=== PATIENT | female | born 1960 | race Caucasian/White ===

== ENCOUNTER → 2017-09-13 15:44 | Outpatient (CLI) | payer OTHER, SELFPAY ==
[2017-09-13 17:32] LABS: Absolute Lymphocyte Count 2.55 X10^3/ul (0.83-4.51); Absolute Neutrophil Count 5.1 X10^3/uL (2.0-7.7); Basophil# 0.02 X10^3/uL; Basophil% 0.2 % (0-1); Eosinophil# 0.13 X10^3/uL; Eosinophils% 1.5 % (0-5); Hematocrit 40.6 % (37-47); Lymphocyte # 2.55 X10^3/ul (4.0); Lymphocyte % 29.8 % (19-41); Mean Corpuscular Hgb 30.9 pg (27.0-32.0); Mean Corpuscular Volume 96.4 fL (81-99); Mean Platelet Vol. 9.9 fl (6.2-12.0); Monocyte# 0.76 X10^3/uL; Monocyte% 8.9 % (0-10); Neutrophil # 5.08 X10^3/uL (2.7-7.7); Neutrophil % 59.4 % (47-70); Platelet Count 314 K/mm3 (150-450); RBC Distribution Width CV 13.8 % (11.6-14.6); RBC Distribution Width SD 48.3 fl (35.1-43.9); Red Blood Count 4.21 M/mm3 (4.2-5.4); White Blood Count 8.6 K/mm3 (4.4-11.0)
[2017-09-13 17:41] LABS: POSITIVE COUNT NO; POSITIVE DIFFERENTIAL NO; POSITIVE MORPHOLOGY NO
[2017-09-13 17:59] LABS: Erythrocyte Sedimentation Rate 16 mm/hr (0-30); T3 Total - Triiodothyronine 0.76 ng/mL (0.6-1.81)
[2017-09-13 18:18] LABS: ALB/GLOB Ratio 1.1 RATIO (0.9-2.4); AST(SGOT) 19 U/L (15-37); Alanine Aminotransfer ALT/SGPT 38 U/L (13-56); Albumin, Serum 3.7 g/dL (3.2-5.0); Alkaline Phosphatase 85 U/L (45-117); Anion Gap 8 (5-15); BUN 12 mg/dL (7-18); BUN/Creat Ratio 12.4 RATIO (10-20); Calcium,Total 8.7 mg/dL (8.5-10.1); Chloride 101 mmol/L (98-107); Creatinine, Serum 0.97 mg/dL (0.55-1.02); EST Glomerular Filtration Rate 63 mL/min (>60); Est Glom Filt Rate - Afr Amer 76 mL/min (>60); Globulin 3.4 g/dL (2.2-4.2); Glucose 101 mg/dL (74-106); Potassium 3.9 mmol/L (3.5-5.1); Protein, Total 7.1 g/dL (6.4-8.2); Rheumatoid Factor < 10.0 IU/mL (<15); Sodium Level 139 mmol/L (136-145); T4 Free Direct 0.85 ng/dL (0.76-1.46); Thyroid Stim Hormone (TSH) 1.01 uIU/mL (0.358-3.74)
[2017-09-16 14:07] LABS: Anti-Centromere B Ab <0.2 AI (0.0-0.9); Anti-Chromatin <0.2 AI (0.0-0.9); Anti-Jo <0.2 AI (0.0-0.9); Anti-Scleroderma-70 AB <0.2 AI (0.0-0.9); Anti-ribosomal P Antibodies <0.2 AI (0.0-0.9); RNP Ab <0.2 AI (0.0-0.9); SJOGREN'S Anti-SS-A test < 0.2 AI (0.0-0.9); SJOGREN'S Anti-SS-B test < 0.2 AI (0.0-0.9); Smith Ab <0.2 AI (0.0-0.9); Smith/RNP Ab <0.2 AI (0.0-0.9)
[2017-09-18 11:09] LABS: CCP IgG Antibodies 3 units (0-19)
[2017-09-18 11:45] LABS: Anti-dsDNA Ab <1 IU/mL (0-9)
== END ==
PROVIDERS: Family Provider Family Medicine; PCP Family Medicine; Visit Provider Family Medicine
DX: E03.9 Hypothyroidism, unspecified (principal); M25.50 Pain in unspecified joint; M79.1 Myalgia; R53.1 Weakness
CPT/HCPCS: 36415; 80053; 84439; 84443; 84480; 85025; 85652; 86038; 86140; 86200; 86225; 86235; 86431

== ENCOUNTER → 2017-10-02 13:35 | Outpatient (CLI) | payer OTHER, SELFPAY | PROVIDERS: Family Provider Family Medicine; PCP Family Medicine; Visit Provider Psychiatry & Neurology Neurology | DX: G47.33 Obstructive sleep apnea (adult) (pediatric) (principal) | CPT/HCPCS: 98960; G0463 ==

== ENCOUNTER 2017-10-12 11:48 | Emergency (ER) | payer OTHER, SELFPAY ==
[2017-10-12 11:49] VITALS: BP 156/106; PULSE 97; RESP 17; TEMP 36.7; O2SAT 97; BMI 36.5
--- NOTE | 2017-10-12 11:59 | CT_ITS ---
STUDY: CT SOFT TISSUE NECK WITH CONTRAST REASON FOR EXAM: Female, 57 years old. Difficulty swallowing for a few months. Patient has developed lump and her swelling since . RADIATION DOSAGE (If Supplied By Facility): CTDIvol = ( 22.02 ) mGy, DLP = ( 626.89 ) mGycm TECHNIQUE: The patient was scanned in a multi-detector CT scanner. High resolution transaxial imaging was performed following intravenous administration of 100 ml of Isovue 300 contrast material. Sagittal and coronal images were reconstructed. Individualized dose optimization techniques were used for this CT. COMPARISON: None. FINDINGS: Normal bilateral parotid glands. Normal bilateral edger hand spaces. Normal bilateral parapharyngeal spaces. Normal bilateral carotid spaces. Normal bilateral sublingual and submandibular glands and spaces. Normal visualized nasopharynx. Normal retropharyngeal space. Normal perivertebral space. Normal visualized bilateral faucial tonsils. The visualized tongue, tongue base and oropharynx are normal. The visualized cervical lymph nodes (levels I-) are within normal size limits, and maintain normal morphology. There is a partially cystic lesion located in the level of the thyroid cartilage. There is predominantly in the midline. This has relatively thick cruz. This mass measures approximately 2.4 x 1.8 x 2.1 cm in size. This is probably clinically palpable. There is no additional abnormal contrast enhancement. Normal epiglottis, bilateral vallecula and hypopharynx. The pre-epiglottic and paraglottic adipose spaces are normal. Normal visualized bilateral piriform sinuses, aryepiglottic folds, vocal cords, and arytenoid-cricoid articulations. Normal subglottic trachea. Normal bilateral lobes of the thyroid gland. Normal visualized pulmonary apices. Normal visualized paranasal sinuses. 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 Normal visualized cervical spine. CT/Soft Tissue Neck WITH Contrast IMPRESSION: Mildly complex cystic lesion located just superior to the thyroid possibly representing a complex thyroglossal cyst. Associated infection is possible. Electronically Signed: Karen Drummond MD at 13:26 EDT , Service support ,
--- NOTE | 2017-10-12 12:03 | ED.DCSUM_ITS ---
- ER Visit Summary Date of Service: 10/12/17 Chief Complaint: Sore throat History of Present Illness: The patient is a 57 F resents to the emergency department with sore throat and trouble swallowing. The patient states she has been having intermittent trouble swallowing for the past few months. She does smoke but denies any history of prior malignancy. She states over the past 3 days, she has had some increasing fullness to the anterior aspect of her neck under her tongue. She states it was tender to touch yesterday. Today, she states the fullness is just been there. She describes some soreness in the throat especially with swallowing. She denies any change in voice. She denies any trouble speaking. The patient does have history of prior thyroglossal duct cyst, but states this feels different. Physical Examination: Vital signs reviewed General: Well-nourished, well-developed Head: Normocephalic, atraumatic Eyes: Pupils equal and reactive, extraocular muscles intact Neck, supple, fullness in the submandibular region, no Ty angina, no trismus or stridor, posterior oropharynx is widely patent Heart: Regular rate and rhythm Respiratory: No distress, clear bilaterally Abdomen: Soft, nontender, nondistended, no peritoneal signs Back: Nontender Extremities: Nontender, no edema, no cords Skin: Normal color no rash Neuro: Alert and oriented, no focal or lateralizing deficits Test Results: [] Emergency Department Course and Treatment: The patient does have some tenderness and fullness in the submandibular region. There is no trismus or stridor. I did review a prior workup. 4 years ago, the patient did have a small cystic mass that was consistent with a thyroglossal duct cyst. I did reimage the patient. It does appear as if the cyst has grown in size. It is still less than doubled. There is no evidence of airway impingement. However, as it is symptomatic I do feel that she is going to require outpatient ENT follow-up. With the tenderness at the area, I will cover the patient with Augmentin. She has no cellulitis. There is no tracking abscess. She has seen Dr. Craig in the past. I am going to have her call on Saturday for reevaluation. She is given a dose of IV Decadron here and will be discharged with Augmentin. Treatment Plan: [] Disposition: Discharge Impression: 1. Complex thyroglossal duct cyst This note was generated with [employer] dictation software. It may contain incorrect words, spelling, and punctuation that were not noted in review of the chart prior to signing ED Disposition - Plan for ED Patient: Chief Complaint: Sore Throat Instructions: ED Pharyngitis Viral Prescriptions: Amox/Clavulanate Tablet [Augmentin Tablet] 875 mg PO Q12H #20 tab Referrals: All Guy MD [STAFF PHYSICIAN] -
[2017-10-12 12:18] LABS: Absolute Lymphocyte Count 2.17 X10^3/ul (0.83-4.51); Absolute Neutrophil Count 5.9 X10^3/uL (2.0-7.7); Basophil# 0.03 X10^3/uL; Basophil% 0.3 % (0-1); Eosinophil# 0.19 X10^3/uL; Eosinophils% 2.1 % (0-5); Hematocrit 43.2 % (37-47); Hemoglobin 14.3 g/dl (12.0-15.0); Lymphocyte # 2.17 X10^3/ul (4.0); Lymphocyte % 23.8 % (19-41); Mean Corp Hgb Conc 33.1 g/gl (32-36); Mean Corpuscular Hgb 31.6 pg (27.0-32.0); Mean Corpuscular Volume 95.4 fL (81-99); Mean Platelet Vol. 9.2 fl (6.2-12.0); Monocyte# 0.81 X10^3/uL; Monocyte% 8.9 % (0-10); Neutrophil # 5.87 X10^3/uL (2.7-7.7); Neutrophil % 64.6 % (47-70); Platelet Count 339 K/mm3 (150-450); Red Blood Count 4.53 M/mm3 (4.2-5.4); White Blood Count 9.1 K/mm3 (4.4-11.0)
[2017-10-12 12:20] LABS: POSITIVE COUNT NO; POSITIVE DIFFERENTIAL NO; POSITIVE MORPHOLOGY NO
[2017-10-12 12:31] LABS: Anion Gap 5 (5-15); BUN 15 mg/dL (7-18); BUN/Creat Ratio 15.4 RATIO (10-20); Calcium,Total 9.4 mg/dL (8.5-10.1); Chloride 106 mmol/L (98-107); Creatinine, Serum 0.98 mg/dL (0.55-1.02); EST Glomerular Filtration Rate 62 mL/min (>60); Est Glom Filt Rate - Afr Amer 75 mL/min (>60); Estimated Creatinine Clearance 47.22 ml/min; Glucose 99 mg/dL (74-106); Sodium Level 141 mmol/L (136-145)
[2017-10-12 13:57] VITALS: PULSE 103; RESP 16; O2SAT 98
== END 2017-10-12 13:58 | disposition home or self-care (01) ==
LOC: ED 13:01
PROVIDERS: Emergency Provider Emergency Medicine; Family Provider Family Medicine; PCP Family Medicine
DX: Q89.2 Congenital malformations of other endocrine glands (principal); F17.200 Nicotine dependence, unspecified, uncomplicated; Z79.82 Long term (current) use of aspirin; Z79.899 Other long term (current) drug therapy
CPT/HCPCS: 70491; 80048; 85025; 96361; 96374; 99285; J7030; J7040; Q9967; A4216

== ENCOUNTER → 2017-10-16 16:05 | Outpatient (CLI) | payer OTHER, SELFPAY ==
--- NOTE | 2017-10-16 16:18 | BI_ITS ---
MAMMOGRAPHY - BILATERAL SCREENING 3-D MOHAN SYNTHESIS REASON FOR EXAM: Female, 57 years old. Bilateral Screening 3-D tomosynthesis PERTINENT HISTORY: No significant family history. TECHNIQUE: 2-D mammograms and 3-D Mohan synthesis of the breast (s) were performed. CAD was performed. COMPARISON: April 16, 2016. FINDINGS: The breast composition is composed of scattered fibroglandular density. No dense spiculated masses or suspicious clustered microcalcifications are identified. No architectural distortion is identified. There is no skin thickening or retraction. There has been no significant change since the prior study. BI/SCREENING MAMM (CAD), BILAT IMPRESSION: No mammographic signs of malignancy. Routine yearly mammograms recommended. ASSESSMENT CATEGORY: BIRADS Category 1: Negative. A letter regarding these results will be sent to the patient by the facility within 30 days. FOLLOW UP RECOMMENDATION: Yearly follow up mammogram recommended. (A) Approximately 10% of breast cancers are not detected by mammography. A normal mammogram should not delay biopsy of a clinically suspicious abnormality. Electronically Signed: Luisito Rajput MD at 7:59 EDT , Service support ,
== END ==
PROVIDERS: Family Provider Family Medicine; PCP Family Medicine; Visit Provider Family Medicine
DX: Z12.31 Encounter for screening mammogram for malignant neoplasm of breast (principal)
CPT/HCPCS: 77063; 77067

== ENCOUNTER → 2017-11-06 16:17 | Outpatient (CLI) | payer OTHER, SELFPAY ==
[2017-11-06 17:49] LABS: Absolute Lymphocyte Count 2.49 X10^3/ul (0.83-4.51); Absolute Neutrophil Count 4.2 X10^3/uL (2.0-7.7); Basophil# 0.03 X10^3/uL; Basophil% 0.4 % (0-1); Eosinophil# 0.18 X10^3/uL; Eosinophils% 2.3 % (0-5); Hematocrit 39.6 % (37-47); Hemoglobin 13.2 g/dl (12.0-15.0); Lymphocyte # 2.49 X10^3/ul (4.0); Lymphocyte % 32.4 % (19-41); Mean Corp Hgb Conc 33.3 g/gl (32-36); Mean Corpuscular Hgb 31.9 pg (27.0-32.0); Mean Corpuscular Volume 95.7 fL (81-99); Mean Platelet Vol. 9.8 fl (6.2-12.0); Monocyte# 0.82 X10^3/uL; Monocyte% 10.7 % (0-10); Neutrophil # 4.15 X10^3/uL (2.7-7.7); Neutrophil % 53.9 % (47-70); Platelet Count 331 K/mm3 (150-450); RBC Distribution Width CV 13.9 % (11.6-14.6); RBC Distribution Width SD 47.1 fl (35.1-43.9); Red Blood Count 4.14 M/mm3 (4.2-5.4); White Blood Count 7.7 K/mm3 (4.4-11.0)
[2017-11-06 17:52] LABS: POSITIVE COUNT NO; POSITIVE DIFFERENTIAL NO; POSITIVE MORPHOLOGY NO
[2017-11-06 18:44] LABS: AST(SGOT) 29 U/L (15-37); Alanine Aminotransfer ALT/SGPT 33 U/L (13-56); Albumin, Serum 3.8 g/dL (3.2-5.0); Alkaline Phosphatase 98 U/L (45-117); Bilirubin, Direct 0.11 mg/dL (0.00-0.30); Globulin 3.5 g/dL (2.2-4.2); Protein, Total 7.3 g/dL (6.4-8.2)
== END ==
PROVIDERS: Family Provider Family Medicine; PCP Family Medicine; Visit Provider Dermatology
DX: Z79.899 Other long term (current) drug therapy (principal)
CPT/HCPCS: 36415; 80076; 85025

== ENCOUNTER → 2017-11-20 16:31 | Outpatient (CLI) | payer OTHER, SELFPAY ==
--- NOTE | 2017-11-20 16:55 | EKG12_ITS ---
Test Reason : PREOP Blood Pressure : / mmHG Vent. Rate : 081 BPM Atrial Rate : 081 BPM P-R Int : 128 ms QRS Dur : 082 ms QT Int : 360 ms P-R-T Axes : 030 -41 061 degrees QTc Int : 418 ms Normal sinus rhythm Possible Left atrial enlargement Left axis deviation , LAHB Left ventricular hypertrophy Abnormal ECG Confirmed by TING BREWER ([id number]), digital editor ADRIANNA DUMONT ([id number]) on 12/02/2017 5:47:59 PM Referred By: Dean Muñoz Confirmed By:TING BREWER
[2017-11-20 17:38] LABS: Anion Gap 9 (5-15); BUN 8 mg/dL (7-18); Calcium,Total 8.8 mg/dL (8.5-10.1); Chloride 104 mmol/L (98-107); EST Glomerular Filtration Rate 61 mL/min (>60); Est Glom Filt Rate - Afr Amer 74 mL/min (>60); Glucose 115 mg/dL (74-106); Potassium 3.6 mmol/L (3.5-5.1); Sodium Level 142 mmol/L (136-145)
== END ==
PROVIDERS: Family Provider Family Medicine; PCP Family Medicine; Visit Provider Otolaryngology
DX: Z01.818 Encounter for other preprocedural examination (principal)
CPT/HCPCS: 36415; 80048; 93005

== ENCOUNTER → 2017-11-26 13:00 | Outpatient (CLI) | payer OTHER, SELFPAY ==
--- NOTE | 2017-11-26 | IMM_PTH ---
PATIENT: KRANTHI PARKER LOC: [facility] U#:[id number] AGE/SX: 64/F ROOM: RE11/26/[address]: Dr. Arie Muñoz MD : 1960 BED: DIS: SPEC #: [id number] RECD: 12/02/17 11:25 STATUS: DINA REIraida #: [id number] YOBANY: 11/26/17 00:[address]: Arie Muñoz DEPT: IMMUNOHISTOCHEMISTRY RECD BY: Ely Eugene ENTERED: 12/02/17 11:26 SP TYPE: IMMUNO OTHR DR: Dr. Juany Jacob DO Tissues: Neck, NOS Procedures: CD20 (add) CD45 (add) CD5 (add) CD79A (add) CD3 (initial) PHYSICIAN & INSTITUTION [place] [id number] SPECIMEN INFORMATION: Tissue Source: Neck cyst Clinical Info: Congenital malformation endocrine glands, thyroglossal duct cyst Specimen Number: [id number] #3 CPT code: 82295, 95395 x4 METHODOLOGY: Deparaffinized sections of prefer/formalin-fixed tissue or PAP/DQ stained slides are incubated with monoclonal/polyclonal antibodies/oligonucleotide probes. Localization is made via biotin free immunoperoxidase method. Appropriate controls are performed and reacted as expected. Results on target cell population are indicated in the following table: RESULTS: ANTIBODY / CLONE RESULT Block 3 CD3 (PS1) positive CD5 (SP10) positive CD20 (L26) positive CD79a (11E3) positive CD45 (RP2/18) positive These tests were developed and their performance characteristics determined by [facility]. They may not have been cleared or approved by the U.S. Food and Drug Administration. The FDA has determined that such clearance or approval is not necessary. INTERPRETATION: Neck cyst: Bone with hematopoietic marrow and lymphoid aggregates polytypic in nature, favor benign. SJ:malini 12/03/17 Case has been reviewed in consultation with Dr. Vargas who concurs with the above diagnosis. IDC:AM
--- NOTE | 2017-11-26 13:00 | CYST_PTH ---
PATIENT: KRANTHI PARKER LOC: [facility] U#:[id number] AGE/SX: 64/F ROOM: RE11/26/[address]: Dr. Arie Muñoz MD : 1960 BED: DIS: SPEC #: [id number] RECD: 11/26/17 15:24 STATUS: DINA JANESSA #: [id number] YOBANY: 11/26/17 13:[address]: Arie Muñoz DEPT: SURGICAL PATHOLOGY RECD BY: Jonah Garnett ENTERED: 12/02/17 04:32 SP TYPE: Cyst OTHR DR: Dr. Juany Jacob, [facility] Tissues: CYST Procedures: Decalcification bone/plaque Surgery Specimen Level III HEADER OPERATION: Roya PRE-OP DIAGNOSIS: Congenital malformation of other endocrine glands, thyroglossal duct cyst TISSUE SUBMITTED: Neck cyst MICROSCOPIC DIAGNOSIS Neck cyst: Thyroglossal duct cyst. Adjacent bone and additional pieces of bone with hematopoietic marrow and lymphoid aggregates, favor benign. KE:malini 12/02/17 COMMENT Immunohistochemistry ([id number]) supports the above diagnosis. This case has been reviewed in consultation with Dr. Vargas who concurs with the above diagnosis. MICROSCOPIC DESCRIPTION Slides are reviewed. GROSS DESCRIPTION Received in fixative is one container labeled with the patient's name and designated neck cyst. The specimen consists of a cyst with adjacent bone measuring 2.5 x 2.5 x 2 cm. It is inked and serially sectioned. The cyst contains turbid mucoid material. Also present are two fragments of bone measuring 0.5 x 0.5 x 0.2 cm. The entire specimen is submitted in three cassettes as follows: 1 & 2 ? cyst, 3 ? bone after decalcification. / KE:malini 11/26/17 TC: CPT: 58644, 07161
--- NOTE | 2017-11-26 13:00 | DT_ITS ---
This patient was seen during an EMR downtime November 25, 2017 - December 02, 2017. This patient may have a combination of paper and electronic documentation or all paper documentation. All documentation is viewable within the e-chart portion of [employer] for each patient visit.
== END ==
PROVIDERS: Family Provider Family Medicine; PCP Family Medicine; Visit Provider Otolaryngology
DX: Q89.2 Congenital malformations of other endocrine glands (principal)
CPT/HCPCS: 88304; 88311; 88341; 88342

== ENCOUNTER 2017-12-11 07:29 | Emergency (ER) | payer OTHER, SELFPAY ==
[2017-12-11 07:30] VITALS: BP 179/97; PULSE 87; RESP 16; TEMP 36.5; O2SAT 94; BMI 38.2
--- NOTE | 2017-12-11 09:10 | ED.DCSUM_ITS ---
- ER Visit Summary Date of Service: 12/11/17 Chief Complaint: Abdominal pain History of Present Illness: The patient is a [address] Jacob. She reports at 130 this morning she was awakened by of abdominal pain that was diffuse. It is now localized to her upper abdomen. Is a continuous waxing and waning pain that she describes as cramping. It is 10 out of 10 at worst and 7 out of 10 currently. Is worsened by nothing and relieved by nothing. She reports that she has been nauseated and vomited approximately 12 times. No blood or emesis. No diarrhea. She has had a loose bowel movement this morning. No blood in her stools or black tarry stools. No dysuria or frequency. Patient reports she had similar pain when she had an appendectomy in 2013. She does complain of both a history of this fatty and spicy food intolerance. States that she last ate approximately 4-1/2 hours prior to this and had a glass of milk and Oreos. Patient was on an unknown antibiotic approximately November 26 after having a partial thyroidectomy by Dr. Muñoz. Patient denies sick contacts. Has not been camping out of the country. No possible bad food exposure. Does not drink well water. Physical Examination: Vitals: Stable. Afebrile. General: Well-nourished and well-developed. Head: Normocephalic atraumatic. Neck: Supple, no lymphadenopathy. No JVD. Nontender. Cardiovascular: Regular rate and rhythm. No murmurs. Respiratory: No respiratory distress. Clear to auscultation bilaterally. Abdominal: Soft, mild diffuse tenderness palpation that is worse over her upper abdomen and moderate in the epigastric region, nondistended, normal bowel sounds. No guarding, rebound, or peritoneal signs. Back: Nontender. Extremities: Nontender, no edema. Skin: Normal color, no rash. Neurologic: Alert and oriented ?3. Cranial nerves II through XII are intact. Normal strength and sensation. Psych: Normal affect. Test Results: CBC is remarkable for a white count of 19.4 with 89 segmented neutrophils and 5 lymphocytes. Hemoglobin is 15.1. Chem-7 is more for glucose of 141. LFTs are normal. Lipase is normal. UA is normal. Ultrasound of the right upper quadrant shows a normal distended gallbladder with a 3 mm wall. Common bile duct is 4 mm. There is a 4 mm polyp and sludge. No Burt sign. No pericholecystic fluid. Emergency Department Course and Treatment: Patient received Zofran by squad reports that her nausea has improved. She was given a dose of morphine IV and is resting comfortably. Treatment Plan: Discussed the patient the finding of her gallbladder ultrasound and she is asking to follow-up with Dr. Moreno who is not on-call at this time. She will be discharged with [place] and Zofran. I suspect her leukocytosis is demargination from vomiting. She has no other signs of cholecystitis. Feel that she is a suitable candidate for out patient follow- up. Return to the emergency department for any worsening symptoms. Disposition: To home in improved and stable condition. Impression: 1. Abdominal pain, uncertain cause. 2. Vomiting. 3. Biliary sludge. 4. Gallbladder polyp. This note was generated with [employer] dictation software. It may contain incorrect words, spelling, and punctuation that were not noted in review of the chart prior to signing ED Disposition - Plan for ED Patient: Chief Complaint: Nausea/Vomiting/Diarrhea Instructions: ED Nausea Vomiting Prescriptions: Oxycodone HCl/Acetaminophen [Percocet 5/325] 1 tablet PO Q6H PRN PRN 3 Days #12 tablet PRN Reason: Pain Ondansetron [Zofran Odt] 4 mg PO Q8H PRN PRN #10 tablet PRN Reason: Nausea Referrals: Juany Jacob DO [Primary Care Provider] - 1-2 Days if not improving Pablo Moreno MD [STAFF PHYSICIAN] -
[2017-12-11 09:11] LABS: Absolute Lymphocyte Count 0.96 X10^3/ul (0.83-4.51); Absolute Neutrophil Count 17.2 X10^3/uL (2.0-7.7); Basophil# 0.04 X10^3/uL; Basophil% 0.2 % (0-1); Eosinophil# 0.09 X10^3/uL; Eosinophils% 0.5 % (0-5); Hematocrit 45.4 % (37-47); Hemoglobin 15.1 g/dl (12.0-15.0); Lymphocyte # 0.96 X10^3/ul (4.0); Lymphocyte % 4.9 % (19-41); Mean Corp Hgb Conc 33.3 g/gl (32-36); Mean Corpuscular Hgb 31.9 pg (27.0-32.0); Mean Platelet Vol. 9.1 fl (6.2-12.0); Monocyte# 1.06 X10^3/uL; Monocyte% 5.5 % (0-10); Neutrophil # 17.22 X10^3/uL (2.7-7.7); Neutrophil % 88.6 % (47-70); Platelet Count 344 K/mm3 (150-450); RBC Distribution Width CV 13.4 % (11.6-14.6); RBC Distribution Width SD 46.1 fl (35.1-43.9); Red Blood Count 4.73 M/mm3 (4.2-5.4); White Blood Count 19.4 K/mm3 (4.4-11.0)
[2017-12-11 09:12] LABS: POSITIVE COUNT NO; POSITIVE DIFFERENTIAL NO; POSITIVE MORPHOLOGY NO
[2017-12-11] MEDS: Morphine 4 MG/ML Syringe IV ×2 (09:12→12:23)
[2017-12-11] MEDS: 0.9% Normal Saline 1,000 ML 1000 ML IV (09:12)
--- NOTE | 2017-12-11 09:12 | US_ITS ---
STUDY: ABDOMINAL ULTRASOUND - RIGHT UPPER QUADRANT REASON FOR VISIT: Female, 57 years old. Abnormal labs TECHNIQUE: Ultrasound evaluation of the right upper quadrant was performed with real-time and static pereira-scale imaging. TECHNICAL QUALITY: Limited. Examination limited due to obesity. COMPARISON: None. FINDINGS: Liver: The liver measures 13.5 cm. There is increased echogenicity consistent with fatty infiltration. The bile ducts are within normal limits. There is hepatic color flow. The direction of portal flow is hepatopetal. There is no demonstrated mass lesion. Gallbladder: Normal distended gallbladder. The gallbladder wall measures 3 mm. There is a negative sonographic Burt's sign. There is no pericholecystic fluid. There is biliary sludge dependent within the gallbladder. Small gallbladder polyp measuring 4 mm. Common Bile Duct (C.B.D.): The common bile duct measures 4 mm. Pancreas: Normal size of the head, body and tail of the pancreas. There is normal echogenicity of the pancreas. There is no demonstrated pancreatic mass or cyst. Right Kidney: Normal size of the right kidney. The right kidney measures 9.1 cm. Normal renal cortex. The right cortex measures 1.2 cm. There is no demonstrated renal mass or cyst. There is no right hydronephrosis. US/Gallbladder IMPRESSION: Gallbladder sludge with small gallbladder polyp. Mildly fatty liver. Electronically Signed: Adolfo Ledezma DO at 11:28 EDT Tel , Service support ,
[2017-12-11 09:32] LABS: AST(SGOT) 31 U/L (15-37); Alanine Aminotransfer ALT/SGPT 56 U/L (13-56); Albumin, Serum 3.8 g/dL (3.2-5.0); Alkaline Phosphatase 107 U/L (45-117); Anion Gap 5 (5-15); BUN 12 mg/dL (7-18); BUN/Creat Ratio 12.3 RATIO (10-20); Bilirubin, Direct 0.08 mg/dL (0.00-0.30); Calcium,Total 9.3 mg/dL (8.5-10.1); Chloride 103 mmol/L (98-107); Creatinine, Serum 0.97 mg/dL (0.55-1.02); EST Glomerular Filtration Rate 63 mL/min (>60); Est Glom Filt Rate - Afr Amer 76 mL/min (>60); Glucose 141 mg/dL (74-106); Lipase 134 U/L (73-393); Potassium 4.4 mmol/L (3.5-5.1); Protein, Total 7.8 g/dL (6.4-8.2); Sodium Level 139 mmol/L (136-145)
[2017-12-11 10:18] VITALS: BP 198/102; PULSE 89; RESP 16; TEMP 36.7; O2SAT 97
[2017-12-11 10:20] LABS: Bacteria 0 SEEN /hpf (None Seen); Mucous, Urine 0 SEEN /hpf (<or=2+); Red Blood Cells-Urine 0 SEEN /hpf (0-5); White Blood Cells 0 SEEN /hpf (0-5)
[2017-12-11 10:30] LABS: Color, Urine Yellow (Yellow); Glucose, Dipstick Normal (Normal); Ketone-Dipstick Negative (Negative); Leukocyte Esterase-Dipstick Negative /ul (Negative); Nitrite-Dipstick Negative (Negative); Occult Blood-Urine Negative /ul (Negative); Protein-Dipstick Negative (Negative); Urine Bilirubin Dipstick Negative (Negative); Urine Clarity Clear (Clear); Urine Urobilinogen Normal (Normal)
[2017-12-11 10:37] LABS: Squamous Epithelial Cells - UA 0-5 SEEN /hpf (5-10)
[2017-12-11] MEDS: Ondansetron 4 MG/2 ML Vial IV (12:22)
[2017-12-11 12:28] VITALS: BP 145/92; PULSE 103; RESP 16; RESP 18; O2SAT 92
== END 2017-12-11 12:29 | disposition home or self-care (01) ==
PROVIDERS: Emergency Provider Emergency Medicine; Family Provider Family Medicine; PCP Family Medicine
DX: R10.10 Upper abdominal pain, unspecified (principal); R11.2 Nausea with vomiting, unspecified; K82.4 Cholesterolosis of gallbladder; E03.9 Hypothyroidism, unspecified; R51 Headache; M79.7 Fibromyalgia; G47.33 Obstructive sleep apnea (adult) (pediatric); Z72.0 Tobacco use; Z79.82 Long term (current) use of aspirin; Z79.899 Other long term (current) drug therapy
CPT/HCPCS: 76705; 80048; 80076; 81001; 83690; 85025; 96361; 96374; 96375; 96376; 99285; A4216; J2405

== ENCOUNTER → 2017-12-12 14:19 | Outpatient (CLI) | payer OTHER, SELFPAY ==
[2017-12-12 15:58] LABS: Absolute Lymphocyte Count 2.64 X10^3/ul (0.83-4.51); Absolute Neutrophil Count 3.8 X10^3/uL (2.0-7.7); Basophil# 0.02 X10^3/uL; Basophil% 0.3 % (0-1); Eosinophil# 0.25 X10^3/uL; Eosinophils% 3.3 % (0-5); Hematocrit 40.2 % (37-47); Hemoglobin 13.1 g/dl (12.0-15.0); Lymphocyte # 2.64 X10^3/ul (4.0); Lymphocyte % 35.2 % (19-41); Mean Corp Hgb Conc 32.6 g/gl (32-36); Mean Corpuscular Hgb 31.9 pg (27.0-32.0); Mean Corpuscular Volume 97.8 fL (81-99); Mean Platelet Vol. 9.8 fl (6.2-12.0); Monocyte# 0.77 X10^3/uL; Monocyte% 10.3 % (0-10); Neutrophil # 3.81 X10^3/uL (2.7-7.7); Neutrophil % 50.6 % (47-70); Platelet Count 305 K/mm3 (150-450); RBC Distribution Width CV 13.2 % (11.6-14.6); RBC Distribution Width SD 46.3 fl (35.1-43.9); Red Blood Count 4.11 M/mm3 (4.2-5.4); White Blood Count 7.5 K/mm3 (4.4-11.0)
[2017-12-12 16:13] LABS: POSITIVE COUNT NO; POSITIVE DIFFERENTIAL NO; POSITIVE MORPHOLOGY NO
== END ==
PROVIDERS: Family Provider Family Medicine; PCP Family Medicine; Visit Provider Surgery
DX: D72.829 Elevated white blood cell count, unspecified (principal)
CPT/HCPCS: 36415; 85025

== ENCOUNTER → 2017-12-17 10:09 | Outpatient (CLI) | payer OTHER, SELFPAY ==
--- NOTE | 2017-12-17 10:11 | NM_ITS ---
CLINICAL: 57-year-old female with reported history of right upper quadrant abdominal pain and nausea. RADIONUCLIDE HEPATOBILIARY SCINTIGRAPHY COMPARISON: Abdominal ultrasound report 12/19/2017 FINDINGS: Following the intravenous administration of 5.8 mCi of 99m Tc Mebrofenin, hepatobiliary images reveal: 1. Relatively prompt and homogeneous radiopharmaceutical concentration is noted by a normal sized liver. No parenchymal defects are identified. 2. Gallbladder activity is identified at 30 minutes post radiopharmaceutical administration. 3. Small intestinal tract is observed at 15 minutes following tracer injection. 4. Washout of the radiopharmaceutical by the hepatic parenchyma appears qualitatively normal. Cholecystokinin (0.02 ug/kg) was administered intravenously over a 30-minute period. The post CCK gallbladder ejection fraction calculated at 30 minutes following Cholecystokinin administration was noted to be 48.0 % (normal greater than 35%). During 30 minutes of post CCK imaging, there is no scintigraphic evidence of reflux of the radiotracer into the common hepatic duct or refilling of the gallbladder. MN/Hepatobilliary Img w/Pharm Int IMPRESSION: 1. NORMAL 99m Tc Mebrofenin hepatobiliary imaging examination with Cholecystokinin. A. A gallbladder ejection fraction calculated to be greater than 35% following the administration of Cholecystokinin makes the probability of functional hepatobiliary disease (gallbladder and/or sphincter of Oddi dyskinesia) and/or organic hepatobiliary disease (chronic acalculous cholecystitis and/or cystic duct syndrome) to be low. (Char Meier et al, Journal of Nuclear Medicine 32:1695, 1990). Electronically Signed: Jonah Clark DO at 10:32 EDT Tel , Service support ,
== END ==
PROVIDERS: Family Provider Family Medicine; PCP Family Medicine; Visit Provider Surgery
DX: R10.13 Epigastric pain (principal); R10.11 Right upper quadrant pain
CPT/HCPCS: 78227; A9537; J2805

== ENCOUNTER 2018-01-02 08:12 | Day surgery (SDC) | payer OTHER, SELFPAY ==
--- NOTE | 2018-01-02 | GASB_PTH ---
PATIENT: KRANTHI PARKER LOC: EN U#:[id number] AGE/SX: 57/F ROOM: RE01/02/[address]: Dr. Yarelis Cali MD : 1960 BED: DIS: 01/02/2018 SPEC #: [id number] RECD: 01/02/18 14:17 STATUS: DINA JANESSA #: [id number] YOBANY: 01/02/18 00:[address]: Yarelis Cali DEPT: SURGICAL PATHOLOGY RECD BY: Alli Peterson ENTERED: 01/02/18 14:18 SP TYPE: Gastric Bx OTHR DR: Dr. Juany Jacob DO Tissues: A - Gastric mucous membrane B - Gastric mucous membrane C - Gastric mucous membrane Procedures: Special Stain Group II Surgery Specimen Level IV Alcian Blue/PAS (control) HEADER OPERATION: EGD PRE-OP DIAGNOSIS: Reflux, epigastric pain TISSUE SUBMITTED: A ? Antral biopsy, B ? Gastric polyp biopsy, C ? GE junction biopsy MICROSCOPIC DIAGNOSIS A. Antral biopsy: Mild gastritis. See microscopic description and comment. B. Gastric polyp, biopsy: Fundic gland polyp. C. GE junction, biopsy: Fragments of gastroesophageal mucosa with chronic inflammation. Intestinal metaplasia (goblet cell metaplasia) is not identified. See comment. SJ:rg 01/03/18 COMMENT A. The results of immunohistochemistry for Helicobacter pylori will be reported separately ([id number]). B. Alcian blue/PAS stain with matched control is used in the evaluation of the specimen. MICROSCOPIC DESCRIPTION Slides are reviewed. A. The specimen shows fragments of gastric mucosa with chronic inflammatory cell infiltrates in the lamina propria consisting of lymphocytes and plasma cells, consistent with mild chronic gastritis. GROSS DESCRIPTION A - Received in fixative is one container labeled with the patient's name and designated antral biopsy. The specimen consists of two irregular fragments of light machado soft tissue that in aggregate measure 0.3 x 0.3 x 0.1 cm. The specimen is totally submitted in one cassette. B - Received in fixative is one container labeled with the patient's name and designated gastric polyp biopsy. The specimen consists of one irregular fragment of light machado soft tissue that measures 0.3 x 0.3 x 0.1 cm. The specimen is totally submitted in one cassette. C - Received in fixative is one container labeled with the patient's name and designated GE junction biopsy. The specimen consists of two irregular fragments of light machado soft tissue that in aggregate measure 0.6 x 0.3 x 0.1 cm. The specimen is totally submitted in one cassette. / SJ:malini 01/02/18 TC: CPT: 08933 x3, 92058
--- NOTE | 2018-01-02 | IMM_PTH ---
PATIENT: KRANTHI PARKER LOC: EN U#:[id number] AGE/SX: 57/F ROOM: RE01/02/[address]: Dr. Yarelis Cali MD : 1960 BED: DIS: 01/02/2018 SPEC #: [id number] RECD: 01/03/18 13:13 STATUS: DINA REIraida #: [id number] YOBANY: 01/02/18 00:[address]: Yarelis Cali DEPT: IMMUNOHISTOCHEMISTRY RECD BY: Ely Eugene ENTERED: 01/03/18 13:14 SP TYPE: IMMUNO OTHR DR: Dr. Juany Jacob DO Tissues: A - Stomach, NOS Procedures: H Pylori (initial) PHYSICIAN & INSTITUTION [place] [id number] SPECIMEN INFORMATION: Tissue Source: A ? Antral biopsy Clinical Info: Reflux, epigastric pain Specimen Number: [id number] CPT code: 21947 METHODOLOGY: Deparaffinized sections of prefer/formalin-fixed tissue or PAP/DQ stained slides are incubated with monoclonal/polyclonal antibodies/oligonucleotide probes. Localization is made via biotin free immunoperoxidase method. Appropriate controls are performed and reacted as expected. Results on target cell population are indicated in the following table: RESULTS: ANTIBODY / CLONE RESULT Block A H Pylori (polyclonal) negative These tests were developed and their performance characteristics determined by [facility]. They may not have been cleared or approved by the U.S. Food and Drug Administration. The FDA has determined that such clearance or approval is not necessary. INTERPRETATION: A. Antral biopsy: Negative for Helicobacter pylori organisms. SJ:malini 01/06/18
[2018-01-02 08:37] VITALS: BP 147/93; PULSE 85; RESP 16; TEMP 36.9; O2SAT 99; BMI 36.6
[2018-01-02 10:32] VITALS: BP 134/75; BP 147/93; PULSE 77; RESP 18; TEMP 36.3; O2SAT 98
[2018-01-02 10:35] VITALS: BP 126/73; BP 147/93; PULSE 77; RESP 18; O2SAT 97
[2018-01-02 10:40] VITALS: BP 130/73; BP 147/93; PULSE 69; RESP 18; O2SAT 98
--- NOTE | 2018-01-02 10:43 | PCM.OPRPT ---
Report of Operation Date of Procedure: 01/02/18 Pre-Operative Diagnosis: GERD, left upper quadrant/epigastric/right upper quadrant pain Post-Operative Diagnosis: GERD/gastritis, duodenitis, gastric polyps, hiatal hernia Surgery/Procedure Performed:: EGD with biopsy Type of Anesthesia:: MAC Anesthesiologist: Davis Koroma Specimen's removed: 1. Antrum, 2. Gastric polyp, 3. GE junction Estimated Blood Loss (mL): Minimal Description of Procedure: Procedure: EGD After obtaining informed consent, the endoscope was passed under direct visualization. Throughout the procedure, patient's blood pressure, pulse, oxygen saturations were monitored continuously by anesthesia. The endoscope was introduced through the mouth and advanced to the 2nd part of the duodenum. The upper GI endoscopy was accomplished without difficulty. Patient tolerated procedure well. Findings: Small hiatal hernia was present. Mild erythematous mucosa found gastric antrum, cold forceps biopsies were taken of the antrum for histology and H. pylori, multiple gastric polyps likely fundic gland polyps were also seen and cold forceps biopsy was taken of one. Patient also had mucosal changes with small column of mucosal change extending into the distal esophagus about a centimeter, cold forceps biopsies were taken of the area. Biopsies were taken with cold biopsy for histology. Estimated blood loss was minimal. Mild erythematous mucosa was also seen in the first portion of the duodenum. Impression: 1. Small hiatal hernia 2. Gastritis. Biopsied. 3. Gastric polyp. Biopsied 4. Duodenitis 5. Change of mucosa at the GE junction/GERD. Biopsied Recommendations: Await biopsies Patient was previously taking omeprazole 20 mg p.o. twice daily and still has evidence of gastritis/duodenitis recommend patient going back on her Nexium okay for generic 40 mg p.o. twice daily and continuing the Carafate until it is completed. - Complications None
[2018-01-02 10:45] VITALS: BP 143/75; BP 147/93; PULSE 71; RESP 18; TEMP 36.4; O2SAT 96
[2018-01-02 11:27] VITALS: BP 147/93
== END 2018-01-02 11:31 | disposition home or self-care (01) ==
LOC: EN 08:12 → AC 08:14
PROVIDERS: Family Provider Family Medicine; PCP Family Medicine; Visit Provider Surgery
PROC: 0DJ08ZZ Inspection of Upper Intestinal Tract, Via Natural or Artificial Opening Endoscopic (ICD-10-PCS; CPT 43235; principal; 2018-01-02 09:25)
DX: K29.70 Gastritis, unspecified, without bleeding (principal); K44.9 Diaphragmatic hernia without obstruction or gangrene; K31.7 Polyp of stomach and duodenum; K29.80 Duodenitis without bleeding; K20.9 Esophagitis, unspecified; K82.8 Other specified diseases of gallbladder; E03.9 Hypothyroidism, unspecified; E78.00 Pure hypercholesterolemia, unspecified; G47.30 Sleep apnea, unspecified; G25.81 Restless legs syndrome; F32.9 Major depressive disorder, single episode, unspecified; F17.200 Nicotine dependence, unspecified, uncomplicated; Z78.0 Asymptomatic menopausal state; Z79.82 Long term (current) use of aspirin; Z79.899 Other long term (current) drug therapy; Z90.710 Acquired absence of both cervix and uterus
CPT/HCPCS: 43239; 88305; 88313; 88342; J7120

== ENCOUNTER → 2018-01-09 15:58 | Outpatient (CLI) | payer OTHER, SELFPAY ==
[2018-01-09 17:54] LABS: T4 Free Direct 0.75 ng/dL (0.76-1.46); Thyroid Stim Hormone (TSH) 1.02 uIU/mL (0.358-3.74)
[2018-01-10 08:27] LABS: T3 Total - Triiodothyronine 0.91 ng/mL (0.6-1.81)
== END ==
PROVIDERS: Visit Provider Family Medicine
DX: E03.9 Hypothyroidism, unspecified (principal)
CPT/HCPCS: 36415; 84439; 84443; 84480

== ENCOUNTER 2018-01-13 07:40 | Day surgery (SDC) | payer OTHER, SELFPAY ==
[2018-01-10 16:28] LABS: AST(SGOT) 32 U/L (15-37); Alanine Aminotransfer ALT/SGPT 45 U/L (13-56); Albumin, Serum 3.5 g/dL (3.2-5.0); Alkaline Phosphatase 101 U/L (45-117); Bilirubin, Direct 0.06 mg/dL (0.00-0.30); Globulin 3.5 g/dL (2.2-4.2); Lipase 138 U/L (73-393)
[2018-01-13] VITALS (9 sets, daily range): BP systolic 122–182; BP diastolic 63–103; PULSE 73–86; RESP 16; TEMP 36.3–36.8; O2SAT 92–100; BMI 36.6
--- NOTE | 2018-01-13 09:23 | DCINST_ITS ---
Discharge Diet: Light diet - advance as tolerated Discharge Activity: May not drive while taking narcotic pain medications. Lifting Restrictions: no lifting >20 lbs for 4 weeks Call your doctor if your incision/area has: Continuous Slow Oozing, Sudden Increased Bleeding, Increased Pain/ Swelling, Increased Redness, Foul Smelling Discharge, Swelling at the incision site Call your doctor if you observe: Fever of 101 or Higher Additional Instructions: Percocet may cause constipation. Recommend taking daily stool softener with the Percocet. Okay to take ibuprofen in between doses of Percocet but did not take Tylenol as Tylenol is already in the Percocet. Food if no bowel movement for 2 days recommend taking several doses of MiraLAX the following day. If no results from the MiraLAX recommend taking half a bottle of magnesium citrate the next day and waiting 6 hours. Still if no BM, would recommend taking the other half of the magnesium citrate. Allergies/Adverse Reactions: Allergies erythromycin base [Erythromycin Base] Adverse Reaction (Verified 01/10/18 14:28) Nausea hydrocodone bitartrate [From Vicodin] Adverse Reaction (Verified 01/10/18 14:28) Itching Medications to take at Discharge Aspirin [Aspirin, Baby] 81 mg PO DAILY 12/07/13 Levothyroxine [Synthroid] 50 mcg PO DAILY 12/07/13 Multivit with Calcium,Iron,Min [Multiple Vitamins For Women] 1 ea PO DAILY 12/07 Pilocarpine HCl 7.5 mg PO BID 12/07/13 Cyclosporine [Restasis] 1 ea EACH EYE BID 12/18/16 Duloxetine Hcl [Cymbalta] 60 mg PO DAILY 12/18/16 [place]-3 Fatty Acids/Fish Oil [[place] 3 Fish Oil Softgel] 1 ea PO DAILY 12/18/16 Omeprazole [Prilosec] 20 mg PO BID 12/18/16 Sucralfate [Carafate] 1 gm PO PRN PRN 12/18/16 Sumatriptan Succinate [Imitrex] 100 mg PO .X1 PRN PRN 12/18/16 Duloxetine HCl 30 mg PO QHS 12/11/17 Ondansetron [Zofran Odt] 4 mg PO Q8H PRN PRN #10 tab 12/11/17 Oxycodone HCl/Acetaminophen [Percocet 5/325] 1 tab PO Q6H PRN PRN 3 Days #12 tab 12/11/17 Bupropion HCl [Wellbutrin Sr] 150 mg PO BID 01/10/18 Oxycodone HCl/Acetaminophen [Percocet 5/325] 1 - 2 tablet PO Q6H PRN PRN 4 Days #25 tablet 01/13/18 The following prescriptions were given: Oxycodone HCl/Acetaminophen [Percocet 5/325] 1 - 2 tablet PO Q6H PRN PRN 4 Days #25 tablet PRN Reason: Pain Primary Care Physician: Juany Jacob DO [Primary Care Provider] - Test Results: Test results from this visit will be discussed in further detail at your follow- up appointment, if applicable. Please Follow Up With: Yarelis Cali MD - After 5:00/weekends call with any concerns When: Call the office for an appointment 2 weeks Proposed Discharge Date: 01/13/18
--- NOTE | 2018-01-13 09:25 | GALL_PTH ---
PATIENT: KRANTHI PARKER [place] [facility] [id number] AGE/SX: 57/F ROOM: RE01/13/[address]: Dr. Yarelis Cali MD : 1960 BED: DIS: 01/13/2018 SPEC #: [id number] RECD: 01/13/18 11:50 STATUS: DINA JANESSA #: [id number] YOBANY: 01/13/18 09:[address]: Yarelis Cali DEPT: SURGICAL PATHOLOGY RECD BY: David Blum ENTERED: 01/13/18 13:05 SP TYPE: YENNY WAY DR: Dr. Juany Jacob, DO Tissues: Gallbladder, NOS Procedures: Surgery Specimen Level III HEADER OPERATION: Laparoscopic cholecystectomy PRE-OP DIAGNOSIS: Gallbladder sludge, epigastric/right upper quadrant pain TISSUE SUBMITTED: Gallbladder MICROSCOPIC DIAGNOSIS Gallbladder: Chronic cholecystitis. No stones are identified in the container or in the gallbladder. SJ:malini 01/14/18 MICROSCOPIC DESCRIPTION Slides are reviewed. GROSS DESCRIPTION Received is one container labeled with the patient's name and designated gallbladder. The specimen consists of a gallbladder measuring 6 cm in length and up to 3 cm in diameter. The external surface is pink-machado, smooth and glistening for the most part. Focally it is granular, hemorrhagic and contains cautery artifact. The gallbladder contains green-yellow mucoid bile and a small amount of brown sludge material. No stones are identified in the container or in the gallbladder. The mucosa is bile-stained and without any mass lesions. The gallbladder wall measures up to 0.2 cm in thickness. [facility] sections from the gallbladder and the cystic duct are submitted in one cassette. / KE:malini 01/13/18 TC:3 CPT: 72068
[2018-01-13] MEDS: Bupivacaine Mpf 0.5% 30 ML VIAL (10:50)
--- NOTE | 2018-01-13 11:02 | OP.PCM_ITS ---
Report of Operation Date of Procedure: 01/13/18 Pre-Operative Diagnosis: Gallbladder sludge Post-Operative Diagnosis: Same Surgery/Procedure Performed:: Laparoscopic cholecystectomy Type of Anesthesia:: General/Supplemental Anesthesiologist: Magdi Osuna Special Medications: Cefotetan 2 g IV ?1 Specimen's removed: 1. Gallbladder Estimated Blood Loss (mL): 40 cc Description of Procedure: Indications this is a 57 year-old female who developed epigastric/right upper quadrant abdominal pain/nausea/vomiting and on workup was found to have gallbladder sludge, 4 mm gallbladder polyp with a normal common bile duct and normal liver function enzymes. Laparoscopic cholecystectomy was elected. Description procedure: The patient was placed on operating table in supine position. General Anesthesia was induced. A timeout was completed verifying correct patient, procedure, site, position, social, and special equipment prior to beginning procedure. An orogastric tube was placed. The abdomen was prepped and draped in usual sterile fashion. An incision was made in the natural skin line above the umbilicus. The fascia was elevated and incised. The peritoneum was elevated and incised. Entry into the peritoneum was confirmed visually and no bowel was noted in the vicinity of the incision. Hutson trocar was placed. The abdomen was insufflated with carbon dioxide to a pressure of 12-15 mmHg. Patient tolerated insufflation well. The laparoscope was then inserted and abdomen inspected. No injuries from initial trocar placement were noted. Additional trochars were then inserted in the following locations 5 mm trocar in the epigastrium and 2 more 5 mm trochars along the right costal margin. The abdomen was inspected no abnormalities were found. The table is placed in reverse Trendelenburg position with the right side up. The adhesions between the gallbladder and omentum were lysed sharply. The dome of the gallbladder was grasped with atraumatic grasper passed through the lateral port and retracted over the dome of the liver. Infundibulum was then grasped with atraumatic grasper through the midclavicular port and retracted to the right lower quadrant. This maneuver exposed Calot's triangle. The peritoneum overlying the gallbladder infundibulum was then incised and cystic duct and artery identified and circumferentially dissected. The cystic duct and artery were then doubly clipped and divided close to the gallbladder. The gallbladder then dissected from its peritoneal attachments by electrocautery. Hemostasis was checked and the gallbladder and contained stones were removed using the endoscopic retrieval bag through the umbilical port. The gallbladder is passed off table as specimen. The gallbladder fossa was copiously irrigated with saline and hemostasis obtained. There is no evidence of bleeding from the gallbladder fossa or cystic artery leakage of bile from the cystic duct stump. Secondary trochars removed under direct vision. No bleeding was noted the trocar sites. The laparoscope was withdrawn and umbilical trocar removed. The abdomen was allowed to collapse. The fascia of the 12 mm trocar was closed with a [id number] 0 Vicryl suture. The skin was closed with sutures of 4- 0 Monocryl and Steri-Strips. The orogastric tube was removed and the patient was extubated. The patient tolerated procedure well and was taken to the postanesthesia care unit in stable condition. - Complications none
== END 2018-01-13 13:58 | disposition home or self-care (01) ==
LOC: SDC 07:40 → AC 07:41
PROVIDERS: Family Provider Family Medicine; PCP Family Medicine; Visit Provider Surgery
PROC: (CPT 47610; principal; 2018-01-13 09:05)
DX: K81.1 Chronic cholecystitis (principal); E03.9 Hypothyroidism, unspecified; E78.00 Pure hypercholesterolemia, unspecified; M06.9 Rheumatoid arthritis, unspecified; G25.81 Restless legs syndrome; M79.7 Fibromyalgia; G47.30 Sleep apnea, unspecified; K21.9 Gastro-esophageal reflux disease without esophagitis; F32.9 Major depressive disorder, single episode, unspecified; F41.9 Anxiety disorder, unspecified; F17.200 Nicotine dependence, unspecified, uncomplicated; Z79.82 Long term (current) use of aspirin; Z79.899 Other long term (current) drug therapy; Z78.0 Asymptomatic menopausal state; Z98.51 Tubal ligation status; Z90.710 Acquired absence of both cervix and uterus
CPT/HCPCS: 00790; 47562; 36415; 80076; 83690; 88304; J7120; J2405

== ENCOUNTER → 2018-03-20 17:00 | Outpatient (CLI) | payer OTHER, SELFPAY ==
--- NOTE | 2018-03-20 17:22 | RAD_ITS ---
STUDY: X-RAY - PELVIS AND LEFT HIP REASON FOR EXAM: Female, 57 years old. Hip pain TECHNIQUE: Radiological exam, hip, unilateral, with pelvis when performed; 2 or 3 views. COMPARISON: None. FINDINGS: There is a non-specific bowel gas pattern. Normal visualized soft tissue structures. Normal bilateral iliac wings, sacroiliac joints and visualized sacrum. Normal bilateral superior and inferior pubic rami. Normal pubic symphysis. Normal bilateral ischial tuberosities. Normal visualized femoral head. Normal acetabulum. Normal hip joint. RAD/HIP, UNI W/ Pelvis 2-3 Views IMPRESSION: Normal x-ray examination of the pelvis and hip. No fracture Electronically Signed: Terrell Arora MD at 5:48 EDT Tel , Service support ,
--- NOTE | 2018-03-20 17:22 | RAD_ITS ---
STUDY: X-RAY - CERVICAL SPINE REASON FOR EXAM: Female, 57 years old. Neck pain TECHNIQUE: 6 view(s) of the cervical spine were obtained. COMPARISON: None FINDINGS: Normal anterior atlantoaxial articulation. Normal odontoid process. Normal cervical lordosis. Normal vertebral bodies and endplates. Normal disc space heights. Normal visualized intervertebral neuroforamina. The soft tissue structures are unremarkable. RAD/Cerv Spine 4 or 5 Views IMPRESSION: Normal x-ray examination of the visualized cervical spine. No fracture. No disc disease. Electronically Signed: Terrell Arora MD at 5:55 EDT Tel , Service support ,
--- NOTE | 2018-03-20 17:22 | RAD_ITS ---
STUDY: X-RAY - LUMBAR SPINE REASON FOR EXAM: Female, 57 years old. Back pain TECHNIQUE: 5 view(s) of the lumbar spine were obtained. COMPARISON: None FINDINGS: The spine is slightly tilted to the left but no scoliosis. There is no disc space narrowing and no acute fractures. The pedicles are intact. RAD/L/S Spine Min 4 Views IMPRESSION: No fracture. No disc disease Electronically Signed: Terrell Arora MD at 5:50 EDT Tel , Service support ,
[2018-03-20 17:43] LABS: Absolute Lymphocyte Count 2.42 X10^3/ul (0.83-4.51); Absolute Neutrophil Count 4.5 X10^3/uL (2.0-7.7); Basophil# 0.03 X10^3/uL; Basophil% 0.4 % (0-1); Eosinophils% 3.7 % (0-5); Hematocrit 39.3 % (37-47); Hemoglobin 12.9 g/dl (12.0-15.0); Lymphocyte # 2.42 X10^3/ul (4.0); Lymphocyte % 30.2 % (19-41); Mean Corp Hgb Conc 32.8 g/gl (32-36); Mean Corpuscular Hgb 31.1 pg (27.0-32.0); Mean Corpuscular Volume 94.7 fL (81-99); Mean Platelet Vol. 9.5 fl (6.2-12.0); Monocyte# 0.78 X10^3/uL; Monocyte% 9.7 % (0-10); Neutrophil # 4.47 X10^3/uL (2.7-7.7); Neutrophil % 55.8 % (47-70); POSITIVE COUNT NO; POSITIVE DIFFERENTIAL NO; POSITIVE MORPHOLOGY NO; Platelet Count 307 K/mm3 (150-450); RBC Distribution Width CV 13.4 % (11.6-14.6); RBC Distribution Width SD 46.5 fl (35.1-43.9); Red Blood Count 4.15 M/mm3 (4.2-5.4)
[2018-03-20 18:25] LABS: Vitamin B12 420 pg/mL (211-911); Vitamin D,25 Hydroxy 23.2 ng/mL (29.95-100.01)
[2018-03-20 18:29] LABS: ALB/GLOB Ratio 1.1 RATIO (0.9-2.4); AST(SGOT) 29 U/L (15-37); Alanine Aminotransfer ALT/SGPT 43 U/L (13-56); Albumin, Serum 3.7 g/dL (3.2-5.0); Alkaline Phosphatase 109 U/L (45-117); Anion Gap 8 (5-15); BUN 11 mg/dL (7-18); Calcium,Total 8.7 mg/dL (8.5-10.1); Chloride 102 mmol/L (98-107); EST Glomerular Filtration Rate 54 mL/min (>60); Est Glom Filt Rate - Afr Amer 66 mL/min (>60); Ferritin 76 ng/mL (8-252); Globulin 3.5 g/dL (2.2-4.2); Glucose 119 mg/dL (74-106); Iron 62 ug/dL (50-170); Potassium 3.5 mmol/L (3.5-5.1); Protein, Total 7.2 g/dL (6.4-8.2); Sodium Level 138 mmol/L (136-145); T4 Free Direct 0.79 ng/dL (0.76-1.46); Thyroid Stim Hormone (TSH) 2.72 uIU/mL (0.358-3.74)
== END ==
LOC: MFPLAB 17:00 → MTRAD 17:02
PROVIDERS: Family Provider Family Medicine; PCP Family Medicine; Visit Provider Family Medicine
DX: E03.9 Hypothyroidism, unspecified (principal); R53.83 Other fatigue; E55.9 Vitamin D deficiency, unspecified; R20.2 Paresthesia of skin; D64.9 Anemia, unspecified; M79.605 Pain in left leg; M25.552 Pain in left hip; M54.2 Cervicalgia; M54.40 Lumbago with sciatica, unspecified side
CPT/HCPCS: 36415; 72050; 72110; 73502; 80053; 82306; 82607; 82728; 83540; 84439; 84443; 85025

== ENCOUNTER → 2018-04-17 16:13 | Outpatient (CLI) | payer OTHER, SELFPAY ==
[2018-04-17 17:36] LABS: Absolute Lymphocyte Count 2.06 X10^3/ul (0.83-4.51); Basophil# 0.04 X10^3/uL; Basophil% 0.5 % (0-1); Eosinophil# 0.23 X10^3/uL; Eosinophils% 2.8 % (0-5); Hematocrit 39.4 % (37-47); Hemoglobin 12.8 g/dl (12.0-15.0); Lymphocyte # 2.06 X10^3/ul (4.0); Lymphocyte % 25.5 % (19-41); Mean Corp Hgb Conc 32.5 g/gl (32-36); Mean Corpuscular Hgb 31.3 pg (27.0-32.0); Mean Corpuscular Volume 96.3 fL (81-99); Mean Platelet Vol. 9.3 fl (6.2-12.0); Monocyte# 0.74 X10^3/uL; Monocyte% 9.2 % (0-10); Neutrophil # 4.97 X10^3/uL (2.7-7.7); Neutrophil % 61.5 % (47-70); Platelet Count 363 K/mm3 (150-450); RBC Distribution Width CV 13.4 % (11.6-14.6); RBC Distribution Width SD 45.2 fl (35.1-43.9); Red Blood Count 4.09 M/mm3 (4.2-5.4); White Blood Count 8.1 K/mm3 (4.4-11.0)
[2018-04-17 17:52] LABS: POSITIVE COUNT NO; POSITIVE DIFFERENTIAL NO; POSITIVE MORPHOLOGY NO
[2018-04-17 18:07] LABS: AST(SGOT) 28 U/L (15-37); Alanine Aminotransfer ALT/SGPT 44 U/L (13-56); Albumin, Serum 3.7 g/dL (3.2-5.0); Alkaline Phosphatase 109 U/L (45-117); Bilirubin, Direct 0.08 mg/dL (0.00-0.30); Globulin 3.6 g/dL (2.2-4.2); Protein, Total 7.3 g/dL (6.4-8.2)
== END ==
PROVIDERS: Family Provider Family Medicine; PCP Family Medicine; Referring Provider Dermatology; Visit Provider Dermatology
DX: B07.8 Other viral warts (principal); L82.0 Inflamed seborrheic keratosis; Z79.899 Other long term (current) drug therapy
CPT/HCPCS: 36415; 80076; 85025

== ENCOUNTER → 2018-04-26 08:58 | Outpatient (CLI) | payer OTHER, SELFPAY ==
--- NOTE | 2018-04-26 09:14 | RAD_ITS ---
HISTORY: Shortness of breath Comparison: 10/22/2016 Findings: Chronic mild elevation of the right hemidiaphragm. Normal heart size. No vascular congestion, pleural effusion, or acute pulmonary infiltration. No pneumothorax. The bony thorax appears intact. Impression no active cardiopulmonary disease. No significant interval change. at 0626 Reported and signed by: Anthony Brown MD Electronically Signed: Anthony Brown, at 6:24 EST Tel , Service support , RAD/Chest PA and Lateral
== END ==
PROVIDERS: Family Provider Family Medicine; PCP Family Medicine; Referring Provider Family Medicine; Visit Provider Family Medicine
DX: R06.00 Dyspnea, unspecified (principal)
CPT/HCPCS: 71046

== ENCOUNTER → 2018-06-25 15:40 | Outpatient (CLI) | payer OTHER, SELFPAY | PROVIDERS: Family Provider Family Medicine; PCP Family Medicine; Referring Provider Dermatology; Visit Provider Dermatology | DX: L20.84 Intrinsic (allergic) eczema (principal); L02.821 Furuncle of head [any part, except face] | CPT/HCPCS: 87070; 87077; 87186; 87205 ==

== ENCOUNTER → 2018-07-11 12:21 | Outpatient (CLI) | payer OTHER, SELFPAY ==
--- OUTSIDE RECORDS SUMMARY | 2018-09-15 02:00 | XMS RPT_ITS ---
:1960 Author Organization [place] Support Name Relationship Address Phone AZAEL PARKER Unavailable [address] + [place] [address] RANDY, PETER Unavailable [address] + [place] [address] WO[facility] Unavailable [address] + [place] [address] RANDY AZAEL Unavailable [address] + [place] [address] ARNDY, PETER Unavailable [address] + [place] [address] [facility] Unavailable [address] + [place] [address] RANDY, AZAEL Unavailable [address] + [place] [address] RANDY, PETER Unavailable [address] + [place] [address] [facility] Unavailable [address] + [place] [address] RANDY, AZAEL Unavailable [address] + [place] [address] RANDY, PETER Unavailable [address] + [place] [address] [facility] Unavailable [address] + [place] [address] RANDY, AZAEL Unavailable [address] + [place] [address] RANDY, PETER Unavailable [address] + [place] [address] [facility] Unavailable [address] + [place] [address] RANDY, AZAEL Unavailable [address] + [place] [address] RANDY, PETER Unavailable [address] + [place] [address] WO[facility] Unavailable [address] + [place] [address] RANDY, AZAEL Unavailable [address] + [place] [address] RANDY, PETER Unavailable [address] + [place] [address] [facility] Unavailable [address] + [place] [address] RANDY, AZAEL Unavailable [address] + [place] [address] RANDY, PETER Unavailable [address] + [place] [address] [facility] Unavailable [address] + [place] [address] RANDY, AZAEL Unavailable [address] + [place] [address] RANDY, PETER Unavailable [address] + [place] [address] [facility] Unavailable [address] + [place] [address] RANDY, AZAEL Unavailable [address] + [place] [address] RANDY, PETER Unavailable [address] + [place] [address] WO[facility] Unavailable [address] + [place] [address] RANDY, AZAEL Unavailable [address] + [place] [address] RANDY, PETER Unavailable [address] + [place] [address] WO[facility] Unavailable [address] + [place] [address] RANDY, AZAEL Unavailable [address] + [place] [address] RANDY, PETER Unavailable [address] + [place] [address] [facility] Unavailable [address] + [place] [address] RANDY, AZAEL Unavailable [address] + [place] [address] RANDY, PETER Unavailable [address] + [place] [address] WOOCIS[facility] Unavailable [address] + [place] [address] RANDY, AZAEL Unavailable [address] + [place] [address] RANDY, PETER Unavailable [address] + [place] [address] WO[facility]IS[facility] Unavailable [address] + [place] [address] RANDY, AZAEL Unavailable [address] + [place] [address] RANDY, PETER Unavailable [address] + [place] [address] WO[facility] Unavailable [address] + [place] [address] RANDY, AZAEL Unavailable [address] + [place] [address] RANDY, PETER Unavailable [address] + [place] [address] WOOCISCH Unavailable [address] + [place] [address] RANDY, AZAEL Unavailable [address] + [place] [address] RANDY, PETER Unavailable [address] + [place] [address] WO[facility] Unavailable [address] + [place] [address] RANDY, AZAEL Unavailable [address] + [place] [address] RANDY, PETER Unavailable [address] + [place] [address] [facility] Unavailable [address] + [place] [address] RANDY, AZAEL Unavailable [address] [phone] [place] [address] RANDY, PETER Unavailable [address] + [place] [address] [facility] Unavailable [address] + [place] [address] RANDY, AZAEL Unavailable [address] + [place] [address] RANDY, PETER Unavailable [address] + [place] [address] WO[facility]IS[facility] Unavailable [address] + [place] [address] RANDY, AZAEL Unavailable [address] [phone] [place] [address] RANDY, PETER Unavailable [address] + [place] [address] WOOCIS[facility] Unavailable [address] + [place] [address] RANDY, AZAEL Unavailable [address] [phone] [place] [address] RANDY, PETER Unavailable [address] + [place] [address] [facility] Unavailable [address] + [place] [address] RANDY, AZAEL Unavailable [address] [phone] [place] [address] RANDY, PETER Unavailable [address] + [place] [address] WO[facility] Unavailable [address] + [place] [address] RANDY, AZAEL Unavailable [address] [phone] [place] [address] RANDY, PETER Unavailable Unavailable + [facility] Unavailable [address] + [place] [address] RANDY, AZAEL Unavailable [address] [phone] [place] [address] RANDY, PETER Unavailable Unavailable + [facility] Unavailable [address] + [place] [address] Care Team Providers Name Role Phone Parish Pearce Attending Unavailable Parish Pearce Referring Unavailable Juany Jacob Primary Care Unavailable Parish Pearce Attending Unavailable Parish Pearce Referring Unavailable Malys Juany Primary Care Unavailable Rebecca Jacoba Attending Unavailable Malys, Juany Primary Care Unavailable Juanjose Simeon Attending Unavailable Malys, Juany Primary Care Unavailable Malys, Juany Primary Care Unavailable Víctor Morales Attending Unavailable Malys, Juany Attending Unavailable Malys, Juany Primary Care Unavailable Parish Pearce Attending Unavailable Malys, Juany Primary Care Unavailable Ramses, Parish Referring Unavailable Briann, Max Attending Unavailable Wartmann, Max Referring Unavailable Malys, Juany Primary Care Unavailable Briann, Max Attending Unavailable Malys, Juany Primary Care Unavailable Malys, Juany Primary Care Unavailable Collin Harris Attending Unavailable Robotham, Yarelis Attending Unavailable Malys, Juany Referring Unavailable Malys, Juany Primary Care Unavailable Robotham, Yarelis Attending Unavailable Robotham, Yarelis Referring Unavailable Malys, Juany Primary Care Unavailable Robotham, Yarelis Attending Unavailable Robotham, Yarelis Referring Unavailable Malys, Juany Primary Care Unavailable Pablo Brewer Attending Unavailable Wartmann, Max Referring Unavailable Robotham, Yarelis Attending Unavailable Robotham, Yarelis Referring Unavailable Malys, Juany Primary Care Unavailable Robotham, Yarelis Attending Unavailable Robotham, Yarelis Referring Unavailable Malys, Juany Primary Care Unavailable Robotham, Yarelis Consulting Unavailable Malys, Juany Attending Unavailable Robotham, Yarelis Attending Unavailable Robotham, Yarelis Referring Unavailable Malys, Juany Primary Care Unavailable Malys, Juany Attending Unavailable Malys, Juany Primary Care Unavailable Robotham, Yarelis Attending Unavailable Robotham, Yarelis Referring Unavailable Malys, Juany Primary Care Unavailable Robotham, Yarelis Consulting Unavailable Robotham, Yarelis Attending Unavailable Malys, Juany Referring Unavailable Malys, Juany Primary Care Unavailable Robotham, Yarelis Attending Unavailable Malys, Juany Referring Unavailable Malys, Juany Primary Care Unavailable Malys, Juany Attending Unavailable Malys, Juany Primary Care Unavailable Parish Pearce Attending Unavailable Ramses, Parish Referring Unavailable Malys, Juany Primary Care Unavailable Malys, Juany Attending Unavailable Malys, Juany Referring Unavailable Malys, Juany Primary Care Unavailable JACKSON MEI (JULIO) Attending Unavailable MALYS, JUANY A Referring Unavailable JACKSON MEI (FEL) Referring Unavailable JACKSON MEI (JULIO) Attending Unavailable JACKSON MEI (FEL) Referring Unavailable SEGURA, MARE Attending Unavailable MALYS, JUANY A Referring Unavailable SEGURA, MARE Referring Unavailable SEGURA, MARE Referring Unavailable JACKSON MEI Referring Unavailable SEGURA, MARE Attending Unavailable SEGURA, MARE Referring Unavailable SEGURA, MARE Attending Unavailable [facility] Referring Unavailable IMCA Primary Care Unavailable SEGURA, MARE Attending Unavailable SEGURA, MARE Referring Unavailable IMCA Primary Care Unavailable SEGURA, MARE Referring Unavailable [facility] Primary Care Unavailable SEGURA, MARE Referring Unavailable [facility] Primary Care Unavailable [facility] Referring Unavailable IMCA Primary Care Unavailable PROBLEMS PROBLEMS DATE TYPE CONDITION / CODE ATTENDING STATUS SOURCE Unknown L02.821 - Furuncle of Parish Pearce Active [place] 9 head [any part, except Community face] / Hospital L02.821(ICD-10) Repository Active Other specified NA Active [facility] 8 abnormal immunological Clinic Main findings in serum / [place] R76.8(ICD-10) Repository Active Unknown / UNK(Unknown) SEGURA, Active [place] 8 [facility] Other [place] Repository Active Pain in unspecified SEGURA, Active [place] 8 joint / M25.50(ICD-10) [facility] Other [place] Repository Active Sicca syndrome, SEGURA, Active [place] 8 unspecified / [facility] Other M35.00(ICD-10) [place] Repository Active Other malaise / SEGURA, Active [place] 8 R53.81(ICD-10) [facility] Other [place] Repository Active Other fatigue / SEGURA, Active [place] 8 R53.83(ICD-10) [facility] Other [place] Repository Admitting Unknown / UNK(Unknown) IMELDA, Active [facility] 8 diagnosis [facility] Repository Unknown R06.00 - Dyspnea, Malys, Juany Active [place] [facility] unspecified / Community R06.00(ICD-10) Hospital Repository Unknown Z79.899 - Other long Parish Pearce Active [place] 8 term (current) drug Community therapy / Hospital Z79.899(ICD-10) Repository Unknown E03.9 - Malys, Juany Active [place] 8 Hypothyroidism, Community unspecified / Hospital E03.9(ICD-10) Repository Unknown R53.83 - Other fatigue Juany Jacob Active [place] [facility] / R53.83(ICD-10) [facility] Hospital Repository Unknown E55.9 - Vitamin D MalJuany arshad Active [place] 8 deficiency, Community unspecified / Hospital E55.9(ICD-10) Repository Unknown R20.2 - Paresthesia of Juany Jacob Active [place] 8 skin / R20.2(ICD-10) [facility] Hospital Repository Unknown D64.9 - Anemia, Juany Jacob Active [place] 8 unspecified / Community D64.9(ICD-10) Hospital Repository Unknown R10.13 - Epigastric Robotham, Active [place] 8 pain / R10.13(ICD-10) [facility] Hospital Repository Unknown K82.8 - Other Robotham, Active [place] 8 specified diseases of [facility] gallbladder / Hospital K82.8(ICD-10) Repository Unknown G89.18 - Other acute Robotham, Active [place] 8 postprocedural pain / [facility] G89.18(ICD-10) Hospital Repository Unknown R10.9 - Unspecified Robotham, Active [place] 8 abdominal pain / [facility] R10.9(ICD-10) Hospital Repository Unknown D72.829 - Elevated Robotham, Active [place] 8 white blood cell [facility] count, unspecified / Hospital D72.829(ICD-10) Repository Unknown 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, 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 / Hospital Q89.2(ICD-10) Repository Unknown R94.31 - Abnormal Pablo Brewer Active [place] 8 electrocardiogram [facility] [ECG] [EKG] / Hospital R94.31(ICD-10) Repository Unknown Z12.31 - Encounter for Juany Jacob Active [place] 8 screening mammogram Community for malignant neoplasm [facility] breast / Repository Z12.31(ICD-10) Unknown G47.33 - Obstructive Simeon, Active [place] 8 sleep apnea (adult) Juanjose [facility] (pediatric) / Hospital G47.33(ICD-10) Repository Unknown M25.50 - Pain in Malys, Juany Active [place] 8 unspecified joint / Community M25.50(ICD-10) Hospital Repository Unknown M79.1 - Myalgia / Malys, Juany Active [place] 8 M79.1(ICD-10) [facility] Repository Unknown R53.1 - Weakness / Malys, Juany Active [place] 8 R53.1(ICD-10) [facility] Repository PROCEDURES PROCEDURES No Procedure Records FoundRESULTS RESULTS [facility] Observed: 07/17/2018 Status: COMPLETED Source: [place] 12:00 AM [facility] REPOSITORY Letter Text Jackson Mei MD Section of Allergy and Immunology Department of Pulmonary, Allergy and Critical Care Medicine [phone] (Mar Lin) 07/17/2018 Latonyafredi Parker [facility] number: [id number] Dear Dr. Parish Pearce, I saw Latonyafredi Parker for Initial Evaluation and follow-up on on 07/01/2018. I am forwarding a summary of findings and recommendations regarding the above patient. Please contact me directly if you have questions regarding the enclosed or if I can contribute further in the care of this (or other) patient(s). Yours Sincerely, Jackson Mei MD Observed: 07/11/2018 Status: F Source: [place] CULTURE, WOUND 12:58 PM [facility] [place] Gram Stain Gram Stain No organisms seen Rare Red Blood Cells Wound Culture #2 Gram positive farhana suggestive of a diptheroid. Possible skin contamination, further Identification and sensitivity will be performed only by physician's request. ORGANISM 1: Coag Negative Staph Amount Growth Rare ORGANISM 2: Gram positive farhana Amount Growth Very Rare Performed By: #### M100.1400 #### [facility] [address] [place], [address] PROGRESS Observed: 07/01/2018 Status: COMPLETED Source: [place] 3:30 PM [facility] RE[facility]IT[facility] HNO ID: [id number] Author: Jackson Mei Service: (none) Author Type: Physician Type: Progress Notes Filed: 07/16/2018 10:00 AM Note Text: This is a 57 year old female who presents for follow-up of low IgG of undetermined significance. Please note that this note has been generated by the [employer] dictation software. Quite often unanticipated grammatical, syntax, homophones, and other interpretive errors are inadvertently transcribed by the computer software. Please disregard these errors. Please excuse any errors that have escaped final proofreading. Ms. Parker saw me last on 05/20/2018, here follows a summary of my last assessment and plan: ASSESSMENT AND PLAN: Saw as well as a pleasant 57-year-old female, was referred to me due to a low IgG level, that is just below the normal reference range. She apparently does get several sinus infections a year, though has never been shown on the CT scan of her sinuses. She has not been seen by an ENT before. Also apparently had 2 cases of pneumonia before, but she does have a history of smoking, she has not stopped smoking. I do not have a strong suspicion of immunodeficiency and her, though I will do a screening and we will give her Pneumovax today to check her response. ? 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 She'll call her with her results, and discuss when she should have the second humoral panel done so that we can compare the 2. I'll then see her for follow-up. Plan: HUMORAL IMMUNITY PANEL 1 ? ? 05/20/2018 titre's: Test developed and characteristics determined by [facility]. See Compliance Statement B: [email or web address] Pneu Serotype 1 0.84 Unit: ug/mL Pneu Serotype 3 0.83 Unit: ug/mL Pneu Serotype 4 2.43 Unit: ug/mL Pneu Serotype 5 1.40 Unit: ug/mL Pneu Serotype 6B 0.13 Unit: ug/mL Pneu Serotype 7F 0.67 Unit: ug/mL Pneu Serotype 8 3.83 Unit: ug/mL Pneu Serotype 9N 1.89 Unit: ug/mL Pneu Serotype 9V 1.07 Unit: ug/mL Pneu Serotype 12F 0.08 Unit: ug/mL Pneu Serotype 14 20.23 Unit: ug/mL Pneu Serotype 18C 0.33 Unit: ug/mL Pneu Serotype 19F 0.80 Unit: ug/mL Pneu Serotype 23F 6.05 Unit: ug/mL Pneu Interpretation SEE NOTE (NOTE) 06/18/2018 titre?s: Test developed and characteristics determined by [facility]. See Compliance Statement B: [email or web address] Pneumo Serotype 1 IgG (P13,PNX) ug/mL 2.47 Pneumo Serotype 3 IgG (P13,PNX) ug/mL 1.05 Pneumo Serotype 4 IgG (P7,P13,PNX) ug/mL 3.23 Pneumo Serotype 5 IgG (P13,PNX) ug/mL 1.98 Pneumo Serotype 6B IgG (P7,P13,PNX) ug/mL 0.60 Pneumo Serotype 7F IgG (P13,PNX) ug/mL 1.10 Pneumo Serotype 8 IgG (PNX) ug/mL 6.81 Pneumo Serotype 9N IgG (PNX) ug/mL 2.96 Pneumo Serotype 9V IGG (P7,P13,PNX) ug/mL 1.60 Pneumo Serotype 12F IgG (PNX) ug/mL 0.37 Pneumo Serotype 14 IgG (P7,P13,PNX) ug/mL 22.94 Pneumo Serotype 18C IgG (P7,P13,PNX) ug/mL 0.32 Pneumo Serotype 19F IgG (P7,P13,PNX) ug/mL 1.44 Pneumo Serotype 23F IgG (P7,P13,PNX) ug/mL 11.24 Pneumococcal Interpretation SEE NOTE Since last seeing me Ms. Parker Has done well with no S infections. She is on doxycycline currently has went to a group care worker, and CEDRICK inhibitor eczema was infected with staph aureus. This is helped her and her skin has improved. We reviewed her lab work above, I discussed that her IgG level is still below reference but a little higher at 649, compared to 633 last time. I also discussed that she did respond to the Pneumovax, increasing her titers from 6 out of 14, to 9 out of 14. I discussed with her that this is just shy of the 70% response that we deem normal, she would've had a normal response if she responded to 1 more titer. Did discuss with her that that recent studies and opinion favors the idea that some responses better than no response, and that it is likely that her immune system is functioning properly. I discussed we will adopt a watch and wait approach, and follow her closely every 6 months to screen for a immune deficiency. PAST MEDICAL HISTORY Diagnosis Date - Abdominal pain 12/08/13 - Esophageal reflux Gastroesophageal reflux - PMH - PAST MEDICAL HISTORY OF SLOW EMPTYING STOMACH - Unspecified hypothyroidism Hypothyroidism PAST SURGICAL HISTORY Procedure Laterality Date - BOTOX for migraines - DELIVERY ONLY X2 , low cervical - COLONOSCOP W/ OR W/O BRS SPEC 03/21/10 - COLONOSCOP W/ OR W/O BRS SPEC 03/24/14 Colonoscopy - DENTURES COMPLETE LOWER 11/02 - EGD W/O BRSH SPECIMEN W/BX 06/11/13 - EGD W/O OR W/BRUSH/WASH 03/24/14 - EGD WITH BIOPSY(S) 10-17-11 Repeat in 1 year (-2012) - HYSTERECTOMY HX - LAPAROSCOPY, SURGICAL, APPENDECTOMY 12/08/13 - LIGATE FALLOPIAN TUBE Tubal ligation - PAST SURGICAL HISTORY OF ARTHROSCOPIC KNEE SURGERY LEFT - PAST SURGICAL HISTORY OF BIOPSY LYKENS SCLEROSIS, vaginal - PAST SURGICAL HISTORY OF 07/24/12 shoulder capulitis left - REMOVAL OF HEEL SPUR 07/05 Right - TOTAL ABDOM HYSTERECTOMY 2004 in [place] Hysterectomy, YUDELKA/BSO- benign Allergies: Erythromycin; Vicodin [Hydrocodone-Acetaminophen] Current Outpatient Prescriptions: cevimeline (EVOXAC) 30 mg capsule Take 1 capsule by mouth three times daily. DULoxetine (CYMBALTA) 60 mg capsule Take 60 mg by mouth twice daily. CYCLOSPORINE (RESTASIS OPHTHALMIC) Use in eyes twice daily. omeprazole (PRILOSEC) 20 mg capsule Take 20 mg by mouth twice daily. sucralfate (CARAFATE) 100 mg/mL suspension Take 1 g by mouth as needed. folic acid 400 mcg tablet Take 400 mcg by mouth once daily. ibuprofen (ADVIL) 200 mg tablet Take 200 mg by mouth every 6 hours as needed. topiramate (TOPAMAX) 25 mg ORAL tablet Take 25 mg by mouth twice daily. MULTI-VITAMIN ORAL Take 2 tablets by mouth once daily. clobetasol 0.05 % TOPICAL ointment Apply 1 application to affected area. pea-sized amount bid x 2 weeks then qday x 2 weeks then twice a week or prn. levothyroxine (SYNTHROID) 50 mcg ORAL Tab Take one(1) tablet daily. aspirin 81 mg ORAL Chew Take one(1) tablet daily. Calcium Carb-Cholecalciferol (AGATHA-600 WITH VITAMIN D) 600 (1,500)-200 mg-unit ORAL Tab Take one(1) tablet twice daily. omega-3 fatty acids 1,000 mg ORAL Cap No current facility-administered medications for this visit. 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 DERM: Denies any new skin conditions, rashes or changing moles. EYES: Denies recent visual changes. ENT: Denies hearing loss or tinnitus RESP: Denies any cough, dyspnea, or wheezing. CV: Denies any chest pain with exertion or at rest, palpitations, syncope, or edema. GI: Denies any nausea, vomiting, abdominal pain, heartburn, changes in bowel habit, MUSCULOSKELETAL: Denies any joint swelling NEURO: Denies any headaches PSYCH: Denies any sleeping problems HEME/LYMPHATIC/IMMUNO: Denies bruising ENDO: Denies any heat or cold intolerance, polyuria or polydipsia. All other review of systems negative except for those listed above. PHYSICAL EXAM: There were no vitals taken for this visit. APPEARANCE: Well appearing, alert, in no acute distress, well-hydrated, well nourished. EYES: sclera non-icteric, conjunctiva non-injected EARS: External ears normal. Canals clear. TM's normal. NOSE/SINUS: Nares normal. Septum midline. Mucosa normal. No drainage or sinus tenderness. OROPHARYNX: Lips, tongue normal. Oropharynx clear. THROAT: no erythema NECK: neck supple, no adenopathy HEART: Regular rate, regular rhythm, S1 normal, S2 normal, no S3, no S4 and no murmur LUNG: clear to auscultation LYMPH NODES: No cervical lymphadenopathy, No supraclavicular lymphadenopathy, No axillary lymphadenopathy. and No inguinal lymphadenopathy. ABDOMEN: soft, nontender, nondistended EXTREMITIES: No deformities, No skin discoloration and No edema NEURO: Awake, alert and oriented x 3, Normal gait and No involuntary motions. SKIN: Skin color, texture, turgor normal. No rashes or lesions. ASSESSMENT AND PLAN: Mrs. Parker is a very pleasant 57-year-old female, who returns for follow-up of incidentally found low IgG. She does not appear to have an immune deficiency after we repeated humeral panel following her getting a Pneumovax. She did respond satisfactorily. 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 Discussed with her that immune deficiencies can evolve over time, and it would be prudent to repeat a humeral panel once every 6 months. She can let me know if anything changes or if she has any serious life-threatening infections or needs any IV antibiotics. He should also keep following with rheumatology. Plan: Would like to see back in 6 months and we'll do a humoral panel. Jackson Mei MD Allergy and Clinical Immunology PAGER: [phone] Date: July 01, 2018 Time:12:10 PM CNOV Observed: 07/01/2018 Status: COMPLETED Source: [place] 3:30 PM [facility] RE[facility]IT[facility] Office Visit ([facility]) RANDYLATONYA ALCANTAR ([id number]) 1960 F Date Time Provider Department 07/01/18 3:30 PM JACKSON MEI [facility] During your visit today, we recorded the following information about you: Temperature Pulse Respiration Blood pressure 97.9 degrees 91/minute 16/minute 161/99 Weight Height 86.2 kg 1.524 m Jackson Mei MD 07/01/2018 3:25 PM Signed 1. Your antibody level is low, is is about 100 below the reference range, but not worrying low. It is around 650, and we get worried if it drops below 500. Thus we shall keep checking you every 6 months, for at least the next 2 years. 2. Until we see each other again, try using Flonase and your nasal rinses regularly, try the Flonase 2 sprays each nostril, at night. To spray the nose sprays- the best time to do them daily is at night. 1. Blow your nose out before spraying 2. Shake it before spraying each time. 3. Look down, chin to chest. 4. Put the tip in the right nostril and aim at the inside of the right eye. 5. [place] one spray only. Sniff after you spray Do not snort. 6. In the left nostril aim towards the inside corner of the left eye. 7. [place] one spray only. Sniff after you spray Do not snort. 8. Then if you are doing two sprays in each nostril wait 4- 5 minutes before spraying the second spray. 9. If it drips out every time such when the nose is very congested. Have the patient sit on the bed. Look down, spray and then lay down on their back on a bed. This will allow the medicine to coat the nose on the way back. Sit up and repeat for the other side. 3. I will look out for Dr Segura next note and follow along, but call me if something changes. A month before you see me, give the nurse or my office a call, and then I shall put the repeat bloodwork in so that we can go through it and discuss it. Atopic Dermatitis Program Action Plan DAILY SKIN CARE 1. Take at least one bath or shower per day - Use warm water - Soak for 10-15 minutes. 2. Use a gentle cleansing bar in the sensitive skin formulation, without any fragrance: - Dove? or Cetaphil or Cerave Bar soap, these are better than liquids as have far less ingredients and usually have less fragrance in. 3. Pat away excess water with the towel, do not rub skin excessively. 4. Apply medicine (such as steroid creams) before moisturizer. Apply before skin is dry. Moisturizers and sealers should not be applied over any topical medication. 5. Apply moisturizer, or sealer to areas where medicine was not placed. Fragrance-free moisturizers available in one pound jars: Winter: Vaniply, Aquaphor. Summer if not severe: Vanicream? (face), CeraVe? Cream or Cetaphil? Cream- - Avoid lotions - Vaseline? is fine if used while wet. It does not add moisture to the skin - if you do use Vaseline then you should apply it while the skin is still wet. 6. Avoid skin irritants and proven allergens, especially any creams that containing food products as such as coconut or oats. Reduce Skin Irritation. 1. Wash all new clothes before wearing them. This removes formaldehyde and other irritating chemicals. 2. Add a second rinse cycle to ensure removal of detergent. Residual laundry detergent, particularly perfume or dye, may be irritating when it remains in the clothing. Changing to a liquid and fragrance-free, dye- free detergent may be helpful. 3. Don't Sweat: Wear garments that allow air to pass freely to your skin. Open weave, loose-fitting, cotton-blend clothing may be most comfortable. 4. Work and sleep in comfortable surroundings with a fairly constant temperature and humidity level. 5. Keep fingernails very short and smooth to help prevent damage due to scratching. 6. Carry a small tube of moisturizer/sunscreen at all times. Daycare/school/work should have a separate supply of moisturizer. 7. Shower or bathe after swimming in chlorinated pools or using hot tub using a gentle cleanser to remove chemicals, then apply moisturizer. 8. Sensitive skin shampoos and conditioners include Free and Clear shampoo and Conditioner. 9. Sunscreens should be Zinc oxide and Titanium Dioxide based BARRIER sunscreens made by Vanicream, Cetaphil, Cerave type companies. These need to be reapplied frequently. Extensively Adapted from handout used at [facility] in [place], [place]. Jackson Mei MD Allergy and Clinical Immunology PAGER: [phone] Date: July 01, 2018 Time:3:20 PM Jackson Mei MD 07/16/2018 10:00 AM Signed This is a 57 year old female who presents for follow-up of low IgG of undetermined significance. Please note that this note has been generated by the [employer] dictation software. Quite often unanticipated grammatical, syntax, homophones, and other interpretive errors are inadvertently transcribed by the computer software. Please disregard these errors. Please excuse any errors that have escaped final proofreading. Ms. Parker saw me last on 05/20/2018, here follows a summary of my last assessment and plan: ASSESSMENT AND PLAN: Saw as well as a pleasant 57-year-old female, was referred to me due to a low IgG level, that is just below the normal reference range. She apparently does get several sinus infections a year, though has never been shown on the CT scan of her sinuses. She has not been seen by an ENT before. Also apparently had 2 cases of pneumonia before, but she does have a history of smoking, she has not stopped smoking. I do not have a strong suspicion of immunodeficiency and her, though I will do a screening and we will give her Pneumovax today to check her response. ? 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 She'll call her with her results, and discuss when she should have the second humoral panel done so that we can compare the 2. I'll then see her for follow-up. Plan: HUMORAL IMMUNITY PANEL 1 ? ? 05/20/2018 titre's: Test developed and characteristics determined by [facility]. See Compliance Statement B: [email or web address] Pneu Serotype 1 0.84 Unit: ug/mL Pneu Serotype 3 0.83 Unit: ug/mL Pneu Serotype 4 2.43 Unit: ug/mL Pneu Serotype 5 1.40 Unit: ug/mL Pneu Serotype 6B 0.13 Unit: ug/mL Pneu Serotype 7F 0.67 Unit: ug/mL Pneu Serotype 8 3.83 Unit: ug/mL Pneu Serotype 9N 1.89 Unit: ug/mL Pneu Serotype 9V 1.07 Unit: ug/mL Pneu Serotype 12F 0.08 Unit: ug/mL Pneu Serotype 14 20.23 Unit: ug/mL Pneu Serotype 18C 0.33 Unit: ug/mL Pneu Serotype 19F 0.80 Unit: ug/mL Pneu Serotype 23F 6.05 Unit: ug/mL Pneu Interpretation SEE NOTE (NOTE) 06/18/2018 titre?s: Test developed and characteristics determined by [facility]. See Compliance Statement B: [email or web address] Pneumo Serotype 1 IgG (P13,PNX) ug/mL 2.47 Pneumo Serotype 3 IgG (P13,PNX) ug/mL 1.05 Pneumo Serotype 4 IgG (P7,P13,PNX) ug/mL 3.23 Pneumo Serotype 5 IgG (P13,PNX) ug/mL 1.98 Pneumo Serotype 6B IgG (P7,P13,PNX) ug/mL 0.60 Pneumo Serotype 7F IgG (P13,PNX) ug/mL 1.10 Pneumo Serotype 8 IgG (PNX) ug/mL 6.81 Pneumo Serotype 9N IgG (PNX) ug/mL 2.96 Pneumo Serotype 9V IGG (P7,P13,PNX) ug/mL 1.60 Pneumo Serotype 12F IgG (PNX) ug/mL 0.37 Pneumo Serotype 14 IgG (P7,P13,PNX) ug/mL 22.94 Pneumo Serotype 18C IgG (P7,P13,PNX) ug/mL 0.32 Pneumo Serotype 19F IgG (P7,P13,PNX) ug/mL 1.44 Pneumo Serotype 23F IgG (P7,P13,PNX) ug/mL 11.24 Pneumococcal Interpretation SEE NOTE Since last seeing me Ms. Parker Has done well with no S infections. She is on doxycycline currently has went to a group care worker, and CEDRICK inhibitor eczema was infected with staph aureus. This is helped her and her skin has improved. We reviewed her lab work above, I discussed that her IgG level is still below reference but a little higher at 649, compared to 633 last time. I also discussed that she did respond to the Pneumovax, increasing her titers from 6 out of 14, to 9 out of 14. I discussed with her that this is just shy of the 70% response that we deem normal, she would've had a normal response if she responded to 1 more titer. Did discuss with her that that recent studies and opinion favors the idea that some responses better than no response, and that it is likely that her immune system is functioning properly. I discussed we will adopt a watch and wait approach, and follow her closely every 6 months to screen for a immune deficiency. PAST MEDICAL HISTORY Diagnosis Date - Abdominal pain 12/08/13 - Esophageal reflux Gastroesophageal reflux - PMH - PAST MEDICAL HISTORY OF SLOW EMPTYING STOMACH - Unspecified hypothyroidism Hypothyroidism PAST SURGICAL HISTORY Procedure Laterality Date - BOTOX for migraines - DELIVERY ONLY X2 , low cervical - COLONOSCOP W/ OR W/O BRSH SPEC 03/21/10 - COLONOSCOP W/ OR W/O BRSH SPEC 03/24/14 Colonoscopy - DENTURES COMPLETE LOWER 11/02 - EGD W/O BRSH SPECIMEN W/BX 06/11/13 - EGD W/O OR W/BRUSH/WASH 03/24/14 - EGD WITH BIOPSY(S) 10-17-11 Repeat in 1 year () - HYSTERECTOMY HX - LAPAROSCOPY, SURGICAL, APPENDECTOMY 12/08/13 - LIGATE FALLOPIAN TUBE Tubal ligation - PAST SURGICAL HISTORY OF ARTHROSCOPIC KNEE SURGERY LEFT - PAST SURGICAL HISTORY OF BIOPSY LYKENS SCLEROSIS, vaginal - PAST SURGICAL HISTORY OF 07/24/12 shoulder capulitis left - REMOVAL OF HEEL SPUR 07/05 Right - TOTAL ABDOM HYSTERECTOMY 2004 in [place] Hysterectomy, YUDELKA/BSO- benign Allergies: Erythromycin; Vicodin [Hydrocodone-Acetaminophen] Current Outpatient Prescriptions: cevimeline (EVOXAC) 30 mg capsule Take 1 capsule by mouth three times daily. DULoxetine (CYMBALTA) 60 mg capsule Take 60 mg by mouth twice daily. CYCLOSPORINE (RESTASIS OPHTHALMIC) Use in eyes twice daily. omeprazole (PRILOSEC) 20 mg capsule Take 20 mg by mouth twice daily. sucralfate (CARAFATE) 100 mg/mL suspension Take 1 g by mouth as needed. folic acid 400 mcg tablet Take 400 mcg by mouth once daily. ibuprofen (ADVIL) 200 mg tablet Take 200 mg by mouth every 6 hours as needed. topiramate (TOPAMAX) 25 mg ORAL tablet Take 25 mg by mouth twice daily. MULTI-VITAMIN ORAL Take 2 tablets by mouth once daily. clobetasol 0.05 % TOPICAL ointment Apply 1 application to affected area. pea-sized amount bid x 2 weeks then qday x 2 weeks then twice a week or prn. levothyroxine (SYNTHROID) 50 mcg ORAL Tab Take one(1) tablet daily. aspirin 81 mg ORAL Chew Take one(1) tablet daily. Calcium Carb-Cholecalciferol (AGATHA-600 WITH VITAMIN D) 600 (1,500)-200 mg-unit ORAL Tab Take one(1) tablet twice daily. omega-3 fatty acids 1,000 mg ORAL Cap No current facility-administered medications for this visit. 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 DERM: Denies any new skin conditions, rashes or changing moles. EYES: Denies recent visual changes. ENT: Denies hearing loss or tinnitus RESP: Denies any cough, dyspnea, or wheezing. CV: Denies any chest pain with exertion or at rest, palpitations, syncope, or edema. GI: Denies any nausea, vomiting, abdominal pain, heartburn, changes in bowel habit, MUSCULOSKELETAL: Denies any joint swelling NEURO: Denies any headaches PSYCH: Denies any sleeping problems HEME/LYMPHATIC/IMMUNO: Denies bruising ENDO: Denies any heat or cold intolerance, polyuria or polydipsia. All other review of systems negative except for those listed above. PHYSICAL EXAM: There were no vitals taken for this visit. APPEARANCE: Well appearing, alert, in no acute distress, well-hydrated, well nourished. EYES: sclera non-icteric, conjunctiva non-injected EARS: External ears normal. Canals clear. TM's normal. NOSE/SINUS: Nares normal. Septum midline. Mucosa normal. No drainage or sinus tenderness. OROPHARYNX: Lips, tongue normal. Oropharynx clear. THROAT: no erythema NECK: neck supple, no adenopathy HEART: Regular rate, regular rhythm, S1 normal, S2 normal, no S3, no S4 and no murmur LUNG: clear to auscultation LYMPH NODES: No cervical lymphadenopathy, No supraclavicular lymphadenopathy, No axillary lymphadenopathy. and No inguinal lymphadenopathy. ABDOMEN: soft, nontender, nondistended EXTREMITIES: No deformities, No skin discoloration and No edema NEURO: Awake, alert and oriented x 3, Normal gait and No involuntary motions. SKIN: Skin color, texture, turgor normal. No rashes or lesions. ASSESSMENT AND PLAN: Mrs. Parker is a very pleasant 57-year-old female, who returns for follow-up of incidentally found low IgG. She does not appear to have an immune deficiency after we repeated humeral panel following her getting a Pneumovax. She did respond satisfactorily. 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 Discussed with her that immune deficiencies can evolve over time, and it would be prudent to repeat a humeral panel once every 6 months. She can let me know if anything changes or if she has any serious life-threatening infections or needs any IV antibiotics. He should also keep following with rheumatology. Plan: Would like to see back in 6 months and we'll do a humoral panel. Jackson Mei MD Allergy and Clinical Immunology PAGER: [phone] Date: July 01, 2018 Time:12:10 PM Referring Provider: JACKSON MEI [[id number]] Allergies As of Date: 07/01/2018 Noted Allergy Reaction ERYTHROMYCIN 02/26/2007 8 - GI Upset VICODIN (HYDROCODONE-ACETAMINOPHE*10/25/2011 9 - Itching Date Reviewed: 07/01/2018 Reviewed by: Magdalena Ahumada Ma - Fully Assessed Reason for Visit: Low IgG [Other] Primary Visit Diagnosis:Hypogammaglobulinemia (HCC) [D80.1] Prescriptions as of 07/01/2018 Sig: DOXYCYCLINE HYCLATE 100 MG TA* Take 100 mg by mouth twice da* CEVIMELINE 30 MG CAPSULE Take 1 capsule by mouth three* DULOXETINE 60 MG CAPSULE,JAZMYNE* Take 60 mg by mouth twice jose* RESTASIS OPHTHALMIC Use in eyes twice daily. OMEPRAZOLE 20 MG CAPSULE,JAZMYNE* Take 20 mg by mouth twice jose* SUCRALFATE 100 MG/ML ORAL FRANSISCO* Take 1 g by mouth as needed. IBUPROFEN 200 MG TABLET Take 200 mg by mouth every 6 * * TOPIRAMATE 25 MG TABLET Take 25 mg by mouth twice jose* * MULTI-VITAMIN ORAL Take 2 tablets by mouth once * CLOBETASOL 0.05 % TOPICAL OIN* Apply 1 application to affect* * SYNTHROID 50 MCG TABLET Take one(1) tablet daily. * ASPIRIN 81 MG CHEWABLE TABLET Take one(1) tablet daily. * AGATHA-600 WITH VITAMIN D 600 MG* Take one(1) tablet twice claudine* * OMEGA-3 FATTY ACIDS 1,000 MG * FOLIC ACID 400 MCG TABLET Take 400 mcg by mouth once da* Problem List As Of Date 07/01/2018 Noted Resolved Unspecified hypothyroidism [E03.9] More... Esophageal reflux [K21.9] More... Breast abscess [N61.1] INVALID FOR* Lichen sclerosus [L90.0] INVALID FOR* Dysphagia [R13.10] INVALID FOR* Polyp, stomach [K31.7] INVALID FOR* Sicca syndrome, unspecified (HCC) [M35.00] INVALID FOR* Pain in joint, multiple sites [M25.50] INVALID FOR* Elevated CK [R74.8] INVALID FOR* Low serum IgG for age [R76.8] INVALID FOR* Other instructions from your clinician: 1. Your antibody level is low, is is about 100 below the reference range, but not worrying low. It is around 650, and we get worried if it drops below 500. Thus we shall keep checking you every 6 months, for at least the next 2 years. 2. Until we see each other again, try using Flonase and your nasal rinses regularly, try the Flonase 2 sprays each nostril, at night. To spray the nose sprays- the best time to do them daily is at night. 1. Blow your nose out before spraying 2. Shake it before spraying each time. 3. Look down, chin to chest. 4. Put the tip in the right nostril and aim at the inside of the right eye. 5. [place] one spray only. Sniff after you spray Do not snort. 6. In the left nostril aim towards the inside corner of the left eye. 7. [place] one spray only. Sniff after you spray Do not snort. 8. Then if you are doing two sprays in each nostril wait 4-5 minutes before spraying the second spray. 9. If it drips out every time such when the nose is very congested. Have the patient sit on the bed. Look down, spray and then lay down on their back on a bed. This will allow the medicine to coat the nose on the way back. Sit up and repeat for the other side. 3. I will look out for Dr Segura next note and follow along, but call me if something changes. A month before you see me, give the nurse or my office a call, and then I shall put the repeat bloodwork in so that we can go through it and discuss it. Atopic Dermatitis Program Action Plan DAILY SKIN CARE 1. Take at least one bath or shower per day - Use warm water - Soak for 10-15 minutes. 2. Use a gentle cleansing bar in the sensitive skin formulation, without any fragrance: - Dove? or Cetaphil or Cerave Bar soap, these are better than liquids as have far less ingredients and usually have less fragrance in. 3. Pat away excess water with the towel, do not rub skin excessively. 4. Apply medicine (such as steroid creams) before moisturizer. Apply before skin is dry. Moisturizers and sealers should not be applied over any topical medication. 5. Apply moisturizer, or sealer to areas where medicine was not placed. Fragrance-free moisturizers available in one pound jars: Winter: Vaniply, Aquaphor. Summer if not severe: Vanicream? (face), CeraVe? Cream or Cetaphil? Cream- - Avoid lotions - Vaseline? is fine if used while wet. It does not add moisture to the skin - if you do use Vaseline then you should apply it while the skin is still wet. 6. Avoid skin irritants and proven allergens, especially any creams that containing food products as such as coconut or oats. Reduce Skin Irritation. 1. Wash all new clothes before wearing them. This removes formaldehyde and other irritating chemicals. 2. Add a second rinse cycle to ensure removal of detergent. Residual laundry detergent, particularly perfume or dye, may be irritating when it remains in the clothing. Changing to a liquid and fragrance- free, dye-free detergent may be helpful. 3. Don't Sweat: Wear garments that allow air to pass freely to your skin. Open weave, loose-fitting, cotton-blend clothing may be most comfortable. 4. Work and sleep in comfortable surroundings with a fairly constant temperature and humidity level. 5. Keep fingernails very short and smooth to help prevent damage due to scratching. 6. Carry a small tube of moisturizer/sunscreen at all times. Daycare/school/work should have a separate supply of moisturizer. 7. Shower or bathe after swimming in chlorinated pools or using hot tub using a gentle cleanser to remove chemicals, then apply moisturizer. 8. Sensitive skin shampoos and conditioners include Free and Clear shampoo and Conditioner. 9. Sunscreens should be Zinc oxide and Titanium Dioxide based BARRIER sunscreens made by Vanicream, Cetaphil, Cerave type companies. These need to be reapplied frequently. Extensively Adapted from handout used at [facility] in [place], [place]. Jackson Mei MD Allergy and Clinical Immunology PAGER: [phone] Date: July 01, 2018 Time:3:20 PM Follow-up and Disposition History Recorded Encounter Status:Closed by JACKSON MEI on 07/16/18 Observed: 06/25/2018 Status: F Source: [place] CULTURE, WOUND 1:30 PM [facility] [place] Gram Stain Gram Stain Rare Gram positive cocci No cells seen Wound Culture Clinical correlation necessary, Possible skin contamination. ORGANISM 1: Staphylococcus epidermidis Amount Growth 1+ Staphylococcus epidermidis: REACTION Benzylpenicillin NF >=0.5 R Cefoxitin *NF + Clindamycin $$ >=8 R Inducable Clindamycin [place] - Erythromycin $ >=8 R Gentamicin $ <=0.5 S Levofloxacin $ <=0.12 S Linezolid $$$$ 1 S Oxacillin NF >=4 R Tigecycline $$$$ <=0.12 S Rifampin $$ <=0.5 S Tetracycline NF <=1 S Vancomycin $ 1 S (NF) indicates non-formulary drug at [facility]. Approval by Infectious Disease Specialist required before non-formulary drugs may be ordered and/or dispensed. * CLSI guidelines does not recommend testing of cephalosporins. This interpretation is deduced from Beta-lactam/penicillin results. Performed By: #### [id number] #### [facility] [address] [place], [address] HUMORAL IMMUNE AVINA 1 Collected: 06/18/2018 Status: F Source: [place] 2:28 PM [facility] [place] REPOS[facility] TYPE CODE TESTS RESULT OUT OF REFERENCE UNITS RANGE LAB IGA12A 68-408 mg/dL Immunoglobulin A 130 Result Comment: (NOTE) REFERENCE INTERVAL: Immunoglobulin A Access complete set of age- and/or gender-specific reference intervals for this test in the [facility] ([facility]). LAB ARIGM 35-263 mg/dL Immunoglobulin M 127 Result Comment: (NOTE) REFERENCE INTERVAL: Immunoglobulin M Access complete set of age- and/or gender-specific reference intervals for this test in the [facility] ([facility]). LAB ARIGG 768-1632 mg/dL Immunoglobulin G Low 649 Result Comment: (NOTE) REFERENCE INTERVAL: Immunoglobulin G Access complete set of age- and/or gender-specific reference intervals for this test in the [facility] Test Directory ([facility]). LAB ARIGG1 240-1118 mg/dL IgG 1 441 Result Comment: (NOTE) REFERENCE INTERVAL: Immunoglobulin G Subclass 1 Access complete set of age- and/or gender-specific reference intervals for this test in the [facility] Test Directory ([facility]). LAB ARIGG2 124-549 mg/dL IgG 2 132 Result Comment: (NOTE) REFERENCE INTERVAL: Immunoglobulin G Subclass 2 Access complete set of age- and/or gender-specific reference intervals for this test in the [facility] Test Directory ([facility]). LAB ARIGG3 21-134 mg/dL Low IgG 3 13 Result Comment: (NOTE) REFERENCE INTERVAL: Immunoglobulin G Subclass 3 Access complete set of age- and/or gender-specific reference intervals for this test in the [facility] Test Directory ([facility]). LAB ARIGG4 1-123 mg/dL IgG 4 25 Result Comment: (NOTE) REFERENCE INTERVAL: Immunoglobulin G Subclass 4 Access complete set of age- and/or gender-specific reference intervals for this test in the [facility] Test Directory ([facility]). Performed by [facility], [address] [place] [id number] [email or web address], Michoacano Arias MD, Lab. Director LAB DIPAB IU/mL Diphtheria Abs, IgG 0.4 Result Comment: (NOTE) INTERPRETIVE INFORMATION: Diphtheria Ab, IgG Antibody concentration of greater than 0.1 IU/mL is usually considered protective. Responder status is determined according to the ratio of a one month post-vaccination sample to pre-vaccination concentrations of Diphtheria IgG Abs as follows: 1. If the one month post-vaccination concentration is less than 1.0 IU/mL, the patient is considered to be a non-responder. 2. If the post-vaccination concentration is greater than or equal to 1.0 IU/mL, a patient with a ratio of less than 1.5 is a non-responder, a ratio of 1.5 to less than 3.0, a weak responder, and a ratio of 3.0 or greater, a good responder. 3. If the pre-vaccination concentration is greater than 1.0 IU/mL, it may be difficult to assess the response based on a ratio alone. A post-vaccination concentration above 2.5 IU/mL in this case is usually adequate. Test developed and characteristics determined by [facility]. See Compliance Statement B: [facility]/ LAB TETAN IU/mL Tetanus Abs, IgG 14.2 Result Comment: (NOTE) INTERPRETIVE INFORMATION: Tetanus Ab, IgG Antibody concentration of greater than 0.1 IU/mL is usually considered protective. Responder status is determined according to the ratio of a one-month post-vaccination sample to pre-vaccination concentration of Tetanus IgG Abs as follows: 1. If the one month post-vaccination concentration is less than 1.0 IU/mL, the patient is considered a non-responder. 2. If the post-vaccination concentration is greater than or equal to 1.0 IU/mL, a patient with a ratio of less than 1.5 is a non-responder, a ratio of 1.5 to less than 3.0, a weak responder, and a ratio of 3.0 or greater, a good responder. 3. If the pre-vaccination concentration is greater than 1.0 IU/mL, it may be difficult to assess the response based on a ratio alone. A post-vaccination concentration above 2.5 IU/mL in this case is usually adequate. Test developed and characteristics determined by [facility]. See Compliance Statement B: [email or web address] LAB PNU1 ug/mL Pneu Serotype 1 2.47 LAB PNU3 ug/mL Pneu Serotype 3 1.05 LAB PNU4 ug/mL Pneu Serotype 4 3.23 LAB PNU5 ug/mL Pneu Serotype 5 1.98 LAB PNU6B ug/mL Pneu Serotype 6B 0.60 LAB PNU7F ug/mL Pneu Serotype 7F 1.10 LAB PNU8 ug/mL Pneu Serotype 8 6.81 LAB PNU9N ug/mL Pneu Serotype 9N 2.96 LAB PNU9V ug/mL Pneu Serotype 9V 1.60 LAB PNU12F ug/mL Pneu Serotype 12F 0.37 LAB PNU14 ug/mL Pneu Serotype 14 22.94 LAB PNU18C ug/mL Pneu Serotype 18C 0.32 LAB PNU19F ug/mL Pneu Serotype 19F 1.44 LAB PNU23F ug/mL Pneu Serotype 23F 11.24 LAB PNUINT Pneu Interpretation SEE NOTE Result Comment: (NOTE) INTERPRETIVE INFORMATION: Streptococcus pneumoniae Antibodies, IgG A pre- and post-vaccination comparison is required to adequately assess the humoral immune response to Prevnar 7 (P7), Prevnar 13 (P13), and/or Pneumovax 23 (PNX) Streptococcus pneumoniae vaccines. Pre-vaccination samples should be collected prior to vaccine administration. Post-vaccination samples should be obtained at least 4 weeks after immunization. Testing of post-vaccination samples alone will provide only general immune status of the individual to various pneumococcal serotypes. In the case of pure polysaccharide vaccine, indication of immune system competence is further delineated as an adequate response to at least 50 percent of the serotypes in the vaccine challenge for those 2-5 years of age and to at least 70 percent of the serotypes in the vaccine challenge for those 6-65 years of age. Individual immune response may vary based on age, past exposure, immunocompetence, and pneumococcal serotype. Responder Status Antibody Ratio Non-Responder . . . . . . . . . . . . . . Less than 2-fold Weak Responder . . . . . . . . . . . . . 2-fold to 4-fold Good Responder . . . . . . . . . . . . . Greater than 4-fold A response to 50-70 percent or more of the serotypes in the vaccine challenge is considered a normal humoral response(1). Antibody concentration greater than 1.0 - 1.3 ug/mL is generally considered long-term protection(2). References: 1. Aline LOOMIS, Amanda JW, Timothy X, HE, Pancho HR. Multilaboratory assessment of threshold versus fold-change algorithms for minimizing analytical variability in multiplexed pneumococcal IgG measurements. Clin Vaccine Immunol. 2014;21(7):982-8. 2. Aline LOOMIS, Pancho PAL. Use and Clinical Interpretation of Pneumococcal Antibody Measurements in the Evaluation of Humoral Immune Function. Clin Vaccine Immunol. 2015;22(2):148-152. Test developed and characteristics determined by [facility]. See Compliance Statement B: [facility] Performed By: #### HUMOR1 #### [facility] [address] [place] [address] [phone] PROGRESS Observed: 05/23/2018 Status: COMPLETED Source: [place] 3:05 PM [facility] OTHER CAMPUS REPOSITORY HNO ID: [id number] Author: Mare Segura Service: (none) Author Type: Physician Type: Progress Notes Filed: 05/23/2018 3:56 PM Note Text: RHEUMATOLOGY PROGRESS NOTE Patient is here for a follow up visit for Patient presents with: Results: here to discuss labs from 05/02/2018. HPI: Latonya Parker is a 57 year old female who presents with joint pain. She continues to have symptoms of joint pain, fatigue, sicca, hair loss. Brief Rheumatological history - She was diagnosed with connective tissue disease, sjogrens and lupus by her PCP and ophtho. She was diagnosed with sicca and prescribed Restasis. She reports pain - sharp, back, hands, feet, neck, hips. She was seen by Dr. Bah at [facility] few years ago, diagnosed with fibromyalgia, had blood work. Leg swelling. Morning hand swelling, difficult to make a fist, cant hold coffee mug. Am stiffness lasting for 4 hrs. She takes Cymbalta. Gabapentin did not help. Butterfly rash. On her feet all day. She has history of acid reflux, esophagitis, acute and chronic inflammation. laparoscopic lysis of adhesions with laparoscopic appendectomy on December 08, 2013. Hypothyroid, frozen shoulder - had PT, back pain, foot surgery for plantar fasciitis Fatigue, oral ulcers, hair thinning, frequent sinusitis, malar rash, photosensitivity, eczema, nausea, diarrhea, GERD, dry cough, SOB, headaches, paresthesia CORTEZ on CPAP. UTI. Family history of autoimmune disease: mother has RA?, father with psoriasis Smoking status: Tobacco Use: .5 packs/day, for 30 years. Types: Cigarettes (down to 5 cigs) ? ? Interval Review of Systems CONSTITUTIONAL: Recent Weight change: YES gain Fever: No EYES: Dryness in nose: No Dryness of mouth: No Oral ulcers: No CARDIOVASCULAR: Pain in chest: No RESPIRATORY: Shortness of breath: No Cough: No GASTROINTESTINAL: Nausea: No Vomiting: No Changes in bowel movements: No Jaundice: No Heartburn: No MUSCULOSKELETAL: Per HPI INTEGUMENTARY: Rash: No HEMATOLOGIC/LYMPHATIC: Anemia: No NEUROLOGICAL SYSTEM: Headaches: No Sensitivity or pain of hands and/or feet: No PSYCHIATRIC: Anxiety: No Poor sleep: No PAST MEDICAL HISTORY Diagnosis Date - Abdominal pain 12/08/13 - Esophageal reflux Gastroesophageal reflux - PMH - PAST MEDICAL HISTORY OF SLOW EMPTYING STOMACH - Unspecified hypothyroidism Hypothyroidism PAST SURGICAL HISTORY Procedure Laterality Date - BOTOX for migraines - DELIVERY ONLY X2 , low cervical - COLONOSCOP W/ OR W/O [facility] SPEC 03/21/10 - COLONOSCOP W/ OR W/O [facility] SPEC 03/24/14 Colonoscopy - DENTURES COMPLETE LOWER 11/02 - EGD W/O [facility] SPECIMEN W/BX 06/11/13 - EGD W/O OR W/BRUSH/WASH 03/24/14 - EGD WITH BIOPSY(S) 10-17-11 Repeat in 1 year () - HYSTERECTOMY HX - LAPAROSCOPY, SURGICAL, APPENDECTOMY 12/08/13 - LIGATE FALLOPIAN TUBE Tubal ligation - PAST SURGICAL HISTORY OF ARTHROSCOPIC KNEE SURGERY LEFT - PAST SURGICAL HISTORY OF BIOPSY LYKENS SCLEROSIS, vaginal - PAST SURGICAL HISTORY OF 07/24/12 shoulder capulitis left - REMOVAL OF HEEL SPUR 07/05 Right - TOTAL ABDOM HYSTERECTOMY 2004 in [place] Hysterectomy, YUDELKA/BSO- benign History Review: I have reviewed and modified as needed, the following during this visit: Allergies, Past Medical History, Past Surgical History, Past Family History, Past Social History. BP 124/86 Pulse 90 Temp 36.8 ?C (98.3 ?F) Ht 152.4 cm (5') Wt 87.1 kg (192 lb) BMI 37.50 kg/m? Physical Exam GENERAL: Well appearing, alert, comfortable, in no acute distress, well-hydrated, well nourished. HEENT: Negative for external ears normal. Canals are clear. Both TMs visualized and are normal. Eye Exam normal. External nose normal, no nasal ulcer or throat ulcer. NECK: NECK Supple, no adenopathy; thyroid symmetric, normal size, no bruits CARDIAC: regular rate and rhythm, No murmur asculated. and Equal peripheral pulses RESPIRATORY: Lungs clear to auscultation. No wheezing, rhonchi, rales VASCULAR: RRR without murmur, gallop, or rubs. No ectopy. NEURO: Motor and sensory exam normal MOTOR: Normal; including tone, gait, stressed gait, power and coordination. SKIN: Negative for alopecia, skin rash, malar rash, skin lesion, skin ulcer, pits, thickening, color changes, telangiectasias, nail changes, nail ridging, nail pitting, onycholysis MUSCULOSKELETAL: DIPS: Normal PIPS: Normal MCPs: Normal Wrists: Normal Elbows: Normal Shoulders: Normal C-Spine: Normal Hips: Normal Knees: Normal Ankles: Normal MTPs / Toes: Normal Arches: Normal Lab Results: Glucose 96 05/02/2018 ALT 44 05/02/2018 WBC 7.81 05/02/2018 HGB 13.5 05/02/2018 Platelet Count 324 05/02/2018 Serology: DAVID: Negative, CCP: Negative, DNA: Negative, RF: Negative, LAUNCHMAN: Negative, SM: Negative, SSA: Negative and SSB: Negative CK 201, IgG 686 Normal ferritin, celiac antibodies, thyroid peroxidase antibodies, vitamin D Radiology: IMPRESSION: ?No acute findings radiographically. ?Mild degenerative disc disease C4-C5 and C6-C7. EXAMINATION: ?HAND ?3V PA/LAT/OBL LEFT, HAND ?3V PA/LAT/OBL RIGHT ? HISTORY: ? Joint pain. ? ? . ? TECHNIQUE: ?AP, lateral, and oblique views of both hands were obtained. ? COMPARISON: ?None. ? ? ? RESULT: There is no acute fracture or dislocation. ?There are no bony erosions. ? There is no significant joint space narrowing. ? IMPRESSION: No acute findings. ?No significant osteoarthritis. ?No bony erosions. FINDINGS: ?There is no fracture. ?There is no significant subluxation. ?There is no osseous destructive process. ?There is mild degenerative disc disease at L2-L3, ?L3-L4, L4-L5, with slight loss of disc height and endplate osteophyte formation. ?No osseous destructive process. ? IMPRESSION: ?No acute findings radiographically. ?Mild multilevel lumbar degenerative disc disease as noted. EXAMINATION: ?SACROILIAC JOINTS LESS THAN 3 VIEWS [id number] ? HISTORY: ? Joint pain. ? ? . ? TECHNIQUE: ?Two dedicated views of the sacroiliac joint spaces were obtained. ? COMPARISON: ?Plain films of the lumbar spine dated 05/02/2018 ? RESULT: The sacroiliac and hip joint spaces appear grossly preserved. ?There is no ?acute fracture or dislocation. ? IMPRESSION: No acute findings. EXAMINATION: ?FOOT ?3V AP/LAT/OBL LEFT, FOOT ?3V AP/LAT/OBL RIGHT ? HISTORY: ? Joint pain. ? ? . ? TECHNIQUE: ?AP, lateral, and oblique views of each foot were obtained. ? COMPARISON: ?None ? RESULT: Minimal degenerative change is seen involving the MTP joints of the first digit, bilaterally. ?Small bilateral Achilles as well as left calcaneal enthesophytes. ?There is no acute fracture or dislocation. ?Joint spaces are grossly preserved. ?There are no bony erosions. ? IMPRESSION: No acute findings. ?Mild osteoarthritis. Assessment and Plan (M35.00) Sicca syndrome, unspecified (HCC) (primary encounter diagnosis) (M25.50) Pain in joint, multiple sites (R74.8) Elevated CK (R76.8) Low serum IgG for age 57-year-old female is here for evaluation of joint pain, myalgia. She also reports sicca, intermittent oral ulcers and hair thinning, questionable Raynaud's phenomena and. These symptoms can be seen in autoimmune diseases however they are nonspecific features. ? Principal rheumatological workup was negative for lupus, rheumatoid arthritis and Sjogren's syndrome. Given continued symptoms of sicca we will try ever sac instead of pilocarpine. Very low elevation of muscle enzyme which could be a normal variant and needs to be monitored. No objective weakness or rash of dermatomyositis.? She is undergoing evaluation for immune deficiency. We had a long discussion about fibromyalgia. No orders found for this visit on 05/23/18. Medication orders placed this encounter cevimeline (EVOXAC) 30 mg capsule Sig: Take 1 capsule by mouth three times daily. Dispense: 90 capsule Refill: 2 Return in about 6 months (around 11/20/2018) for sicca, elevated CK. Mare Segura MD CNOV Observed: 05/23/2018 Status: COMPLETED Source: [place] 3:00 PM [facility] OTHER [facility] REPOSITORY Office Visit ([facility]) RANDYLATONYA ([id number]) 1960 F Date Time Provider Department 05/23/18 3:00 PM MARE SEGURA During your visit today, we recorded the following information about you: Temperature Pulse Blood pressure Weight 98.3 degrees 90/minute 124/86 87.1 kg Height 1.524 m Mare Segura MD 05/23/2018 3:56 PM Signed RHEUMATOLOGY PROGRESS NOTE Patient is here for a follow up visit for Patient presents with: Results: here to discuss labs from 05/02/2018. HPI: Latonya De La Rosa Randy is a 57 year old female who presents with joint pain. She continues to have symptoms of joint pain, fatigue, sicca, hair loss. Brief Rheumatological history - She was diagnosed with connective tissue disease, sjogrens and lupus by her PCP and ophtho. She was diagnosed with sicca and prescribed Restasis. She reports pain - sharp, back, hands, feet, neck, hips. She was seen by Dr. Bah at [facility] few years ago, diagnosed with fibromyalgia, had blood work. Leg swelling. Morning hand swelling, difficult to make a fist, cant hold coffee mug. Am stiffness lasting for 4 hrs. She takes Cymbalta. Gabapentin did not help. Butterfly rash. On her feet all day. She has history of acid reflux, esophagitis, acute and chronic inflammation. laparoscopic lysis of adhesions with laparoscopic appendectomy on December 08, 2013. Hypothyroid, frozen shoulder - had PT, back pain, foot surgery for plantar fasciitis Fatigue, oral ulcers, hair thinning, frequent sinusitis, malar rash, photosensitivity, eczema, nausea, diarrhea, GERD, dry cough, SOB, headaches, paresthesia CORTEZ on CPAP. UTI. Family history of autoimmune disease: mother has RA?, father with psoriasis Smoking status: Tobacco Use: .5 packs/day, for 30 years. Types: Cigarettes (down to 5 cigs) ? ? Interval Review of Systems CONSTITUTIONAL: Recent Weight change: YES gain Fever: No EYES: Dryness in nose: No Dryness of mouth: No Oral ulcers: No CARDIOVASCULAR: Pain in chest: No RESPIRATORY: Shortness of breath: No Cough: No GASTROINTESTINAL: Nausea: No Vomiting: No Changes in bowel movements: No Jaundice: No Heartburn: No MUSCULOSKELETAL: Per HPI INTEGUMENTARY: Rash: No HEMATOLOGIC/LYMPHATIC: Anemia: No NEUROLOGICAL SYSTEM: Headaches: No Sensitivity or pain of hands and/or feet: No PSYCHIATRIC: Anxiety: No Poor sleep: No PAST MEDICAL HISTORY Diagnosis Date - Abdominal pain 12/08/13 - Esophageal reflux Gastroesophageal reflux - PMH - PAST MEDICAL HISTORY OF SLOW EMPTYING STOMACH - Unspecified hypothyroidism Hypothyroidism PAST SURGICAL HISTORY Procedure Laterality Date - BOTOX for migraines - DELIVERY ONLY X2 , low cervical - COLONOSCOP W/ OR W/O [facility] SPEC 03/21/10 - COLONOSCOP W/ OR W/O [facility] SPEC 03/24/14 Colonoscopy - DENTURES COMPLETE LOWER 11/02 - EGD W/O [facility] SPECIMEN W/BX 06/11/13 - EGD W/O OR W/BRUSH/WASH 03/24/14 - EGD WITH BIOPSY(S) 10-17-11 Repeat in 1 year () - HYSTERECTOMY HX - LAPAROSCOPY, SURGICAL, APPENDECTOMY 12/08/13 - LIGATE FALLOPIAN TUBE Tubal ligation - PAST SURGICAL HISTORY OF ARTHROSCOPIC KNEE SURGERY LEFT - PAST SURGICAL HISTORY OF BIOPSY LYKENS SCLEROSIS, vaginal - PAST SURGICAL HISTORY OF 07/24/12 shoulder capulitis left - REMOVAL OF HEEL SPUR 07/05 Right - TOTAL ABDOM HYSTERECTOMY 2004 in [place] Hysterectomy, YUDELKA/BSO- benign History Review: I have reviewed and modified as needed, the following during this visit: Allergies, Past Medical History, Past Surgical History, Past Family History, Past Social History. BP 124/86 Pulse 90 Temp 36.8 ?C (98.3 ?F) Ht 152.4 cm (5') Wt 87.1 kg (192 lb) BMI 37.50 kg/m? Physical Exam GENERAL: Well appearing, alert, comfortable, in no acute distress, well-hydrated, well nourished. HEENT: Negative for external ears normal. Canals are clear. Both TMs visualized and are normal. Eye Exam normal. External nose normal, no nasal ulcer or throat ulcer. NECK: NECK Supple, no adenopathy; thyroid symmetric, normal size, no bruits CARDIAC: regular rate and rhythm, No murmur asculated. and Equal peripheral pulses RESPIRATORY: Lungs clear to auscultation. No wheezing, rhonchi, rales VASCULAR: RRR without murmur, gallop, or rubs. No ectopy. NEURO: Motor and sensory exam normal MOTOR: Normal; including tone, gait, stressed gait, power and coordination. SKIN: Negative for alopecia, skin rash, malar rash, skin lesion, skin ulcer, pits, thickening, color changes, telangiectasias, nail changes, nail ridging, nail pitting, onycholysis MUSCULOSKELETAL: DIPS: Normal PIPS: Normal MCPs: Normal Wrists: Normal Elbows: Normal Shoulders: Normal C-Spine: Normal Hips: Normal Knees: Normal Ankles: Normal MTPs / Toes: Normal Arches: Normal Lab Results: Glucose 96 05/02/2018 ALT 44 05/02/2018 WBC 7.81 05/02/2018 HGB 13.5 05/02/2018 Platelet Count 324 05/02/2018 Serology: DAVID: Negative, CCP: Negative, DNA: Negative, RF: Negative, LAUNCHMAN: Negative, SM: Negative, SSA: Negative and SSB: Negative CK 201, IgG 686 Normal ferritin, celiac antibodies, thyroid peroxidase antibodies, vitamin D Radiology: IMPRESSION: ?No acute findings radiographically. ?Mild degenerative disc disease C4-C5 and C6-C7. EXAMINATION: ?HAND ?3V PA/LAT/OBL LEFT, HAND ?3V PA/LAT/OBL RIGHT ? HISTORY: ? Joint pain. ? ? . ? TECHNIQUE: ?AP, lateral, and oblique views of both hands were obtained. ? COMPARISON: ?None. ? ? ? RESULT: There is no acute fracture or dislocation. ?There are no bony erosions. ? There is no significant joint space narrowing. ? IMPRESSION: No acute findings. ?No significant osteoarthritis. ?No bony erosions. FINDINGS: ?There is no fracture. ?There is no significant subluxation. ?There is no osseous destructive process. ?There is mild degenerative disc disease at L2-L3, ?L3-L4, L4-L5, with slight loss of disc height and endplate osteophyte formation. ?No osseous destructive process. ? IMPRESSION: ?No acute findings radiographically. ?Mild multilevel lumbar degenerative disc disease as noted. EXAMINATION: ?SACROILIAC JOINTS LESS THAN 3 VIEWS [id number] ? HISTORY: ? Joint pain. ? ? . ? TECHNIQUE: ?Two dedicated views of the sacroiliac joint spaces were obtained. ? COMPARISON: ?Plain films of the lumbar spine dated 05/02/2018 ? RESULT: The sacroiliac and hip joint spaces appear grossly preserved. ?There is no ?acute fracture or dislocation. ? IMPRESSION: No acute findings. EXAMINATION: ?FOOT ?3V AP/LAT/OBL LEFT, FOOT ?3V AP/LAT/OBL RIGHT ? HISTORY: ? Joint pain. ? ? . ? TECHNIQUE: ?AP, lateral, and oblique views of each foot were obtained. ? COMPARISON: ?None ? RESULT: Minimal degenerative change is seen involving the MTP joints of the first digit, bilaterally. ?Small bilateral Achilles as well as left calcaneal enthesophytes. ?There is no acute fracture or dislocation. ?Joint spaces are grossly preserved. ?There are no bony erosions. ? IMPRESSION: No acute findings. ?Mild osteoarthritis. Assessment and Plan (M35.00) Sicca syndrome, unspecified (HCC) (primary encounter diagnosis) (M25.50) Pain in joint, multiple sites (R74.8) Elevated CK (R76.8) Low serum IgG for age 57-year-old female is here for evaluation of joint pain, myalgia. She also reports sicca, intermittent oral ulcers and hair thinning, questionable Raynaud's phenomena and. These symptoms can be seen in autoimmune diseases however they are nonspecific features. ? Principal rheumatological workup was negative for lupus, rheumatoid arthritis and Sjogren's syndrome. Given continued symptoms of sicca we will try ever sac instead of pilocarpine. Very low elevation of muscle enzyme which could be a normal variant and needs to be monitored. No objective weakness or rash of dermatomyositis.? She is undergoing evaluation for immune deficiency. We had a long discussion about fibromyalgia. No orders found for this visit on 05/23/18. Medication orders placed this encounter cevimeline (EVOXAC) 30 mg capsule Sig: Take 1 capsule by mouth three times daily. Dispense: 90 capsule Refill: 2 Return in about 6 months (around 11/20/2018) for sicca, elevated CK. MD Mare Beaulieu MD 05/23/2018 3:43 PM Addendum Patient education: Dry eye (The Basics) Written by the doctors and editors at [facility] What is dry eye?Dry eye happens when your eyes either do not make enough tears or the tears that they make evaporate (go away) too quickly. This causes your eyes to feel dry and irritated. The medical term for dry eye is keratoconjunctivitis sicca. What causes dry eye?Many people have dry eye, including about one-third of older adults. A few people with dry eye might have another disease, such as Sjogren's syndrome, diabetes, or Parkinson disease. Some medicines can cause dry eye symptoms or make them worse. What are the symptoms of dry eye?People have different symptoms but the most common ones are eyes that: ?Feel dry or burn ?Look red Other symptoms can include: ?Being bothered by light ?Feeling like something is in your eyes ?Blurry vision ?Watery eyes ?Discomfort wearing contact lenses In some people the symptoms are worse when it is cold or windy or if they are in a dry environment. Should I see a doctor or nurse?Yes. If your eye stays red, irritated, or painful for several days, you should see your doctor or nurse. Will I need tests?Probably not. The doctor or nurse should be able to tell if you have dry eye by learning about your symptoms and doing an exam. How is dry eye treated?Artificial tears are the main treatment for dry eye. They can keep the eye moist and help with the symptoms of dry eye. You can buy artificial tears at the drug store or grocery store without a prescription. They come in liquid, gel, or ointments. Your doctor or nurse will help you decide which form is best for you. It is usually best to avoid eye drops that are meant to reduce redness. Artificial tears help with the symptoms of dry eye, but they do not cure the condition. They work only as long as you keep using them. Other things you can do to help improve your symptoms are: ?Try to blink a lot, especially when you are reading or using the computer. This helps keep your eye moist. ?Avoid excess air conditioning or heating as much as you can. Also avoid sitting directly in the flow of the cold or hot air. ?Use a humidifier in your bedroom and any other space where you spend a lot of time. ?Avoid smoke and smoky air ?Wear protective eyewear when you are outside. Glasses that cover more of your face, or have special cobb on the sides, can protect your eyes from wind and dry air. Over the counter artificial eye drops like Genteal/Systane can be helpful. If your dry eye does not get better in 3 to 4 weeks, your doctor or nurse might send you to see an eye doctor (called an veneer matcher). The eye doctor can do more tests and might suggest other treatments. These include prescription eye drops (like Restasis) or ointments, special glasses or goggles, oral medicines (pills), or surgery. This topic retrieved from [employer] on: Sep 12, 2017. You can try Xylomelts over the counter for dry mouth. Referring Provider: MARE SEGURA [[id number]] Allergies As of Date: 05/23/2018 Noted Allergy Reaction ERYTHROMYCIN 02/26/2007 8 - GI Upset VICODIN (HYDROCODONE-ACETAMINOPHE*10/25/2011 9 - Itching Date Reviewed: 05/23/2018 Reviewed by: Marina ([facility]) Stiven - Fully Assessed Reason for Visit: Results [95] Cmt: here to discuss labs from 05/02/2018. Primary Visit Diagnosis:Sicca syndrome, unspecified (HCC) [M35.00] Other Visit Diagnoses:Pain in joint, multiple sites [M25.50] Elevated CK [R74.8] Low serum IgG for age [R76.8] Order(s):cevimeline (EVOXAC) 30 mg capsuleTake 1 capsule by mouth three times daily.Disp: 90 capsuleRfl: 2 Prescriptions as of 05/23/2018 Sig: DULOXETINE 60 MG CAPSULE,JAZMYNE* Take 60 mg by mouth twice jose* RESTASIS OPHTHALMIC Use in eyes twice daily. OMEPRAZOLE 20 MG CAPSULE,JAZYMNE* Take 20 mg by mouth twice jose* IBUPROFEN 200 MG TABLET Take 200 mg by mouth every 6 * * TOPIRAMATE 25 MG TABLET Take 25 mg by mouth twice jose* * MULTI-VITAMIN ORAL Take 2 tablets by mouth once * CLOBETASOL 0.05 % TOPICAL OIN* Apply 1 application to affect* * SYNTHROID 50 MCG TABLET Take one(1) tablet daily. * ASPIRIN 81 MG CHEWABLE TABLET Take one(1) tablet daily. * AGATHA-600 WITH VITAMIN D 600 MG* Take one(1) tablet twice claudine* * OMEGA-3 FATTY ACIDS 1,000 MG * CEVIMELINE 30 MG CAPSULE Take 1 capsule by mouth three* SUCRALFATE 100 MG/ML ORAL FRANSISCO* Take 1 g by mouth as needed. FOLIC ACID 400 MCG TABLET Take 400 mcg by mouth once da* Problem List As Of Date 05/23/2018 Noted Resolved Unspecified hypothyroidism [E03.9] More... Esophageal reflux [K21.9] More... Breast abscess [N61.1] INVALID FOR* Lichen sclerosus [L90.0] INVALID FOR* Dysphagia [R13.10] INVALID FOR* Polyp, stomach [K31.7] INVALID FOR* Sicca syndrome, unspecified (HCC) [M35.00] INVALID FOR* Pain in joint, multiple sites [M25.50] INVALID FOR* Elevated CK [R74.8] INVALID FOR* Low serum IgG for age [R76.8] INVALID FOR* Other instructions from your clinician: Patient education: Dry eye (The Basics) Written by the doctors and editors at [facility] What is dry eye?Dry eye happens when your eyes either do not make enough tears or the tears that they make evaporate (go away) too quickly. This causes your eyes to feel dry and irritated. The medical term for dry eye is keratoconjunctivitis sicca. What causes dry eye?Many people have dry eye, including about one-third of older adults. A few people with dry eye might have another disease, such as Sjogren's syndrome, diabetes, or Parkinson disease. Some medicines can cause dry eye symptoms or make them worse. What are the symptoms of dry eye?People have different symptoms but the most common ones are eyes that: ?Feel dry or burn ?Look red Other symptoms can include: ?Being bothered by light ?Feeling like something is in your eyes ?Blurry vision ?Watery eyes ?Discomfort wearing contact lenses In some people the symptoms are worse when it is cold or windy or if they are in a dry environment. Should I see a doctor or nurse?Yes. If your eye stays red, irritated, or painful for several days, you should see your doctor or nurse. Will I need tests?Probably not. The doctor or nurse should be able to tell if you have dry eye by learning about your symptoms and doing an exam. How is dry eye treated?Artificial tears are the main treatment for dry eye. They can keep the eye moist and help with the symptoms of dry eye. You can buy artificial tears at the drug store or grocery store without a prescription. They come in liquid, gel, or ointments. Your doctor or nurse will help you decide which form is best for you. It is usually best to avoid eye drops that are meant to reduce redness. Artificial tears help with the symptoms of dry eye, but they do not cure the condition. They work only as long as you keep using them. Other things you can do to help improve your symptoms are: ?Try to blink a lot, especially when you are reading or using the computer. This helps keep your eye moist. ?Avoid excess air conditioning or heating as much as you can. Also avoid sitting directly in the flow of the cold or hot air. ?Use a humidifier in your bedroom and any other space where you spend a lot of time. ?Avoid smoke and smoky air ?Wear protective eyewear when you are outside. Glasses that cover more of your face, or have special cobb on the sides, can protect your eyes from wind and dry air. Over the counter artificial eye drops like Genteal/Systane can be helpful. If your dry eye does not get better in 3 to 4 weeks, your doctor or nurse might send you to see an eye doctor (called an veneer matcher). The eye doctor can do more tests and might suggest other treatments. These include prescription eye drops (like Restasis) or ointments, special glasses or goggles, oral medicines (pills), or surgery. This topic retrieved from [facility] on: Sep 12, 2017. You can try Xylomelts over the counter for dry mouth. Prescriptions ordered this encounter Disp Refills Start End CEVIMELINE 30 MG CAPSULE 90 c* 2 05/23/2018 Route: ORAL Sig: Take 1 capsule by mouth three times daily. Medications Discontinued During This Encounter Pilocarpine HCl 7.5 mg tablet 05/23/2018 Class: Historical Med Route: ORAL Sig: Take 7.5 mg by mouth twice daily. Disc: Course of therapy completed Disposition: Return in about 6 months (around 11/20/2018) for sicca, elevated CK. Follow-up and Disposition History Recorded Questionnaire: REBECA COSBY YEARLY ADL ASSESSMENT Toileting -> Independent Bathing -> Independent Upper Body Dressing -> Independent Lower Body Dressing -> Independent Grooming/Hygiene -> Independent Self Feeding -> Independent Home Management (laundry/cleaning/chores/simple meal prep) -> Independent Encounter Status:Closed by MARE SEGURA [place] 05/23/18 [facility] [place]lected: 05/20/2018 Status: F Source: [facility] 2:45 PM HEALTH SYSTEM REPOSITORY TYPE CODE TESTS RESULT OUT OF REFERENCE UNITS RANGE LAB GO3X(LOINC) Test Name Humoral Pnl 1 LAB GO1X(LOINC) [facility] Order HUMOR1 Code LAB GO2X(LOINC) [facility] [place]. Test SEE BELOW Result Result Comment: Immunoglobulin A 124 Reference range: 68 to 408 Unit: mg/dL (NOTE) REFERENCE INTERVAL: Immunoglobulin A Access complete set of age- and/or gender-specific reference intervals for this test in the [facility] Test Directory ([facility]). Immunoglobulin M 117 Reference range: 35 to 263 Unit: mg/dL (NOTE) REFERENCE INTERVAL: Immunoglobulin M Access complete set of age- and/or gender-specific reference intervals for this test in the [facility] Test Directory ([facility]). Immunoglobulin G 663 L Reference range: 768 to 1632 Unit: mg/dL (NOTE) REFERENCE INTERVAL: Immunoglobulin G Access complete set of age- and/or gender-specific reference intervals for this test in the [facility] Test Directory ([facility]). IgG 1 421 Reference range: 240 to 1118 Unit: mg/dL (NOTE) REFERENCE INTERVAL: Immunoglobulin G Subclass 1 Access complete set of age- and/or gender-specific reference intervals for this test in the [facility] Test Directory ([facility]). IgG 2 120 L Reference range: 124 to 549 Unit: mg/dL (NOTE) REFERENCE INTERVAL: Immunoglobulin G Subclass 2 Access complete set of age- and/or gender-specific reference intervals for this test in the [facility] Test Directory ([facility]). IgG 3 11 L Reference range: 21 to 134 Unit: mg/dL (NOTE) REFERENCE INTERVAL: Immunoglobulin G Subclass 3 Access complete set of age- and/or gender-specific reference intervals for this test in the [employer] Test Directory ([facility]). IgG 4 25 Reference range: 1 to 123 Unit: mg/dL (NOTE) REFERENCE INTERVAL: Immunoglobulin G Subclass 4 Access complete set of age- and/or gender-specific reference intervals for this test in the [employer] Test Directory ([facility]). Performed by [facility], [address] [place] [id number] [email or web address], Michoacano Arias MD, Lab. Director Diphtheria Abs, IgG 0.5 Unit: IU/mL (NOTE) INTERPRETIVE INFORMATION: Diphtheria Ab, IgG Antibody concentration of greater than 0.1 IU/mL is usually considered protective. Responder status is determined according to the ratio of a one month post-vaccination sample to pre-vaccination concentrations of Diphtheria IgG Abs as follows: 1. If the one month post-vaccination concentration is less than 1.0 IU/mL, the patient is considered to be a non-responder. 2. If the post-vaccination concentration is greater than or equal to 1.0 IU/mL, a patient with a ratio of less than 1.5 is a non-responder, a ratio of 1.5 to less than 3.0, a weak responder, and a ratio of 3.0 or greater, a good responder. 3. If the pre-vaccination concentration is greater than 1.0 IU/mL, it may be difficult to assess the response based on a ratio alone. A post-vaccination concentration above 2.5 IU/mL in this case is usually adequate. Test developed and characteristics determined by [facility]. See Compliance Statement B: [facility] Tetanus Abs, IgG 13.3 Unit: IU/mL (NOTE) INTERPRETIVE INFORMATION: Tetanus Ab, IgG Antibody concentration of greater than 0.1 IU/mL is usually considered protective. Responder status is determined according to the ratio of a one-month post-vaccination sample to pre-vaccination concentration of Tetanus IgG Abs as follows: 1. If the one month post-vaccination concentration is less than 1.0 IU/mL, the patient is considered a non-responder. 2. If the post-vaccination concentration is greater than or equal to 1.0 IU/mL, a patient with a ratio of less than 1.5 is a non-responder, a ratio of 1.5 to less than 3.0, a weak responder, and a ratio of 3.0 or greater, a good responder. 3. If the pre-vaccination concentration is greater than 1.0 IU/mL, it may be difficult to assess the response based on a ratio alone. A post-vaccination concentration above 2.5 IU/mL in this case is usually adequate. Test developed and characteristics determined by [facility]. See Compliance Statement B: [facility] Pneu Serotype 1 0.84 Unit: ug/mL Pneu Serotype 3 0.83 Unit: ug/mL Pneu Serotype 4 2.43 Unit: ug/mL Pneu Serotype 5 1.40 Unit: ug/mL Pneu Serotype 6B 0.13 Unit: ug/mL Pneu Serotype 7F 0.67 Unit: ug/mL Pneu Serotype 8 3.83 Unit: ug/mL Pneu Serotype 9N 1.89 Unit: ug/mL Pneu Serotype 9V 1.07 Unit: ug/mL Pneu Serotype 12F 0.08 Unit: ug/mL Pneu Serotype 14 20.23 Unit: ug/mL Pneu Serotype 18C 0.33 Unit: ug/mL Pneu Serotype 19F 0.80 Unit: ug/mL Pneu Serotype 23F 6.05 Unit: ug/mL Pneu Interpretation SEE NOTE (NOTE) INTERPRETIVE INFORMATION: Streptococcus pneumoniae Antibodies, IgG A pre- and post-vaccination comparison is required to adequately assess the humoral immune response to Prevnar 7 (P7), Prevnar 13 (P13), and/or Pneumovax 23 (PNX) Streptococcus pneumoniae vaccines. Pre-vaccination samples should be collected prior to vaccine administration. Post-vaccination samples should be obtained at least 4 weeks after immunization. Testing of post-vaccination samples alone will provide only general immune status of the individual to various pneumococcal serotypes. In the case of pure polysaccharide vaccine, indication of immune system competence is further delineated as an adequate response to at least 50 percent of the serotypes in the vaccine challenge for those 2-5 years of age and to at least 70 percent of the serotypes in the vaccine challenge for those 6-65 years of age. Individual immune response may vary based on age, past exposure, immunocompetence, and pneumococcal serotype. Responder Status Antibody Ratio Non-Responder . . . . . . . . . . . . . . Less than 2-fold Weak Responder . . . . . . . . . . . . . 2-fold to 4-fold Good Responder . . . . . . . . . . . . . Greater than 4-fold A response to 50-70 percent or more of the serotypes in the vaccine challenge is considered a normal humoral response(1). Antibody concentration greater than 1.0 - 1.3 ug/mL is generally considered long-term protection(2). References: 1. Aline LOOMIS, Amanda JW, Timothy X, Prince SON, Pancho HR. Multilaboratory assessment of threshold versus fold-change algorithms for minimizing analytical variability in multiplexed pneumococcal IgG measurements. Clin Vaccine Immunol. 2014;21(7):982-8. 2. Aline LOOMIS, Pancho PAL. Use and Clinical Interpretation of Pneumococcal Antibody Measurements in the Evaluation of Humoral Immune Function. Clin Vaccine Immunol. 2015;22(2):148-152. Test developed and characteristics determined by [facility]. See Compliance Statement B: [email or web address] Performing Laboratory: Performed By: #### GOX #### [place] [id number] PROGRESS Observed: 05/20/2018 Status: COMPLETED Source: [place] 2:05 PM [facility] REPOSITORY HNO ID: [id number] Author: Jackson Mei Service: (none) Author Type: Physician Type: Progress Notes Filed: 05/21/2018 8:08 AM Note Text: This is a request for consultation by Mare Segura MD of rheumatology for evaluation of possible immunodeficiency. Please note that this note has been generated by the [employer] dictation software. Quite often unanticipated grammatical, syntax, homophones, and other interpretive errors are inadvertently transcribed by the computer software. Please disregard these errors. Please excuse any errors that have escaped final proofreading. Ms. Parker is a 57 year old female who was referred to me with a diagnosis of low IgG for her age. Component Latest Ref Rng AND Units 05/02/2018 IgG 700 - 1,600 mg/dL 686 (L) IgM 40 - 230 mg/dL 118 Immunoglobulin E SEE BELOW IgA 70 - 400 mg/dL 140 Mrs. Parker recently went to a orthopedic technician, Dr. Segura, who evaluated for an autoimmune disease, Dr. Segura ordered many lab tests including immunoglobulin levels, and the IgG level came back just below the reference range of normal. This Randy was then referred for an evaluation of an immune deficiency. This Randy does not have a family history of recurrent infections or immune deficiencies. Growing up his young child she did not have recurrent sinopulmonary infections, or during her 20s or 30s, and has not been admitted to the hospital for infectious etiologies in the past. Does report that she get sinusitis frequently, though this is never been confirmed on a CT scan. She also says she gets bronchitis, currently, again no objective evidence of this. She has been given Augmentin many times in the past, usually by her primary doctor, she apparently gets about 7-10 courses of antibiotics a year. Below is a detailed history of her infections. Recurrent infections: 1. Sinusitis: 4-5 times a year, needs 7-10 courses of ABX, Augmentin. Has not a CT of her sinus, all are just diagnosed of pain in pressure in face and her teeth her. 2. Bronchitis: Couple of times a year 3. Pneumonia: Twice, not admitted, diagnosed on X-ray. 2 years ago 4. Meningitis: None 5. Osteomyelitis: None 6. Bacteremia: None 7. Sepsis: None 8. Endocarditis: None 9. GI Infections: None 10. UTIs: None 11. Otitis media in the past Not in a long 12. Cellulitis: Eczema gets infected 13. Other Infections:see HPI 14. Steroid Use:Kenalog shot, twice this year for eczema 15. Biologics: None 16. Abx use:see HPI 17. IV Abx:None Potential CVID related comorbidities: Fevers- None LAD-None Enteropathy-None Fatigue-None Autoimmune Disease/Joint pain-TBD Splenomegaly-None Asthma: The patient has no history of asthma. Past Medical History: PAST MEDICAL HISTORY Diagnosis Date - Abdominal pain 12/08/13 - Esophageal reflux Gastroesophageal reflux - PMH - PAST MEDICAL HISTORY OF SLOW EMPTYING STOMACH - Unspecified hypothyroidism Hypothyroidism Past Surgical History: PAST SURGICAL HISTORY Procedure Laterality Date - BOTOX for migraines - DELIVERY ONLY X2 , low cervical - COLONOSCOP W/ OR W/O BRSH SPEC 03/21/10 - COLONOSCOP W/ OR W/O BRSH SPEC 03/24/14 Colonoscopy - DENTURES COMPLETE LOWER 11/02 - EGD W/O BRSH SPECIMEN W/BX 06/11/13 - EGD W/O OR W/BRUSH/WASH 03/24/14 - EGD WITH BIOPSY(S) 10-17-11 Repeat in 1 year () - HYSTERECTOMY HX - LAPAROSCOPY, SURGICAL, APPENDECTOMY 12/08/13 - LIGATE FALLOPIAN TUBE Tubal ligation - PAST SURGICAL HISTORY OF ARTHROSCOPIC KNEE SURGERY LEFT - PAST SURGICAL HISTORY OF BIOPSY LYKENS SCLEROSIS, vaginal - PAST SURGICAL HISTORY OF 07/24/12 shoulder capulitis left - REMOVAL OF HEEL SPUR 07/05 Right - TOTAL ABDOM HYSTERECTOMY 2004 in [place] Hysterectomy, YUDELKA/BSO- benign Allergies: Erythromycin; Vicodin [Hydrocodone-Acetaminophen] Current Outpatient Prescriptions: DULoxetine (CYMBALTA) 60 mg capsule Take 60 mg by mouth twice daily. CYCLOSPORINE (RESTASIS OPHTHALMIC) Use in eyes twice daily. omeprazole (PRILOSEC) 20 mg capsule Take 20 mg by mouth twice daily. Pilocarpine HCl 7.5 mg tablet Take 7.5 mg by mouth twice daily. ibuprofen (ADVIL) 200 mg tablet Take 200 mg by mouth every 6 hours as needed. topiramate (TOPAMAX) 25 mg ORAL tablet Take 25 mg by mouth twice daily. MULTI-VITAMIN ORAL Take 2 tablets by mouth once daily. clobetasol 0.05 % TOPICAL ointment Apply 1 application to affected area. pea-sized amount bid x 2 weeks then qday x 2 weeks then twice a week or prn. levothyroxine (SYNTHROID) 50 mcg ORAL Tab Take one(1) tablet daily. aspirin 81 mg ORAL Chew Take one(1) tablet daily. Calcium Carb-Cholecalciferol (AGATHA-600 WITH VITAMIN D) 600 (1,500)-200 mg-unit ORAL Tab Take one(1) tablet twice daily. omega-3 fatty acids 1,000 mg ORAL Cap sucralfate (CARAFATE) 100 mg/mL suspension Take 1 g by mouth as needed. folic acid 400 mcg tablet Take 400 mcg by mouth once daily. No current facility-administered medications for this visit. 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 [employer]* Social History Main Topics Smoking status: Former Smoker Packs/day: 0.50 Years: 30.00 Types: Cigarettes Quit date: 01/15/2018 Smokeless tobacco: Never Used Comment: down to 5 cigs Alcohol use: Yes Comment: 1 OR 2 DRINKS OCCASSIONALLY Drug use: No Sexual activity: Yes control/protection: Other Comment: hysterectomy FAMILY HISTORY Problem Relation Age of Onset - Breast Cancer Mother DOUBLE MASTECTOMY - Cancer Mother SKIN - Hypertension Mother - Cancer Father LUNG/ SCC - Blood Disease Father - Heart Father - Hypertension Brother - Hypertension Brother REVIEW OF SYSTEMS: GENERAL: Denies fever, chills, night sweats, or changes in weight. DERM: Denies any new skin conditions, rashes or changing moles. EYES: Denies recent visual changes. ENT: Denies hearing loss or tinnitus RESP: Denies any cough, dyspnea, or wheezing. CV: Denies any chest pain with exertion or at rest, palpitations, syncope, or edema. GI: Denies any nausea, vomiting, abdominal pain, heartburn, changes in bowel habit, Denies any rectal bleeding. MUSCULOSKELETAL: Denies any joint swelling, joint pain, or loss of range of motion., Denies back pain. NEURO: Denies any headaches, tremors, dizziness, vertigo, memory loss, confusion., Denies weakness, numbness or tingling. PSYCH: Denies any sleeping problems, history of abuse, marital discord., Denies any anxiety or depression. HEME/LYMPHATIC/IMMUNO: Denies anemia, bruising, bleeding abnormalities. ENDO: Denies any heat or cold intolerance, polyuria or polydipsia. All other review of systems negative except for those listed above. EXAM: Blood pressure 148/93, pulse 98, height 153 cm (5' 0.25), weight 87.1 kg (192 lb). APPEARANCE: Well appearing, alert, in no acute distress, well-hydrated, well nourished. EYES: sclera non-icteric, conjunctiva non-injected EARS: External ears normal. Canals clear. TM's normal. NOSE/SINUS: Nares normal. Septum midline. Mucosa normal. No drainage or sinus tenderness. OROPHARYNX: Lips, tongue normal. Oropharynx clear. THROAT: no erythema NECK: neck supple, no adenopathy HEART: Regular rate, regular rhythm, S1 normal, S2 normal, no S3, no S4 and no murmur LUNG: clear to auscultation LYMPH NODES: No cervical lymphadenopathy ABDOMEN: soft, nontender, nondistended EXTREMITIES: No deformities, No skin discoloration and No edema NEURO: Awake, alert and oriented x 3, Normal gait and No involuntary motions. SKIN: Skin color, texture, turgor normal. No rashes or lesions. ASSESSMENT AND PLAN: Saw as well as a pleasant 57-year-old female, was referred to me due to a low IgG level, that is just below the normal reference range. She apparently does get several sinus infections a year, though has never been shown on the CT scan of her sinuses. She has not been seen by an ENT before. Also apparently had 2 cases of pneumonia before, but she does have a history of smoking, she has not stopped smoking. I do not have a strong suspicion of immunodeficiency and her, though I will do a screening and we will give her Pneumovax today to check her response. 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 She'll call her with her results, and discuss when she should have the second humoral panel done so that we can compare the 2. I'll then see her for follow-up. Plan: HUMORAL IMMUNITY PANEL 1 This note has been shared with the consulting provider, via the electronic medical record, or regular [employer] mail service. Jackson Mei MD Allergy and Clinical Immunology PAGER: [phone] Date: May 20, 2018 Time:2:06 PM CNOV Observed: 05/20/2018 Status: COMPLETED Source: [place] 2:00 PM [facility] REPOSITORY Office Visit ([facility]) LATONYA PARKER ([id number]) 1960 F Date Time Provider Department 05/20/18 2:00 PM JACKSON MEI [facility] During your visit today, we recorded the following information about you: Pulse Blood pressure Weight Height 98/minute 148/93 87.1 kg 1.53 m Jackson Mei MD 05/21/2018 8:08 AM Signed This is a request for consultation by Mare Segura MD of rheumatology for evaluation of possible immunodeficiency. Please note that this note has been generated by the [employer] dictation software. Quite often unanticipated grammatical, syntax, homophones, and other interpretive errors are inadvertently transcribed by the computer software. Please disregard these errors. Please excuse any errors that have escaped final proofreading. Ms. Parker is a 57 year old female who was referred to me with a diagnosis of low IgG for her age. Component Latest Ref Rng AND Units 05/02/2018 IgG 700 - 1,600 mg/dL 686 (L) IgM 40 - 230 mg/dL 118 Immunoglobulin E SEE BELOW IgA 70 - 400 mg/dL 140 Mrs. Parker recently went to a orthopedic technician, Dr. Segura, who evaluated for an autoimmune disease, Dr. Segura ordered many lab tests including immunoglobulin levels, and the IgG level came back just below the reference range of normal. This Randy was then referred for an evaluation of an immune deficiency. This Randy does not have a family history of recurrent infections or immune deficiencies. Growing up his young child she did not have recurrent sinopulmonary infections, or during her 20s or 30s, and has not been admitted to the hospital for infectious etiologies in the past. Does report that she get sinusitis frequently, though this is never been confirmed on a CT scan. She also says she gets bronchitis, currently, again no objective evidence of this. She has been given Augmentin many times in the past, usually by her primary doctor, she apparently gets about 7-10 courses of antibiotics a year. Below is a detailed history of her infections. Recurrent infections: 1. Sinusitis: 4-5 times a year, needs 7-10 courses of ABX, Augmentin. Has not a CT of her sinus, all are just diagnosed of pain in pressure in face and her teeth her. 2. Bronchitis: Couple of times a year 3. Pneumonia: Twice, not admitted, diagnosed on X-ray. 2 years ago 4. Meningitis: None 5. Osteomyelitis: None 6. Bacteremia: None 7. Sepsis: None 8. Endocarditis: None 9. GI Infections: None 10. UTIs: None 11. Otitis media in the past Not in a long 12. Cellulitis: Eczema gets infected 13. Other Infections:see HPI 14. Steroid Use:Kenalog shot, twice this year for eczema 15. Biologics: None 16. Abx use:see HPI 17. IV Abx:None Potential CVID related comorbidities: Fevers- None LAD-None Enteropathy-None Fatigue-None Autoimmune Disease/Joint pain-TBD Splenomegaly-None Asthma: The patient has no history of asthma. Past Medical History: PAST MEDICAL HISTORY Diagnosis Date - Abdominal pain 12/08/13 - Esophageal reflux Gastroesophageal reflux - PMH - PAST MEDICAL HISTORY OF SLOW EMPTYING STOMACH - Unspecified hypothyroidism Hypothyroidism Past Surgical History: PAST SURGICAL HISTORY Procedure Laterality Date - BOTOX for migraines - DELIVERY ONLY X2 , low cervical - COLONOSCOP W/ OR W/O [facility] SPEC 03/21/10 - COLONOSCOP W/ OR W/O BRS SPEC 03/24/14 Colonoscopy - DENTURES COMPLETE LOWER 11/02 - EGD W/O BRSH SPECIMEN W/BX 06/11/13 - EGD W/O OR W/BRUSH/WASH 03/24/14 - EGD WITH BIOPSY(S) 10-16-12 Repeat in 1 year () - HYSTERECTOMY HX - LAPAROSCOPY, SURGICAL, APPENDECTOMY 12/08/13 - LIGATE FALLOPIAN TUBE Tubal ligation - PAST SURGICAL HISTORY OF ARTHROSCOPIC KNEE SURGERY LEFT - PAST SURGICAL HISTORY OF BIOPSY [place] SCLEROSIS, vaginal - PAST SURGICAL HISTORY OF 07/24/12 shoulder capulitis left - REMOVAL OF HEEL SPUR 07/05 Right - TOTAL ABDOM HYSTERECTOMY 2005 in [place] Hysterectomy, YUDELKA/BSO- benign Allergies: Erythromycin; Vicodin [Hydrocodone-Acetaminophen] Current Outpatient Prescriptions: DULoxetine (CYMBALTA) 60 mg capsule Take 60 mg by mouth twice daily. CYCLOSPORINE (RESTASIS OPHTHALMIC) Use in eyes twice daily. omeprazole (PRILOSEC) 20 mg capsule Take 20 mg by mouth twice daily. Pilocarpine HCl 7.5 mg tablet Take 7.5 mg by mouth twice daily. ibuprofen (ADVIL) 200 mg tablet Take 200 mg by mouth every 6 hours as needed. topiramate (TOPAMAX) 25 mg ORAL tablet Take 25 mg by mouth twice daily. MULTI-VITAMIN ORAL Take 2 tablets by mouth once daily. clobetasol 0.05 % TOPICAL ointment Apply 1 application to affected area. pea-sized amount bid x 2 weeks then qday x 2 weeks then twice a week or prn. levothyroxine (SYNTHROID) 50 mcg ORAL Tab Take one(1) tablet daily. aspirin 81 mg ORAL Chew Take one(1) tablet daily. Calcium Carb-Cholecalciferol (AGATHA-600 WITH VITAMIN D) 600 (1,500)-200 mg-unit ORAL Tab Take one(1) tablet twice daily. omega-3 fatty acids 1,000 mg ORAL Cap sucralfate (CARAFATE) 100 mg/mL suspension Take 1 g by mouth as needed. folic acid 400 mcg tablet Take 400 mcg by mouth once daily. No current facility-administered medications for this visit. 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 [employer]* Social History Main Topics Smoking status: Former Smoker Packs/day: 0.50 Years: 30.00 Types: Cigarettes Quit date: 01/15/2018 Smokeless tobacco: Never Used Comment: down to 5 cigs Alcohol use: Yes Comment: 1 OR 2 DRINKS OCCASSIONALLY Drug use: No Sexual activity: Yes control/protection: Other Comment: hysterectomy FAMILY HISTORY Problem Relation Age of Onset - Breast Cancer Mother DOUBLE MASTECTOMY - Cancer Mother SKIN - Hypertension Mother - Cancer Father LUNG/ SCC - Blood Disease Father - Heart Father - Hypertension Brother - Hypertension Brother REVIEW OF SYSTEMS: GENERAL: Denies fever, chills, night sweats, or changes in weight. DERM: Denies any new skin conditions, rashes or changing moles. EYES: Denies recent visual changes. ENT: Denies hearing loss or tinnitus RESP: Denies any cough, dyspnea, or wheezing. CV: Denies any chest pain with exertion or at rest, palpitations, syncope, or edema. GI: Denies any nausea, vomiting, abdominal pain, heartburn, changes in bowel habit, Denies any rectal bleeding. MUSCULOSKELETAL: Denies any joint swelling, joint pain, or loss of range of motion., Denies back pain. NEURO: Denies any headaches, tremors, dizziness, vertigo, memory loss, confusion., Denies weakness, numbness or tingling. PSYCH: Denies any sleeping problems, history of abuse, marital discord., Denies any anxiety or depression. HEME/LYMPHATIC/IMMUNO: Denies anemia, bruising, bleeding abnormalities. ENDO: Denies any heat or cold intolerance, polyuria or polydipsia. All other review of systems negative except for those listed above. EXAM: Blood pressure 148/93, pulse 98, height 153 cm (5' 0.25), weight 87.1 kg (192 lb). APPEARANCE: Well appearing, alert, in no acute distress, well-hydrated, well nourished. EYES: sclera non-icteric, conjunctiva non-injected EARS: External ears normal. Canals clear. TM's normal. NOSE/SINUS: Nares normal. Septum midline. Mucosa normal. No drainage or sinus tenderness. OROPHARYNX: Lips, tongue normal. Oropharynx clear. THROAT: no erythema NECK: neck supple, no adenopathy HEART: Regular rate, regular rhythm, S1 normal, S2 normal, no S3, no S4 and no murmur LUNG: clear to auscultation LYMPH NODES: No cervical lymphadenopathy ABDOMEN: soft, nontender, nondistended EXTREMITIES: No deformities, No skin discoloration and No edema NEURO: Awake, alert and oriented x 3, Normal gait and No involuntary motions. SKIN: Skin color, texture, turgor normal. No rashes or lesions. ASSESSMENT AND PLAN: Saw as well as a pleasant 57-year-old female, was referred to me due to a low IgG level, that is just below the normal reference range. She apparently does get several sinus infections a year, though has never been shown on the CT scan of her sinuses. She has not been seen by an ENT before. Also apparently had 2 cases of pneumonia before, but she does have a history of smoking, she has not stopped smoking. I do not have a strong suspicion of immunodeficiency and her, though I will do a screening and we will give her Pneumovax today to check her response. 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 She'll call her with her results, and discuss when she should have the second humoral panel done so that we can compare the 2. I'll then see her for follow-up. Plan: HUMORAL IMMUNITY PANEL 1 This note has been shared with the consulting provider, via the electronic medical record, or regular [place] mail service. Jackson Mei MD Allergy and Clinical Immunology PAGER: [phone] Date: May 20, 2018 Time:2:06 PM Jackson Mei MD 05/20/2018 2:18 PM Signed 1. We will evaluate your immune system today and then stimulate it via the pneumovax and re-evaluate in 1 month. This will let us know if you have a true antibody deficiency that needs replacement. Jackson Mei MD Allergy and Clinical Immunology PAGER: [phone] Date: May 20, 2018 Time:2:18 PM Referring Provider: JUANY JACOB [[id number]] Allergies As of Date: 05/20/2018 Noted Allergy Reaction ERYTHROMYCIN 02/26/2007 8 - GI Upset VICODIN (HYDROCODONE-ACETAMINOPHE*10/25/2011 9 - Itching Date Reviewed: 05/20/2018 Reviewed by: Britany (Marybeth) MARYBETH Burleson - Fully Assessed Reason for Visit: low serum IgG [Other] Cmt: referred by Rheumatology Reason For Visit History Recorded Primary Visit Diagnosis:Low serum IgG for age [R76.8] Order(s):HUMORAL IMMUNITY PANEL 1 [SQHUMOR1] Order #: [id number] FUTURE PNEUMOCOCCAL IMMUNIZATION PPSV 23 [[id number]] Order #: [id number] Prescriptions as of 05/20/2018 Sig: DULOXETINE 60 MG CAPSULE,JAZMYNE* Take 60 mg by mouth twice jose* RESTASIS OPHTHALMIC Use in eyes twice daily. OMEPRAZOLE 20 MG CAPSULE,JAZMYNE* Take 20 mg by mouth twice jose* PILOCARPINE 7.5 MG TABLET Take 7.5 mg by mouth twice da* IBUPROFEN 200 MG TABLET Take 200 mg by mouth every 6 * * TOPIRAMATE 25 MG TABLET Take 25 mg by mouth twice jose* * MULTI-VITAMIN ORAL Take 2 tablets by mouth once * CLOBETASOL 0.05 % TOPICAL OIN* Apply 1 application to affect* * SYNTHROID 50 MCG TABLET Take one(1) tablet daily. * ASPIRIN 81 MG CHEWABLE TABLET Take one(1) tablet daily. * AGATHA-600 WITH VITAMIN D 600 MG* Take one(1) tablet twice claudine* * OMEGA-3 FATTY ACIDS 1,000 MG * SUCRALFATE 100 MG/ML ORAL FRANSISCO* Take 1 g by mouth as needed. FOLIC ACID 400 MCG TABLET Take 400 mcg by mouth once da* Medication notes this encounter TOPIRAMATE 25 MG TABLET >> Britany Burleson RN, RN 05/20/2018 1:50 PM >> BRITANY BURLESON RN Tumainor May 20, 2018 1:50 PM Taking again Problem List As Of Date 05/20/2018 Noted Resolved Unspecified hypothyroidism [E03.9] More... Esophageal reflux [K21.9] More... Breast abscess [N61.1] INVALID FOR* Lichen sclerosus [L90.0] INVALID FOR* Dysphagia [R13.10] INVALID FOR* Polyp, stomach [K31.7] INVALID FOR* Other instructions from your clinician: 1. We will evaluate your immune system today and then stimulate it via the pneumovax and re-evaluate in 1 month. This will let us know if you have a true antibody deficiency that needs replacement. Jackson Mei MD Allergy and Clinical Immunology PAGER: [phone] Date: May 20, 2018 Time:2:18 PM Follow-up and Disposition History Recorded Encounter Status:Closed by JACKSON MEI on 05/21/18 ERNESTINE Observed: 05/07/2018 Status: COMPLETED Source: [place] 12:00 AM CLINIC OTHER CAMPUS REPOSITORY Telephone (RHBATH) RANDYLATONYA ([id number]) 1960 F Date Time Provider Department 05/07/18 MARE SEGURA During your visit today, we recorded the following information about you: Mare Segura MD 05/07/2018 4:13 PM Signed IgG level is slightly low. However with her history of frequent infections I would like her to be formally evaluated for immune deficiency by Dr. Hewitt. Marina Saleem CMA 05/08/2018 11:16 AM Signed Patient was contacted and informed. Marina Saleem CMA Allergies As of Date: 05/07/2018 Noted Allergy Reaction ERYTHROMYCIN 02/26/2007 8 - GI Upset VICODIN (HYDROCODONE-ACETAMINOPHE*10/25/2011 9 - Itching Date Reviewed: 05/02/2018 Reviewed by: Mare Segura - Fully Assessed Reason for Visit: Results [95] Primary Visit Diagnosis:Low serum IgG for age [R76.8] Order(s):CONSULT TO ALLERGY/IMMUNOLOGY [9001] Order #: [id number]: 1 Prescriptions as of 05/07/2018 Sig: DULOXETINE 60 MG CAPSULE,JAZMYNE* Take 60 mg by mouth twice jose* RESTASIS OPHTHALMIC Use in eyes twice daily. OMEPRAZOLE 20 MG CAPSULE,JAZMYNE* Take 20 mg by mouth twice jose* SUCRALFATE 100 MG/ML ORAL FRANSISCO* Take 1 g by mouth as needed. FOLIC ACID 400 MCG TABLET Take 400 mcg by mouth once da* PILOCARPINE 7.5 MG TABLET Take 7.5 mg by mouth twice da* IBUPROFEN 200 MG TABLET Take 200 mg by mouth every 6 * * TOPIRAMATE 25 MG TABLET Take 25 mg by mouth twice jose* * MULTI-VITAMIN ORAL Take 2 tablets by mouth once * CLOBETASOL 0.05 % TOPICAL OIN* Apply 1 application to affect* * SYNTHROID 50 MCG TABLET Take one(1) tablet daily. * ASPIRIN 81 MG CHEWABLE TABLET Take one(1) tablet daily. * AGATHA-600 WITH VITAMIN D 600 MG* Take one(1) tablet twice claudine* * OMEGA-3 FATTY ACIDS 1,000 MG * Problem List As Of Date 05/07/2018 Noted Resolved Unspecified hypothyroidism [E03.9] More... Esophageal reflux [K21.9] More... Breast abscess [N61.1] INVALID FOR* Lichen sclerosus [L90.0] INVALID FOR* Dysphagia [R13.10] INVALID FOR* Polyp, stomach [K31.7] INVALID FOR* Encounter Status:Closed by MARE SEGURA MD on 05/07/18 CNPN Observed: 05/07/2018 Status: COMPLETED Source: [place] 12:00 AM CLINIC OTHER CAMPUS REPOSITORY Telephone (RHBATH) LATONYA PARKER ([id number]) 1960 F Date Time Provider Department 05/07/18 MARE SEGURA [facility] During your visit today, we recorded the following information about you: Poonam cMkinley 05/07/2018 4:20 PM Signed Internal referral Consult to Allergy/Immunology. Conf #[id number] Poonam Mckinley 05/13/2018 9:44 AM Signed Scheduled with Dr. Jackson Mei 05/20 @ Poonam Mckinley Allergies As of Date: 05/07/2018 Noted Allergy Reaction ERYTHROMYCIN 02/26/2007 8 - GI Upset VICODIN (HYDROCODONE-ACETAMINOPHE*10/25/2011 9 - Itching Date Reviewed: 05/02/2018 Reviewed by: Mare Segura - Fully Assessed Reason for Visit: Initial Consult [665] Prescriptions as of 05/07/2018 Sig: DULOXETINE 60 MG CAPSULE,JAZMYNE* Take 60 mg by mouth twice jose* RESTASIS OPHTHALMIC Use in eyes twice daily. OMEPRAZOLE 20 MG CAPSULE,JAZMYNE* Take 20 mg by mouth twice jose* SUCRALFATE 100 MG/ML ORAL FRANSISCO* Take 1 g by mouth as needed. FOLIC ACID 400 MCG TABLET Take 400 mcg by mouth once da* PILOCARPINE 7.5 MG TABLET Take 7.5 mg by mouth twice da* IBUPROFEN 200 MG TABLET Take 200 mg by mouth every 6 * * TOPIRAMATE 25 MG TABLET Take 25 mg by mouth twice jose* * MULTI-VITAMIN ORAL Take 2 tablets by mouth once * CLOBETASOL 0.05 % TOPICAL OIN* Apply 1 application to affect* * SYNTHROID 50 MCG TABLET Take one(1) tablet daily. * ASPIRIN 81 MG CHEWABLE TABLET Take one(1) tablet daily. * AGATHA-600 WITH VITAMIN D 600 MG* Take one(1) tablet twice claudine* * OMEGA-3 FATTY ACIDS 1,000 MG * Problem List As Of Date 05/07/2018 Noted Resolved Unspecified hypothyroidism [E03.9] More... Esophageal reflux [K21.9] More... Breast abscess [N61.1] INVALID FOR* Lichen sclerosus [L90.0] INVALID FOR* Dysphagia [R13.10] INVALID FOR* Polyp, stomach [K31.7] INVALID FOR* Encounter Status:Closed by POONAM MCKINLEY on 05/08/18 LUMBAR LIMITED 2V Observed: 05/02/2018 Status: F Source: [facility] AP/LAT 4:14 PM HEALTH SYSTEM REPOSITORY Performed at [facility] APPROVED BY: Pablo Garcia MD EXAM TITLE: LUMBAR SPINE, 2 VIEWS DATE: 05/02/2018 16:11 COMPARISON: None. CLINICAL INDICATION/HISTORY: Joint pain. Low back pain. TECHNIQUE: AP and lateral views of the lumbar spine were obtained. FINDINGS: There is no fracture. There is no significant subluxation. There is no osseous destructive process. There is mild degenerative disc disease at L2-L3, L3-L4, L4-L5, with slight loss of disc height and endplate osteophyte formation. No osseous destructive process. IMPRESSION: No acute findings radiographically. Mild multilevel lumbar degenerative disc disease as noted. CERVICAL 2V AP/LAT Observed: 05/02/2018 Status: F Source: [facility] 4:14 PM HEALTH SYSTEM REPOSITORY Performed at [facility] APPROVED BY: Pablo Garcia MD EXAM TITLE: CERVICAL SPINE, 2 VIEWS DATE: 05/02/2018 16:11 COMPARISON: None. CLINICAL INDICATION/HISTORY: Neck pain. Joint pain. TECHNIQUE: AP and lateral views of the cervical spine were obtained. FINDINGS: There is straightening of the normal cervical lordosis. There is minimal loss of disc height at C4-C5 with ventral endplate osteophyte formation. Slight loss of disc height and endplate ost eophyte formation C6-C7. Remaining disc spaces relatively well-preserved. The prevertebral soft tissues are normal thickness. There is no osseous destructive process. IMPRESSION: No acute findings radiographically. Mild degenerative disc disease C4-C5 and C6-C7. HAND 3V PA/LAT/OBL Observed: 05/02/2018 Status: F Source: [facility] 4:14 HEALTH SYSTEM REPOSITORY Performed at [facility] APPROVED BY: DEEDEE MURILLO MD EXAMINATION: HAND 3V PA/LAT/OBL LEFT, HAND 3V PA/LAT/OBL RIGHT HISTORY: Joint pain. . TECHNIQUE: AP, lateral, and oblique views of both hands were obtained. COMPARISON: None. RESULT: There is no acute fracture or dislocation. There are no bony erosions. There is no significant joint space narrowing. IMPRESSION: No acute findings. No significant osteoarthritis. No bony erosions. HAND 3V PA/LAT/OBL Observed: 05/02/2018 Status: F Source: [facility] RIGHT 4:14 PM HEALTH SYSTEM REPOSITORY Performed at [facility] APPROVED BY: DEEDEE MURILLO MD EXAMINATION: HAND 3V PA/LAT/OBL LEFT, HAND 3V PA/LAT/OBL RIGHT HISTORY: Joint pain. . TECHNIQUE: AP, lateral, and oblique views of both hands were obtained. COMPARISON: None. RESULT: There is no acute fracture or dislocation. There are no bony erosions. There is no significant joint space narrowing. IMPRESSION: No acute findings. No significant osteoarthritis. No bony erosions. FOOT 3V AP/LAT/OBL Observed: 05/02/2018 Status: F Source: [facility] 4:14 PM HEALTH SYSTEM REPOSITORY Performed at [facility] APPROVED BY: DEEDEE MURILLO MD EXAMINATION: FOOT 3V AP/LAT/OBL LEFT, FOOT 3V AP/LAT/OBL RIGHT HISTORY: Joint pain. . TECHNIQUE: AP, lateral, and oblique views of each foot were obtained. COMPARISON: None RESULT: Minimal degenerative change is seen involving the MTP joints of the first digit, bilaterally. Small bilateral Achilles as well as left calcaneal enthesophytes. There is no acute fracture or di slocation. Joint spaces are grossly preserved. There are no bony erosions. IMPRESSION: No acute findings. Mild osteoarthritis. FOOT 3V AP/LAT/OBL Observed: 05/02/2018 Status: F Source: [facility] RIGHT 4:14 PM HEALTH SYSTEM REPOSITORY Performed at [facility] APPROVED BY: DEEDEE MURILLO MD EXAMINATION: FOOT 3V AP/LAT/OBL LEFT, FOOT 3V AP/LAT/OBL RIGHT HISTORY: Joint pain. . TECHNIQUE: AP, lateral, and oblique views of each foot were obtained. COMPARISON: None RESULT: Minimal degenerative change is seen involving the MTP joints of the first digit, bilaterally. Small bilateral Achilles as well as left calcaneal enthesophytes. There is no acute fracture or di slocation. Joint spaces are grossly preserved. There are no bony erosions. IMPRESSION: No acute findings. Mild osteoarthritis. SACROILIAC JOINTS LESS Observed: 05/02/2018 Status: F Source: [facility] THAN 3 VIEWS [id number] 4:14 PM HEALTH SYSTEM REPOSITORY Performed at [facility] APPROVED BY: DEEDEE MURILLO MD EXAMINATION: SACROILIAC JOINTS LESS THAN 3 VIEWS [id number] HISTORY: Joint pain. . TECHNIQUE: Two dedicated views of the sacroiliac joint spaces were obtained. COMPARISON: Plain films of the lumbar spine dated 05/02/2018 RESULT: The sacroiliac and hip joint spaces appear grossly preserved. There is no acute fracture or dislocation. IMPRESSION: No acute findings. HEMOGRAM/DIFF Collected: 05/02/2018 Status: F Source: [facility] 4:00 PM HEALTH SYSTEM REPOSITORY TYPE CODE TESTS RESULT OUT OF REFERENCE UNITS RANGE LAB WBC(LOINC) 3.98-10.04 thou/cmm WBC 7.81 LAB RBC(LOINC) 3.93-5.22 mil/cmm RBC 4.36 LAB HGB(LOINC) 11.2-15.7 g/dL Hgb 13.5 LAB HCT(LOINC) 34.1-44.9 % Hct 41.8 LAB MCV(LOINC) 79.4-94.8 fl MCV High 95.9 LAB MCH(LOINC) 25.6-32.2 pg MCH 31.0 LAB MCHC(LOINC 31.6-34.8 % ) MCHC 32.3 LAB RDW(LOINC) 11.7-14.4 % RDW 12.9 LAB RDWSD(LOIN 36.4-46.3 fl C) RDW SD 45.4 LAB PLT(LOINC) 182-369 thou/cmm Platelet 324 LAB MPV(LOINC) 9.4-12.3 fl MPV 10.0 LAB SEG(LOINC) % Seg Neutrophil 53.7 LAB IGRE(LOINC % ) Immature Grans 0.50 LAB LYMPH(LOIN % C) Lymphocyte 30.9 LAB MNO(LOINC) % Monocyte 11.8 LAB EOSIN(LOIN % C) Eosinophil 2.3 LAB BASO(LOINC % ) Basophil 0.8 LAB SEGN(LOINC 1.56-6.13 thou/cmm ) Abs. Neut (ANC) 4.19 LAB IGAB(LOINC 0.00-0.05 thou/cmm ) Abs Immature Grans 0.04 LAB LYMN(LOINC 1.18-3.74 thou/cmm ) Abs. Lymph 2.41 LAB MONON(LOIN 0.27-0.70 thou/cmm C) Abs. High Labette 0.92 LAB EOSN(LOINC 0.00-0.31 thou/cmm ) Abs. Eosin 0.18 LAB BASON(LOIN 0.01-0.08 thou/cmm C) Abs. Baso 0.06 Performed By: #### [id number] #### [place] [address] IGG Collected: 05/02/2018 Status: F Source: [facility] 4:00 HEALTH SYSTEM REPOSITORY TYPE CODE TESTS RESULT OUT OF RANGE REFERENCE UNITS LAB IGG(LOINC) 700-1600 mg/dL Low IgG 686 Performed By: #### IGG #### [place] [address] IGA Collected: 05/02/2018 Status: F Source: [facility] 4:00 HEALTH SYSTEM REPOSITORY TYPE CODE TESTS RESULT OUT OF RANGE REFERENCE UNITS LAB IGA(LOINC) 70-400 mg/dL IgA 140 Performed By: #### IGA #### [place] [address] RHEUMATOID FACTOR Collected: 05/02/2018 Status: F Source: [facility] 4:00 HEALTH SYSTEM REPOSITORY TYPE CODE TESTS RESULT OUT OF REFERENCE UNITS RANGE LAB RF1(LOINC) 0.0-15.0 IU/mL Rheumatoid < 10.0 Factor Performed By: #### RF1 #### [place] [address] CPK Collected: 05/02/2018 Status: F Source: [facility] 4:00 HEALTH SYSTEM REPOSITORY TYPE CODE TESTS RESULT OUT OF RANGE REFERENCE UNITS LAB CK(LOINC) 26-192 U/L High CPK 201 Performed By: #### CK #### [place] [address] COMPREHENSIVE PANEL Collected: 05/02/2018 Status: F Source: [facility] 4:00 HEALTH SYSTEM REPOSITORY TYPE CODE TESTS RESULT OUT OF REFERENCE UNITS RANGE LAB NA(LOINC) 136-145 mEq/L Sodium Blood 137 LAB K(LOINC) 3.5-5.1 mEq/L Potassium Blood 4.2 LAB CL(LOINC) 98-107 mEq/L Chloride Blood 103 LAB CO2(LOINC) 21-32 mEq/L CO2 Blood 28 LAB GLU(LOINC) 70-99 mg/dL Glucose Blood 96 LAB BUN(LOINC) 7-18 mg/dL BUN Blood 9 LAB CREA(LOINC 0.51-0.95 mg/dL ) Creatinine Blood 0.95 LAB CA(LOINC) 8.5-10.1 mg/dL Calcium Blood 8.8 LAB ALB(LOINC) 3.4-5.0 g/dL Albumin Blood 4.0 LAB TP(LOINC) 6.4-8.2 g/dL Total Protein 7.3 LAB AST(LOINC) 9-37 U/L AST-SGOT Blood 32 LAB ALT(LOINC) 12-78 U/L ALT-SGPT Blood 44 LAB ALKP(LOINC 46-116 U/L ) Alk Phosphatase 116 LAB BILIT(LOIN 0.2-1.0 mg/dL C) Total Bilirubin 0.3 LAB ANGAP(LOIN 8-16 C) Anion Gap 10 Performed By: #### P14 #### [place] [address] FERRITIN Collected: 05/02/2018 Status: F Source: [facility] 4:00 HEALTH SYSTEM REPOSITORY TYPE CODE TESTS RESULT OUT OF REFERENCE UNITS RANGE LAB FERR(LOINC) 8.00-252.00 ng/mL Ferritin 82.20 Performed By: #### FERR #### [place] [address] MDRD GFR Collected: 05/02/2018 Status: F Source: [facility] 4:00 HEALTH SYSTEM REPOSITORY TYPE CODE TESTS RESULT OUT OF RANGE REFERENCE UNITS LAB GFRFN(LOINC >60mL/min/1.73m ) 2 eGFR >60 Result Comment: If the patient is , multiply the result by 1.210. Performed By: #### GFR #### [place] [address] IGM Collected: 05/02/2018 Status: F Source: [facility] 4:[facility] REPOSITORY TYPE CODE TESTS RESULT OUT OF RANGE REFERENCE UNITS LAB IGM(LOINC) 40-230 mg/dL IgM 118 Performed By: #### IGM #### [place] [address] TOTAL 25-OH VITAMIN Collected: 05/02/2018 Status: F Source: [facility] D 4:00 HEALTH SYSTEM REPOSITORY TYPE CODE TESTS RESULT OUT OF REFERENCE UNITS RANGE LAB 25VD1(LOINC 30.0-100.0 ng/mL ) Total 25-OH 36.0 Vitamin D Performed By: #### 25VD1 #### [place] [address] THYRO. PEROXIDASE AB Collected: 05/02/2018 Status: F Source: [facility] 4:00 HEALTH SYSTEM REPOSITORY TYPE CODE TESTS RESULT OUT OF REFERENCE UNITS RANGE LAB TPAB(LOINC 0.0-60.0 IU/ml ) Thyro. Peroxidase Ab < 28.0 Performed By: #### TPAB #### [place] [address] DS-DNA AB Collected: 05/02/2018 Status: F Source: [facility] 4:00 HEALTH SYSTEM REPOSITORY TYPE CODE TESTS RESULT OUT OF RANGE REFERENCE UNITS LAB DNADX(LOINC ) DS-DNA Ab SEE BELOW Result Comment: DNA Antibody w/ Conf. <12 <30 IU/mL Negative for ds DNA Antibodies Negative: <30 IU/mL Equivocal: 30-74 IU/mL Positive: >74 IU/mL Performing Laboratory: [place] [id number] Performed By: #### DNADX #### [place] [address] LAUNCHMAN ANTIBODY Collected: 05/02/2018 Status: F Source: [facility] 4:[address] [place] [address] SYSTEM REPOSITORY TYPE CODE TESTS RESULT OUT OF REFERENCE UNITS RANGE LAB RNPX(LOINC) LAUNCHMAN Antibody SEE BELOW Result Comment: LAUNCHMAN Antibody <0.2 <1.0 AI Negative Negative: <1.0 AI Positive: >0.9 AI Performing Laboratory: [place] [address] Performed By: #### RNPX #### [place] [address] MEI ABS IGG Collected: 05/02/2018 Status: F Source: [facility] 4:[address] [place] [address] SYSTEM REPOSITORY TYPE CODE TESTS RESULT OUT OF RANGE REFERENCE UNITS LAB SMABX(LOINC ) Mei Abs SEE BELOW IgG Result Comment: Sm Antibody <0.2 <1.0 AI Negative Negative: <1.0 AI Positive: >0.9 AI Performing Laboratory: [place] [address] Performed By: #### SMABX #### [place] [address] SJOGREN ANTIBODIES Collected: 05/02/2018 Status: F Source: [facility] 4:[address] [place] [address] SYSTEM REPOSITORY TYPE CODE TESTS RESULT OUT OF REFERENCE UNITS RANGE LAB SJOX(LOINC ) Sjogren Antibodies SEE BELOW Result Comment: SSA Antibody <0.2 <1.0 AI Negative Negative: <1.0 AI Positive: >0.9 AI SSB Antibody <0.2 <1.0 AI Negative Negative: <1.0 AI Positive: >0.9 AI Performing Laboratory: [facility] [address] [place] [address] Performed By: #### SJOX #### [place] [address] DAVID BY IFA SCREEN Collected: 05/02/2018 Status: F Source: [facility] 4:[facility] REPOSITORY TYPE CODE TESTS RESULT OUT OF REFERENCE UNITS RANGE LAB ANAX(LOINC) DAVID by IFA SEE BELOW Screen Result Comment: DAVID Negative NEGAT Normal range : negative at <1:80 serum dilution. Approximately 6% of patients with connective tissue diseases with low positive EIA values are negative by IFA. Recommend follow-up with specific antinuclear antibodies if clinically indicated. DAVID Titer Negative NEGAT Normal range : negative at <1:80 serum dilution. DAVID Pattern SEE BELOW Not applicable for negative result. Performing Laboratory: [place] [address] Performed By: #### ANAX #### [place] [address] IGE Collected: 05/02/2018 Status: F Source: [facility] [address] SYSTEM REPOSITORY TYPE CODE TESTS RESULT OUT OF RANGE REFERENCE UNITS LAB IGEX(LOINC) IgE SEE BELOW Result Comment: IgE 122.0 H <114 kU/L Performing Laboratory: [place] [address] Performed By: #### IGEX #### [place] [address] CCP ANTIBODY, IGG Collected: 05/02/2018 Status: F Source: [facility] [address] [place] [address] REPOSITORY TYPE CODE TESTS RESULT OUT OF RANGE REFERENCE UNITS LAB CCPX(LOINC) CCP SEE BELOW Antibody, IgG Result Comment: CCP Antibody, IgG <15 <20 Units < 20 units: Negative 20-39 units: Weak Positive 40-59 units: Moderate Positive > 60 units: Strong Positive The following results were obtained with the [employer] QUANTA Lite CCP3 IgG YAMILKA. Anti-CCP values obtained with different manufacturers' assay methods may not be used interchangeably. The magnitude of the reported IgG levels cannot be correlated to an endpoint titer. Performing Laboratory: [facility] [address] [place] [address] Performed By: #### CCPX #### [place] [address] TRANSGLUTAMINASE ABS Collected: 05/02/2018 Status: F Source: [facility] [address] [place] [address] REPOSITORY TYPE CODE TESTS RESULT OUT OF REFERENCE UNITS RANGE LAB TTGX(LOIN C) Transglutaminase Abs SEE BELOW Result Comment: Transglutaminase IgG 3 <20 Units Negative : < 20 Units Weak Positive : 20 - 30 Units Moderate Pos to Strong Pos: >30 Units The following results were obtained with the [employer] QUANTA Lite h-hTG IgG YAMILKA. h-tTG IgG values obtained with different manufacturers' assay methods may not be used interchangeably. The magnitude of the reported IgG levels cannot be correlated to an endpoint titer. Transglutaminase IgA 4 <20 Units Negative : < 20 Units Weak Positive : 20 - 30 Units Moderate Pos to Strong Pos: >30 Units The following results were obtained with the [employer] Lite h-tTG IgA YAMILKA. h-tTG IgA values obtained with different manufacturers' assay methods may not be used interchangeably. The magnitude of the reported IgA levels cannot be correlated to an endpoint titer. Performing Laboratory: [facility] [address] [place] [id number] Performed By: #### TTGX #### [place] [address] GLIADIN(DEAMIN.)ABS Collected: Status: F Source: [facility] 05/02/2018 4:00 PM [facility] REPOSITORY TYPE CODE TESTS RESULT OUT OF RANGE REFERENCE UNITS LAB GLIAX(LOINC ) SEE BELOW Gliadin(Deam in.)Abs Result Comment: Gliad IgA Ab 4 <20 Units Negative : < 20 Units Weak Positive : 20 - 30 Units Moderate Pos to Strong Pos: >30 Units The following results were obtained with the [employer]ANT[employer] Lite Gliadin IgA YAMILKA. Gliadin IgA values obtained with different manufacturers' assay methods may not be used interchangeably. The magnitude of the reported IgA levels cannot be correlated to an endpoint titer. Gliad IgG Ab 2 <20 Units Negative : < 20 Units Weak Positive : 20 - 30 Units Moderate Pos to Strong Pos: >30 Units The following results were obtained with the [employer] QUANTA Lite Gliadin IgG YAMILKA. Gliadin IgG values obtained with different manufacturers' assay methods may not be used interchangeably. The magnitude of the reported IgG levels cannot be correlated to an endpoint titer. Performing Laboratory: [facility] [address] [address] [id number] Performed By: #### GLIAX #### [place] [address] URINALYSIS, REFLEX Collected: 05/02/2018 Status: F Source: [facility] 3:00 PM [facility] REPOSITORY TYPE CODE TESTS RESULT OUT OF RANGE REFERENCE UNITS LAB COLOR(LOIN C) Urine Color YELLOW LAB APPUR(LOIN C) Urine Appearance CLOUDY LAB GLUUR(LOIN Negative mg/dL C) Glucose Urine NEGATIVE LAB KETON(LOIN Negative mg/dL C) Ketone Urine NEGATIVE LAB HGBUR(LOIN Negative C) Hemoglobin,Urin NEGATIVE e LAB PROTU(LOIN Negative mg/dL C) Protein Urine NEGATIVE LAB NITR(LOINC Negative ) Nitrite reflex NEGATIVE LAB BILIU(LOIN Negative C) Bilirubin Urine NEGATIVE LAB SPG(LOINC) 1.005-1.030 Specific 1.020 Delta, Ur LAB PHUR(LOINC 5.0-8.0 ) pH,Urine 6.0 LAB UROBI(LOIN 0.0-1.0 EU/dL C) Urobilinogen,Ur 0.2 LAB LEUKR(LOIN Negative C) Leukocyte NEGATIVE esterase LAB CAOXA(LOIN None C) Abnormal Calcium FEW Oxalates LAB REFLX(LOIN C) Reflex Comment see below Result Comment: Reflex to culture is not indicated based on established laboratory criteria. LAB RBCU1(LOINC) 0.0-5.0 /hpf RBC,Urine 4.6 LAB WBCR(LOINC) 0.00-5.00 /hpf WBC, reflex 2.50 LAB EPIT1(LOINC) 0.0-5.0 /hpf Ep Cells Urine 0.5 LAB BACT1(LOINC) None Bacteria Urine NONE LAB HYCA1(LOINC) 0.0-1.0 /lpf Hyaline Cast 0.4 Performed By: #### URIN #### [place] [address] CREATININE,URINE Collected: 05/02/2018 Status: F Source: [facility] 3:00 [facility] REPOSITORY TYPE CODE TESTS RESULT OUT OF RANGE REFERENCE UNITS LAB CREAU(LOINC mg/dL ) 152.0 Creatinine,U rine Performed By: #### CREAU #### [place] [address] URINE PROTEIN Collected: 05/02/2018 Status: F Source: [facility] 3:00 [facility] REPOSITORY TYPE CODE TESTS RESULT OUT OF REFERENCE UNITS RANGE LAB UP(LOINC) 0.0-11.9 mg/dL High Urine Protein 12.4 Performed By: #### UP #### [place] [address] PROGRESS Observed: 05/02/2018 Status: COMPLETED Source: [place] 2:32 PM CLINIC OTHER CAMPUS REPOSITORY HNO ID: [id number] Author: Mare Segura Service: (none) Author Type: Physician Type: Progress Notes Filed: 05/02/2018 5:07 PM Note Text: RHEUMATOLOGY NEW PATIENT NOTE REFERRING PHYSICIAN: Juany Jacob CHIEF COMPLAINT: Patient presents with: Joint Pain: increasing pain in multiple locations. HPI: Latonya Parker is a 57 year old female who presents with joint pain. She was diagnosed with connective tissue disease, sjogrens and lupus by her PCP and ophtho. She was diagnosed with sicca and prescribed Restasis. She reports pain - sharp, back, hands, feet, neck, hips. She was seen by Dr. Bah at [facility] few years ago, diagnosed with fibromyalgia, had blood work. Leg swelling. Morning hand swelling, difficult to make a fist, cant hold coffee mug. Am stiffness lasting for 4 hrs. She takes Cymbalta. Gabapentin did not help. Butterfly rash. On her feet all day. She has history of acid reflux, esophagitis, acute and chronic inflammation. laparoscopic lysis of adhesions with laparoscopic appendectomy on December 08, 2013. Hypothyroid, frozen shoulder - had PT, back pain, foot surgery for plantar fascitiis Family history of autoimmune disease: mother has RA?, father with psoriasis Smoking status: Tobacco Use: .5 packs/day, for 30 years. Types: Cigarettes (down to 5 cigs) Rheumatology REVIEW OF SYSTEMS: Constitutional: Recent Weight Change: YES gained Fatigue: YES Fever: No Night sweats: No Heent: Alopecia: YES hair thinning H/o Inflammatory eye disease (iritis/scleritis): No Hearing loss: No Frequent sinusitis: YES Oral ulcers: YES Sicca: YES Parotid swelling: No Hoarseness: No Dysphagia: No Heme/lymph: Lymphadenopathy: No Hematological abnormalities (anemia, thrombocytopenia, leukopenia): No Abnormal bleeding: No Skin: Malar or discoid lesions: YES Photosensitivity: YES Other rashes: YES as hpi eczema over scalp, ears and neck Raynaud's phenomenon: ? Hives: No Tightness: No Nodules/bumps: No Easy Bruising: No Nail changes: No H/o psoriasis: No Gastroenterology: Nausea: {YES Vomiting: No Change in bowel movements: YES diarrhea Heartburn: YES Respiratory: Dry cough/SOB: YES Cardiovascular: Pain in chest: No Musculoskeletal: Per HPI Genitourinary: Vaginal dryness: No Rash/ulcers: No Neurological: Headaches: YES Sensitivity or pain of hands and/or feet: YES hands and feet Psychiatry: Anxiety: No Depression: No Poor sleep: YES CORTEZ on CPAP H/o loss: No H/o thrombosis: No Increased susceptibility to infection: YES sinus, UTI PAST MEDICAL HISTORY Diagnosis Date - Abdominal pain 12/08/13 - Esophageal reflux Gastroesophageal reflux - PMH - PAST MEDICAL HISTORY OF SLOW EMPTYING STOMACH - Unspecified hypothyroidism Hypothyroidism PAST SURGICAL HISTORY Procedure Laterality Date - BOTOX for migraines - DELIVERY ONLY X2 , low cervical - COLONOSCOP W/ OR W/O [facility] SPEC 03/21/10 - COLONOSCOP W/ OR W/O [facility] SPEC 03/24/14 Colonoscopy - DENTURES COMPLETE LOWER 11/02 - EGD W/O BRSH SPECIMEN W/BX 06/11/13 - EGD W/O OR W/BRUSH/WASH 03/24/14 - EGD WITH BIOPSY(S) 10-16- Repeat in 1 year () - HYSTERECTOMY HX - LAPAROSCOPY, SURGICAL, APPENDECTOMY 12/08/13 - LIGATE FALLOPIAN TUBE Tubal ligation - PAST SURGICAL HISTORY OF ARTHROSCOPIC KNEE SURGERY LEFT - PAST SURGICAL HISTORY OF BIOPSY LYKENS SCLEROSIS, vaginal - PAST SURGICAL HISTORY OF 07/24/12 shoulder capulitis left - REMOVAL OF HEEL SPUR 07/05 Right - TOTAL ABDOM HYSTERECTOMY 2004 in [place] Hysterectomy, YUDELKA/BSO- benign Current Outpatient Prescriptions: DULoxetine (CYMBALTA) 60 mg capsule Take 60 mg by mouth twice daily. CYCLOSPORINE (RESTASIS OPHTHALMIC) Use in eyes twice daily. omeprazole (PRILOSEC) 20 mg capsule Take 20 mg by mouth twice daily. Pilocarpine HCl 7.5 mg tablet Take 7.5 mg by mouth twice daily. ibuprofen (ADVIL) 200 mg tablet Take 200 mg by mouth every 6 hours as needed. MULTI-VITAMIN ORAL Take 2 tablets by mouth once daily. clobetasol 0.05 % TOPICAL ointment Apply 1 application to affected area. pea-sized amount bid x 2 weeks then qday x 2 weeks then twice a week or prn. levothyroxine (SYNTHROID) 50 mcg ORAL Tab Take one(1) tablet daily. aspirin 81 mg ORAL Chew Take one(1) tablet daily. Calcium Carb-Cholecalciferol (AGATHA-600 WITH VITAMIN D) 600 (1,500)-200 mg-unit ORAL Tab Take one(1) tablet twice daily. omega-3 fatty acids 1,000 mg ORAL Cap sucralfate (CARAFATE) 100 mg/mL suspension Take 1 g by mouth as needed. folic acid 400 mcg tablet Take 400 mcg by mouth once daily. topiramate (TOPAMAX) 25 mg ORAL tablet Take 25 mg by mouth twice daily. No current facility-administered medications for this visit. 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 [employer]* Social History Main Topics Smoking status: Former Smoker Packs/day: 0.50 Years: 30.00 Types: Cigarettes Quit date: 01/15/2018 Smokeless tobacco: Never Used Comment: down to 5 cigs Alcohol use: Yes Comment: 1 OR 2 DRINKS OCCASSIONALLY Drug use: No Sexual activity: Yes control/protection: Other Comment: hysterectomy Occupation: Employer And Job Title: [employer] (OFFICE) Years Of Education Completed: Not specified Marital Status: to Azael with 2 children History Review: I have reviewed and modified as needed, the following during this visit: Allergies, Past Medical History, Past Surgical History, Past Family History, Past Social History. Ht 152.4 cm (5') Wt 88.9 kg (196 lb) BMI 38.28 kg/m? Physical Exam GENERAL: Well appearing, alert, comfortable, in no acute distress, well-hydrated, well nourished. HEENT: Negative for external ears normal. Canals are clear. Both TMs visualized and are normal. Eye Exam normal. External nose normal, no nasal ulcer or throat ulcer. NECK: NECK Supple, no adenopathy; thyroid symmetric, normal size, no bruits CARDIAC: regular rate and rhythm, No murmur asculated. and Equal peripheral pulses RESPIRATORY: Lungs clear to auscultation. No wheezing, rhonchi, rales VASCULAR: RRR without murmur, gallop, or rubs. No ectopy. ABDOMEN: Soft, non tender. BS active. No masses or organomegaly. LYMPHATIC: Negative for adenopathy in the neck, axillae, groin, supraclavicular and auricular. NEURO: Motor and sensory exam normal MOTOR: Normal; including tone, gait, stressed gait, power and coordination. SKIN: Negative for alopecia, skin rash, malar rash, skin lesion, skin ulcer, pits, thickening, color changes, telangiectasias, nail changes, nail ridging, nail pitting, onycholysis MUSCULOSKELETAL: DIPS: Normal PIPS: Normal MCPs: Normal Wrists: Normal Elbows: Normal Shoulders: Normal C-Spine: Normal Hips: Normal Knees: Normal Ankles: Normal MTPs / Toes: Normal Arches: Normal Muscular exam - diffuse tenderness over proximal and distal muscle groups in the extremities without gross deformity or objective muscle weakness. Tone normal. Summary of old labs/radiology: Review/request of outside labs and imaging: yes from ophtho Pertinent labs: No results found for this basename: gluc, K, NA, CHLOR, CO2, CREAT, BUN, ANION, CA, TPROT, ALB, TBILI, ALKPHOS, AST,ALT,WBC,HB,PLT,wsr,crp Serology: Pertinent imaging: Assessment and Plan (M25.50) Pain in joint, multiple sites (primary encounter diagnosis) (M35.00) Sicca syndrome (HCC) (R53.81, R53.83) Malaise and fatigue [id number]-[id number] female is here for evaluation of right nipple joint pain, myalgia. She also reports sicca, intermittent oral ulcers and hair thinning, questionable Raynaud's phenomena and. These symptoms can be seen in autoimmune diseases however they are nonspecific features. Patient does not have typical clinical features of an autoimmune disease like synovitis, typical rash (malar/discoid/gottron's/heliotrope), objective muscle weakness, uveitis/scleritis, oral/nasal/genital ulcers, scarring alopecia, h/o organ involvement (nephritis, myopericarditis, hematological abnormalities, neuropathies, cerebritis etc) to suggest the presence of an underlying autoimmune disease. Given the chronicity of the symptoms I will evaluate for the following labs and x-rays. Of note she was evaluated at [facility] several years ago and was diagnosed with fibromyalgia. This remains a possibility given the generalized tenderness on exam and increased sensitivity to pain without obvious signs of synovitis on exam. Office Visit on 05/02/18 -XR HAND GENERAL 3V PA/LAT/OBL LT -XR HAND GENERAL 3V PA/LAT/OBL RT -XR FOOT GENERAL 3V AP/LAT/OBL LT -XR FOOT GENERAL 3V AP/LAT/OBL RT -XR CERV GENERAL 2V AP/LAT -XR LUMBAR LIMITED 2V AP/LAT -XR SACROILIAC JOINTS 2V AP PELVIS/FERGUESON -DNA ANTIBODY DS BLD -LAUNCHMAN ANTIBODY BLOOD -MEI IGG AB -SJOGREN ABS SSA/SSB -DAVID BY IFA SCREEN -IGG -IGM -IGE BLD -IGA BLD -IMMUNOGLOBULIN D QUANT, SERUM -RHEUMATOID FACTOR BL -CCP ANTIBODY IGG -CK CREATINE KINASE -CBC + DIFF -COMP METABOLIC PANEL -FERRITIN BLD -VITAMIN D 25 HYDROXY -THYROID PEROXIDASE ANTIBODY BLOOD -TRANSGLUTAMINASE ABS -GLIADIN (DEAMINATED) ABS -UA WITH CULTURE IF INDICATED -CREATININE RANDOM UR -PROTEIN RANDOM UR No orders of the defined types were placed in this encounter. Return in about 3 weeks (around 05/23/2018) for discuss lab results. Mare Segura MD CNOV Observed: 05/02/2018 Status: COMPLETED Source: [place] 2:30 PM [facility] OTHER CAMPUS REPOSITORY Office Visit ([facility]HBATH) LATONYA PARKER ([id number]) 1960 F Date Time Provider Department 05/02/18 2:30 PM MARE SEGURA [facility]BMARY During your visit today, we recorded the following information about you: Weight Height 88.9 kg 1.524 m Mare Segura MD 05/02/2018 5:07 PM Signed RHEUMATOLOGY NEW PATIENT NOTE REFERRING PHYSICIAN: Juany Jacob CHIEF COMPLAINT: Patient presents with: Joint Pain: increasing pain in multiple locations. HPI: Latonya Parker is a 57 year old female who presents with joint pain. She was diagnosed with connective tissue disease, sjogrens and lupus by her PCP and ophtho. She was diagnosed with sicca and prescribed Restasis. She reports pain - sharp, back, hands, feet, neck, hips. She was seen by Dr. Bah at [facility] few years ago, diagnosed with fibromyalgia, had blood work. Leg swelling. Morning hand swelling, difficult to make a fist, cant hold coffee mug. Am stiffness lasting for 4 hrs. She takes Cymbalta. Gabapentin did not help. Butterfly rash. On her feet all day. She has history of acid reflux, esophagitis, acute and chronic inflammation. laparoscopic lysis of adhesions with laparoscopic appendectomy on December 08, 2013. Hypothyroid, frozen shoulder - had PT, back pain, foot surgery for plantar fascitiis Family history of autoimmune disease: mother has RA?, father with psoriasis Smoking status: Tobacco Use: .5 packs/day, for 30 years. Types: Cigarettes (down to 5 cigs) Rheumatology REVIEW OF SYSTEMS: Constitutional: Recent Weight Change: YES gained Fatigue: YES Fever: No Night sweats: No Heent: Alopecia: YES hair thinning H/o Inflammatory eye disease (iritis/scleritis): No Hearing loss: No Frequent sinusitis: YES Oral ulcers: YES Sicca: YES Parotid swelling: No Hoarseness: No Dysphagia: No Heme/lymph: Lymphadenopathy: No Hematological abnormalities (anemia, thrombocytopenia, leukopenia): No Abnormal bleeding: No Skin: Malar or discoid lesions: YES Photosensitivity: YES Other rashes: YES as hpi eczema over scalp, ears and neck Raynaud's phenomenon: ? Hives: No Tightness: No Nodules/bumps: No Easy Bruising: No Nail changes: No H/o psoriasis: No Gastroenterology: Nausea: {YES Vomiting: No Change in bowel movements: YES diarrhea Heartburn: YES Respiratory: Dry cough/SOB: YES Cardiovascular: Pain in chest: No Musculoskeletal: Per HPI Genitourinary: Vaginal dryness: No Rash/ulcers: No Neurological: Headaches: YES Sensitivity or pain of hands and/or feet: YES hands and feet Psychiatry: Anxiety: No Depression: No Poor sleep: YES CORTEZ on CPAP H/o loss: No H/o thrombosis: No Increased susceptibility to infection: YES sinus, UTI PAST MEDICAL HISTORY Diagnosis Date - Abdominal pain 12/08/13 - Esophageal reflux Gastroesophageal reflux - PMH - PAST MEDICAL HISTORY OF SLOW EMPTYING STOMACH - Unspecified hypothyroidism Hypothyroidism PAST SURGICAL HISTORY Procedure Laterality Date - BOTOX for migraines - DELIVERY ONLY X2 , low cervical - COLONOSCOP W/ OR W/O [facility] SPEC 03/21/10 - COLONOSCOP W/ OR W/O [facility] SPEC 03/24/14 Colonoscopy - DENTURES COMPLETE LOWER 11/02 - EGD W/O BRSH SPECIMEN W/BX 06/11/13 - EGD W/O OR W/BRUSH/WASH 03/24/14 - EGD WITH BIOPSY(S) 10-17-11 Repeat in 1 year () - HYSTERECTOMY HX - LAPAROSCOPY, SURGICAL, APPENDECTOMY 12/08/13 - LIGATE FALLOPIAN TUBE Tubal ligation - PAST SURGICAL HISTORY OF ARTHROSCOPIC KNEE SURGERY LEFT - PAST SURGICAL HISTORY OF BIOPSY LYKENS SCLEROSIS, vaginal - PAST SURGICAL HISTORY OF 07/24/12 shoulder capulitis left - REMOVAL OF HEEL SPUR 07/05 Right - TOTAL ABDOM HYSTERECTOMY 2004 in [place] Hysterectomy, YUDELKA/BSO- benign Current Outpatient Prescriptions: DULoxetine (CYMBALTA) 60 mg capsule Take 60 mg by mouth twice daily. CYCLOSPORINE (RESTASIS OPHTHALMIC) Use in eyes twice daily. omeprazole (PRILOSEC) 20 mg capsule Take 20 mg by mouth twice daily. Pilocarpine HCl 7.5 mg tablet Take 7.5 mg by mouth twice daily. ibuprofen (ADVIL) 200 mg tablet Take 200 mg by mouth every 6 hours as needed. MULTI-VITAMIN ORAL Take 2 tablets by mouth once daily. clobetasol 0.05 % TOPICAL ointment Apply 1 application to affected area. pea-sized amount bid x 2 weeks then qday x 2 weeks then twice a week or prn. levothyroxine (SYNTHROID) 50 mcg ORAL Tab Take one(1) tablet daily. aspirin 81 mg ORAL Chew Take one(1) tablet daily. Calcium Carb-Cholecalciferol (AGATHA-600 WITH VITAMIN D) 600 (1,500)-200 mg-unit ORAL Tab Take one(1) tablet twice daily. omega-3 fatty acids 1,000 mg ORAL Cap sucralfate (CARAFATE) 100 mg/mL suspension Take 1 g by mouth as needed. folic acid 400 mcg tablet Take 400 mcg by mouth once daily. topiramate (TOPAMAX) 25 mg ORAL tablet Take 25 mg by mouth twice daily. No current facility-administered medications for this visit. 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 [employer]* Social History Main Topics Smoking status: Former Smoker Packs/day: 0.50 Years: 30.00 Types: Cigarettes Quit date: 01/15/2018 Smokeless tobacco: Never Used Comment: down to 5 cigs Alcohol use: Yes Comment: 1 OR 2 DRINKS OCCASSIONALLY Drug use: No Sexual activity: Yes control/protection: Other Comment: hysterectomy Occupation: Employer And Job Title: [employer] (OFFICE) Years Of Education Completed: Not specified Marital Status: to Azael with 2 children History Review: I have reviewed and modified as needed, the following during this visit: Allergies, Past Medical History, Past Surgical History, Past Family History, Past Social History. Ht 152.4 cm (5') Wt 88.9 kg (196 lb) BMI 38.28 kg/m? Physical Exam GENERAL: Well appearing, alert, comfortable, in no acute distress, well-hydrated, well nourished. HEENT: Negative for external ears normal. Canals are clear. Both TMs visualized and are normal. Eye Exam normal. External nose normal, no nasal ulcer or throat ulcer. NECK: NECK Supple, no adenopathy; thyroid symmetric, normal size, no bruits CARDIAC: regular rate and rhythm, No murmur asculated. and Equal peripheral pulses RESPIRATORY: Lungs clear to auscultation. No wheezing, rhonchi, rales VASCULAR: RRR without murmur, gallop, or rubs. No ectopy. ABDOMEN: Soft, non tender. BS active. No masses or organomegaly. LYMPHATIC: Negative for adenopathy in the neck, axillae, groin, supraclavicular and auricular. NEURO: Motor and sensory exam normal MOTOR: Normal; including tone, gait, stressed gait, power and coordination. SKIN: Negative for alopecia, skin rash, malar rash, skin lesion, skin ulcer, pits, thickening, color changes, telangiectasias, nail changes, nail ridging, nail pitting, onycholysis MUSCULOSKELETAL: DIPS: Normal PIPS: Normal MCPs: Normal Wrists: Normal Elbows: Normal Shoulders: Normal C-Spine: Normal Hips: Normal Knees: Normal Ankles: Normal MTPs / Toes: Normal Arches: Normal Muscular exam - diffuse tenderness over proximal and distal muscle groups in the extremities without gross deformity or objective muscle weakness. Tone normal. Summary of old labs/radiology: Review/request of outside labs and imaging: yes from ophtho Pertinent labs: No results found for this basename: gluc, K, NA, CHLOR, CO2, CREAT, BUN, ANION, CA, TPROT, ALB, TBILI, ALKPHOS, AST,ALT,WBC,HB,PLT,wsr,crp Serology: Pertinent imaging: Assessment and Plan (M25.50) Pain in joint, multiple sites (primary encounter diagnosis) (M35.00) Sicca syndrome (HCC) (R53.81, R53.83) Malaise and fatigue Khrtf-krkv-pph female is here for evaluation of right nipple joint pain, myalgia. She also reports sicca, intermittent oral ulcers and hair thinning, questionable Raynaud's phenomena and. These symptoms can be seen in autoimmune diseases however they are nonspecific features. Patient does not have typical clinical features of an autoimmune disease like synovitis, typical rash (malar/discoid/gottron's/heliotrope), objective muscle weakness, uveitis/scleritis, oral/nasal/genital ulcers, scarring alopecia, h/o organ involvement (nephritis, myopericarditis, hematological abnormalities, neuropathies, cerebritis etc) to suggest the presence of an underlying autoimmune disease. Given the chronicity of the symptoms I will evaluate for the following labs and x-rays. Of note she was evaluated at [facility] several years ago and was diagnosed with fibromyalgia. This remains a possibility given the generalized tenderness on exam and increased sensitivity to pain without obvious signs of synovitis on exam. Office Visit on 05/02/18 -XR HAND GENERAL 3V PA/LAT/OBL LT -XR HAND GENERAL 3V PA/LAT/OBL RT -XR FOOT GENERAL 3V AP/LAT/OBL LT -XR FOOT GENERAL 3V AP/LAT/OBL RT -XR CERV GENERAL 2V AP/LAT -XR LUMBAR LIMITED 2V AP/LAT -XR SACROILIAC JOINTS 2V AP PELVIS/FERGUESON -DNA ANTIBODY DS BLD -LAUNCHMAN ANTIBODY BLOOD -MEI IGG AB -SJOGREN ABS SSA/SSB -DAVID BY IFA SCREEN -IGG -IGM -IGE BLD -IGA BLD -IMMUNOGLOBULIN D QUANT, SERUM -RHEUMATOID FACTOR BL -CCP ANTIBODY IGG -CK CREATINE KINASE -CBC + DIFF -COMP METABOLIC PANEL -FERRITIN BLD -VITAMIN D 25 HYDROXY -THYROID PEROXIDASE ANTIBODY BLOOD -TRANSGLUTAMINASE ABS -GLIADIN (DEAMINATED) ABS -UA WITH CULTURE IF INDICATED -CREATININE RANDOM UR -PROTEIN RANDOM UR No orders of the defined types were placed in this encounter. Return in about 3 weeks (around 05/23/2018) for discuss lab results. Mare Segura MD Referring Provider: JUANY JACOB [[id number]] Allergies As of Date: 05/02/2018 Noted Allergy Reaction ERYTHROMYCIN 02/26/2007 8 - GI Upset VICODIN (HYDROCODONE-ACETAMINOPHE*10/25/2011 9 - Itching Date Reviewed: 05/02/2018 Reviewed by: Mare Segura - Fully Assessed Reason for Visit: Joint Pain [238] Cmt: increasing pain in multiple locations. Primary Visit Diagnosis:Pain in joint, multiple sites [M25.50] Other Visit Diagnoses:Sicca syndrome (HCC) [M35.00] Malaise and fatigue [R53.81, R53.83] Order(s):DNA ANTIBODY DS BLD [SQDNAAB] Order #: [id number] FUTURE LAUNCHMAN ANTIBODY BLOOD [SQARNP] Order #: [id number] FUTURE MEI IGG AB [SQSMAB] Order #: [id number] FUTURE SJOGREN ABS SSA/SSB [SQXSSAB] Order #: [id number] FUTURE DAVID BY IFA SCREEN [SQANAIFS] Order #: [id number] FUTURE IGG [SQIGG] Order #: [id number] FUTURE IGM [SQIGM] Order #: [id number] FUTURE IGE BLD [SQIGE] Order #: [id number] FUTURE IGA BLD [SQIGA] Order #: [id number] FUTURE IMMUNOGLOBULIN D QUANT, SERUM [SQIGDQNT] Order #: [id number] FUTURE RHEUMATOID FACTOR BL [SQRF] Order #: [id number] FUTURE CCP ANTIBODY IGG [SQCCP] Order #: [id number] FUTURE CK CREATINE KINASE [SQCK] Order #: [id number] FUTURE CBC + DIFF [SQCBCDIF] Order #: [id number] FUTURE COMP METABOLIC PANEL [SQCMP] Order #: [id number] FUTURE FERRITIN BLD [SQFERR] Order #: [id number] FUTURE VITAMIN D 25 HYDROXY [SQVITD] Order #: [id number] FUTURE THYROID PEROXIDASE ANTIBODY BLOOD [SQMICRO] Order #: [id number] FUTURE TRANSGLUTAMINASE ABS [SQTGLGMA] Order #: [id number] FUTURE GLIADIN (DEAMINATED) ABS [SQGLIAD] Order #: [id number] FUTURE UA WITH CULTURE IF INDICATED [SQUACII] Order #: [id number] FUTURE CREATININE RANDOM UR [SQUCRR] Order #: [id number] FUTURE PROTEIN RANDOM UR [SQUTPR] Order #: [id number] FUTURE XR HAND GENERAL 3V PA/LAT/OBL LT [[id number]] Order #: [id number] FUTURE XR HAND GENERAL 3V PA/LAT/OBL RT [[id number]] Order #: [id number] FUTURE XR FOOT GENERAL 3V AP/LAT/OBL LT [[id number]] Order #: [id number] FUTURE XR FOOT GENERAL 3V AP/LAT/OBL RT [[id number]] Order #: [id number] FUTURE XR CERV GENERAL 2V AP/LAT [[id number]] Order #: [id number] FUTURE XR LUMBAR LIMITED 2V AP/LAT [[id number]] Order #: [id number] FUTURE XR SACROILIAC JOINTS 2V AP PELVIS/FERGUESON [[id number]] Order #: [id number] FUTURE Prescriptions as of 05/02/2018 Sig: DULOXETINE 60 MG CAPSULE,JAZMYNE* Take 60 mg by mouth twice jose* RESTASIS OPHTHALMIC Use in eyes twice daily. OMEPRAZOLE 20 MG CAPSULE,JAZMYNE* Take 20 mg by mouth twice jose* PILOCARPINE 7.5 MG TABLET Take 7.5 mg by mouth twice da* IBUPROFEN 200 MG TABLET Take 200 mg by mouth every 6 * * MULTI-VITAMIN ORAL Take 2 tablets by mouth once * CLOBETASOL 0.05 % TOPICAL OIN* Apply 1 application to affect* * SYNTHROID 50 MCG TABLET Take one(1) tablet daily. * ASPIRIN 81 MG CHEWABLE TABLET Take one(1) tablet daily. * AGATHA-600 WITH VITAMIN D 600 MG* Take one(1) tablet twice claudine* * OMEGA-3 FATTY ACIDS 1,000 MG * SUCRALFATE 100 MG/ML ORAL FRANSISCO* Take 1 g by mouth as needed. FOLIC ACID 400 MCG TABLET Take 400 mcg by mouth once da* * TOPIRAMATE 25 MG TABLET Take 25 mg by mouth twice jose* Problem List As Of Date 05/02/2018 Noted Resolved Unspecified hypothyroidism [E03.9] More... Esophageal reflux [K21.9] More... Breast abscess [N61.1] INVALID FOR* Lichen sclerosus [L90.0] INVALID FOR* Dysphagia [R13.10] INVALID FOR* Polyp, stomach [K31.7] INVALID FOR* Disposition: Return in about 3 weeks (around 05/23/2018) for discuss lab results. Follow-up and Disposition History Recorded Questionnaire: REBECA COSBY YEARLY ADL ASSESSMENT Toileting -> Independent Bathing -> Independent Upper Body Dressing -> Independent Lower Body Dressing -> Independent Grooming/Hygiene -> Independent Self Feeding -> Independent Home Management (laundry/cleaning/chores/simple meal prep) -> Independent Letter Text Encounter Status:Closed by MARE SEGURA MD on 05/02/18 CHEST PA AND LATERAL Observed: 04/26/2018 Status: F Source: [place] 9:15 AM [facility] [place] [facility] Imaging Services [address] [place] [address] Chest PA and Lateral MR#: [id number] Acct: [id number] Name: LATONYA PARKER Rep #: [id number] : 1960 F 57 From: Anthony Brown MD PCP: Juany Jacob DO Status: REG CLI Study: Chest PA and Lateral Date of Exam: 04/26/18 Exam# [id number] Ordering Dr: Juany Jacob DO HISTORY: Shortness of breath Comparison: 10/22/2016 Findings: Chronic mild elevation of the right hemidiaphragm. Normal heart size. No vascular congestion, pleural effusion, or acute pulmonary infiltration. No pneumothorax. The bony thorax appears intact. Impression no active cardiopulmonary disease. No significant interval change. at 0626 Reported and signed by: Anthony Brown MD Electronically Signed: Anthony Brown, at 6:24 EST Tel , Service support , RAD/Chest PA and Lateral CC: Juany Jacob DO Signal Supervisor: Signed CBC W/DIFF, AUTOMATED Collected: 04/17/2018 Status: F Source: [place] 4:18 PM [facility] [place] TYPE CODE TESTS RESULT OUT OF RANGE REFERENCE UNITS LAB L100.1000 4.4-11.0 K/mm3 Normal WBC 8.1 LAB L100.1200 4.2-5.4 M/mm3 Low RBC 4.09 LAB L100.1300 12.0-15.0 g/dl Normal HGB 12.8 LAB L100.1400 37-47 % Normal HCT 39.4 LAB L100.1500 81-99 fL Normal MCV 96.3 LAB L100.1600 27.0-32.0 pg Normal MCH 31.3 LAB L100.1700 32-36 g/gl Normal MCHC 32.5 LAB L100.1810 11.6-14.6 % Normal RDW CV 13.4 LAB L100.1820 35.1-43.9 fl High RDW SD 45.2 LAB L100.1900 150-450 K/mm3 Normal PLT 363 LAB L100.2000 6.2-12.0 fl Normal MPV 9.3 LAB L100.2100 47-70 % Normal NEUT% 61.5 LAB L100.2200 19-41 % Normal LY% 25.5 LAB L100.2300 0-10 % Normal MONO% 9.2 LAB L100.2400 0-5 % Normal EO% 2.8 LAB L100.2500 0-1 % Normal BASO% 0.5 LAB L100.2550 0.0-0.9 % Normal IM GRAN % 0.500 Result Comment: IG% - Immature Granulocytes (promyelocytes, myelocytes and metamyelocytes) > 1% indicates that a LEFT SHIFT is Present. LAB L100.2620 2.0-7.7 X10 3/uL Normal Absolute Neut 5.0 LAB L100.2720 0.83-4.51 X10 3/ul Normal Absolute Lymph 2.06 Performed By: #### L100.0100 #### [facility] [address] [place], [address] LIVER PROFILE Collected: 04/17/2018 Status: F Source: [place] 4:18 PM [facility] [place] TYPE CODE TESTS RESULT OUT OF RANGE REFERENCE UNITS LAB L501.1500 6.4-8.2 g/dL Normal T PROT 7.3 LAB L501.1800 3.2-5.0 g/dL Normal ALB 3.7 LAB L501.1950 2.2-4.2 g/dL Normal GLOB 3.6 LAB L501.4100 15-37 U/L Normal AST 28 LAB L501.4305 45-117 U/L Normal ALK P 109 LAB L501.4405 13-56 U/L Normal ALT 44 LAB L501.4600 0.20-1.00 mg/dL Normal T BILI 0.30 LAB L501.4700 0.00-0.30 mg/dL Normal D BILI 0.08 Performed By: #### L500.3400 #### [facility] [address] [place], [address] HIP, UNI W/ PELVIS Observed: 03/20/2018 Status: F Source: [place] 2-3 VIE[place] 5:23 PM [facility] [place] [facility] Imaging Services [address] [place] [address] HIP, UNI W/ Pelvis 2-3 Views MR#: [id number] Acct: [id number] Name: LATONYA PARKER Rj Rep #: [id number] : 1960 F 57 From: Terrell Arora MD PCP: Juany Jacob DO Status: REG CLI Study: HIP, UNI W/ Pelvis 2-3 Views Date of Exam: 03/20/18 Exam# [id number] Ordering Dr: Juany Jacob DO STUDY: X-RAY - PELVIS AND LEFT HIP REASON FOR EXAM: Female, 57 years old. Hip pain TECHNIQUE: Radiological exam, hip, unilateral, with pelvis when performed; 2 or 3 views. COMPARISON: None. FINDINGS: There is a non-specific bowel gas pattern. Normal visualized soft tissue structures. Normal bilateral iliac wings, sacroiliac joints and visualized sacrum. Normal bilateral superior and inferior pubic rami. Normal pubic symphysis. Normal bilateral ischial tuberosities. Normal visualized femoral head. Normal acetabulum. Normal hip joint. RAD/HIP, UNI W/ Pelvis 2-3 Views IMPRESSION: Normal x-ray examination of the pelvis and hip. No fracture Electronically Signed: Terrell Arora MD at 5:48 EDT Tel , Service support , CC: Juany Jacob DO Signal Supervisor: Signed L/S SPINE MIN 4 Observed: 03/20/2018 Status: F Source: [place] VIEWS 5:23 PM [facility] REPOSITORY [facility] Imaging Services [address] [place] [address] L/S Spine Min 4 Views MR#: [id number] Acct: [id number] Name: LATONYA PARKER Rj Rep #: [id number] : 1960 F 57 From: Terrell Arora MD PCP: Juany Jacob DO Status: REG CLI Study: L/S Spine Min 4 Views Date of Exam: 03/20/18 Exam# [id number] Ordering Dr: Juany Jacob DO STUDY: X-RAY - LUMBAR SPINE REASON FOR EXAM: Female, 57 years old. Back pain TECHNIQUE: 5 view(s) of the lumbar spine were obtained. COMPARISON: None FINDINGS: The spine is slightly tilted to the left but no scoliosis. There is no disc space narrowing and no acute fractures. The pedicles are intact. RAD/L/S Spine Min 4 Views IMPRESSION: No fracture. No disc disease Electronically Signed: Terrell Arora MD at 5:50 EDT Tel , Service support , CC: Juany Jacob DO Signal Supervisor: Signed CERV SPINE 4 OR 5 Observed: 03/20/2018 Status: F Source: [place] VIEWS 5:23 PM [facility] [place] [facility] Imaging Services [address] [place] [address] Cerv Spine 4 or 5 Views MR#: [id number] Acct: [id number] Name: LATONYA PARKER Rep #: [id number] : 1960 F 57 From: Terrell Arora MD PCP: Juany Jacob DO Status: REG CLI Study: Cerv Spine 4 or 5 Views Date of Exam: 03/20/18 Exam# [id number] Ordering Dr: Junay Jacob DO STUDY: X-RAY - CERVICAL SPINE REASON FOR EXAM: Female, 57 years old. Neck pain TECHNIQUE: 6 view(s) of the cervical spine were obtained. COMPARISON: None FINDINGS: Normal anterior atlantoaxial articulation. Normal odontoid process. Normal cervical lordosis. Normal vertebral bodies and endplates. Normal disc space heights. Normal visualized intervertebral neuroforamina. The soft tissue structures are unremarkable. RAD/Cerv Spine 4 or 5 Views IMPRESSION: Normal x-ray examination of the visualized cervical spine. No fracture. No disc disease. Electronically Signed: Terrell Arora MD at 5:55 EDT Tel , Service support , CC: Juany Jacob DO Signal Supervisor: Signed CBC W/DIFF, AUTOMATED Collected: 03/20/2018 Status: F Source: [place] 5:01 PM [facility] [place] TYPE CODE TESTS RESULT OUT OF RANGE REFERENCE UNITS LAB L100.1000 4.4-11.0 K/mm3 Normal WBC 8.0 LAB L100.1200 4.2-5.4 M/mm3 Low RBC 4.15 LAB L100.1300 12.0-15.0 g/dl Normal HGB 12.9 LAB L100.1400 37-47 % Normal HCT 39.3 LAB L100.1500 81-99 fL Normal MCV 94.7 LAB L100.1600 27.0-32.0 pg Normal MCH 31.1 LAB L100.1700 32-36 g/gl Normal MCHC 32.8 LAB L100.1810 11.6-14.6 % Normal RDW CV 13.4 LAB L100.1820 35.1-43.9 fl High RDW SD 46.5 LAB L100.1900 150-450 K/mm3 Normal PLT 307 LAB L100.2000 6.2-12.0 fl Normal MPV 9.5 LAB L100.2100 47-70 % Normal NEUT% 55.8 LAB L100.2200 19-41 % Normal LY% 30.2 LAB L100.2300 0-10 % Normal MONO% 9.7 LAB L100.2400 0-5 % Normal EO% 3.7 LAB L100.2500 0-1 % Normal BASO% 0.4 LAB L100.2550 0.0-0.9 % Normal IM GRAN % 0.200 Result Comment: IG% - Immature Granulocytes (promyelocytes, myelocytes and metamyelocytes) > 1% indicates that a LEFT SHIFT is Present. LAB L100.2620 2.0-7.7 X10 3/uL Normal Absolute Neut 4.5 LAB L100.2720 0.83-4.51 X10 3/ul Normal Absolute Lymph 2.42 Performed By: #### L100.0100 #### [facility] [address] [place], [address] VITAMIN B12 Collected: 03/20/2018 Status: F Source: [place] 5:01 [facility] [place] TYPE CODE TESTS RESULT OUT OF RANGE REFERENCE UNITS LAB L503.0105 211-911 pg/mL Normal Vitamin B12 420 Performed By: #### L503.0105, L506.1000 #### [facility] [address] [facility] [place], [address] VITAMIN D,25 HYDROXY Collected: 03/20/2018 Status: F Source: [place] 5:01 [facility] [place] RE[place] TYPE CODE TESTS RESULT OUT OF REFERENCE UNITS RANGE LAB L506.1000 29.95-100.01 ng/mL Low Vitamin D 23.2 25-OH Result Comment: Vitamin D 25(OH) Status Range Deficiency <20 ng/mL (50nmol/L) Insuffciency 20 - 30 ng/mL (50 - 75 nmol/L) Sufficiency 30 - 100 ng/mL (75 - 250 nmol/L) Toxicity >100 ng/mL (>250 nmol/L) Performed By: #### L503.0105, L506.1000 #### [facility] [address] [facility] [place], [address] COMPREHENSIVE METABOLIC Collected: 03/20/2018 Status: F Source: [facility] 5:01 [facility] [place] TYPE CODE TESTS RESULT OUT OF RANGE REFERENCE UNITS LAB L501.0100 74-106 mg/dL High GLU 119 Result Comment: Fasting Glucose result from 100 to 125 mg/dL suggests IMPAIRED HOMEOSTASIS per A.D.A. criteria. Please note revised GLUCOSE reference range effective 2017. LAB L501.1000 7-18 mg/dL Normal BUN 11 LAB L501.1100 0.55-1.02 mg/dL High CREAT,SERUM 1.10 Result Comment: The validity of the calculated GFR AND GFRAA in patients over 70 years has not been determined. Clinical correlation is essential. LAB L501.1110 >60 mL/min Low EST GFR 54 Result Comment: Non- GFR Calc LAB L501.1115 >60 mL/min Normal EST GFR - AA 66 Result Comment: GFR Calc LAB L501.1300 10-20 RATIO Normal BUN/CRE 10.0 LAB L501.1500 6.4-8.2 g/dL T Normal PROT 7.2 LAB L501.1800 3.2-5.0 g/dL Normal ALB 3.7 LAB L501.1950 2.2-4.2 g/dL Normal GLOB 3.5 LAB L501.2000 0.9-2.4 RATIO Normal A/G 1.1 LAB L501.2200 8.5-10.1 mg/dL CA Normal 8.7 LAB L501.4100 15-37 U/L Normal AST 29 LAB L501.4305 45-117 U/L Normal ALK P 109 LAB L501.4405 13-56 U/L Normal ALT 43 LAB L501.4600 0.20-1.00 mg/dL T Normal BILI 0.30 LAB L501.5300 136-145 mmol/L NA Normal 138 LAB L501.5600 3.5-5.1 mmol/L K Normal 3.5 LAB L501.5900 98-107 mmol/L CL Normal 102 LAB L501.6100 21.0-32.0 mmol/L Normal CO2 28.0 LAB L501.6200 5-15 Normal GAP 8 Performed By: #### L500.4050, L501.9520, L503.6150, L503.6550, L506.0400 #### [facility] [address] [place], [address] THYROID STIM HORMONE Collected: 03/20/2018 Status: F Source: [place] ([place]) 5:01 PM [facility] [place] TYPE CODE TESTS RESULT OUT OF RANGE REFERENCE UNITS LAB L501.9520 0.358-3.74 uIU/mL Normal TSH 2.72 Performed By: #### L500.4050, L501.9520, L503.6150, L503.6550, L506.0400 #### [facility] [address] [place], [address] IRON Collected: 03/20/2018 Status: F Source: [place] 5:01 PM [facility] [place] TYPE CODE TESTS RESULT OUT OF RANGE REFERENCE UNITS LAB L503.6150 50-170 ug/dL Normal IRON 62 Performed By: #### L500.4050, L501.9520, L503.6150, L503.6550, L506.0400 #### [facility] [address] [place], [address] FERRITIN Collected: 03/20/2018 Status: F Source: [place] 5:01 PM [facility] [place] TYPE CODE TESTS RESULT OUT OF RANGE REFERENCE UNITS LAB L503.6550 8-252 ng/mL Normal FERRITIN 76 Performed By: #### L500.4050, L501.9520, L503.6150, L503.6550, L506.0400 #### [facility] [address] [place], [address] T4 FREE DIRECT Collected: 03/20/2018 Status: F Source: [place] 5:01 PM [facility] [place] TYPE CODE TESTS RESULT OUT OF RANGE REFERENCE UNITS LAB L506.0400 0.76-1.46 ng/dL Normal T4 FREE 0.79 DIRECT Performed By: #### L500.4050, L501.9520, L503.6150, L503.6550, L506.0400 #### [facility] [address] [place], [address] SURGERY VISIT REPORT Observed: 02/13/2018 Status: F Source: [place] 9:46 AM [facility] [place] [facility] [address] [place] [address] OFFICE VISIT Date of Service: 02/13/18 MR#: [id number] Acct: [id number] Name: RANDYLATONYA R Rep #: [id number] : 1960 Provider: Yarelis Cali MD Age/Sex: 57/F [facility] Status: Signed Intake Intake Visit Reasons: WAYNE Nguyễn Reference And Instruction Librarian Required: No Is patient in pain?: No Allergies erythromycin base [Erythromycin Base] Adverse Reaction (Verified 02/13/18 09:35) Nausea hydrocodone bitartrate [From Vicodin] Adverse Reaction (Verified 02/13/18 09:35) Itching Medications Aspirin [Aspirin, Baby] 81 mg PO DAILY 12/07/13 [History Confirmed 02/13/18] Levothyroxine [Synthroid] 50 mcg PO DAILY 12/07/13 [History Confirmed 02/13/18] Multivit with Calcium,Iron,Min [Multiple Vitamins For Women] 1 ea PO DAILY 12/07/13 [History Confirmed 02/13/18] Pilocarpine HCl 7.5 mg PO BID 12/07/13 [History Confirmed 02/13/18] Cyclosporine [Restasis] 1 ea EACH EYE BID 12/18/16 [History Confirmed 02/13/18] Duloxetine Hcl [Cymbalta] 60 mg PO DAILY 12/18/16 [History Confirmed 02/13/18] Teton-3 Fatty Acids/Fish Oil [Teton 3 Fish Oil Softgel] 1 ea PO DAILY 12/18/16 [History Confirmed 02/13/18] Omeprazole [Prilosec] 20 mg PO BID 12/18/16 [History Confirmed 02/13/18] Sucralfate [Carafate] 1 gm PO PRN PRN 12/18/16 [History Confirmed 02/13/18] Sumatriptan Succinate [Imitrex] 100 mg PO .X1 PRN PRN 12/18/16 [History Confirmed 02/13/18] Duloxetine HCl 30 mg PO QHS 12/11/17 [History Confirmed 02/13/18] Ondansetron [Zofran Odt] 4 mg PO Q8H PRN PRN #10 tab 12/11/17 [Rx Confirmed 02/13/18] Oxycodone HCl/Acetaminophen [Percocet 5/325] 1 tab PO Q6H PRN PRN 3 Days #12 tab 12/11/17 [Rx Confirmed 02/13/18] Bupropion HCl [Wellbutrin Sr] 150 mg PO BID 01/10/18 [History Confirmed 02/13/18] Oxycodone HCl/Acetaminophen [Percocet 5/325] 1 - 2 tab PO Q6H PRN PRN 4 Days #25 tab 01/13/18 [Rx Confirmed 02/13/18] Subjective Details: Patient is following up from a laparoscopic cholecystectomy on 01/13/18. Patient states she is doing well tolerating diet she does have loose stools with some urgency. She also previously had loose stools prior to the surgery however now they are little more loose than before. Patient states her abdominal pain from before surgery has completely resolved. Patient states she occasionally gets some right lower quadrant dull achy pain which does resolve on its own. Objective Details: General: No acute distress, Abdomen: Soft, nondistended, nontender, incisions well-healed, no guarding or peritoneal signs Assessment AND Plan Plan Patient is doing well. Discussed that if her loose stools continue in about another month we may try some cholestyramine; however this is not a guarantee that it will resolve the loose stools. Patient understands. Patient will call and let us know if this is still continuing she would like to try the medication. Yarelis Cali M.D. Pager: [phone] [facility] [address] [place] [address], [address] [place] [address] Office: [phone] Plan Detail Follow Up prn Coding Level of Care Code Global Post Op 02/13/18 0946 <Electronically signed by Yarelis Cali MD> Date Yarelis Cali MD Cosigner Signature: Date (if applicable) CC: Juany Jacob DO SURGERY VISIT REPORT Observed: 01/27/2018 Status: F Source: [place] 10:12 AM [facility] [address] [place], [place] [id number] OFFICE VISIT Date of Service: 01/27/18 MR#: [id number] Acct: [id number] Name: LATONYA PARKER Rep #: [id number] : 1960 Provider: Yarelis Cali MD Age/Sex: 57/F Location: [facility] [place] Status: Signed Intake Intake Visit Reasons: 2wk f/u lap jaja 01/13 Reference And Instruction Librarian Required: No Is patient in pain?: No Allergies erythromycin base [Erythromycin Base] Adverse Reaction (Verified 01/27/18 10:02) Nausea hydrocodone bitartrate [From Vicodin] Adverse Reaction (Verified 01/27/18 10:02) Itching Medications Aspirin [Aspirin, Baby] 81 mg PO DAILY 12/07/13 [History Confirmed 01/27/18] Levothyroxine [Synthroid] 50 mcg PO DAILY 12/07/13 [History Confirmed 01/27/18] Multivit with Calcium,Iron,Min [Multiple Vitamins For Women] 1 ea PO DAILY 12/07/13 [History Confirmed 01/27/18] Pilocarpine HCl 7.5 mg PO BID 12/07/13 [History Confirmed 01/27/18] Cyclosporine [Restasis] 1 ea EACH EYE BID 12/18/16 [History Confirmed 01/27/18] Duloxetine Hcl [Cymbalta] 60 mg PO DAILY 12/18/16 [History Confirmed 01/27/18] Teton-3 Fatty Acids/Fish Oil [Teton 3 Fish Oil Softgel] 1 ea PO DAILY 12/18/16 [History Confirmed 01/27/18] Omeprazole [Prilosec] 20 mg PO BID 12/18/16 [History Confirmed 01/27/18] Sucralfate [Carafate] 1 gm PO PRN PRN 12/18/16 [History Confirmed 01/27/18] Sumatriptan Succinate [Imitrex] 100 mg PO .X1 PRN PRN 12/18/16 [History Confirmed 01/27/18] Duloxetine HCl 30 mg PO QHS 12/11/17 [History Confirmed 01/27/18] Ondansetron [Zofran Odt] 4 mg PO Q8H PRN PRN #10 tab 12/11/17 [Rx Confirmed 01/27/18] Oxycodone HCl/Acetaminophen [Percocet 5/325] 1 tab PO Q6H PRN PRN 3 Days #12 tab 12/11/17 [Rx Confirmed 01/27/18] Bupropion HCl [Wellbutrin Sr] 150 mg PO BID 01/10/18 [History Confirmed 01/27/18] Oxycodone HCl/Acetaminophen [Percocet 5/325] 1 - 2 tab PO Q6H PRN PRN 4 Days #25 tab 01/13/18 [Rx Confirmed 01/27/18] PFSH Medical History Chronic cholecystitis (Acute) Depression (Acute) Gastritis (Acute) Hypothyroid (Acute) Surgical History H/O colonoscopy (Acute) H/O esophagogastroduodenoscopy (Acute) H/O left knee surgery (Acute) H/O: hysterectomy (Acute) Parathyroid cyst (Acute) S/P appendectomy (Acute) S/P laparoscopic cholecystectomy (Acute 01/13/18) left shoulder surgery (Acute) right foot surgery (Acute) Family History Mother Breast cancer Father Cancer Social History Smoking Status: Current every day smoker alcohol intake: never HPI HPI HPI: LATONYA PARKER, is a 57 F who presents to the office today for follow-up status post laparoscopic cholecystectomy for gallbladder sludge. Patient states she is doing well states her abdominal pain she had before surgery has resolved. States she does still occasionally have some issues with tomato sauce with her reflux but if she avoids that she does well on her omeprazole 20 mg p.o. twice daily. Exam Const General: cooperative, comfortable, no acute distress GI Inspection: distended Palpation: soft, tender (Minimal tenderness palpation at the incisions), no guarding Assessment AND Plan Problems 1. S/P laparoscopic cholecystectomy Z90.49 Plan Patient is doing well, incisions healing well. Patient tolerating diet, having bowel movements. 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 Patient is agreeable plan and has no further questions this time. Yarelis Cali M.D. Pager: [phone] [facility] [address] [place] [address], [facility], [address] [place] [address] Office: [phone] Plan Detail Follow Up 2 Weeks Coding Level of Care Code Global Post Op Diagnoses S/P laparoscopic cholecystectomy Z90.49 01/27/18 1012 <Electronically signed by Yarelis Cali MD> Date Yarelis Cali MD Cosigner Signature: Date (if applicable) CC: Juany Jacob DO OPERATIVE REPORT Observed: 01/13/2018 Status: F Source: [place] 7:18 PM [facility] [place] [facility] Medical Records Department [address] [place] [address] Operative Report 01/13/18 1059 MR#: [id number] Acct: [id number] Name: LATONYA PARKER Rep #: [id number] : 1960 57 From: Yarelis Cali MD PCP: Juany Jacob DO Status: [facility] Location: [facility] Report of Operation Date of Procedure: 01/13/18 Pre-Operative Diagnosis: Gallbladder sludge Post-Operative Diagnosis: Same Surgery/Procedure Performed:: Laparoscopic cholecystectomy Type of Anesthesia:: General/Supplemental Anesthesiologist: Magdi Osuna Special Medications: Cefotetan 2 g IV 1 Specimen's removed: 1. Gallbladder Estimated Blood Loss (mL): 40 cc Description of Procedure: Indications this is a 57 year-old female who developed epigastric/right upper quadrant abdominal pain/nausea/vomiting and on workup was found to have gallbladder sludge, 4 mm gallbladder polyp with a normal common bile duct and normal liver function enzymes. Laparoscopic cholecystectomy was elected. Description procedure: The patient was placed on operating table in supine position. General Anesthesia was induced. A timeout was completed verifying correct patient, procedure, site, position, social, and special equipment prior to beginning procedure. An orogastric tube was placed. The abdomen was prepped and draped in usual sterile fashion. An incision was made in the natural skin line above the umbilicus. The fascia was elevated and incised. The peritoneum was elevated and incised. Entry into the peritoneum was confirmed visually and no bowel was noted in the vicinity of the incision. Hutson trocar was placed. The abdomen was insufflated with carbon dioxide to a pressure of 12-15 mmHg. Patient tolerated insufflation well. The laparoscope was then inserted and abdomen inspected. No injuries from initial trocar placement were noted. Additional trochars were then inserted in the following locations 5 mm trocar in the epigastrium and 2 more 5 mm trochars along the right costal margin. The abdomen was inspected no abnormalities were found. The table is placed in reverse Trendelenburg position with the right side up. The adhesions between the gallbladder and omentum were lysed sharply. The dome of the gallbladder was grasped with atraumatic grasper passed through the lateral port and retracted over the dome of the liver. Infundibulum was then grasped with atraumatic grasper through the midclavicular port and retracted to the right lower quadrant. This maneuver exposed Calot's triangle. The peritoneum overlying the gallbladder infundibulum was then incised and cystic duct and artery identified and circumferentially dissected. The cystic duct and artery were then doubly clipped and divided close to the gallbladder. The gallbladder then dissected from its peritoneal attachments by electrocautery. Hemostasis was checked and the gallbladder and contained stones were removed using the endoscopic retrieval bag through the umbilical port. The gallbladder is passed off table as specimen. The gallbladder fossa was copiously irrigated with saline and hemostasis obtained. There is no evidence of bleeding from the gallbladder fossa or cystic artery leakage of bile from the cystic duct stump. Secondary trochars removed under direct vision. No bleeding was noted the trocar sites. The laparoscope was withdrawn and umbilical trocar removed. The abdomen was allowed to collapse. The fascia of the 12 mm trocar was closed with a [id number] 0 Vicryl suture. The skin was closed with sutures of 4-0 Monocryl and Steri-Strips. The orogastric tube was removed and the patient was extubated. The patient tolerated procedure well and was taken to the postanesthesia care unit in stable condition. - Complications none 01/13/181917 <Electronically signed by Yarelis Cali MD> Date Yarelis Cali MD CC: Juany Jacob DO; Yarelis Cali MD Signed DISCHARGE INSTRUCTION Observed: 01/13/2018 Status: F Source: [place] 11:03 AM [facility] [place] [facility] Medical Records Department [address] [place] [address] Instructions for Home/Discharge Instructions 01/13/18 0921 MR#: [id number] Acct: [id number] Name: LATONYA PARKER Rep #: [id number] : 1960 57 From: Yarelis Cali MD PCP: Juany Jacob DO Status: REG RIC Discharge Diet: Light diet - advance as tolerated Discharge Activity: May not drive while taking narcotic pain medications. Lifting Restrictions: no lifting >20 lbs for 4 weeks Call your doctor if your incision/area has: Continuous Slow Oozing, Sudden Increased Bleeding, Increased Pain/ Swelling, Increased Redness, Foul Smelling Discharge, Swelling at the incision site Call your doctor if you observe: Fever of 101 or Higher Additional Instructions: Percocet may cause constipation. Recommend taking daily stool softener with the Percocet. Okay to take ibuprofen in between doses of Percocet but did not take Tylenol as Tylenol is already in the Percocet. Food if no bowel movement for 2 days recommend taking several doses of MiraLAX the following day. If no results from the MiraLAX recommend taking half a bottle of magnesium citrate the next day and waiting 6 hours. Still if no BM, would recommend taking the other half of the magnesium citrate. Allergies/Adverse Reactions: Allergies erythromycin base [Erythromycin Base] Adverse Reaction (Verified 01/10/18 14:28) Nausea hydrocodone bitartrate [From Vicodin] Adverse Reaction (Verified 01/10/18 14:28) Itching Medications to take at Discharge Aspirin [Aspirin, Baby] 81 mg PO DAILY 12/07/13 Levothyroxine [Synthroid] 50 mcg PO DAILY 12/07/13 Multivit with Calcium,Iron,Min [Multiple Vitamins For Women] 1 ea PO DAILY 12/07/13 Pilocarpine HCl 7.5 mg PO BID 12/07/13 Cyclosporine [Restasis] 1 ea EACH EYE BID 12/18/16 Duloxetine Hcl [Cymbalta] 60 mg PO DAILY 12/18/16 Teton-3 Fatty Acids/Fish Oil [Teton 3 Fish Oil Softgel] 1 ea PO DAILY 12/18/16 Omeprazole [Prilosec] 20 mg PO BID 12/18/16 Sucralfate [Carafate] 1 gm PO PRN PRN 12/18/16 Sumatriptan Succinate [Imitrex] 100 mg PO .X1 PRN PRN 12/18/16 Duloxetine HCl 30 mg PO QHS 12/11/17 Ondansetron [Zofran Odt] 4 mg PO Q8H PRN PRN #10 tab 12/11/17 Oxycodone HCl/Acetaminophen [Percocet 5/325] 1 tab PO Q6H PRN PRN 3 Days #12 tab 12/11/17 Bupropion HCl [Wellbutrin Sr] 150 mg PO BID 01/10/18 Oxycodone HCl/Acetaminophen [Percocet 5/325] 1 - 2 tablet PO Q6H PRN PRN 4 Days #25 tablet 01/13/18 The following prescriptions were given: Oxycodone HCl/Acetaminophen [Percocet 5/325] 1 - 2 tablet PO Q6H PRN PRN 4 Days #25 tablet PRN Reason: Pain Primary Care Physician: Juany Jacob DO [Primary Care Provider] - Test Results: Test results from this visit will be discussed in further detail at your follow-up appointment, if applicable. Please Follow Up With: Yarelis Cali MD - After 5:00/weekends call [phone] with any concerns When: Call the office for an appointment 2 weeks Proposed Discharge Date: 01/13/18 01/13/18 1799 <Electronically signed by Yarelis Cali MD> Date Yarelis Cali MD CC: Juany Jacob DO GALLBLADDER Observed: 01/13/2018 Status: F Source: [place] 9:25 AM [facility] [place] Patient: LATONYA PARKER : 1960 (57/F) Acct Num: [id number] Phys: Viraj YOUNGBLOOD,[facility] Unit Num: [id number] Loc: [facility] Specimen: [id number] Received: 01/13/18 - 1150 Spec Type: GALLBLADDE TISSUES TISSUES: Gallbladder, NOS GROSS DESCRIPTION Received is one container labeled with the patient's name and designated gallbladder. The specimen consists of a gallbladder measuring 6 cm in length and up to 3 cm in diameter. The external surface is pink- machado, smooth and glistening for the most part. Focally it is granular, hemorrhagic and contains cautery artifact. The gallbladder contains green-yellow mucoid bile and a small amount of brown sludge material. No stones are identified in the container or in the gallbladder. The mucosa is bile-stained and without any mass lesions. The gallbladder wall measures up to 0.2 cm in thickness. Bullet Slugs Inspector sections from the gallbladder and the cystic duct are submitted in one cassette. / SJ:malini 01/13/18 TC:3 CPT: 97868 HEADER OPERATION: Laparoscopic cholecystectomy PRE-OP DIAGNOSIS: Gallbladder sludge, epigastric/right upper quadrant pain TISSUE SUBMITTED: Gallbladder MICROSCOPIC DESCRIPTION Slides are reviewed. MICROSCOPIC DIAGNOSIS Gallbladder: Chronic cholecystitis. No stones are identified in the container or in the gallbladder. SJ:malini 01/14/18 Signed Nasir Doe 01/14/18 <signature on file> Performed By: #### PGALL #### [facility] [address] [facility] [place], [place], [address] THYROID STIM HORMONE Collected: 01/09/2018 Status: F Source: [place] (TSH) 4:00 PM [facility] [place] TYPE CODE TESTS RESULT OUT OF RANGE REFERENCE UNITS LAB L501.9520 0.358-3.74 uIU/mL Normal TSH 1.02 Performed By: #### L501.9520, L506.0400 #### [facility] [address] [place], [address] T4 FREE DIRECT Collected: 01/09/2018 Status: F Source: [place] 4:00 PM [facility] [place] TYPE CODE TESTS RESULT OUT OF REFERENCE UNITS RANGE LAB L506.0400 0.76-1.46 ng/dL Low T4 FREE 0.75 DIRECT Performed By: #### L501.9520, L506.0400 #### [facility] [address] [place], [place], [address] T3 TOTAL - TRIIODOTHYRONINE Collected: 01/09/2018 Status: F Source: [place] 4:00 PM [facility] [place] TYPE CODE TESTS RESULT OUT OF RANGE REFERENCE UNITS LAB L501.9186 0.6-1.81 ng/mL Normal T3 Total 0.91 Performed By: #### L501.9186 #### [facility] [address] [place], [place], [address] LIVER PROFILE Collected: 01/09/2018 Status: F Source: [place] 4:00 PM [facility] [place] TYPE CODE TESTS RESULT OUT OF RANGE REFERENCE UNITS LAB L501.1500 6.4-8.2 g/dL Normal T PROT 7.0 LAB L501.1800 3.2-5.0 g/dL Normal ALB 3.5 LAB L501.1950 2.2-4.2 g/dL Normal GLOB 3.5 LAB L501.4100 15-37 U/L Normal AST 32 LAB L501.4305 45-117 U/L Normal ALK P 101 LAB L501.4405 13-56 U/L Normal ALT 45 LAB L501.4600 0.20-1.00 mg/dL Normal T BILI 0.20 LAB L501.4700 0.00-0.30 mg/dL Normal D BILI 0.06 Performed By: #### L500.3400, L501.2450 #### [facility] [address] [facility] [place], [place], [address] LIPASE Collected: 01/09/2018 Status: F Source: [place] 4:00 PM [facility] [place] TYPE CODE TESTS RESULT OUT OF RANGE REFERENCE UNITS LAB L501.2450 73-393 U/L Normal LIPASE 138 Performed By: #### L500.3400, L501.2450 #### [facility] [address] [place], [address] OPERATIVE REPORT Observed: 01/02/2018 Status: F Source: [place] 10:47 AM [facility] [place] [facility] Medical Records Department [address] [place] [address] Operative Report 01/02/18 1043 MR#: [id number] Acct: [id number] Name: LATONYA PARKER Rep #: [id number] : 1960 57 From: Yarelis Cali MD PCP: Juany Jacob DO Status: REG [facility] Y Location: [place] [address] Report of Operation Date of Procedure: 01/02/18 Pre-Operative Diagnosis: GERD, left upper quadrant/epigastric/right upper quadrant pain Post-Operative Diagnosis: GERD/gastritis, duodenitis, gastric polyps, hiatal hernia Surgery/Procedure Performed:: EGD with biopsy Type of Anesthesia:: MAC Anesthesiologist: Davis Koroma Specimen's removed: 1. Antrum, 2. Gastric polyp, 3. GE junction Estimated Blood Loss (mL): Minimal Description of Procedure: Procedure: EGD After obtaining informed consent, the endoscope was passed under direct visualization. Throughout the procedure, patient's blood pressure, pulse, oxygen saturations were monitored continuously by anesthesia. The endoscope was introduced through the mouth and advanced to the 2nd part of the duodenum. The upper GI endoscopy was accomplished without difficulty. Patient tolerated procedure well. Findings: Small hiatal hernia was present. Mild erythematous mucosa found gastric antrum, cold forceps biopsies were taken of the antrum for histology and H. pylori, multiple gastric polyps likely fundic gland polyps were also seen and cold forceps biopsy was taken of one. Patient also had mucosal changes with small column of mucosal change extending into the distal esophagus about a centimeter, cold forceps biopsies were taken of the area. Biopsies were taken with cold biopsy for histology. Estimated blood loss was minimal. Mild erythematous mucosa was also seen in the first portion of the duodenum. Impression: 1. Small hiatal hernia 2. Gastritis. Biopsied. 3. Gastric polyp. Biopsied 4. Duodenitis 5. Change of mucosa at the GE junction/GERD. Biopsied Recommendations: Await biopsies Patient was previously taking omeprazole 20 mg p.o. twice daily and still has evidence of gastritis/duodenitis recommend patient going back on her Nexium okay for generic 40 mg p.o. twice daily and continuing the Carafate until it is completed. - Complications None 01/02/18 1047 <Electronically signed by Yarelis Cali MD> Date Yarelis Cali MD CC: Juany Jacob DO; Yarelis Cali MD Signed GASTRIC BIOPSY Observed: 01/02/2018 Status: F Source: [place] 12:00 AM [facility] [place] Patient: LATONYA PARKER : 1960 (57/F) Acct Num: [id number] Phys: Viraj YOUNGBLOOD,Yarelis Unit Num: [id number] Loc: [place] Specimen: [id number] Received: 01/02/181416 Spec Type: Gastric Bx TISSUES TISSUES: A. Gastric mucous membrane B. Gastric mucous membrane C. Gastric mucous membrane COMMENT A. The results of immunohistochemistry for Helicobacter pylori will be reported separately ([id number]). B. Alcian blue/PAS stain with matched control is used in the evaluation of the specimen. GROSS DESCRIPTION A - Received in fixative is one container labeled with the patient's name and designated antral biopsy. The specimen consists of two irregular fragments of light machado soft tissue that in aggregate measure 0.3 x 0.3 x 0.1 cm. The specimen is totally submitted in one cassette. B - Received in fixative is one container labeled with the patient's name and designated gastric polyp biopsy. The specimen consists of one irregular fragment of light machado soft tissue that measures 0.3 x 0.3 x 0.1 cm. The specimen is totally submitted in one cassette. C - Received in fixative is one container labeled with the patient's name and designated GE junction biopsy. The specimen consists of two irregular fragments of light machado soft tissue that in aggregate measure 0.6 x 0.3 x 0.1 cm. The specimen is totally submitted in one cassette. / SJ:malini 01/02/18 TC: CPT: 13990 x3, 65486 HEADER OPERATION: EGD PRE-OP DIAGNOSIS: Reflux, epigastric pain TISSUE SUBMITTED: A Antral biopsy, B Gastric polyp biopsy, C GE junction biopsy MICROSCOPIC DESCRIPTION Slides are reviewed. A. The specimen shows fragments of gastric mucosa with chronic inflammatory cell infiltrates in the lamina propria consisting of lymphocytes and plasma cells, consistent with mild chronic gastritis. MICROSCOPIC DIAGNOSIS A. Antral biopsy: Mild gastritis. See microscopic description and comment. B. Gastric polyp, biopsy: Fundic gland polyp. C. GE junction, biopsy: Fragments of gastroesophageal mucosa with chronic inflammation. Intestinal metaplasia (goblet cell metaplasia) is not identified. See comment. SJ:malini 01/03/18 Signed Nasir Doe 01/03/18 <signature on file> Performed By: #### PGASB #### [facility] [address] [place] [address]. [place], [address] IMMUNOHISTOCHEMISTRY Observed: 01/02/2018 Status: F Source: [place] 12:00 [facility] REPOSITORY Patient: LATONYA PARKER : 1960 (57/F) Acct Num: [id number] Phys: Viraj YOUNGBLOOD,[facility] Unit Num: [id number] Loc: [place] Specimen: [id number] Received: 01/03/18 - 1313 Spec Type: IMMUNO TISSUES TISSUES: A. Stomach, NOS SPECIMEN INFORMATION: Tissue Source: A Antral biopsy Clinical Info: Reflux, epigastric pain Specimen Number: [id number] CPT code: 84526 METHODOLOGY: Deparaffinized sections of prefer/formalin-fixed tissue or PAP/DQ stained slides are incubated with monoclonal/polyclonal antibodies/oligonucleotide probes. Localization is made via biotin free immunoperoxidase method. Appropriate controls are performed and reacted as expected. Results on target cell population are indicated in the following table: RESULTS: ANTIBODY / CLONE RESULT Block A H Pylori (polyclonal) negative These tests were developed and their performance characteristics determined by [facility]. They may not have been cleared or approved by the U.S. Food and Drug Administration. The FDA has determined that such clearance or approval is not necessary. INTERPRETATION: A. Antral biopsy: Negative for Helicobacter pylori organisms. SJ:malini 01/06/18 PHYSICIAN AND INSTITUTION [address] [place] [address] Signed Nasir Brannonin 01/06/18 <signature on file> Performed By: #### PIMM #### [facility] [address] [place] [address]. [place], [address] HEPATOBILLIARY IMG Observed: 12/17/2017 Status: F Source: [place] W/PHARM INT 10:12 AM [facility] [place] [facility] Imaging Services [address] [place] [address] Hepatobilliary Img w/Pharm Int MR#: [id number] Acct: [id number] Name: LATONYA PARKER Rep #: [id number] : 1960 F 57 From: Jonah Clark DO PCP: Juany Jacob DO Status: REG CLI Study: Hepatobilliary Img w/Pharm Int Date of Exam: 12/17/17 Exam# [id number] Ordering Dr: Yarelis Cali MD CLINICAL: 57-year-old female with reported history of right upper quadrant abdominal pain and nausea. RADIONUCLIDE HEPATOBILIARY SCINTIGRAPHY COMPARISON: Abdominal ultrasound report 12/19/2017 FINDINGS: Following the intravenous administration of 5.8 mCi of 99m Tc Mebrofenin, hepatobiliary images reveal: 1. Relatively prompt and homogeneous radiopharmaceutical concentration is noted by a normal sized liver. No parenchymal defects are identified. 2. Gallbladder activity is identified at 30 minutes post radiopharmaceutical administration. 3. Small intestinal tract is observed at 15 minutes following tracer injection. 4. Washout of the radiopharmaceutical by the hepatic parenchyma appears qualitatively normal. Cholecystokinin (0.02 ug/kg) was administered intravenously over a 30-minute period. The post CCK gallbladder ejection fraction calculated at 30 minutes following Cholecystokinin administration was noted to be 48.0 % (normal greater than 35%). During 30 minutes of post CCK imaging, there is no scintigraphic evidence of reflux of the radiotracer into the common hepatic duct or refilling of the gallbladder. NM/Hepatobilliary Img w/Pharm Int IMPRESSION: 1. NORMAL 99m Tc Mebrofenin hepatobiliary imaging examination with Cholecystokinin. A. A gallbladder ejection fraction calculated to be greater than 35% following the administration of Cholecystokinin makes the probability of functional hepatobiliary disease (gallbladder and/or sphincter of Oddi dyskinesia) and/or organic hepatobiliary disease (chronic acalculous cholecystitis and/or cystic duct syndrome) to be low. (Char Meier et al, Journal of Nuclear Medicine 32:1695, 1990). Electronically Signed: Jonah Clark DO at 10:32 EDT Tel , Service support , CC: Juany Jacob DO; Yarelis Cali MD Signal Supervisor: Signed SURGERY VISIT REPORT Observed: 12/12/2017 Status: F Source: [place] 2:39 PM [facility] [place] [facility] [address] [place] [address] OFFICE VISIT Date of Service: 12/12/17 MR#: [id number] Acct: [id number] Name: LATONYA PARKER Rep #: [id number] : 1960 Provider: Yarelis Cali MD Age/Sex: 57/F Location: [facility] Status: Signed Intake Vital Signs12/12/17 Height 5 ft 1 in 12/12/17 Weight: 196 lb 12/12/17 Body Mass Index (BMI) 37.0 12/12/17 Blood Pressure 149/90 12/12/17 Blood Pressure Location Lt brachial Intake Visit Reasons: [facility] ER F/U 12/11 GALL BLADDER ISSUES Reference And Instruction Librarian Required: No Is patient in pain?: Yes (upper abdomen/epigastric area) Pain scale (1-10): 4 Allergies acetaminophen [From Vicodin] Adverse Reaction (Verified 12/12/17 13:15) Itching erythromycin base [Erythromycin Base] Adverse Reaction (Verified 12/12/17 13:15) Nausea hydrocodone bitartrate [From Vicodin] Adverse Reaction (Verified 12/12/17 13:15) Itching Medications Aspirin [Aspirin, Baby] 81 mg PO DAILY 12/07/13 [History Confirmed 12/12/17] Levothyroxine [Synthroid] 50 mcg PO DAILY 12/07/13 [History Confirmed 12/12/17] Multivit with Calcium,Iron,Min [Multiple Vitamins For Women] 1 ea PO DAILY 12/07/13 [History Confirmed 12/12/17] Pilocarpine HCl 7.5 mg PO BID 12/07/13 [History Confirmed 12/12/17] Cyclosporine [Restasis] 1 ea EACH EYE BID 12/18/16 [History Confirmed 12/12/17] Duloxetine Hcl [Cymbalta] 60 mg PO DAILY 12/18/16 [History Confirmed 12/12/17] Teton-3 Fatty Acids/Fish Oil [Teton 3 Fish Oil Softgel] 1 ea PO DAILY 12/18/16 [History Confirmed 12/12/17] Omeprazole [Prilosec] 20 mg PO BID 12/18/16 [History Confirmed 12/12/17] Sucralfate [Carafate] 1 gm PO PRN PRN 12/18/16 [History Confirmed 12/12/17] Sumatriptan Succinate [Imitrex] 100 mg PO .X1 PRN 12/18/16 [History Confirmed 12/12/17] Fluconazole [Fluconazole] 100 mg PO DAILY 10/12/17 [History Confirmed 12/12/17] Duloxetine HCl 30 mg PO QHS 12/11/17 [History Confirmed 12/12/17] Ondansetron [Zofran Odt] 4 mg PO Q8H PRN PRN #10 tab 12/11/17 [Rx Confirmed 12/12/17] Oxycodone HCl/Acetaminophen [Percocet 5/325] 1 tab PO Q6H PRN PRN 3 Days #12 tab 12/11/17 [Rx Confirmed 12/12/17] PFSH Medical History Depression (Acute) Gastritis (Acute) Hypothyroid (Acute) Surgical History H/O colonoscopy (Acute) H/O esophagogastroduodenoscopy (Acute) H/O left knee surgery (Acute) H/O: hysterectomy (Acute) Parathyroid cyst (Acute) S/P appendectomy (Acute) left shoulder surgery (Acute) right foot surgery (Acute) Family History Mother Breast cancer Father Cancer Social History Smoking Status: Current every day smoker alcohol intake: never HPI HPI HPI: LATONYA PARKER, is a 57 F who presents to the office today for abdominal pain, gallbladder sludge. Patient went to the ER yesterday after having sudden onset of a deep diffuse abdominal pain which stayed in her epigastric region starting about 130 yesterday a.m. She also reports feeling bloated. Bowel by 530 yesterday a.m. she did have nausea and vomiting about 12 times is diaphoretic and had some chills also has a headache which she does have a history of. She states she has increased pain with coughing or laughing in the ER she was given some morphine for pain and had an ultrasound of her gallbladder which showed no pericholecystic fluid gallbladder wall 3 mm no Burt sign, small amount of dependent sludge, 4 mm gall bladder polyp, common bile duct was 4 mm. Patient's labs she had a leukocyte significant leukocytosis of 19 but her LFTs were all within normal limits. Patient was released from the ER made follow-ups with us as well as her primary care. Patient last took her Francois codon at 730 this morning along with some Zofran she was able to drink some coffee in Dr. Pepper and have some toast but she does states she does not have much of an appetite. States been urinating her last bowel movement was yesterday a.m. prior to the increased pain. Patient did have some milk and Oreos about 7 PM prior to the pain beginning at 1:30 AM. She denies having previous pain like this in the past other than when she underwent a laparoscopic appendectomy in 2013. Patient did have EGD and colonoscopy a year ago which only showed questionable suffered cystitis which she was put on omeprazole 20 mg p.o. twice daily which patient states she still has GERD-like symptoms which includes epigastric pain and occasional burping 3-4 times a week with the omeprazole. She also has Carafate but she only takes that periodically. ROS General General: Yes weight change (Gained about 10 or 15 pounds in the last few months) and fatigue; no appetite, colon cancer or breast cancer Resp Respiratory: Yes shortness of breath, Yes sleep apnea, Yes cough, No COPD, No asthma Gastro Gastrointestinal: Yes abdominal pain, Yes nausea or vomiting, No diarrhea, No constipation, No blood in stool, Yes acid reflux, No hemorrhoids, No ulcers, Yes gallbladder problem Exam Const General: cooperative, comfortable, no acute distress Resp Effort AND Inspection: normal respiratory effort GI Inspection: non-distended Palpation: soft, tender in the LUQ, in the RUQ, in the epigastrum and suprapubicly (over hernia- difficult to apprec. hernia well on exam), no guarding Assessment AND Plan Problems 1. RUQ pain R10.11 2. Epigastric pain R10.13 3. LUQ pain R10.12 4. Gallbladder sludge K82.8 5. Leukocytosis, unspecified D72.829 Plan The gallbladder ultrasound did show small amount of gallbladder sludge and gallbladder polyp; however does not have other signs of acute cholecystitis also her pain occurred about 5 hours after eating which is not completely typical of gallbladder disease however he did have a significant leukocytosis of 19 while she was in the ER. Plan to repeat the CBC with differential, and as long that is normal will plan to do a HIDA scan with CCK to check for her gallbladder function. Recommend patient continue to take the omeprazole 20 mg p.o. twice daily I also recommend her taking her Carafate as prescribed to see if that would affect any of her pain. Discussed patient if he does have an element of GERD and her smoking but also make it worse along with caffeine recommend avoiding caffeine and cutting down on smoking. Will call patient with the lab results. Discussed patient that if her pain does get worse would recommend going back to the ER and possibly getting a CT abdomen pelvis. Patient and her no further questions at this time. Yarelis Cali M.D. Pager: [phone] [facility] [address] [place] [address], [address] [place] [address] Office: [phone] Orders Orders: Plan Detail Follow Up 1 (will call pt with lab results and order HIDA w cck) Coding Level of Care Code Off vis,new,level 3 Diagnoses RUQ pain R10.11 Epigastric pain R10.13 LUQ pain R10.12 Gallbladder sludge K82.8 Leukocytosis, unspecified D72.829 12/12/17 1439 <Electronically signed by Yarelis Cali MD> Date Yarelis Aguilar Signature: Date (if applicable) CC: Juany Jacob DO CBC W/DIFF, AUTOMATED Collected: 12/12/2017 Status: F Source: [place] 2:23 PM [facility] [place] TYPE CODE TESTS RESULT OUT OF RANGE REFERENCE UNITS LAB L100.1000 4.4-11.0 K/mm3 Normal WBC 7.5 LAB L100.1200 4.2-5.4 M/mm3 Low RBC 4.11 LAB L100.1300 12.0-15.0 g/dl Normal HGB 13.1 LAB L100.1400 37-47 % Normal HCT 40.2 LAB L100.1500 81-99 fL Normal MCV 97.8 LAB L100.1600 27.0-32.0 pg Normal MCH 31.9 LAB L100.1700 32-36 g/gl Normal MCHC 32.6 LAB L100.1810 11.6-14.6 % Normal RDW CV 13.2 LAB L100.1820 35.1-43.9 fl High RDW SD 46.3 LAB L100.1900 150-450 K/mm3 Normal PLT 305 LAB L100.2000 6.2-12.0 fl Normal MPV 9.8 LAB L100.2100 47-70 % Normal NEUT% 50.6 LAB L100.2200 19-41 % Normal LY% 35.2 LAB L100.2300 0-10 % High MONO% 10.3 LAB L100.2400 0-5 % Normal EO% 3.3 LAB L100.2500 0-1 % Normal BASO% 0.3 LAB L100.2550 0.0-0.9 % Normal IM GRAN % 0.300 Result Comment: IG% - Immature Granulocytes (promyelocytes, myelocytes and metamyelocytes) > 1% indicates that a LEFT SHIFT is Present. LAB L100.2620 2.0-7.7 X10 3/uL Normal Absolute Neut 3.8 LAB L100.2720 0.83-4.51 X10 3/ul Normal Absolute Lymph 2.64 Performed By: #### L100.0100 #### [facility] [address] [place], [address] DOWNTIME REPORT Observed: 12/12/2017 Status: F Source: [place] 1:53 PM [facility] [place] [facility] Medical Records Department [address] [place] [address] Downtime Report MR#: [id number] Acct: [id number] Name: LATONYA PARKER Rep #: [id number] : 1960 57 From: Zoltan Drummond PCP: Juany Jacob DO Status: REG CLI This patient was seen during an EMR downtime November 25, 2017 - December 02, 2017. This patient may have a combination of paper and electronic documentation or all paper documentation. All documentation is viewable within the e-chart portion of [employer] for each patient visit. EMERGENCY DEPARTMENT Observed: 12/11/2017 Status: F Source: [place] SUMMARY 6:59 PM [facility] [place] [facility] Medical Records Department [address] [place] [address] Emergency Department Summary 12/11/17 0906 MR#: [id number] Acct: [id number] Name: LATONYA PARKER Rep #: [id number] : 1960 57 From: Collin Harris MD PCP: Juany Jacob DO Status: DEP ER - ER Visit Summary Date of Service: 12/11/17 Chief Complaint: Abdominal pain History of Present Illness: The patient is a [address] Jacob. She reports at 130 this morning she was awakened by of abdominal pain that was diffuse. It is now localized to her upper abdomen. Is a continuous waxing and waning pain that she describes as cramping. It is 10 out of 10 at worst and 7 out of 10 currently. Is worsened by nothing and relieved by nothing. She reports that she has been nauseated and vomited approximately 12 times. No blood or emesis. No diarrhea. She has had a loose bowel movement this morning. No blood in her stools or black tarry stools. No dysuria or frequency. Patient reports she had similar pain when she had an appendectomy in 2013. She does complain of both a history of this fatty and spicy food intolerance. States that she last ate approximately 4-1/2 hours prior to this and had a glass of milk and Oreos. Patient was on an unknown antibiotic approximately November 26 after having a partial thyroidectomy by Dr. Muñoz. Patient denies sick contacts. Has not been camping out of the country. No possible bad food exposure. Does not drink well water. Physical Examination: Vitals: Stable. Afebrile. General: Well-nourished and well-developed. Head: Normocephalic atraumatic. Neck: Supple, no lymphadenopathy. No JVD. Nontender. Cardiovascular: Regular rate and rhythm. No murmurs. Respiratory: No respiratory distress. Clear to auscultation bilaterally. Abdominal: Soft, mild diffuse tenderness palpation that is worse over her upper abdomen and moderate in the epigastric region, nondistended, normal bowel sounds. No guarding, rebound, or peritoneal signs. Back: Nontender. Extremities: Nontender, no edema. Skin: Normal color, no rash. Neurologic: Alert and oriented 3. Cranial nerves II through XII are intact. Normal strength and sensation. Psych: Normal affect. Test Results: CBC is remarkable for a white count of 19.4 with 89 segmented neutrophils and 5 lymphocytes. Hemoglobin is 15.1. Chem-7 is more for glucose of 141. LFTs are normal. Lipase is normal. UA is normal. Ultrasound of the right upper quadrant shows a normal distended gallbladder with a 3 mm wall. Common bile duct is 4 mm. There is a 4 mm polyp and sludge. No Burt sign. No pericholecystic fluid. Emergency Department Course and Treatment: [facility] that her nausea has improved. She was given a dose of morphine IV and is resting comfortably. Treatment Plan: Discussed the patient the finding of her gallbladder ultrasound and she is asking to follow-up with Dr. Moreno who is not on-call at this time. She will be discharged with [place] and Zosaji. I suspect her leukocytosis is demargination from vomiting. She has no other signs of cholecystitis. Feel that she is a suitable candidate for out patient follow-up. Return to the emergency department for any worsening symptoms. Disposition: To home in improved and stable condition. Impression: 1. Abdominal pain, uncertain cause. 2. Vomiting. 3. Biliary sludge. 4. Gallbladder polyp. This note was generated with [employer] dictation software. It may contain incorrect words, spelling, and punctuation that were not noted in review of the chart prior to signing ED Disposition - Plan for ED Patient: Chief Complaint: Nausea/Vomiting/Diarrhea Instructions: ED Nausea Vomiting Prescriptions: Oxycodone HCl/Acetaminophen [Percocet 5/325] 1 tablet PO Q6H PRN PRN 3 Days #12 tablet PRN Reason: Pain Ondansetron [Zofran Odt] 4 mg PO Q8H PRN PRN #10 tablet PRN Reason: Nausea Referrals: Juany Jacob DO [Primary Care Provider] - 1-2 Days if not improving Pablo Moreno MD [STAFF PHYSICIAN] - What to do if you have Problems For any increased pain, shortness of breath, bleeding, nausea or vomiting, chest pain, or any unexpected problems, contact your Primary Care Provider. Call [facility] ([phone]) or report to the closest Emergency Room. Call 911 if necessary. 12/11/17 1859 <Electronically signed by Collin Harris MD> Date Collin Harris MD Cosigner Signature (If Indicated): Date CC: Juany Jacob DO URINALYSIS, COMPLETE Collected: 12/11/2017 Status: F Source: [place] 10:10 AM [facility] [place] Order Comment: Order Date: 12/11/17 Has pt arrived? Y How was Urine Obtained? CLEAN CATCH TYPE CODE TESTS RESULT OUT OF RANGE REFERENCE UNITS LAB L400.3000 Yellow COLOR Normal Yellow LAB L400.3050 Clear Normal CLARITY Clear LAB L400.3200 Normal mg/dl Normal GLUCOSE, UR Normal LAB L400.3300 Negative mg/dL Normal BILIRUBIN URINE Negative LAB L400.3400 Negative mg/dl Normal KETONE UR Negative LAB L400.3465 1.002-1.030 Normal SP.GR. DIPSTX 1.010 LAB L400.3550 5.0 - 8.0 pH UR Normal 7.0 LAB L400.3600 Negative mg/dl PROT Normal DIPSTX Negative LAB L400.3700 Normal mg/dl Normal UROBILI Normal LAB L400.3750 Negative Normal NITRITE UR Negative LAB L400.3780 Negative /ul Normal OCCULT BLOOD-UR Negative LAB L400.3800 Negative /ul LEUK Normal ESTERASE Negative LAB L400.4050 0-5 /hpf WBC 0 Normal SEEN LAB L400.4100 0-5 /hpf 0 Normal RBC-UA SEEN LAB L400.4150 5-10 /hpf SQUAM Normal EPI 0-5 SEEN LAB L400.4300 None Seen /hpf 0 Normal BACTERIA SEEN LAB L400.4350 <or=2+ /hpf 0 Normal MUCUS, URINE SEEN Performed By: #### L400.0001 #### [facility] [address] [facility] [place], [address] GALLBLADDER Observed: 12/11/2017 Status: F Source: [place] 9:13 AM [facility] [place] [facility] Imaging Services [address] [place] [address] Gallbladder MR#: [id number] Acct: [id number] Name: LATONYA PARKER Rep #: [id number] : 1960 F 57 From: Adolfo Ledezma DO PCP: Juany Jacob DO Status: REG ER Study: Gallbladder Date of Exam: 12/11/17 Exam# [id number] Ordering Dr: Collin Harris MD STUDY: ABDOMINAL ULTRASOUND - RIGHT UPPER QUADRANT REASON FOR VISIT: Female, 57 years old. Abnormal labs TECHNIQUE: Ultrasound evaluation of the right upper quadrant was performed with real-time and static pereira-scale imaging. TECHNICAL QUALITY: Limited. Examination limited due to obesity. COMPARISON: None. FINDINGS: Liver: The liver measures 13.5 cm. There is increased echogenicity consistent with fatty infiltration. The bile ducts are within normal limits. There is hepatic color flow. The direction of portal flow is hepatopetal. There is no demonstrated mass lesion. Gallbladder: Normal distended gallbladder. The gallbladder wall measures 3 mm. There is a negative sonographic Burt's sign. There is no pericholecystic fluid. There is biliary sludge dependent within the gallbladder. Small gallbladder polyp measuring 4 mm. Common Bile Duct (C.B.D.): The common bile duct measures 4 mm. Pancreas: Normal size of the head, body and tail of the pancreas. There is normal echogenicity of the pancreas. There is no demonstrated pancreatic mass or cyst. Right Kidney: Normal size of the right kidney. The right kidney measures 9.1 cm. Normal renal cortex. The right cortex measures 1.2 cm. There is no demonstrated renal mass or cyst. There is no right hydronephrosis. US/Gallbladder IMPRESSION: Gallbladder sludge with small gallbladder polyp. Mildly fatty liver. Electronically Signed: Adolfo Ledezma DO at 11:28 EDT Tel , Service support , CC: Juany Jacob DO; Collin Harris MD Signal Supervisor: Signed CBC W/DIFF, AUTOMATED Collected: 12/11/2017 Status: F Source: [place] 9:00 AM [facility] [place] TYPE CODE TESTS RESULT OUT OF RANGE REFERENCE UNITS LAB L100.1000 4.4-11.0 K/mm3 High WBC 19.4 LAB L100.1200 4.2-5.4 M/mm3 Normal RBC 4.73 LAB L100.1300 12.0-15.0 g/dl High HGB 15.1 LAB L100.1400 37-47 % Normal HCT 45.4 LAB L100.1500 81-99 fL Normal MCV 96.0 LAB L100.1600 27.0-32.0 pg Normal MCH 31.9 LAB L100.1700 32-36 g/gl Normal MCHC 33.3 LAB L100.1810 11.6-14.6 % Normal RDW CV 13.4 LAB L100.1820 35.1-43.9 fl High RDW SD 46.1 LAB L100.1900 150-450 K/mm3 Normal PLT 344 LAB L100.2000 6.2-12.0 fl Normal MPV 9.1 LAB L100.2100 47-70 % High NEUT% 88.6 LAB L100.2200 19-41 % Low LY% 4.9 LAB L100.2300 0-10 % Normal MONO% 5.5 LAB L100.2400 0-5 % Normal EO% 0.5 LAB L100.2500 0-1 % Normal BASO% 0.2 LAB L100.2550 0.0-0.9 % Normal IM GRAN % 0.300 Result Comment: IG% - Immature Granulocytes (promyelocytes, myelocytes and metamyelocytes) > 1% indicates that a LEFT SHIFT is Present. LAB L100.2620 2.0-7.7 X10 3/uL High Absolute Neut 17.2 LAB L100.2720 0.83-4.51 X10 3/ul Normal Absolute Lymph 0.96 Performed By: #### L100.0100 #### [facility] [address] [place], [address] BASIC METABOLIC Collected: 12/11/2017 Status: F Source: [place] PROFILE ([place]MP) 9:00 AM [facility] [place] TYPE CODE TESTS RESULT OUT OF RANGE REFERENCE UNITS LAB L501.0100 74-106 mg/dL High GLU 141 Result Comment: Fasting Glucose result greater than or equal to 126 mg/dL suggests DIABETES MELLITUS per A.D.A. criteria. Please note revised GLUCOSE reference range effective 2017. LAB L501.1000 7-18 mg/dL Normal BUN 12 LAB L501.1100 0.55-1.02 mg/dL Normal CREAT,SERUM 0.97 Result Comment: The validity of the calculated GFR AND GFRAA in patients over 70 years has not been determined. Clinical correlation is essential. LAB L501.1110 >60 mL/min Normal EST GFR 63 Result Comment: Non- GFR Calc LAB L501.1115 >60 mL/min Normal EST GFR - AA 76 Result Comment: GFR Calc LAB L501.1255 ml/min Normal Estimated CRCL 47.70 LAB L501.1300 10-20 RATIO Normal BUN/CRE 12.3 LAB L501.2200 8.5-10 mg/dL Normal .1 CA 9.3 LAB L501.5300 136-14 mmol/L Normal 5 NA 139 LAB L501.5600 3.5-5. mmol/L Normal 1 K 4.4 LAB L501.5900 98-107 mmol/L Normal CL 103 LAB L501.6100 21.0-3 mmol/L Normal 2.0 CO2 31.0 LAB L501.6200 5-15 Normal GAP 5 Performed By: #### L500.2500, L500.3400, L501.2450 #### [facility] [address] [place], [place], [id number] LIVER PROFILE Collected: 12/11/2017 Status: F Source: [place] 9:00 AM [facility] [place] TYPE CODE TESTS RESULT OUT OF RANGE REFERENCE UNITS LAB L501.1500 6.4-8.2 g/dL Normal T PROT 7.8 LAB L501.1800 3.2-5.0 g/dL Normal ALB 3.8 LAB L501.1950 2.2-4.2 g/dL Normal GLOB 4.0 LAB L501.4100 15-37 U/L Normal AST 31 LAB L501.4305 45-117 U/L Normal ALK P 107 LAB L501.4405 13-56 U/L Normal ALT 56 LAB L501.4600 0.20-1.00 mg/dL Normal T BILI 0.30 LAB L501.4700 0.00-0.30 mg/dL Normal D BILI 0.08 Performed By: #### L500.2500, L500.3400, L501.2450 #### [facility] [address] [place], [place], [id number] LIPASE Collected: 12/11/2017 Status: F Source: [place] 9:00 AM [facility] [place] TYPE CODE TESTS RESULT OUT OF RANGE REFERENCE UNITS LAB L501.2450 73-393 U/L Normal LIPASE 134 Performed By: #### L500.2500, L500.3400, L501.2450 #### [facility] [address] [place], [place], [id number] 12 LEAD ELECTROCARDIOGRAM Observed: 12/09/2017 Status: F Source: [place] 8:37 AM [facility] [place] [facility] Cardiovascular Services [address] [place] [address] 12 Lead EKG 11/20/17 1651 MR#: [id number] Acct: [id number] Name: LATONYA PARKER Rep #: [id number] : 1960 57 From: Pablo Brewer MD Attending Dr: Arie Muñoz MD Status: REG CLI Ordering Dr: Max Muñoz MD Date: 11/20/17 Location: LAB Sex: F C Admitted: Test Reason : PREOP Blood Pressure : / mmHG Vent. Rate : 081 BPM Atrial Rate : 081 BPM P-R Int : 128 ms QRS Dur : 082 ms QT Int : 360 ms P-R-T Axes : 030 -41 061 degrees QTc Int : 418 ms Normal sinus rhythm Possible Left atrial enlargement Left axis deviation , LAHB Left ventricular hypertrophy Abnormal ECG Confirmed by PABLO BREWER ([id number]), photograph editor ADRIANNA DRUMMOND ([id number]) on 12/02/2017 5:47:59 PM Referred By: Dean Muñoz Confirmed By:PABLO BREWER 12/02/17 1747 Date Pablo Brewer MD CC: Arie Muñoz MD; Juany Jacob DO Signed CYST Observed: 11/26/2017 Status: F Source: [place] 1:00 PM [facility] [place] Patient: LATONYA PARKER : 1960 (57/F) Acct Num: [id number] Phys: Arie Muñoz MD Unit Num: [id number] Loc: LABSPEC Specimen: [id number] Received: 11/26/17 1524 Spec Type: Cyst TISSUES TISSUES: CYST COMMENT Immunohistochemistry ([id number]) supports the above diagnosis. This case has been reviewed in consultation with Dr. Vargas who concurs with the above diagnosis. GROSS DESCRIPTION Received in fixative is one container labeled with the patient's name and designated neck cyst. The specimen consists of a cyst with adjacent bone measuring 2.5 x 2.5 x 2 cm. It is inked and serially sectioned. The cyst contains turbid mucoid material. Also present are two fragments of bone measuring 0.5 x 0.5 x 0.2 cm. The entire specimen is submitted in three cassettes as follows: 1 AND 2 cyst, 3 bone after decalcification. 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 MICROSCOPIC DIAGNOSIS Neck cyst: Thyroglossal duct cyst. Adjacent bone and additional pieces of bone with hematopoietic marrow and lymphoid aggregates, favor benign. SJ:malini 12/02/17 Signed Nasir Doe 12/02/17 <signature on file> Performed By: #### PCYST #### [facility] [place], [address] IMMUNOHISTOCHEMISTRY Observed: 11/26/2017 Status: F Source: [place] 12:00 AM [facility] [place] Patient: LATONYA PARKER : 1960 (57/F) Acct Num: [id number] Phys: Toni YOUNGBLOOD,[place] Unit Num: [id number] Loc: LABSPEC Specimen: [id number] Received: 12/02/17 - 1125 Spec Type: IMMUNO TISSUES TISSUES: Neck, NOS - #3 SPECIMEN INFORMATION: Tissue Source: Neck cyst Clinical Info: Congenital malformation endocrine glands, thyroglossal duct cyst Specimen Number: [id number] #3 CPT code: 29403, 89185 x4 METHODOLOGY: Deparaffinized sections of prefer/formalin-fixed tissue or PAP/DQ stained slides are incubated with monoclonal/polyclonal antibodies/oligonucleotide probes. Localization is made via biotin free immunoperoxidase method. Appropriate controls are performed and reacted as expected. Results on target cell population are indicated in the following table: RESULTS: ANTIBODY / CLONE RESULT Block 3 CD3 (PS1) positive CD5 (SP10) positive CD20 (L26) positive CD79a (11E3) positive CD45 (RP2/18) positive These tests were developed and their performance characteristics determined by [facility]. They may not have been cleared or approved by the U.S. Food and Drug Administration. The FDA has determined that such clearance or approval is not necessary. INTERPRETATION: Neck cyst: Bone with hematopoietic marrow and lymphoid aggregates polytypic in nature, favor benign. SJ:malini 12/03/17 Case has been reviewed in consultation with Dr. Vargas who concurs with the above diagnosis. IDC:[facility] [address] [address] Signed Nasir Doe 12/03/17 <signature on file> Performed By: #### PIMM #### [facility] [address] [place] [address]. [place], [place], [address] BASIC METABOLIC Collected: 11/20/2017 Status: F Source: [place] PROFILE (BMP) 4:42 PM [facility] [place] TYPE CODE TESTS RESULT OUT OF RANGE REFERENCE UNITS LAB L501.0100 74-106 mg/dL High GLU 115 Result Comment: Fasting Glucose result from 100 to 125 mg/dL suggests IMPAIRED HOMEOSTASIS per A.D.A. criteria. Please note revised GLUCOSE reference range effective 2017. LAB L501.1000 7-18 mg/dL Normal BUN 8 LAB L501.1100 0.55-1.02 mg/dL Normal CREAT,SERUM 1.00 Result Comment: The validity of the calculated GFR AND GFRAA in patients over 70 years has not been determined. Clinical correlation is essential. LAB L501.1110 >60 mL/min Normal EST GFR 61 Result Comment: Non- GFR Calc LAB L501.1115 >60 mL/min Normal EST GFR - AA 74 Result Comment: GFR Calc LAB L501.1300 10-20 RATIO Low BUN/CRE 8.0 LAB L501.2200 8.5-10.1 mg/dL Normal CA 8.8 LAB L501.5300 136-145 mmol/L Normal NA 142 LAB L501.5600 3.5-5.1 mmol/L Normal K 3.6 LAB L501.5900 98-107 mmol/L Normal CL 104 LAB L501.6100 21.0-32.0 mmol/L Normal CO2 29.0 LAB L501.6200 5-15 Normal GAP 9 Performed By: #### L500.2500 #### [facility] [address] [place], [address] CBC W/DIFF, AUTOMATED Collected: 11/06/2017 Status: F Source: [place] 4:37 PM [facility] [place] TYPE CODE TESTS RESULT OUT OF RANGE REFERENCE UNITS LAB L100.1000 4.4-11.0 K/mm3 Normal WBC 7.7 LAB L100.1200 4.2-5.4 M/mm3 Low RBC 4.14 LAB L100.1300 12.0-15.0 g/dl Normal HGB 13.2 LAB L100.1400 37-47 % Normal HCT 39.6 LAB L100.1500 81-99 fL Normal MCV 95.7 LAB L100.1600 27.0-32.0 pg Normal MCH 31.9 LAB L100.1700 32-36 g/gl Normal MCHC 33.3 LAB L100.1810 11.6-14.6 % Normal RDW CV 13.9 LAB L100.1820 35.1-43.9 fl High RDW SD 47.1 LAB L100.1900 150-450 K/mm3 Normal PLT 331 LAB L100.2000 6.2-12.0 fl Normal MPV 9.8 LAB L100.2100 47-70 % Normal NEUT% 53.9 LAB L100.2200 19-41 % Normal LY% 32.4 LAB L100.2300 0-10 % High MONO% 10.7 LAB L100.2400 0-5 % Normal EO% 2.3 LAB L100.2500 0-1 % Normal BASO% 0.4 LAB L100.2550 0.0-0.9 % Normal IM GRAN % 0.300 Result Comment: IG% - Immature Granulocytes (promyelocytes, myelocytes and metamyelocytes) > 1% indicates that a LEFT SHIFT is Present. LAB L100.2620 2.0-7.7 X10 3/uL Normal Absolute Neut 4.2 LAB L100.2720 0.83-4.51 X10 3/ul Normal Absolute Lymph 2.49 Performed By: #### L100.0100 #### [facility] [address] [facility] [place] [address] [place], [address] LIVER PROFILE Collected: 11/06/2017 Status: F Source: [place] 4:37 PM [facility] [place] TYPE CODE TESTS RESULT OUT OF RANGE REFERENCE UNITS LAB L501.1500 6.4-8.2 g/dL Normal T PROT 7.3 LAB L501.1800 3.2-5.0 g/dL Normal ALB 3.8 LAB L501.1950 2.2-4.2 g/dL Normal GLOB 3.5 LAB L501.4100 15-37 U/L Normal AST 29 LAB L501.4305 45-117 U/L Normal ALK P 98 LAB L501.4405 13-56 U/L Normal ALT 33 LAB L501.4600 0.20-1.00 mg/dL Normal T BILI 0.40 LAB L501.4700 0.00-0.30 mg/dL Normal D BILI 0.11 Performed By: #### L500.3400 #### [facility] [address] [facility] [place], [address] SCREENING MAMM (CAD), Observed: 10/16/2017 Status: F Source: [facility] 4:18 PM [facility] [place] [facility] Imaging Services [address] [place] [address] SCREENING MAMM (CAD), BILAT MR#: [id number] Acct: [id number] Name: LATONYA PARKER Rj Rep #: [id number] : 1960 F 57 From: Luisito Rajput MD PCP: Juany Jacob DO Status: REG CLI Study: SCREENING MAMM (CAD), BILAT Date of Exam: 10/16/17 Exam# [id number] Ordering Dr: Juany Jacob DO MAMMOGRAPHY - BILATERAL SCREENING 3-D MIKEY SYNTHESIS REASON FOR EXAM: Female, 57 years old. Bilateral Screening 3-D tomosynthesis PERTINENT HISTORY: No significant family history. TECHNIQUE: 2-D mammograms and 3-D Mikey synthesis of the breast (s) were performed. CAD was performed. COMPARISON: April 16, 2016. FINDINGS: The breast composition is composed of scattered fibroglandular density. No dense spiculated masses or suspicious clustered microcalcifications are identified. No architectural distortion is identified. There is no skin thickening or retraction. There has been no significant change since the prior study. BI/SCREENING MAMM (CAD), BILAT IMPRESSION: No mammographic signs of malignancy. Routine yearly mammograms recommended. ASSESSMENT CATEGORY: BIRADS Category 1: Negative. A letter regarding these results will be sent to the patient by the facility within 30 days. FOLLOW UP RECOMMENDATION: Yearly follow up mammogram recommended. (A) Approximately 10% of breast cancers are not detected by mammography. A normal mammogram should not delay biopsy of a clinically suspicious abnormality. Electronically Signed: Luisito Rajput MD at 7:59 EDT , Service support , CC: Juany Jacob DO Signal Supervisor: Signed EMERGENCY DEPARTMENT Observed: 10/12/2017 Status: F Source: [place] SUMMARY 2:25 PM [facility] [place] [facility] Medical Records Department [address] [place] [address] Emergency Department Summary 10/12/17 1202 MR#: [id number] Acct: [id number] Name: LATONYA PARKER Rep #: [id number] : 1960 57 From: Víctor Morales MD PCP: Juany Jacob DO Status: DEP ER - ER Visit Summary Date of Service: 10/12/17 Chief Complaint: Sore throat History of Present Illness: The patient is a 57 F resents to the emergency department with sore throat and trouble swallowing. The patient states she has been having intermittent trouble swallowing for the past few months. She does smoke but denies any history of prior malignancy. She states over the past 3 days, she has had some increasing fullness to the anterior aspect of her neck under her tongue. She states it was tender to touch yesterday. Today, she states the fullness is just been there. She describes some soreness in the throat especially with swallowing. She denies any change in voice. She denies any trouble speaking. The patient does have history of prior thyroglossal duct cyst, but states this feels different. Physical Examination: Vital signs reviewed General: Well-nourished, well-developed Head: Normocephalic, atraumatic Eyes: Pupils equal and reactive, extraocular muscles intact Neck, supple, fullness in the submandibular region, no Ty angina, no trismus or stridor, posterior oropharynx is widely patent Heart: Regular rate and rhythm Respiratory: No distress, clear bilaterally Abdomen: Soft, nontender, nondistended, no peritoneal signs Back: Nontender Extremities: Nontender, no edema, no cords Skin: Normal color no rash Neuro: Alert and oriented, no focal or lateralizing deficits Test Results: [] Emergency Department Course and Treatment: The patient does have some tenderness and fullness in the submandibular region. There is no trismus or stridor. I did review a prior workup. 4 years ago, the patient did have a small cystic mass that was consistent with a thyroglossal duct cyst. I did reimage the patient. It does appear as if the cyst has grown in size. It is still less than doubled. There is no evidence of airway impingement. However, as it is symptomatic I do feel that she is going to require outpatient ENT follow-up. With the tenderness at the area, I will cover the patient with Augmentin. She has no cellulitis. There is no tracking abscess. She has seen Dr. Craig in the past. I am going to have her call on Saturday for reevaluation. She is given a dose of IV Decadron here and will be discharged with Augmentin. Treatment Plan: [] Disposition: Discharge Impression: 1. Complex thyroglossal duct cyst This note was generated with [employer] dictation software. It may contain incorrect words, spelling, and punctuation that were not noted in review of the chart prior to signing ED Disposition - Plan for ED Patient: Chief Complaint: Sore Throat Instructions: ED Pharyngitis Viral Prescriptions: Amox/Clavulanate Tablet [Augmentin Tablet] 875 mg PO Q12H #20 tab Referrals: All Guy MD [STAFF PHYSICIAN] - What to do if you have Problems For any increased pain, shortness of breath, bleeding, nausea or vomiting, chest pain, or any unexpected problems, contact your Primary Care Provider. Call [facility] ([phone]) or report to the closest Emergency Room. Call 911 if necessary. 10/12/17 1425 <Electronically signed by Víctor Morales MD> Date Víctor Morales MD Cosigner Signature (If Indicated): Date CC: Juany Jacob DO CBC W/DIFF, AUTOMATED Collected: 10/12/2017 Status: F Source: [place] 12:07 PM [facility] [place] TYPE CODE TESTS RESULT OUT OF RANGE REFERENCE UNITS LAB L100.1000 4.4-11.0 K/mm3 Normal WBC 9.1 LAB L100.1200 4.2-5.4 M/mm3 Normal RBC 4.53 LAB L100.1300 12.0-15.0 g/dl Normal HGB 14.3 LAB L100.1400 37-47 % Normal HCT 43.2 LAB L100.1500 81-99 fL Normal MCV 95.4 LAB L100.1600 27.0-32.0 pg Normal MCH 31.6 LAB L100.1700 32-36 g/gl Normal MCHC 33.1 LAB L100.1810 11.6-14.6 % Normal RDW CV 14.0 LAB L100.1820 35.1-43.9 fl High RDW SD 49.0 LAB L100.1900 150-450 K/mm3 Normal PLT 339 LAB L100.2000 6.2-12.0 fl Normal MPV 9.2 LAB L100.2100 47-70 % Normal NEUT% 64.6 LAB L100.2200 19-41 % Normal LY% 23.8 LAB L100.2300 0-10 % Normal MONO% 8.9 LAB L100.2400 0-5 % Normal EO% 2.1 LAB L100.2500 0-1 % Normal BASO% 0.3 LAB L100.2550 0.0-0.9 % Normal IM GRAN % 0.300 Result Comment: IG% - Immature Granulocytes (promyelocytes, myelocytes and metamyelocytes) > 1% indicates that a LEFT SHIFT is Present. LAB L100.2620 2.0-7.7 X10 3/uL Normal Absolute Neut 5.9 LAB L100.2720 0.83-4.51 X10 3/ul Normal Absolute Lymph 2.17 Performed By: #### L100.0100 #### [facility] [address] [place], [place], [address] BASIC METABOLIC Collected: 10/12/2017 Status: F Source: [place] PROFILE (BMP) 12:07 PM [facility] [place] TYPE CODE TESTS RESULT OUT OF RANGE REFERENCE UNITS LAB L501.0100 74-106 mg/dL Normal GLU 99 Result Comment: Please note revised GLUCOSE reference range effective 2017. LAB L501.1000 7-18 mg/dL Normal BUN 15 LAB L501.1100 0.55-1.02 mg/dL Normal CREAT,SERUM 0.98 Result Comment: The validity of the calculated GFR AND GFRAA in patients over 70 years has not been determined. Clinical correlation is essential. LAB L501.1110 >60 mL/min Normal EST GFR 62 Result Comment: Non- GFR Calc LAB L501.1115 >60 mL/min Normal EST GFR - AA 75 Result Comment: GFR Calc LAB L501.1255 ml/min Normal Estimated CRCL 47.22 LAB L501.1300 10-20 RATIO Normal BUN/CRE 15.4 LAB L501.2200 8.5-10 mg/dL Normal .1 CA 9.4 LAB L501.5300 136-14 mmol/L Normal 5 NA 141 LAB L501.5600 3.5-5. mmol/L Normal 1 K 4.0 LAB L501.5900 98-107 mmol/L Normal CL 106 LAB L501.6100 21.0-3 mmol/L Normal 2.0 CO2 30.0 LAB L501.6200 5-15 Normal GAP 5 Performed By: #### L500.2500 #### [facility] [address] [place], [address] SOFT TISSUE NECK WITH Observed: 10/12/2017 Status: F Source: [place] CONTRAST 12:00 PM [facility] [place] [facility] Imaging Services [address] [place] [address] Soft Tissue Neck WITH Contrast MR#: [id number] Acct: [id number] Name: LATONYA PARKER Rep #: [id number] : 1960 F 57 From: Karen Drummond MD PCP: Juany Jacob DO Status: REG ER Study: Soft Tissue Neck WITH Contrast Date of Exam: 10/12/17 Exam# [id number] Ordering Dr: Víctor Morales MD STUDY: CT SOFT TISSUE NECK WITH CONTRAST REASON FOR EXAM: Female, 57 years old. Difficulty swallowing for a few months. Patient has developed lump and her swelling since . RADIATION DOSAGE (If Supplied By Facility): CTDIvol = ( 22.02 ) mGy, DLP = ( 626.89 ) mGycm TECHNIQUE: The patient was scanned in a multi-detector CT scanner. High resolution transaxial imaging was performed following intravenous administration of 100 ml of Isovue 300 contrast material. Sagittal and coronal images were reconstructed. Individualized dose optimization techniques were used for this CT. COMPARISON: None. FINDINGS: Normal bilateral parotid glands. Normal bilateral financial reporting specialist spaces. Normal bilateral parapharyngeal spaces. Normal bilateral carotid spaces. Normal bilateral sublingual and submandibular glands and spaces. Normal visualized nasopharynx. Normal retropharyngeal space. Normal perivertebral space. Normal visualized bilateral faucial tonsils. The visualized tongue, tongue base and oropharynx are normal. The visualized cervical lymph nodes (levels I-) are within normal size limits, and maintain normal morphology. There is a partially cystic lesion located in the level of the thyroid cartilage. There is predominantly in the midline. This has relatively thick cruz. This mass measures approximately 2.4 x 1.8 x 2.1 cm in size. This is probably clinically palpable. There is no additional abnormal contrast enhancement. Normal epiglottis, bilateral vallecula and hypopharynx. The pre-epiglottic and paraglottic adipose spaces are normal. Normal visualized bilateral piriform sinuses, aryepiglottic folds, vocal cords, and arytenoid-cricoid articulations. Normal subglottic trachea. Normal bilateral lobes of the thyroid gland. Normal visualized pulmonary apices. Normal visualized paranasal sinuses. 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 Normal visualized cervical spine. CT/Soft Tissue Neck WITH Contrast IMPRESSION: Mildly complex cystic lesion located just superior to the thyroid possibly representing a complex thyroglossal cyst. Associated infection is possible. Electronically Signed: Karen Drummond MD at 13:26 EDT , Service support , CC: Juany Jacob DO; Víctor Morales MD Signal Supervisor: Signed CBC W/DIFF, AUTOMATED Collected: 09/13/2017 Status: F Source: [place] 3:46 PM [facility] [place] TYPE CODE TESTS RESULT OUT OF RANGE REFERENCE UNITS LAB L100.1000 4.4-11.0 K/mm3 Normal WBC 8.6 LAB L100.1200 4.2-5.4 M/mm3 Normal RBC 4.21 LAB L100.1300 12.0-15.0 g/dl Normal HGB 13.0 LAB L100.1400 37-47 % Normal HCT 40.6 LAB L100.1500 81-99 fL Normal MCV 96.4 LAB L100.1600 27.0-32.0 pg Normal MCH 30.9 LAB L100.1700 32-36 g/gl Normal MCHC 32.0 LAB L100.1810 11.6-14.6 % Normal RDW CV 13.8 LAB L100.1820 35.1-43.9 fl High RDW SD 48.3 LAB L100.1900 150-450 K/mm3 Normal PLT 314 LAB L100.2000 6.2-12.0 fl Normal MPV 9.9 LAB L100.2100 47-70 % Normal NEUT% 59.4 LAB L100.2200 19-41 % Normal LY% 29.8 LAB L100.2300 0-10 % Normal MONO% 8.9 LAB L100.2400 0-5 % Normal EO% 1.5 LAB L100.2500 0-1 % Normal BASO% 0.2 LAB L100.2550 0.0-0.9 % Normal IM GRAN % 0.200 Result Comment: IG% - Immature Granulocytes (promyelocytes, myelocytes and metamyelocytes) > 1% indicates that a LEFT SHIFT is Present. LAB L100.2620 2.0-7.7 X10 3/uL Normal Absolute Neut 5.1 LAB L100.2720 0.83-4.51 X10 3/ul Normal Absolute Lymph 2.55 Performed By: #### L100.0100, L101.9900 #### [facility] [address] [place], [address] ERYTHROCYTE SED RATE Collected: 09/13/2017 Status: F Source: [place] 3:46 PM [facility] [place] TYPE CODE TESTS RESULT OUT OF RANGE REFERENCE UNITS LAB L102.0000 0-30 mm/hr Normal SED RATE 16 Performed By: #### L100.0100, L101.9900 #### [facility] [address] [facility] [id number] T3 TOTAL - TRIIODOTHYRONINE Collected: 09/13/2017 Status: F Source: [place] 3:46 PM [facility] [place] TYPE CODE TESTS RESULT OUT OF RANGE REFERENCE UNITS LAB L501.9186 0.6-1.81 ng/mL Normal T3 Total 0.76 Performed By: #### L501.9186 #### [facility] [address] [place], [place], [address] COMPREHENSIVE METABOLIC Collected: 09/13/2017 Status: F Source: [facility] 3:46 PM [facility] [place] TYPE CODE TESTS RESULT OUT OF RANGE REFERENCE UNITS LAB L501.0100 74-106 mg/dL Normal GLU 101 Result Comment: Fasting Glucose result from 100 to 125 mg/dL suggests IMPAIRED HOMEOSTASIS per A.D.A. criteria. Please note revised GLUCOSE reference range effective 2017. LAB L501.1000 7-18 mg/dL Normal BUN 12 LAB L501.1100 0.55-1.02 mg/dL Normal CREAT,SERUM 0.97 Result Comment: The validity of the calculated GFR AND GFRAA in patients over 70 years has not been determined. Clinical correlation is essential. LAB L501.1110 >60 mL/min Normal EST GFR 63 Result Comment: Non- GFR Calc LAB L501.1115 >60 mL/min Normal EST GFR - AA 76 Result Comment: GFR Calc LAB L501.1300 10-20 RATIO Normal BUN/CRE 12.4 LAB L501.1500 6.4-8.2 g/dL T Normal PROT 7.1 LAB L501.1800 3.2-5.0 g/dL Normal ALB 3.7 LAB L501.1950 2.2-4.2 g/dL Normal GLOB 3.4 LAB L501.2000 0.9-2.4 RATIO Normal A/G 1.1 LAB L501.2200 8.5-10.1 mg/dL CA Normal 8.7 LAB L501.4100 15-37 U/L Normal AST 19 LAB L501.4305 45-117 U/L Normal ALK P 85 LAB L501.4405 13-56 U/L Normal ALT 38 Result Comment: Please note revised ALT reference range effective 2017. LAB L501.4600 0.20-1.00 mg/dL Normal T BILI 0.30 LAB L501.5300 136-145 mmol/L Normal NA 139 LAB L501.5600 3.5-5.1 mmol/L Normal K 3.9 LAB L501.5900 98-107 mmol/L Normal CL 101 LAB L501.6100 21.0-32.0 mmol/L Normal CO2 30.0 LAB L501.6200 5-15 Normal GAP 8 Performed By: #### L500.4050, L501.6710, L501.9520, L505.7010, L506.0400 #### [facility] [address] [place], [place], [address] CRP Collected: 09/13/2017 Status: F Source: [place] 3:46 PM [facility] [place] TYPE CODE TESTS RESULT OUT OF RANGE REFERENCE UNITS LAB L501.6710 0.0-3.0 mg/L High 11.00 C-REACTIVE PROT Result Comment: C-Reactive Protein (CRP) provides useful information for the diagnosis, therapy and monitoring of inflammatory processes and associated diseases. For the evaluation of Relative Risk for Cardiovascular Disease, a High Sensitivity CRP (HSCRP) should be ordered. Performed By: #### L500.4050, L501.6710, L501.9520, L505.7010, L506.0400 #### [facility] [address] [place], [place], [address] THYROID STIM HORMONE Collected: 09/13/2017 Status: F Source: [place] (TSH) 3:46 PM [facility] [place] TYPE CODE TESTS RESULT OUT OF RANGE REFERENCE UNITS LAB L501.9520 0.358-3.74 uIU/mL Normal TSH 1.01 Performed By: #### L500.4050, L501.6710, L501.9520, L505.7010, L506.0400 #### [facility] [address] [facility] [place], [address] RHEUMATOID FACTOR Collected: 09/13/2017 Status: F Source: [place] 3:46 PM [facility] [place] TYPE CODE TESTS RESULT OUT OF RANGE REFERENCE UNITS LAB L505.7010 <15 IU/mL Normal RHEUMATOID FAC < 10.0 Performed By: #### L500.4050, L501.6710, L501.9520, L505.7010, L506.0400 #### [facility] [address] [facility] [place], [address] T4 FREE DIRECT Collected: 09/13/2017 Status: F Source: [place] 3:46 PM [facility] [place] TYPE CODE TESTS RESULT OUT OF RANGE REFERENCE UNITS LAB L506.0400 0.76-1.46 ng/dL Normal T4 FREE 0.85 DIRECT Performed By: #### L500.4050, L501.6710, L501.9520, L505.7010, L506.0400 #### [facility] [address] [place], [address] CCP IGG ANTIBODIES Collected: 09/13/2017 Status: F Source: [place] 3:46 PM [facility] [place] TYPE CODE TESTS RESULT OUT OF RANGE REFERENCE UNITS LAB L4600.0100 0-19 units Normal ANTI-CCP 3 [id number] Result Comment: Negative <20 Weak positive 20 - 39 Moderate positive 40 - 59 Strong positive >59 Performed at: - [facility] [address] [id number] Wildlife Removal Specialist: Martin Lorenz MD, Phone: [phone] Performed By: #### L4600.0100 #### [facility] (refer to report for specific site) refer to report for address and phone number DAVID RODRIGUEZ Collected: 09/13/2017 Status: F Source: [place] 3:46 PM [facility] [place] TYPE CODE TESTS RESULT OUT OF RANGE REFERENCE UNITS LAB L3100.5500 0-9 IU/mL Normal dsDNA AB <1 Result Comment: Negative <5 Equivocal 5 - 9 Positive >9 LAB L3100.9200 0.0-0.9 AI Anti-SS-A Normal < 0.2 LAB L3100.9300 0.0-0.9 AI Anti-SS-B Normal < 0.2 LAB L3100.9400 0.0-0.9 AI Anti-P Normal <0.2 LAB L3410.0427 0.0-0.9 AI ANTICHROMATIN Normal <0.2 LAB L3410.0500 0.0-0.9 AI ANTI-HAFSA Normal <0.2 LAB L3410.0700 0.0-0.9 AI ANTISCLER Normal <0.2 LAB L3410.1200 0.0-0.9 AI LAUNCHMAN Ab Normal <0.2 LAB L3410.1300 0.0-0.9 AI MEI Ab Normal <0.2 LAB L3410.1310 0.0-0.9 AI MEI/LAUNCHMAN Ab Normal <0.2 LAB L3410.4010 0.0-0.9 AI ANTI-CENT B Normal <0.2 LAB L3410.4100 . COMMENT Normal Comment Result Comment: Autoantibody Disease Association Condition Frequency Antinuclear Antibody, SLE, mixed connective Direct (DAVID-D) tissue diseases dsDNA SLE 40 - 60% Chromatin Drug induced SLE 90% SLE 48 - 97% SSA (Ro) SLE 25 - 35% Sjogren's Syndrome 40 - 70% Lupus 100% SSB (La) SLE 10% Sjogren's Syndrome 30% Sm (anti-Mei) SLE 15 - 30% LAUNCHMAN Mixed Connective Tissue Disease 95% (U1 nRNP, SLE 30 - 50% anti-ribonucleoprotein) Polymyositis and/or Dermatomyositis 20% Scl-70 (antiDNA Scleroderma (diffuse) 20 - 35% topoisomerase) Crest 13% Hafsa-1 Polymyositis and/or Dermatomyositis 20 - 40% Centromere B Scleroderma - Crest variant 80% Ribosomal P SLE 10 - 20% Performed at: [facility] [id number] Wildlife Removal Specialist: Gonzalez Diaz PhD, Phone: [phone] Performed By: #### L3100.5430 #### [facility] (refer to report for specific site) refer to report for address and phone number ALLERGIES ALLERGIES DATE TYPE / CODE NAME / CODE REACTION SEVERITY SOURCE 02/13/2018 Drug hydrocodone Itching Unknown [place] Allergy/416 bitartrate/[id number] [facility] 570656([place] [address](RXNORM) [facility] ED CT) Repository 02/13/2018 Drug erythromycin Nausea Unknown [place] Allergy/416 base/[id number](RXN [facility] 887112([facility] ED CT) Repository 12/12/2017 Drug acetaminophen/F0060 Itching Unknown [place] Allergy/416 [address](RXNORM) Community 174389([facility] ED CT) Repository 10/25/2011 DRUG/642008 HYDROCODONE-ACETAMI ITCHING [facility] 003([facility] CT) Repository 02/26/2007 DRUG/600131 ERYTHROMYCIN GI UPSET [facility] 003([facility] CT) Repository NG/80519348 ERYTHROMYCIN [facility] 6([facility] CT) Repository NG/00831600 HYDROCODONE-ACETAMI [facility] 6([facility]) Repository ENCOUNTERS ENCOUNTERS ADMIT/DISCHARGE ACCOUNT NUMBER ADMITTING ENCOUNTER LOCATION SOURCE CLASS 07/11/2018 [id number] Ambulatory [facility] ding:LABSPEC Repository 07/01/2018/07/17/19 [id number] Ambulatory [place] 19 [facility] [place] Repository 06/25/2018 [id number] Ambulatory [facility] ding:LABSPEC Repository 06/18/2018/06/18/20 [id number] Ambulatory [place] 18 [facility] [place] Repository 05/23/2018/05/23/20 [id number] Ambulatory [address] Other [place] Repository 05/23/2018/05/23/20 [id number] Ambulatory [address] MEDICAL Repository CENTERBuildi ng:BAR 05/20/2018 [id number] Ambulatory [facility] [place] Repository 05/20/2018/05/20/20 [id number] Ambulatory [address] MEDICAL Repository CENTERBuildi ng:AKLBS 05/20/2018/05/21/20 [id number] Ambulatory [address] [place] Repository 05/02/2018/05/02/20 [id number] Ambulatory [address] Other [place] Repository 05/02/2018/05/02/20 [id number] Ambulatory [address] MEDICAL Repository CENTERBuildi ng:AKXRB 05/02/2018 [id number] Ambulatory [facility] Other [place] Repository 05/02/2018/05/02/20 [id number] Ambulatory [address] MEDICAL Repository CENTERBuildi ng:AKLBB 05/02/2018/05/02/20 [id number] Ambulatory [address] Other [place] Repository 05/02/2018/05/02/20 [id number] Ambulatory [address] MEDICAL Repository CENTERBuildi ng:BARH 04/26/2018 [id number] Ambulatory [facility] ding:RAD Repository 04/17/2018 [id number] Ambulatory [facility] ding:MTLAB Repository 03/20/2018 [id number] Ambulatory [facility] ding:MTRAD Repository 02/13/2018/02/14/20 [id number] Ambulatory BMSBuilding: [place] 18 BMS.[facility] Repository 01/27/2018/01/28/20 [id number] Ambulatory BMSBuilding: [place] 18 BMS.[facility] Repository 01/13/2018/01/14/20 [id number] Ambulatory [place] Hospital ding:SDC Repository 01/13/2018 [id number] Ambulatory BMSBuilding: [place] BMS.CF.[facility] Repository 01/13/2018 [id number] Ambulatory [facility] ding:LAB.FUT Repository URE 01/09/2018 [id number] Ambulatory [facility] ding:LAB.FUT Repository URE 01/02/2018/01/03/20 [id number] Ambulatory [place] ding:EN Repository 01/02/2018 [id number] Ambulatory BMSBuilding: [place] BMS.CF.[facility] Repository 12/17/2017 [id number] Ambulatory [facility] ding:NM Repository 12/12/2017 [id number] Ambulatory [facility] ding:LAB Repository 12/12/2017/12/13/19 [id number] Ambulatory BMSBuilding: [place] 18 BMS.[facility] Repository 12/11/2017/12/12/19 [id number] Emergency [place] Hospital ding:ED Repository 11/26/2017 [id number] Ambulatory [facility] ding:LABSPEC Repository 11/20/2017 [id number] Ambulatory [facility] ding:LAB Repository 11/20/2017 [id number] Ambulatory BMSBuilding: [place] [facility] Hospital Repository 11/06/2017 [id number] Ambulatory [facility] ding:LAB.FUT Repository URE 10/16/2017 [id number] Ambulatory [facility] ding:OPBI Repository 10/12/2017/10/13/19 [id number] Emergency [address] ding:ED Repository 10/02/2017 [id number] Ambulatory [facility] ding:SL Repository 09/13/2017 [id number] Ambulatory [facility] ding:BFHLAB Repository PAYERS PAYERS ENCOUNTER GUARANTOR PAYER SUBSCRIBER SOURCE 07/11/2018 LATONYA R Primary LATONYA R [place] [id number] Insurance:MEDICAL OSWALDDOB: [facility] [id number] Number: Repository [address]Khz: 330 [id number] [phone] () Date:0918-48-49KC [address] [address]PN: 07/11/2018 Secondary NOT GIVENUNK [place] Insurance:SELF PAY [facility] Number: Effective Repository Date:2018-07-11 06/25/2018 LATONYA R Primary LATONYA R [place] [id number] Insurance:MEDICAL OSWALDDOB: [facility] [id number] Number: Repository [address]Eku: 330 [id number] [phone] () Date:1870-59-56WN[address] [address]PC: 06/25/2018 Secondary NOT GIVENUNK [place] Insurance:SELF PAY [facility] Number: Effective Repository Date:2018-06-25 05/23/2018 LATONYA R Primary Insurance:MMO LATONYA R [facility] OSWALDDOB: SUPERMED PLUSPolicy OSWALDDOB: [facility]: [id number] [id number] [place] Date: [address]Qgi: (HP) 05/20/2018 LATONYA [place] Primary Insurance:MMO LATONYA R [facility] OSWALDDOB: SUPERMED PLUSPolicy OSWALDDOB: Health System Number: [id number] Repository MILLBROSD [id number] [place] Date: [address]Mmq: (HP) 05/02/2018 LATONYA R Primary Insurance:MMO LATONYA R [facility] OSWALDDOB: SUPERMED PLUSPolicy OSWALDDOB: Health System Number: [id number] Repository [place] [id number] [place] Date: [address]Mrb: (HP) 05/02/2018 LATONYA R Primary Insurance:MMO LATONYA R [facility] OSWALDDOB: SUPERMED PLUSPolicy OSWALDDOB: Health System Number: [id number] Repository [place] [id number] [place] Date: [address]Xvz: (HP) 05/02/2018 LATONYA R Primary Insurance:MMO LATONYA R [facility] OSWALDDOB: SUPERMED PLUSPolicy OSWALDDOB: Health System Number: [id number] Repository [place] [id number] [place] Date: [address]Hvh: (HP) 04/26/2018 LATONYA R Primary LATONYA R [place] [id number] Insurance:MEDICAL OSWALDDOB: [facility] [place] Number: Repository [address]Fzg: (068) [id number] [phone] (HP) Date:0176-00-00TM [address] [place] [address]CK: 04/26/2018 Secondary NOT GIVENUNK [place] Insurance:SELF PAY [facility] Number: Effective Repository Date:2018-04-26 04/17/2018 LATONYA R Primary LATONYA R [place] [id number] Insurance:MEDICAL OSWALDDOB: [facility] [id number], [place] Number: Repository [address]Tki: 330 [id number] [phone] (HP) Date:3946-29-99VB [address] [address]VR: 04/17/2018 Secondary NOT GIVENUNK [place] Insurance:SELF PAY [facility] Number: Effective Repository Date:2018-04-17 03/20/2018 LATONYA R Primary LATONYA R [place] [id number] Insurance:MEDICAL OSWALDDOB: [facility] [id number] Number: Repository [address]Cie: 330 [id number] [phone] (HP) Date:0357-73-19DA [address] [address]MY: 03/20/2018 Secondary NOT GIVENUNK [place] Insurance:SELF PAY [facility] Number: Effective Repository Date:2018-03-20 02/13/2018 LATONYA R Primary LATONYA R [place] [id number] Insurance:MEDICAL OSWALDDOB: [facility] [id number] Number: Repository [address]Qfm: 330 [id number] [phone] (HP) Date:9481-69-79PI [address] [address]WN: 02/13/2018 Secondary NOT GIVENUNK [place] Insurance:SELF PAY [facility] Number: Effective Repository Date:2018-01-27 01/27/2018 LATONYA R Primary LATONYA R [place] [id number] Insurance:MEDICAL OSWALDDOB: [facility] [id number], [place] Number: Repository [address]Khr: 330 [id number] [phone] (HP) Date:1047-14-58CB [address] [address]MS: 01/27/2018 Secondary NOT GIVENUNK [place] Insurance:SELF PAY [facility] Number: Effective Repository Date:2018-01-24 01/13/2018 LATONYA R Primary LATONYA R [place] [id number] Insurance:MEDICAL OSWALDDOB: [facility] [id number], [place] Number: Repository [address]Jzh: 330 [id number] [phone] (HP) Date:4606-62-33SI [address] [address]GN: 01/13/2018 Secondary NOT GIVENUNK [place] Insurance:SELF PAY [facility] Number: Effective Repository Date:2018-01-10 01/13/2018 LATONYA R Primary LATONYA R [place] [id number] Insurance:MEDICAL OSWALDDOB: [facility] [id number] Number: Repository [id number]: 330 [id number] [phone] (HP) Date:4002-17-89UI[address] [address]UR: 01/13/2018 Secondary NOT GIVENUNK [place] Insurance:SELF PAY [facility] Number: Effective Repository Date:2018-01-13 01/13/2018 LATONYA R Primary LATONYA R [place] [id number] Insurance:MEDICAL OSWALDDOB: [facility] [id number], [place] Number: Repository [id number]: 330 [id number] [phone] (HP) Date:6600-80-54UQ[address] [address]XW: 01/13/2018 Secondary NOT GIVENUNK [place] Insurance:SELF PAY [facility] Number: Effective Repository Date:2018-01-13 01/09/2018 LATONYA R Primary LATONYA R [place] [id number] Insurance:MEDICAL OSWALDDOB: [facility] [id number] Number: Repository [id number]: 330 [id number] [phone] (HP) Date:3806-63-96RY [address] [address]XB: 01/09/2018 Secondary NOT GIVENUNK [place] Insurance:SELF PAY [facility] Number: Effective Repository Date:2018-01-09 01/02/2018 LATONYA R Primary LATONYA R [place] [id number] Insurance:MEDICAL OSWALDDOB: [facility] [id number] Number: Repository [id number]: 330 [id number] [phone] (HP) Date:3090-11-64HW [address] [address]ZE: 01/02/2018 Secondary NOT GIVENUNK [place] Insurance:SELF PAY [facility] Number: Effective Repository Date:2017-12-27 01/02/2018 LATONYA R Primary LATONYA R [place] [id number] Insurance:MEDICAL OSWALDDOB: [facility] [id number] Number: Repository [id number]: 330 [id number] [phone] (HP) Date:5749-47-39QT [address] [address]DQ: 01/02/2018 Secondary NOT GIVENUNK [place] Insurance:SELF PAY [facility] Number: Effective Repository Date:2018-01-02 12/17/2017 LATONYA R Primary LATONYA R [place] [id number] Insurance:MEDICAL OSWALDDOB: [facility] [id number] Number: Repository [address]Gts: 330 [id number] [phone] (HP) Date:7325-30-25TK [address] [address]UE: 12/17/2017 Secondary NOT GIVENUNK [place] Insurance:SELF PAY [facility] Number: Effective Repository Date:2017-12-12 12/12/2017 LATONYA R Primary LATONYA R [place] [id number] Insurance:MEDICAL OSWALDDOB: [facility] [id number] Number: Repository [address]Woi: 330 [id number] [phone] (HP) Date:7635-94-35QY [address] [address]LT: 12/12/2017 Secondary NOT GIVENUNK [place] Insurance:SELF PAY [facility] Number: Effective Repository Date:2017-12-12 12/12/2017 AZAEL Wanda Primary LATONYA R [place] [id number] Insurance:MEDICAL OSWALDDOB: [facility] 1212-94-83KFINew[place] Number: Repository [id number]: 330 [id number] [phone] (HP) Date:4530-73-83KC [address] [address]SF: 12/12/2017 Secondary NOT GIVENUNK [place] Insurance:SELF PAY [facility] Number: Effective Repository Date:2017-12-12 12/11/2017 AZAEL Wanda Primary LATONYA R [place] [id number] Insurance:MEDICAL OSWALDDOB: [facility] [id number] Number: Repository [address]Ptg: 330 [id number] [phone] (HP) Date:7558-41-98XX [address] [address]RS: 12/11/2017 Secondary NOT GIVENUNK [place] Insurance:SELF PAY [facility] Number: Effective Repository Date:2017-12-11 11/26/2017 AZAEL Wanda Primary LATONYA R [place] [id number] Insurance:MEDICAL OSWALDDOB: [facility] [id number] Number: Repository [address]Zgq: 330 [id number] [phone] (HP) Date:9752-08-78ZU [address] [address]PS: 11/26/2017 Secondary NOT GIVENUNK [place] Insurance:SELF PAY [facility] Number: Effective Repository Date:2017-11-26 11/20/2017 AZAEL A Primary LATONYA R [place] [id number] Insurance:MEDICAL OSWALDDOB: [facility] [id number] Number: Repository [address]Vip: [id number] [phone] Date:7385-91-00UF [address] (HP) [address], [place] [address]TS: 11/20/2017 Secondary NOT GIVENUNK [place] Insurance:SELF PAY [facility] Number: Effective Repository Date:2017-11-20 11/20/2017 AZAEL A Primary LATONYA R [place] [id number] Insurance:MEDICAL OSWALDDOB: [facility] [id number] Number: Repository [id number]: 330 [id number] [phone] (HP) Date:8683-35-72QF [address] [place] [address]GG: 11/20/2017 Secondary NOT GIVENUNK [place] Insurance:SELF PAY [facility] Number: Effective Repository Date:2017-11-20 11/06/2017 AZAEL A Primary LATONYA R [place] [id number] Insurance:MEDICAL OSWALDDOB: [facility] [id number] Number: Repository [address]Vad: [id number] [phone] Date:8078-53-87ON [address] ) [address], [place] [address]UT: 11/06/2017 Secondary NOT GIVENUNK [place] Insurance:SELF PAY [facility] Number: Effective Repository Date:2017-11-06 10/16/2017 AZAEL A Primary LATONYA R [place] [id number] Insurance:MEDICAL OSWALDDOB: [facility] [id number], [place] Number: Repository [address]Tmp: [id number] [phone] Date:1116-64-66BM [address] (HP) [address], [place] [address]GW: 10/16/2017 Secondary NOT GIVENUNK [place] Insurance:SELF PAY [facility] Number: Effective Repository Date:2017-09-13 10/12/2017 AZAEL Wanda Primary LATONYA R [place] [id number] Insurance:MEDICAL OSWALDDOB: [facility] [id number] Number: Repository [address]Vfp: [id number] [phone] Date:3971-13-00MO [address] (HP) [address], [place] [address]MD: 10/12/2017 Secondary NOT GIVENUNK [place] Insurance:SELF PAY [facility] Number: Effective Repository Date:2017-10-12 10/02/2017 AZAEL Wanda Primary LATONYA R [place] [id number] Insurance:MEDICAL OSWALDDOB: [facility] [id number], [place] Number: Repository [address]Uii: [id number] [phone] Date:2109-38-58HZ [address] (HP) [address], [place] [address]DX: 10/02/2017 Secondary NOT GIVENUNK [place] Insurance:SELF PAY [facility] Number: Effective Repository Date:2017-09-23 09/13/2017 Azael A Primary LATONYA R [place] [id number] Insurance:MEDICAL OSWALDDOB: [facility] [id number] Number: Repository [address]Igk: [id number] [phone] Date:5239-25-33LY [address] (HP) [address], [place] [address]QX: 09/13/2017 Secondary NOT GIVENUNK [place] Insurance[facility]: Effective Repository Date:2017-09-13
== END ==
PROVIDERS: Family Provider Family Medicine; PCP Family Medicine; Referring Provider Dermatology; Visit Provider Dermatology
DX: L02.821 Furuncle of head [any part, except face] (principal)
CPT/HCPCS: 87070; 87205

== ENCOUNTER → 2018-08-27 10:46 | Outpatient (CLI) | payer OTHER, SELFPAY ==
--- NOTE | 2018-08-27 10:50 | RAD_ITS ---
STUDY: X-RAY CHEST REASON FOR EXAM: Female, 58 years old. One month history of worsening cough. TECHNIQUE: PA and lateral views of the chest. COMPARISON: Comparison is made with prior study dated April 26, 2018. FINDINGS: The lungs are clear and expanded. There is no demonstrated pleural abnormality. There is borderline cardiomegaly. Normal mediastinum and alex. Normal visualized pulmonary arteries. There is atherosclerotic tortuosity of the aortic arch and descending thoracic aorta. There is demineralization of the osseous structures. Normal visualized ribs, clavicles, and shoulders. There is no demonstrated abnormality of the visualized soft tissue structures of the upper abdomen. RAD/Chest PA and Lateral IMPRESSION: Borderline cardiomegaly. The lungs are clear. Electronically Signed: Minor Gonzalez, at 16:06 EST , Service support ,
== END ==
PROVIDERS: Family Provider Family Medicine; PCP Family Medicine; Visit Provider Family Medicine
DX: J20.9 Acute bronchitis, unspecified (principal); R06.00 Dyspnea, unspecified
CPT/HCPCS: 71046

== ENCOUNTER → 2018-09-15 16:07 | Outpatient (CLI) | payer OTHER, SELFPAY ==
[2018-09-15 17:45] LABS: Absolute Lymphocyte Count 2.47 X10^3/ul (0.83-4.51); Absolute Neutrophil Count 5.7 X10^3/uL (2.0-7.7); Basophil# 0.03 X10^3/uL; Basophil% 0.3 % (0-1); Eosinophil# 0.17 X10^3/uL; Eosinophils% 1.9 % (0-5); Hematocrit 42.2 % (37-47); Hemoglobin 13.5 g/dl (12.0-15.0); Lymphocyte # 2.47 X10^3/ul (4.0); Lymphocyte % 27.3 % (19-41); Mean Corpuscular Volume 96.8 fL (81-99); Mean Platelet Vol. 9.7 fl (6.2-12.0); Monocyte# 0.71 X10^3/uL; Monocyte% 7.9 % (0-10); Neutrophil # 5.65 X10^3/uL (2.7-7.7); Neutrophil % 62.5 % (47-70); Platelet Count 340 K/mm3 (150-450); RBC Distribution Width CV 13.1 % (11.6-14.6); RBC Distribution Width SD 45.3 fl (35.1-43.9); Red Blood Count 4.36 M/mm3 (4.2-5.4)
[2018-09-15 18:03] LABS: POSITIVE COUNT NO; POSITIVE DIFFERENTIAL NO; POSITIVE MORPHOLOGY NO
[2018-09-15 18:15] LABS: ALB/GLOB Ratio 1.1 RATIO (0.9-2.4); AST(SGOT) 19 U/L (15-37); Alanine Aminotransfer ALT/SGPT 29 U/L (13-56); Albumin, Serum 3.8 g/dL (3.2-5.0); Alkaline Phosphatase 118 U/L (45-117); Anion Gap 6 (5-15); BUN 12 mg/dL (7-18); BUN/Creat Ratio 11.2 RATIO (10-20); Calcium,Total 8.6 mg/dL (8.5-10.1); Chloride 106 mmol/L (98-107); Creatinine, Serum 1.07 mg/dL (0.55-1.02); EST Glomerular Filtration Rate 56 mL/min (>60); Est Glom Filt Rate - Afr Amer 68 mL/min (>60); Globulin 3.5 g/dL (2.2-4.2); Glucose 109 mg/dL (74-106); Potassium 3.6 mmol/L (3.5-5.1); Protein, Total 7.3 g/dL (6.4-8.2); Sodium Level 137 mmol/L (136-145); Thyroid Stim Hormone (TSH) 1.71 uIU/mL (0.358-3.74)
== END ==
PROVIDERS: Family Provider Family Medicine; PCP Family Medicine; Visit Provider Family Medicine
DX: E03.9 Hypothyroidism, unspecified (principal); E55.9 Vitamin D deficiency, unspecified; R53.83 Other fatigue; Z51.81 Encounter for therapeutic drug level monitoring
CPT/HCPCS: 36415; 80053; 82306; 84443; 85025

== ENCOUNTER → 2018-09-19 15:59 | Outpatient (CLI) | payer OTHER, SELFPAY ==
[2018-09-19 18:19] LABS: Erythrocyte Sedimentation Rate 14 mm/hr (0-30)
[2018-09-23 13:16] LABS: EBV Acute VCA IgM < 36.0 U/mL (0.0-35.9); EBV Early Antigen IgG <9.0 U/mL (0.0-8.9); EBV Nuclear Antigen IgG > 600.0 U/mL (0.0-17.9)
== END ==
PROVIDERS: Family Provider Family Medicine; PCP Family Medicine; Referring Provider Family Medicine; Visit Provider Family Medicine
DX: M79.10 Myalgia, unspecified site (principal); M25.50 Pain in unspecified joint; R53.83 Other fatigue; R59.1 Generalized enlarged lymph nodes
CPT/HCPCS: 36415; 85652; 86140; 86663; 86664; 86665

== ENCOUNTER → 2018-11-19 15:46 | Outpatient (CLI) | payer OTHER, SELFPAY ==
--- NOTE | 2018-11-19 15:48 | BI_ITS ---
MAMMOGRAPHY - BILATERAL SCREENING REASON FOR EXAM: Female, 58 years old. Routine annual screening examination. PERTINENT HISTORY: Mother with breast cancer. Aunt with breast cancer. TECHNIQUE: Digital bilateral breast shraddha (3D mammographic acquisition) in the CC and MLO projections. 2-D mediolateral oblique (MLO) and craniocaudad (CC) views of both breasts were obtained. CAD: Full Field Digital Mammography with Computer Added Detection was performed. COMPARISON: Comparison is made with prior study dated October 16, 2017 and April 16, 2016. FINDINGS: Breast Composition: The breasts are heterogeneously dense, which may obscure small masses. There are no dominant masses or suspicious calcifications. Stable appearance of the bilateral axillary lymph nodes. No other significant abnormalities are identified. There has been no significant change since the prior study. BI/SCREENING MAMM (CAD), BILAT IMPRESSION: Stable bilateral screening mammogram. Yearly follow-up mammogram recommended. (A) ASSESSMENT CATEGORY: BIRADS Category 2: Benign. A letter regarding these results will be sent to the patient by the facility within 30 days. Approximately 10% of breast cancers are not detected by mammography. A normal mammogram should not delay biopsy of a clinically suspicious abnormality. [id number] Electronically Signed: Minor Gonzalez, at 8:11 EDT , Service support ,
== END ==
PROVIDERS: Family Provider Family Medicine; PCP Family Medicine; Referring Provider Family Medicine; Visit Provider Family Medicine
DX: Z12.31 Encounter for screening mammogram for malignant neoplasm of breast (principal)
CPT/HCPCS: 77063; 77067

== ENCOUNTER → 2019-03-05 10:53 | Outpatient (CLI) | payer OTHER, SELFPAY | PROVIDERS: Family Provider Family Medicine; PCP Family Medicine; Referring Provider Dermatology; Visit Provider Dermatology | DX: L02.821 Furuncle of head [any part, except face] (principal) | CPT/HCPCS: 87070; 87077; 87186; 87205 ==

== ENCOUNTER → 2019-11-30 | Outpatient (CLI) | payer OTHER, SELFPAY ==
--- NOTE | 2019-11-30 15:52 | BI_ITS ---
MAMMOGRAPHY - BILATERAL SCREENING REASON FOR EXAM: Female, 59 years old. Routine annual screening examination. PERTINENT HISTORY: Mother with breast cancer. Aunt with breast cancer. TECHNIQUE: Digital bilateral breast mohan (3D mammographic acquisition) in the CC and MLO projections. 2-D mediolateral oblique (MLO) and craniocaudad (CC) views of both breasts were obtained. CAD: Full Field Digital Mammography with Computer Added Detection was performed. COMPARISON: Comparison is made with prior study dated November 19, 2018 and October 16, 2017. FINDINGS: Breast Composition: The breasts are heterogeneously dense, which may obscure small masses. There are no dominant masses or suspicious calcifications. Stable benign-appearing bilateral axillary lymph nodes. No other significant abnormalities are identified. There has been no significant change since the prior study. BI/SCREEN MAMM (CAD) W/MOHAN BILAT IMPRESSION: Stable bilateral screening mammogram. Yearly follow-up mammogram recommended. (A) ASSESSMENT CATEGORY: BIRADS Category 2: Benign. A letter regarding these results will be sent to the patient by the facility within 30 days. Approximately 10% of breast cancers are not detected by mammography. A normal mammogram should not delay biopsy of a clinically suspicious abnormality. [id number] Electronically Signed: Minor Gonzalez, at 8:13 EDT , Service support ,
== END | disposition home or self-care (01) ==
LOC: OPBI 15:50
PROVIDERS: PCP Family Medicine; Referring Provider Family Medicine; Visit Provider Family Medicine
DX: Z12.31 Encounter for screening mammogram for malignant neoplasm of breast (principal)
CPT/HCPCS: 77063; 77067

== ENCOUNTER 2020-01-27 06:47 | Day surgery (SDC) | payer OTHER, SELFPAY ==
[2020-01-14 14:40] VITALS: BMI 36.6
--- NOTE | 2020-01-25 08:38 | HP_ITS ---
Intake Vital Signs 01/14/20 Height 5 ft 1 in 01/14/20 Weight: 197 lb 6 oz 01/14/20 BMI 37.3 01/14/20 BP 154/87 H 01/14/20 Blood Pressure Location Rt brachial 01/14/20 Position Sitting 01/14/20 Respiration 20 H 01/14/20 Pulse 88 01/14/20 Temp 98.1 F 01/14/20 Temp Source Temporal 01/14/20 Pulse Oximetry (%) 100 Intake Visit Reasons: Discuss EGD & Colonoscopy Chief Complaint: GERD, DIARRHEA Meteorological Technician Required: No Is patient in pain?: No Allergies erythromycin base [Erythromycin Base] Adverse Reaction (Verified 01/21/20 10:35) Nausea hydrocodone bitartrate [From Vicodin] Adverse Reaction (Verified 01/21/20 10:35) Itching Medications Aspirin [Aspirin, Baby] 81 mg PO DAILY 12/07/13 [History Confirmed 01/21/20] Levothyroxine [Synthroid] 50 mcg PO DAILY 12/07/13 [History Confirmed 01/21/20] Multivit with Calcium,Iron,Min [Multiple Vitamins For Women] 1 ea PO DAILY 12/07/13 [History Confirmed 01/21/20] Pilocarpine HCl 7.5 mg PO BID 12/07/13 [History Confirmed 01/21/20] Duloxetine Hcl [Cymbalta] 60 mg PO BID 12/18/16 [History Confirmed 01/21/20] albuterol sulfate 90 mcg/actuation aerosol inhaler 1 - 2 puff INHALATION PRN PRN 01/14/20 [History Confirmed 01/21/20] cholestyramine (with sugar) 4 gram powder for susp in a packet 1 packet PO PRN PRN 01/14/20 [History Confirmed 01/21/20] Cholecalciferol (VIT D3) [Vitamin D] 1,000 unit PO DAILY 01/21/20 [History Confirmed 01/21/20] Olopatadine HCl [Pazeo] 2.5 ml OP DAILY 01/21/20 [History Confirmed 01/21/20] Omeprazole [Prilosec] 20 mg PO BID 01/21/20 [History Confirmed 01/21/20] Is last menstrual period known: No Post menopausal: Yes Patient : No PFSH Medical History Chronic cholecystitis (Acute) Depression (Acute) GERD (gastroesophageal reflux disease) (Acute) Gastritis (Acute) Hypothyroid (Acute) Osteoarthritis (Acute) PAD (peripheral artery disease) (Acute) Sleep apnea (Acute) Surgical History H/O colonoscopy (Acute) H/O esophagogastroduodenoscopy (Acute) H/O left knee surgery (Acute) H/O: hysterectomy (Acute) Parathyroid cyst (Acute) S/P appendectomy (Acute) S/P laparoscopic cholecystectomy (Acute ~01/13/18) left shoulder surgery (Acute) right foot surgery (Acute) Family History Mother Breast cancer Hypertension Cancer SKIN Father Cancer Hypertension Social History (Updated 01/25/20 @ 08:[address] Pablo Moreno MD) Smoking Status: Current every day smoker alcohol intake: never HPI HPI Surgical H&P: Yes HPI: KRANTHI PARKER, is a 59 F who presents to the office today for Evaluation for endoscopy. Patient has been having consistent and worsening epigastric abdominal pain this is been going on for the last several months. In addition the patient is also had daily diarrhea. She is currently on omeprazole. She has had a previous EGD in December 2017 where she was noted to have a small hiatal hernia some gastritis changes in the mucosal area of the GE junction. GE junction came back with chronic inflammation no metaplasia was identified. She also had a fundic gland polyp and mild gastritis. She was H. pylori negative. The diarrhea is something new she has not been experiencing this before. ROS General General: Yes fatigue; no weight change, appetite, colon cancer, breast cancer or weakness HEENT HEENT: No difficulty swallowing, eye injury, eye surgery, swollen glands or hoarseness Endo Endocrine: Yes thyroid disease; no diabetes mellitus, thyroid cancer, Hair loss, heat intolerance or cold intolerance Musc Musculoskeletal: Yes arthritis; no back problems, rheumatoid arthritis, gout or joint pain Cardio Cardiovascular: No murmur, pacemaker, heart disease, atrial fibrillation, high blood pressure, heart attack, heart stent, palpitations, shortness of breat with exertion or chest pain Psych Psychiatric: No depression, anxiety or hearing voices Resp Respiratory: No shortness of breath, Yes sleep apnea, No cough, No COPD, No asthma, No emphysema, No wheezing Gastro Gastrointestinal: Yes abdominal pain, Yes nausea or vomiting, Yes diarrhea, No constipation, No blood in stool, Yes acid reflux, No hemorrhoids, No ulcers, No gallbladder problem, No black,tarry stools David Hematologic: Yes blood thinners, No blood disorders, No bleeding, No anemia, No blood clots Neuro Neurologic: No weakness Exam Const General: no acute distress, well developed, well hydrated Orientation: oriented to person, oriented to place, oriented to time [facility] Head: normocephalic, atraumatic Ears: external ears normal Mouth: moist mucous membranes Eyes Sclera: sclerae normal Pupils: normal by confrontation Neck Neck: no lymphadenopathy noted Neck mass: No Thyroid: thyroid normal, symmetrical Chest Chest palpation & inspection: normal inspection of the chest Resp Effort & Inspection: normal respiratory effort Auscultation: clear to auscultation bilaterally Percussion: percussion normal Cardio Rate: regular rate Rhythm: regular rhythm Heart Sounds: no murmurs GI Palpation: soft, no hepatosplenomegaly, no masses, nontender Rectal Exam: other Other: Rectal exam deferred. Extrem General: normal to inspection, no clubbing, cyanosis or edema Assessment & Plan Problems 1. Epigastric abdominal pain R10.13 2. Diarrhea, unspecified type R19.7 3. Gastroesophageal reflux disease, esophagitis presence not specified K21.9 Plan I have discussed the above with the patient. I have offered the patient colonoscopy As well as an EGD for evaluation. I have explained the risks/benefits of the procedure and described the procedure. I have discussed the risks with the patient, including but not limited to: infection, bleeding, perforation of the GI tract requiring emergency surgery, inability to complete the procedure, injury to any internal organs, complications of anesthesia, etc. - the patient understands and agrees to proceed. I have answered all the patient's questions to the patient's satisfaction and the patient has no further questions. The patient has been given instructions for the colon cleansing preparation. We will be doing random colon biopsies. Orders Orders: Colonoscopy 01/14/20 EGD 01/14/20 Coding Level of Care Code Off vis,est,level 3 Diagnoses Epigastric abdominal pain R10.13 Diarrhea, unspecified type R19.7 ??Diarrhea type: unspecified type Gastroesophageal reflux disease, esophagitis presence not specified K21.9 ??Esophagitis presence: esophagitis presence not specified COVID (Procedure Consent) Procedure Criteria Procedure Criteria: Yes Elective The surgeon/proceduralist and patient have discussed in detail the risk of exposure to and/or potential harm posed by the COVID-19 virus with having a surgery/procedure at this time versus the risk of? delaying the surgery/procedure. It is not possible to know either the risk of delaying the surgery or procedure or chance of getting an infection with perfect accuracy, but a joint decision was made between the patient and the surgeon/proceduralist ?to proceed at this time with the scheduled surgery/procedure as indicated on the consent form. 01/25/20 0839 <Electronically signed by Pablo huffman MD> Date _ Pablo Moreno MD I have re-examined the patient. There are no clinical changes since date of exam.
--- NOTE | 2020-01-27 | GASB_PTH ---
PATIENT: KRANTHI PARKER LOC: EN U#:[id number] AGE/SX: 59/F ROOM: RE01/27/[address]: Dr. Pablo Moreno MD : 1960 BED: DIS: 01/27/2020 SPEC #: [id number] RECD: 01/27/20 10:59 STATUS: DINA JANESSA #: [id number] YOBANY: 01/27/20 00:[address]: Pablo Moreno DEPT: SURGICAL PATHOLOGY RECD BY: Alli Peterson ENTERED: 01/27/20 10:59 SP TYPE: Gastric Bx OTHR DR: Dr. Juany Jacob DO Tissues: A - Gastric mucous membrane B - Esophagus, NOS C - COLON BIOPSY D - Transverse colon Procedures: Surgery Specimen Level IV HEADER OPERATION: Colonoscopy, EGD ([facility]) PRE-OP DIAGNOSIS: Epigastric pain, diarrhea, GERD TISSUE SUBMITTED: A - Antrum biopsy for histo and H. pylori, B - Distal esophagus biopsy, C - Random colon biopsy, D - Transverse polyp biopsy MICROSCOPIC DIAGNOSIS A. Antrum, biopsy: Mild gastritis. See microscopic description and comment. B. Distal esophagus, biopsy: Fragments of squamous epithelium with minimal chronic inflammation and congestion. C. Colon, random biopsy: Fragments of colonic mucosa, no pathologic diagnosis. D. Transverse colon polyp, biopsy: Fragments of tubular adenoma. SJ:rg 01/28/20 COMMENT A. The results of immunohistochemistry for Helicobacter pylori will be reported separately ([id number]). MICROSCOPIC DESCRIPTION Slides are reviewed. A. The specimen shows fragments of gastric mucosa with chronic inflammatory cell infiltrates in the lamina propria consisting of lymphocytes and plasma cells, consistent with mild chronic gastritis. GROSS DESCRIPTION A - Received in fixative is one container labeled with the patient's name and designated antrum biopsy. The specimen consists of one irregular fragment of light machado soft tissue that measures 0.3 x 0.3 x 0.1 cm. The specimen is totally submitted in one cassette. B - Received in fixative is one container labeled with the patient's name and designated distal esophagus biopsy. The specimen consists of multiple irregular fragments of light machado soft tissue that in aggregate measure 1 x 0.3 x 0.1 cm. The specimen is totally submitted in one cassette. C - Received in fixative is one container labeled with the patient's name and designated random colonic biopsy. The specimen consists of multiple irregular fragments of light machado soft tissue that in aggregate measure 1.5 x 0.7 x 0.1 cm. The specimen is totally submitted in one cassette. D - Received in fixative is one container labeled with the patient's name and designated transverse polyp biopsy. The specimen consists of two irregular fragments of light machado soft tissue that in aggregate measure 0.6 x 0.2 x 0.1 cm. The specimen is totally submitted in one cassette. / SJ:rg 01/27/20 TC:1 CPT: 39094 x4
[2020-01-27 07:07] VITALS: BP 152/86; PULSE 85; RESP 15; TEMP 36.2; O2SAT 98; BMI 37.0
[2020-01-27] MEDS: Lactated Ringers 1,000 ML 100 ML IV (07:18)
--- NOTE | 2020-01-27 08:00 | IMM_PTH ---
PATIENT: KRANTHI PARKER LOC: EN U#:[id number] AGE/SX: 59/F ROOM: RE01/27/[address]: Dr. Pablo Moreno MD : 1960 BED: DIS: 01/27/2020 SPEC #: [id number] RECD: 01/27/20 12:46 STATUS: DINA REIraida #: [id number] YOBANY: 01/27/20 08:[address]: Pablo Moreno DEPT: IMMUNOHISTOCHEMISTRY RECD BY: Ely Eugene ENTERED: 01/27/20 12:47 SP TYPE: IMMUNO OTHR DR: Dr. Juany Jacob DO Tissues: A - Stomach, NOS Procedures: H Pylori (initial) PHYSICIAN & INSTITUTION [place] [address] SPECIMEN INFORMATION: Tissue Source: A - Antrum biopsy Clinical Info: Epigastric pain, diarrhea, GERD Specimen Number: [id number] CPT code: 02717 METHODOLOGY: Deparaffinized sections of prefer/formalin-fixed tissue or PAP/DQ stained slides are incubated with monoclonal/polyclonal antibodies/oligonucleotide probes. Localization is made via biotin free immunoperoxidase method. Appropriate controls are performed and reacted as expected. Results on target cell population are indicated in the following table: RESULTS: ANTIBODY / CLONE RESULT Block A H Pylori (polyclonal) negative These tests were developed and their performance characteristics determined by [facility]. They may not have been cleared or approved by the U.S. Food and Drug Administration. The FDA has determined that such clearance or approval is not necessary. INTERPRETATION: A. Antrum, biopsy: Negative for Helicobacter pylori organisms. SJ:malini 01/28/20
[2020-01-27 08:20] VITALS: BP 140/120; BP 152/86; PULSE 81; RESP 16; TEMP 37.3; O2SAT 97
--- NOTE | 2020-01-27 08:21 | OP.EGD_ITS ---
Patient Name: Latonya Padilla Procedure Date: 01/27/2020 7:51 AM Date of : 1960 Age: 59 Procedure: Upper GI endoscopy Indications: Epigastric abdominal pain, Gastro-esophageal reflux disease Providers: Pablo Moreno MD Referring MD: Juany Jacob Medicines: See the Anesthesia note for documentation of the administered medications Patient Profile: This is a 59 year old female. Refer to note in patient chart for documentation of history and physical. Complications: No immediate complications. Procedure: Pre-Anesthesia Assessment: - Prior to the procedure, a History and Physical was performed, and patient medications and allergies were reviewed. The patient's tolerance of previous anesthesia was also reviewed. The risks and benefits of the procedure and the sedation options and risks were discussed with the patient. All questions were answered, and informed consent was obtained. Prior Anticoagulants: The patient has taken aspirin, last dose was 7 days prior to procedure. ASA Grade Assessment: III - A patient with severe systemic disease. After reviewing the risks and benefits, the patient was deemed in satisfactory condition to undergo the procedure. After obtaining informed consent, the endoscope was passed under direct vision. Throughout the procedure, the patient's blood pressure, pulse, and oxygen saturations were monitored continuously. The Endoscope was introduced through the mouth, and advanced to the second part of duodenum. The upper GI endoscopy was accomplished without difficulty. The patient tolerated the procedure well. Scope In: 7:57:41 AM Scope Out: 8:01:21 AM Total Procedure Duration Time 0 hours 3 minutes 40 seconds Findings: Localized mild erythema was found in the distal esophagus. Biopsies were taken with a cold forceps for histology. The entire examined stomach was normal. Biopsies were taken with a cold forceps for Helicobacter pylori testing. The examined duodenum was normal. No biopsies or other specimens were collected for this exam. Impression: - Erythema in the distal esophagus. Biopsied. - Normal stomach. Biopsied. - Normal examined duodenum. No specimens collected. Recommendation: - Discharge patient to home. - Resume previous diet. - Continue present medications. - Await pathology results. - Repeat upper endoscopy at appointment to be scheduled for surveillance. - Return to my office in 1 week. Procedure Code(s): --- Professional --- 98963, Esophagogastroduodenoscopy, flexible, transoral; with biopsy, single or multiple Diagnosis Code(s): --- Professional --- K22.8, Other specified diseases of esophagus R10.13, Epigastric pain K21.9, Gastro-esophageal reflux disease without esophagitis CPT copyright 2017 [employer]. All rights reserved. The codes documented in this report are preliminary and upon stock manager review may be revised to meet current compliance requirements. MD Pablo Brower MD 01/27/2020 8:21:19 AM This report has been signed electronically. Number of Addenda: 0 Note Initiated On: 01/27/2020 7:51 AM
--- NOTE | 2020-01-27 08:22 | OP.CCLET_ITS ---
01/27/2020 Juany Jacob [address] [place] [address] Re : Upper GI endoscopy procedure for Latonya Padilla Dear Dr. Jacob This procedure was performed on Monday, January 27, 2020. My impressions and recommendations are as follows: Impressions : - Erythema in the distal esophagus. Biopsied. - Normal stomach. Biopsied. - Normal examined duodenum. No specimens collected. Recommendations : - Discharge patient to home. - Resume previous diet. - Continue present medications. - Await pathology results. - Repeat upper endoscopy at appointment to be scheduled for surveillance. - Return to my office in 1 week. My findings are described in the full procedure note, which is enclosed. If I can be of further assistance, please feel free to contact me at Doctor phone number(s): , Fax: [phone], Work: . Sincerely, MD Pablo Brower MD 01/27/2020 8:21:19 AM This report has been signed electronically.
--- NOTE | 2020-01-27 08:24 | OP.COLON_ITS ---
Patient Name: Latonya Padilla Procedure Date: 01/27/2020 8:01 AM Date of : 1960 Age: 59 Procedure: Colonoscopy Indications: Clinically significant diarrhea of unexplained origin Providers: Pablo Moreno MD Referring MD: Juany Jacob Medicines: See the Anesthesia note for documentation of the administered medications Patient Profile: This is a 59 year old female. Refer to note in patient chart for documentation of history and physical. Last Colonoscopy: 10 years ago. Complications: No immediate complications. Procedure: Pre-Anesthesia Assessment: - Prior to the procedure, a History and Physical was performed, and patient medications and allergies were reviewed. The patient's tolerance of previous anesthesia was also reviewed. The risks and benefits of the procedure and the sedation options and risks were discussed with the patient. All questions were answered, and informed consent was obtained. Prior Anticoagulants: The patient has taken aspirin, last dose was 7 days prior to procedure. ASA Grade Assessment: III - A patient with severe systemic disease. After reviewing the risks and benefits, the patient was deemed in satisfactory condition to undergo the procedure. After I obtained informed consent, the scope was passed under direct vision. Throughout the procedure, the patient's blood pressure, pulse, and oxygen saturations were monitored continuously. The adult colonoscope was introduced through the anus and advanced to the cecum, identified by appendiceal orifice and ileocecal valve. The colonoscopy was performed without difficulty. The patient tolerated the procedure well. The quality of the bowel preparation was adequate to identify polyps 6 mm and larger in size. Scope In: 8:03:26 AM Scope Withdrawal Time 0 hours 9 minutes 5 seconds Scope Out: 8:15:37 AM Total Procedure Duration Time 0 hours 12 minutes 11 seconds Findings: A 5 mm polyp was found in the transverse colon. The polyp was sessile. The polyp was removed with a jumbo cold forceps. Resection and retrieval were complete. The colon (entire examined portion) appeared normal. Biopsies for histology were taken with a cold forceps from the entire colon for evaluation of microscopic colitis. Non-bleeding internal hemorrhoids were found during retroflexion. The hemorrhoids were mild and small. The exam was otherwise without abnormality. Impression: - One 5 mm polyp in the transverse colon, removed with a jumbo cold forceps. Resected and retrieved. - The entire examined colon is normal. Biopsied. - Non-bleeding internal hemorrhoids. - The examination was otherwise normal. Recommendation: - Discharge patient to home. - Resume previous diet. - Continue present medications. - Await pathology results. - Repeat colonoscopy in 5-10 years for surveillance. - Return to my office in 1 week. Procedure Code(s): --- Professional --- 25860, Colonoscopy, flexible; with biopsy, single or multiple Diagnosis Code(s): --- Professional --- D12.3, Benign neoplasm of transverse colon (hepatic flexure or splenic flexure) K64.8, Other hemorrhoids R19.7, Diarrhea, unspecified CPT copyright 2017 [employer]. All rights reserved. The codes documented in this report are preliminary and upon chemistry associate review may be revised to meet current compliance requirements. MD Pablo Brower MD 01/27/2020 8:24:16 AM This report has been signed electronically. Number of Addenda: 0 Note Initiated On: 01/27/2020 8:01 AM
--- NOTE | 2020-01-27 08:24 | OP.CCLET_ITS ---
01/27/2020 Juany Jacob [address] [place] [address] Re : Colonoscopy procedure for Latonya Padilla Dear Dr. Jacob This procedure was performed on Monday, January 27, 2020. My impressions and recommendations are as follows: Impressions : - One 5 mm polyp in the transverse colon, removed with a jumbo cold forceps. Resected and retrieved. - The entire examined colon is normal. Biopsied. - Non-bleeding internal hemorrhoids. - The examination was otherwise normal. Recommendations : - Discharge patient to home. - Resume previous diet. - Continue present medications. - Await pathology results. - Repeat colonoscopy in 5-10 years for surveillance. - Return to my office in 1 week. My findings are described in the full procedure note, which is enclosed. If I can be of further assistance, please feel free to contact me at Doctor phone number(s): , Fax: [phone], Work: . Sincerely, MD Pablo Brower MD 01/27/2020 8:24:16 AM This report has been signed electronically.
[2020-01-27 08:25] VITALS: BP 139/80; BP 152/86; PULSE 75; RESP 17; O2SAT 95
[2020-01-27 08:30] VITALS: BP 136/94; BP 152/86; PULSE 73; RESP 16; O2SAT 95
[2020-01-27 08:35] VITALS: BP 148/79; BP 152/86; PULSE 73; RESP 17; TEMP 36.6; O2SAT 98
[2020-01-27 08:45] VITALS: BP 152/86
== END 2020-01-27 09:09 | disposition home or self-care (01) ==
LOC: EN 06:47 → AC 06:48
PROVIDERS: Anesthesiology; PCP Family Medicine; Referring Provider Family Medicine; Visit Provider Surgery
PROC: 0DJD8ZZ Inspection of Lower Intestinal Tract, Via Natural or Artificial Opening Endoscopic (ICD-10-PCS; CPT 45378; principal; 2020-01-27 07:55)
DX: K21.9 Gastro-esophageal reflux disease without esophagitis (principal); K22.8 Other specified diseases of esophagus; R10.13 Epigastric pain; D12.3 Benign neoplasm of transverse colon; K64.8 Other hemorrhoids; K29.70 Gastritis, unspecified, without bleeding; R19.7 Diarrhea, unspecified; F32.9 Major depressive disorder, single episode, unspecified; E03.9 Hypothyroidism, unspecified; M79.7 Fibromyalgia; M19.90 Unspecified osteoarthritis, unspecified site; I73.9 Peripheral vascular disease, unspecified; G47.30 Sleep apnea, unspecified; F17.200 Nicotine dependence, unspecified, uncomplicated; Z79.82 Long term (current) use of aspirin; Z79.899 Other long term (current) drug therapy; Z20.828 Contact with and (suspected) exposure to other viral communicable diseases
CPT/HCPCS: 43239; 45380; 87635; 88305; 88342; 94799; J7120; J1610; U0003

== ENCOUNTER → 2020-06-29 16:26 | Outpatient (CLI) | payer OTHER, SELFPAY ==
[2020-06-29 17:19] LABS: Absolute Lymphocyte Count 2.48 X10^3/uL (0.83-4.51); Absolute Neutrophil Count 3.7 X10^3/uL (2.0-7.7); Basophil# 0.04 X10^3/uL; Basophil% 0.5 % (0-1); Eosinophil# 0.24 X10^3/uL; Eosinophils% 3.3 % (0-5); Hematocrit 45.9 % (37-47); Hemoglobin 14.7 g/dL (12.0-15.0); Lymphocyte # 2.48 X10^3/ul (4.0); Lymphocyte % 33.6 % (19-41); Mean Corpuscular Hgb 30.4 pg (27.0-32.0); Mean Corpuscular Volume 94.8 fL (81-99); Mean Platelet Vol. 9.1 fl (6.2-12.0); Monocyte# 0.88 X10^3/uL; Monocyte% 11.9 % (0-10); NRBC Flagged by Analyzer 0 % (0-5); Neutrophil # 3.69 X10^3/uL (2.7-7.7); Neutrophil % 50.2 % (47-70); Platelet Count 322 K/mm3 (150-450); RBC Distribution Width CV 12.7 % (11.6-14.6); RBC Distribution Width SD 44.9 fl (35.1-43.9); Red Blood Count 4.84 M/mm3 (4.2-5.4); White Blood Count 7.4 K/mm3 (4.4-11.0)
[2020-06-29 18:11] LABS: ALB/GLOB Ratio 1.1 RATIO (0.9-2.4); AST(SGOT) 26 U/L (15-37); Alanine Aminotransfer ALT/SGPT 50 U/L (13-56); Albumin, Serum 3.7 g/dL (3.2-5.0); Alkaline Phosphatase 123 U/L (45-117); Anion Gap 5 (5-15); BUN 10 mg/dL (7-18); BUN/Creat Ratio 10.1 RATIO (10-20); Calcium,Total 8.4 mg/dL (8.5-10.1); Chloride 107 mmol/L (98-107); Creatinine, Serum 0.99 mg/dL (0.55-1.02); EST Glomerular Filtration Rate 60 mL/min (>60); Est Glom Filt Rate - Afr Amer 73 mL/min (>60); Free T3 2.6 pg/mL (2.18-3.98); Globulin 3.4 g/dL (2.2-4.2); Glucose 98 mg/dL (74-106); Potassium 3.5 mmol/L (3.5-5.1); Protein, Total 7.1 g/dL (6.4-8.2); Sodium Level 141 mmol/L (136-145); T4 Free Direct 0.98 ng/dL (0.76-1.46)
== END ==
PROVIDERS: PCP Family Medicine; Visit Provider Family Medicine
DX: E03.9 Hypothyroidism, unspecified (principal); Z51.81 Encounter for therapeutic drug level monitoring
CPT/HCPCS: 36415; 80053; 84439; 84443; 84481; 85025

== ENCOUNTER → 2021-02-01 15:09 | Outpatient (CLI) | payer OTHER, SELFPAY ==
--- NOTE | 2021-02-01 15:11 | BI_ITS ---
MAMMOGRAPHY - BILATERAL SCREENING REASON FOR EXAM: Female, 60 years old. Routine annual screening examination. PERTINENT HISTORY: Mother with breast cancer. Aunt with breast cancer. TECHNIQUE: Digital bilateral breast mohan (3D mammographic acquisition) in the CC and MLO projections. 2-D mediolateral oblique (MLO) and craniocaudad (CC) views of both breasts were obtained. CAD: Full Field Digital Mammography with Computer Added Detection was performed. COMPARISON: Comparison is made with prior study dated 11/30/2019 and 11/19/2018. FINDINGS: Breast Composition: The breasts are heterogeneously dense, which may obscure small masses. There are no dominant masses or suspicious calcifications. Stable small benign-appearing bilateral axillary lymph nodes. No other significant abnormalities are identified. There has been no significant change since the prior study. BI/SCRN MAMM (CAD)W/MOHAN BILAT IMPRESSION: Stable bilateral screening mammogram. Yearly follow-up mammogram recommended. (A) ASSESSMENT CATEGORY: BIRADS Category 2: Benign. A letter regarding these results will be sent to the patient by the facility within 30 days. Approximately 10% of breast cancers are not detected by mammography. A normal mammogram should not delay biopsy of a clinically suspicious abnormality. [id number] Electronically Signed: Minor Gonzalez MD at 20:10 EDT , Service support ,
== END ==
PROVIDERS: PCP Family Medicine; Referring Provider Family Medicine; Visit Provider Family Medicine
DX: Z12.31 Encounter for screening mammogram for malignant neoplasm of breast (principal); Z80.3 Family history of malignant neoplasm of breast
CPT/HCPCS: 77063; 77067

== ENCOUNTER → 2021-02-06 | Outpatient (CLI) | payer OTHER, SELFPAY ==
[2021-02-06 17:09] LABS: Probe Check PASS; Specimen Processing Control PASS
== END | disposition home or self-care (01) ==
PROVIDERS: PCP Family Medicine; Referring Provider Family Medicine; Visit Provider Family Medicine
DX: Z20.822 Contact with and (suspected) exposure to COVID-19 (principal)
CPT/HCPCS: 87635; U0005; U0003

== ENCOUNTER → 2021-05-01 | Outpatient (CLI) | payer OTHER, SELFPAY | END | disposition home or self-care (01) | PROVIDERS: PCP Family Medicine; Visit Provider Family Medicine | DX: Z20.822 Contact with and (suspected) exposure to COVID-19 (principal) | CPT/HCPCS: 87635; U0005; U0003 ==

== ENCOUNTER 2022-02-21 11:55 | Inpatient (IN) | payer OTHER, SELFPAY ==
[2022-02-21] VITALS (9 sets, daily range): BP systolic 112–126; BP diastolic 70–85; PULSE 86–120; RESP 13–18; TEMP 36.3–36.7; O2SAT 94–97; BMI 38.7; BMI 41.2
--- NOTE | 2022-02-21 12:40 | ED.VIS.GI ---
HPI HPI - GI History of Present Illness Chief Complaint: Abd Pain Abdominal Pain/Flank Pain Onset: Yesterday Context: Sudden Onset Timing: Continuous Quality: Aching, Cramping and Stabbing Location: Epigastric, RUQ and LUQ Worsened by: Nothing Relieved by: Nothing Nausea/Vomiting/Emesis GI Symptom: Positive for Nausea; Negative for Vomiting Diarrhea/Melena/Hematochezia GI Symptom: Negative for Diarrhea, Melena or Hematochezia Associated Symptoms Associated Symptoms: Negative for Dysuria, Frequency or Hematuria Narrative Narrative: Patient presents with upper abdominal pain that began yesterday. Patient states it began rather suddenly. Patient states it has been constant. Patient describes the pain as aching and cramping. Patient states it is stabbing at times. Patient states nothing makes it better and nothing makes it worse. Patient states it is mainly over the left upper quadrant and epigastric area. Patient states it is sometimes radiates to the right upper quadrant. Patient admits to nausea but denies any vomiting. Patient denies any diarrhea, melena, or hematochezia. Patient denies any urinary complaints. [facility] Medical History Chronic cholecystitis Depression Gastritis GERD (gastroesophageal reflux disease) Hypothyroid Osteoarthritis PAD (peripheral artery disease) Sleep apnea Home Medications aspirin 81 mg chewable tablet 81 mg PO DAILY 12/07/13 [History Last Taken 01/09/18] levothyroxine 50 mcg tablet 50 mcg PO DAILY 12/07/13 [History Last Taken 01/27/20 05:30] fiujqzkbzanm-Nj-mcio-minerals 1 ea PO DAILY 12/07/13 [History Last Taken 12/10/17 1 EACH] pilocarpine HCl 7.5 mg tablet 7.5 mg PO BID 12/07/13 [History Last Taken 12/10/17 7.5 MG] duloxetine 60 mg capsule,delayed release 60 mg PO BID 12/18/16 [History Last Taken 01/02/18 06:00] albuterol sulfate 90 mcg/actuation aerosol inhaler 1 - 2 puff inhalation PRN PRN Allergies 01/14/20 [History Last Taken Unknown] cholestyramine (with sugar) 4 gram powder for susp in a packet 1 packet PO PRN PRN Diarrhea 01/14/20 [History Last Taken Unknown] cholecalciferol (vitamin D3) 25 mcg (1,000 unit) tablet 1,000 unit PO DAILY 01/21/20 [History Last Taken Unknown] olopatadine 0.7 % eye drops 2.5 ml OP DAILY 01/21/20 [History Last Taken Unknown] omeprazole 20 mg capsule,delayed release 20 mg PO BID 01/21/20 [History Last Taken Unknown] Allergy/AdvReac Type Severity Reaction Status Date / Time erythromycin base AdvReac Nausea Verified 02/21/22 11:58 [Erythromycin Base] hydrocodone bitartrate AdvReac Itching Verified 02/21/22 11:58 [From Vicodin] Family History Mother Breast cancer Hypertension Cancer SKIN Father Cancer Hypertension Surgical History H/O colonoscopy H/O esophagogastroduodenoscopy H/O left knee surgery H/O: hysterectomy History of colonoscopy (~01/2020) History of esophagogastroduodenoscopy (EGD) (~01/2020) left shoulder surgery Parathyroid cyst right foot surgery S/P appendectomy S/P laparoscopic cholecystectomy (~01/13/18) Social History Smoking Status: Current every day smoker tobacco type: cigarettes alcohol intake: never ROS ROS ED Constitutional Constitutional ED: Reports chills and subjective; Denies fever(s) Eyes Eyes: Denies blurry vision or change in vision ENT ENT ED: Denies rhinorrhea or sore throat Cardiovascular Cardiovascular: Denies chest pain or palpitations Respiratory/Chest Respiratory/Chest: Denies cough or dyspnea Gastrointestinal Gastrointestinal: Reports abdominal pain and nausea; Denies diarrhea, melena or vomiting Genitourinary Genitourinary ED: Denies dysuria or hematuria Musculoskeletal Musculoskeletal: Reports back pain; Denies neck pain Integumentary Denies abscess or rash Neurologic Neurologic: Denies headache(s) or weakness Allergic/Immunologic Allergic/Immunologic ED: Denies mouth swelling or urticaria EXAM Physical Exam Const Vital Signs: 02/21/22 11:56 02/21/22 11:57 02/21/22 14:00 Temperature 97.9 F 97.9 F 97.3 F L Temperature Source Temporal Temporal Temporal Pulse Rate 120 H 120 H 89 Respiratory Rate 16 16 13 Blood Pressure 119/85 H 119/85 H 124/71 H Blood Pressure Mean 96 96 88 Pulse Ox 97 97 Oxygen Delivery Method Room Air Room Air 02/21/22 14:00 Temperature Temperature Source Pulse Rate 89 Respiratory Rate 13 Blood Pressure 124/71 H Blood Pressure Mean 88 Pulse Ox Oxygen Delivery Method Positive well nourished, well developed and obese General Appearance ED: well developed and NAD Nutritional Appearance: obese HEENT Reports moist mucous membranes Neck supple and no JVD Resp normal respiratory effort and clear to auscultation bilaterally Cardio regular rate, regular rhythm and no murmurs GI normal to inspection, nondistended, normoactive bowel sounds Palpation: soft and tender epigastric, LUQ and RUQ; Negative for guarding or rebound tenderness present Extremity normal to inspection General Extremety ED: Negative for edema or tenderness General Extremity: Negative for edema Neuro oriented x3, CN's II-XII intact bilaterally and no sensory deficits noted Sensorium / Orientation: alert Motor Exam: strength 5/5 throughout Psych mental status grossly normal Skin no rashes or lesions noted MDM MDM MDM Narrative Medical decision making narrative: Patient was given IV fluids, morphine, and Zofran. CBC shows a mild leukocytosis of 13.9. Hemoglobin was 16.1 and hematocrit was 47.0. Platelets were normal. Comprehensive metabolic profile was essentially within normal limits. Lipase was normal. Urinalysis does not show any evidence of urinary tract infection. Because of the leukocytosis, CT scan of the abdomen pelvis with oral and IV contrast was obtained. There are findings suggesting partial to early complete small bowel obstruction in the mid jejunal level with a transition point. There are increased markings and small amount of fluid in the root of the mesentery. There are mild edematous changes of the anterior lower abdominal wall. There is persistent anterior lower abdominal pelvic hernia containing the anterior aspect of the urinary bladder and nondilated fluid-filled small bowel. This was interpreted by the radiologist and reviewed by myself. NG tube was ordered. Case was discussed with Dr. Valdivia from general surgery. He will be in to evaluate the patient. He recommended obtaining a lactate level. This was ordered and is pending. Dr. Valdivia was in and evaluated the patient. He will admit the patient to his service. Patient understood and was agreeable with the plan. All questions were answered. Lab Data Attestation: I reviewed the patient's lab results. Labs: Laboratory Results - last 24 hr 02/21/22 02/21/22 02/21/22 12:55 13:00 13:00 WBC 13.9 H RBC 4.95 Hgb 16.1 H Hct 47.0 MCV 94.9 MCH 32.5 H MCHC 34.3 RDW Std Deviation 46.7 H RDW Coeff of Angel 13.4 Plt Count 412 MPV 9.1 Immature Gran % (Auto) 0.600 Neut % (Auto) 77.3 H Lymph % (Auto) 12.6 L Becker % (Auto) 8.0 Eos % (Auto) 1.1 Baso % (Auto) 0.4 Absolute Neuts (auto) 10.8 H Absolute Lymphs (auto) 1.75 Nucleated RBC % 0 Sodium 140 Potassium 4.2 Chloride 102 Carbon Dioxide 30.0 Anion Gap 8 BUN 13 Creatinine 1.14 H Estim Creat Clear Calc 36.75 Est GFR (MDRD) Af Amer 62 Est GFR (MDRD) Non-Af 51 L BUN/Creatinine Ratio 11.4 Glucose 136 H Calcium 10.1 Total Bilirubin 0.30 AST 25 ALT 47 Alkaline Phosphatase 124 H Total Protein 7.8 Albumin 3.8 Globulin 4.0 Albumin/Globulin Ratio 1.0 Lipase 118 Urine Color Yellow Urine Clarity Clear Urine pH 6.0 Ur Specific [place] 1.020 Urine Protein 30 H Urine Glucose (UA) Normal Urine Ketones Negative Urine Occult Blood Negative Urine Nitrite Negative Urine Bilirubin Negative Urine Urobilinogen Normal Ur Leukocyte Esterase 25 H Urine RBC 0 SEEN Urine WBC 0-5 SEEN Ur Squamous Epith Cells 5-10 SEEN Urine Bacteria 0 SEEN Urine Mucus 0 SEEN Radiography Diagnostic Testing: Clinical Impression(s) from Imaging Studies Abdomen/Pelvis CT 02/21/22 13:36 IMPRESSION: Findings suggestive of a partial to early complete small bowel obstruction in the mid jejunal level with a transition point. Increased markings and small amount of fluid in the root of the mesentery. Internal hernia should be ruled out. Mild edematous changes in the anterior lower and abdominal wall. Persistent anterior low abdominal pelvic hernia containing anterior aspect of the urinary bladder and nondilated fluid-filled small bowel. Electronically Signed: Minor Gonzalez MD at 15:30 EDT , Discharge Plan Dx/Rx/DC Orders Clinical Impression: Small bowel obstruction, Abdominal pain, Leukocytosis Disposition Disposition: Acute Care [facility]
[2022-02-21] MEDS: 0.9% Normal Saline 1,000 ML 1000 ML IV (13:03)
[2022-02-21] MEDS: Morphine 4 MG/ML Syringe IV ×3 (13:03→19:55)
[2022-02-21] MEDS: Ondansetron 4 MG/2 ML Vial IV ×2 (13:03→17:19)
[2022-02-21 13:10] LABS: Bacteria 0 SEEN /hpf (None Seen); Mucous, Urine 0 SEEN /hpf (<or=2+); Red Blood Cells-Urine 0 SEEN /hpf (0-5)
[2022-02-21 13:17] LABS: Absolute Lymphocyte Count 1.75 X10^3/uL (0.83-4.51); Absolute Neutrophil Count 10.8 X10^3/uL (2.0-7.7); Basophil# 0.06 X10^3/uL; Basophil% 0.4 % (0-1); Eosinophil# 0.15 X10^3/uL; Eosinophils% 1.1 % (0-5); Hemoglobin 16.1 g/dL (12.0-15.0); Lymphocyte # 1.75 X10^3/ul (0.83-4.51); Lymphocyte % 12.6 % (19-41); Mean Corp Hgb Conc 34.3 g/dL (32-36); Mean Corpuscular Hgb 32.5 pg (27.0-32.0); Mean Corpuscular Volume 94.9 fL (81-99); Mean Platelet Vol. 9.1 fl (6.2-12.0); Monocyte# 1.12 X10^3/uL; NRBC Flagged by Analyzer 0 % (0-5); Neutrophil # 10.76 X10^3/uL (2.7-7.7); Neutrophil % 77.3 % (47-70); Platelet Count 412 K/mm3 (150-450); RBC Distribution Width CV 13.4 % (11.6-14.6); RBC Distribution Width SD 46.7 fl (35.1-43.9); Red Blood Count 4.95 M/mm3 (4.2-5.4); White Blood Count 13.9 K/mm3 (4.4-11.0)
[2022-02-21 13:20] LABS: Color, Urine Yellow (Yellow); Glucose, Dipstick Normal (Normal); Ketone-Dipstick Negative (Negative); Leukocyte Esterase-Dipstick 25 /ul (Negative); Nitrite-Dipstick Negative (Negative); Occult Blood-Urine Negative /ul (Negative); Protein-Dipstick 30 mg/dl (Negative); Urine Bilirubin Dipstick Negative (Negative); Urine Clarity Clear (Clear); Urine Urobilinogen Normal (Normal)
[2022-02-21 13:27] LABS: AST(SGOT) 25 U/L (15-37); Alanine Aminotransfer ALT/SGPT 47 U/L (13-56); Albumin, Serum 3.8 g/dL (3.2-5.0); Alkaline Phosphatase 124 U/L (45-117); Anion Gap 8 (5-15); BUN 13 mg/dL (7-18); BUN/Creat Ratio 11.4 RATIO (10-20); Calcium,Total 10.1 mg/dL (8.5-10.1); Chloride 102 mmol/L (98-107); Creatinine, Serum 1.14 mg/dL (0.55-1.02); EST Glomerular Filtration Rate 51 mL/min (>60); Est Glom Filt Rate - Afr Amer 62 mL/min (>60); Estimated Creatinine Clearance 36.75 ml/min; Glucose 136 mg/dL (74-106); Lipase 118 U/L (73-393); Potassium 4.2 mmol/L (3.5-5.1); Protein, Total 7.8 g/dL (6.4-8.2); Sodium Level 140 mmol/L (136-145)
[2022-02-21 13:28] LABS: Squamous Epithelial Cells - UA 5-10 SEEN /hpf (5-10); White Blood Cells 0-5 SEEN /hpf (0-5)
--- NOTE | 2022-02-21 13:36 | CT_ITS ---
STUDY: CT ABDOMEN AND PELVIS WITH CONTRAST REASON FOR EXAM: Female, 61 years old. Worsening upper abdominal pain. RADIATION DOSAGE (If Supplied By Facility): CTDIvol = ( 16.47 ) mGy, DLP = ( 1172.75 ) mGycm TECHNIQUE: Transaxial images were obtained from the dome of the diaphragm to the symphysis pubis without oral contrast. IV 100mL Isovue-300 was administered. Sagittal and coronal images were reconstructed. Individualized dose optimization techniques were used for this CT. COMPARISON: Comparison is made with prior study dated 12/07/2013. FINDINGS: The visualized lung bases are unremarkable. The visualized portions of the heart are within normal limits. There is decreased attenuation of the liver consistent with steatosis. Mild hepatomegaly. The patient is status post cholecystectomy. Normal spleen. Normal pancreas. Normal bilateral adrenal glands. Normal right kidney. Normal left kidney. Normal visualized stomach. Mildly dilated small bowel loops in the upper abdomen. There appears to be a transition zone in the mid jejunal level. Increased markings are seen within the root of the mesentery at that site. Small amount of free fluid is seen within the deep root of the mesentery. Possible internal hernia at that site should be ruled out. Clinical correlation is recommended. Normal colon. There is non-visualization of the appendix. There is scattered atherosclerotic calcification of the abdominal aorta, without a demonstrated aneurysm. Normal inferior vena cava. There is borderline retroperitoneal lymphadenopathy with enlarged nodes no greater than 10mm in the short axis diameter. Normal urinary bladder. There is absence of the uterus consistent with a prior hysterectomy. Mild edematous changes along the anterior mid and lower anterior abdominal wall. Once again, there is evidence of a ventral hernia in the low anterior abdominal or pelvic wall containing a portion the anterior urinary bladder and nondilated fluid-filled small bowel loops. There are diffuse degenerative changes of the visualized lumbar spine. CT/Abdomen/Pelvis WITH Contrast IMPRESSION: Findings suggestive of a partial to early complete small bowel obstruction in the mid jejunal level with a transition point. Increased markings and small amount of fluid in the root of the mesentery. Internal hernia should be ruled out. Mild edematous changes in the anterior lower and abdominal wall. Persistent anterior low abdominal pelvic hernia containing anterior aspect of the urinary bladder and nondilated fluid-filled small bowel. Electronically Signed: Minor Gonzalez MD at 15:30 EDT ,
[2022-02-21] MEDS: Oxymetazoline 0.05% 1 SPRAY SPRAY.BTL 2 SPRAY NASAL (16:57)
[2022-02-21 17:09] LABS: Lactic Acid 1.3 mmol/L (0.4-1.9)
--- NOTE | 2022-02-21 17:32 | RAD_ITS ---
EXAM: XR ABDOMEN, 1 VIEW CLINICAL INDICATION: NG Insertion TECHNIQUE: Frontal supine view of the abdomen/pelvis. This report was created using [employer] report generation technology. COMPARISON: None. FINDINGS: LOWER THORAX: No acute pathology. GASTROINTESTINAL TRACT: Unremarkable. Non-obstructive. No bowel or stomach distention. ORGANS: Unremarkable as visualized. No organomegaly. No abnormal calcifications. BONES/JOINTS: No acute pathology. SOFT TISSUES: No acute pathology. TUBES, LINES AND DEVICES: There is a feeding tube/ nasogastric tube noted. The tip is in the region of the stomach. RAD/Abdomen Single View (Portable) IMPRESSION: There is a feeding tube/ nasogastric tube noted. The tip is in the region of the stomach. Electronically Signed: Demar Faust MD at 17:46 EDT ,
--- NOTE | 2022-02-21 17:34 | HP.PCM_ITS ---
HPI - General General Date of Admission: 02/21/22 Date of Service: 02/21/22 Chief Complaint: Acute onset abdominal pain HPI Narrative KRANTHI PARKER, is a 61 F who presents to [facility] with complaints of acute onset abdominal pain yesterday afternoon. She describes this pain as predominantly crampy and achy. The pain kept her from sleep last evening and has continued into today. She describes the pain as mainly affec ting her upper abdominal quadrants with the left greater than right. She has had some nausea but no vomiting. She has had her usual loose bowel movement today and continues to pass flatus. She additionally describes some chills, but no objective fever was recorded. She initially denies any sick contacts, but then amends this response after talking with her brother is in the room and recalls going to a outside hospital to visit a friend just under a week ago. She also reports a visit to hospice center for the same friend after that visit. She denies any new foods. She confirms that she is urinating well. Surgery is consulted because patient had CT imaging which was concerning for an early complete bowel obstruction and possible internal hernia. Laboratories were also notable for leukocytosis of 13.9 thousand. Patient has a history of an appendectomy, cholecystectomy, and hysterectomy. She states that she had unusual presentations preceding each of these operations?and specifically details a exploratory procedure with Dr. Moreno that ultimately led to her appendectomy, but was occasioned by the presence of a lot of intra-abdominal fluid (ascites?). Additionally, she reports laser-like operation for liposuction. [facility] Medical History Chronic cholecystitis Depression Gastritis GERD (gastroesophageal reflux disease) Hypothyroid Osteoarthritis PAD (peripheral artery disease) Sleep apnea Home Medications levothyroxine 50 mcg tablet 50 mcg PO DAILY 12/07/13 [History Last Taken 01/27/20 05:30] hpvawlgdnkcd-Lc-uhrd-minerals 1 ea PO DAILY 12/07/13 [History Last Taken 12/10/17 1 EACH] pilocarpine HCl 7.5 mg tablet 7.5 mg PO BID 12/07/13 [History Last Taken 12/10/17 7.5 MG] duloxetine 60 mg capsule,delayed release 40 mg PO BID 12/18/16 [History Last Taken 01/02/18 06:00] albuterol sulfate 90 mcg/actuation aerosol inhaler 1 - 2 puff inhalation PRN PRN Allergies 01/14/20 [History Last Taken Unknown] cholecalciferol (vitamin D3) 25 mcg (1,000 unit) tablet 1,000 unit PO DAILY 01/21/20 [History Last Taken Unknown] omeprazole 20 mg capsule,delayed release 20 mg PO BID 01/21/20 [History Last Taken Unknown] amlodipine 5 mg tablet 5 mg PO DAILY 02/21/22 [History Last Taken Unknown] losartan 100 mg tablet 100 mg PO DAILY 02/21/22 [History Last Taken Unknown] nortriptyline 10 mg capsule 10 mg PO DAILY 02/21/22 [History Last Taken Unknown] ofloxacin 0.3 % eye drops drp 02/21/22 [History Last Taken Unknown] Allergy/AdvReac Type Severity Reaction Status Date / Time erythromycin base AdvReac Nausea Verified 02/21/22 11:58 [Erythromycin Base] hydrocodone bitartrate AdvReac Itching Verified 02/21/22 11:58 [From Vicodin] Family History Mother Breast cancer Hypertension Cancer SKIN Father Cancer Hypertension Surgical History H/O colonoscopy H/O esophagogastroduodenoscopy H/O left knee surgery H/O: hysterectomy History of colonoscopy (~01/2020) History of esophagogastroduodenoscopy (EGD) (~01/2020) left shoulder surgery Parathyroid cyst right foot surgery S/P appendectomy S/P laparoscopic cholecystectomy (~01/13/18) Social History Smoking Status: Current every day smoker tobacco type: cigarettes alcohol intake: never ROS Constitutional Constitutional: Reports chills; Denies fever(s) Gastrointestinal Gastrointestinal: Reports abdominal pain, diarrhea and nausea; Denies constipation, hematochezia, melena or vomiting Genitourinary Genitourinary: Denies dysuria or oliguria Musculoskeletal Musculoskeletal: Reports extremity pain Vital Signs Vital Signs Vital Signs: 02/21/22 11:56 02/21/22 11:57 02/21/22 14:00 Temperature 97.9 F 97.9 F 97.3 F L Temperature Source Temporal Temporal Temporal Pulse Rate 120 H 120 H 89 Respiratory Rate 16 16 13 Blood Pressure 119/85 H 119/85 H 124/71 H Blood Pressure Mean 96 96 88 Pulse Ox 97 97 Oxygen Delivery Method Room Air Room Air 02/21/22 14:00 02/21/22 17:16 02/21/22 17:16 Temperature 98.1 F Temperature Source Oral Pulse Rate 89 98 98 Respiratory Rate 13 18 18 Blood Pressure 124/71 H 121/81 H 121/81 H Blood Pressure Mean 88 94 94 Pulse Ox Oxygen Delivery Method Weight Weight: 198 lb Body Mass Index (BMI) 38.7 Physical Exam Const alert, oriented x3 and no apparent distress General Appearance: cooperative HEENT normocephalic Resp normal respiratory effort GI GI Narrative: Obese, well-healed port site incisions, well-healed lower midline laparotomy incision. Mildly distended. Soft, but tender to palpation in left upper quadrant with some involuntary guarding. Results Lab / Micro Data Result Diagrams: 02/21/22 13:00 02/21/22 13:00 Labs: Laboratory Results - last 24 hr 02/21/22 12:55: Urine Color Yellow, Urine Clarity Clear, Urine pH 6.0, Ur Specific [place] 1.020, Urine Protein 30 H, Urine Glucose (UA) Normal, Urine Ketones Negative, Urine Occult Blood Negative, Urine Nitrite Negative, Urine Bilirubin Negative, Urine Urobilinogen Normal, Ur Leukocyte Esterase 25 H, Urine RBC 0 SEEN, Urine WBC 0-5 SEEN, Ur Squamous Epith Cells 5-10 SEEN, Urine Bacteria 0 SEEN, Urine Mucus 0 SEEN 02/21/22 13:00: WBC 13.9 H, RBC 4.95, Hgb 16.1 H, Hct 47.0, MCV 94.9, MCH 32.5 H , MCHC 34.3, RDW Std Deviation 46.7 H, RDW Coeff of Angel 13.4, Plt Count 412, MPV 9.1, Immature Gran % (Auto) 0.600, Neut % (Auto) 77.3 H, Lymph % (Auto) 12.6 L, [place] % (Auto) 8.0, Eos % (Auto) 1.1, Baso % (Auto) 0.4, Absolute Neuts (auto) 10.8 H, Absolute Lymphs (auto) 1.75, Nucleated RBC % 0 02/21/22 13:00: Sodium 140, Potassium 4.2, Chloride 102, Carbon Dioxide 30.0, Anion Gap 8, BUN 13, Creatinine 1.14 H, Estim Creat Clear Calc 36.75, Est GFR (MDRD) Af Amer 62, Est GFR (MDRD) Non-Af 51 L, BUN/Creatinine Ratio 11.4, Gluco se 136 H, Calcium 10.1, Total Bilirubin 0.30, AST 25, ALT 47, Alkaline Phosph atase 124 H, Total Protein 7.8, Albumin 3.8, Globulin 4.0, Albumin/Globulin Ratio 1.0, Lipase 118 02/21/22 16:25: Lactic Acid 1.3 Radiology Impression Abdomen/Pelvis CT 02/21/22 13:36 IMPRESSION: Findings suggestive of a partial to early complete small bowel obstruction in the mid jejunal level with a transition point. Increased markings and small amount of fluid in the root of the mesentery. Internal hernia should be ruled out. Mild edematous changes in the anterior lower and abdominal wall. Persistent anterior low abdominal pelvic hernia containing anterior aspect of the urinary bladder and nondilated fluid-filled small bowel. Electronically Signed: Minor Gonzalez MD at 15:30 EDT , Assessment & Plan Assessment/Plan (1) Partial small bowel obstruction: PLAN: This is a 61-year-old female whom I am consulted for evaluation of possible small bowel obstruction. She continues to have bowel function and confirms ongoing flatus with normal bowel movement earlier today. Therefore this would represent a partial small bowel obstruction if there is a mechanical element to this presentation. Radiology also reported CT is concerning for possible internal hernia. However, patient confirms her surgical history and denies any prior bowel anastomosis?rendering this an infeasible possibility. I also maintain a suspicion for a infectious ileus process given her ongoing bowel function, and admitted to contact with healthcare facility in the last week. On exam, patient is overall soft, but tender in the left upper quadrant with palpation. She also has some suprapubic tenderness. She reports the latter complaint is fairly stable. Emergency medicine has already ordered a nasogastric tube which is pending. I requested a lactic acid which is within the range of normal. Taking the above presentation together, I recommended proceeding with a conservative approach to patient's condition and will see how she progresses with bowel decompression via her nasogastric tube. This was explained to both patient and her brother who is at bedside. Patient does have a history of obstructive morphology with review of a CT of the abdomen pelvis from 2013. This appears to be the imaging on which her exploratory surgery was based performed by Dr. Moreno. It is noted that her lower abdominal hernia is stable in size and appearance from that date till now?including bladder protrusion into the abdominal wall defect. Patient has asked whether this hernia could be repaired, and I have stated I would defer t his management to a tertiary center given its location and proximity to the pubic bone. PLAN: Plan Neuro: As needed morphine, can consider addition of Chloraseptic for nasogastric tube irritation if arises Pulm/CV: As needed home albuterol ordered, patient asked to maintain head of bed at least 30 degrees elevated, as needed hydralazine given usual use of antihypertensives, telemetry given presenting tachycardia FEN/GI: Electrolyte monitoring with daily labs, strict n.p.o., nasogastric tube to low intermittent wall suction : No acute issues Heme/ID: Daily labs?current labs suggest some dehydration. No indication currently present for initiation of antibiotics, but will trend WBC Endo: No acute issues Proph: SCDs, hold on chemoprophylaxis for the time being Dispo: Admit inpatient
[2022-02-21] MEDS: 0.9% Normal Saline 1,000 ML 125 ML IV (18:47)
[2022-02-21] MEDS: Ketorolac 15 MG/ML Vial IV (23:52)
[2022-02-22] VITALS (15 sets, daily range): BP systolic 115–152; BP diastolic 56–89; PULSE 83–115; RESP 16–20; TEMP 36.5–37.3; O2SAT 90–96; BMI 41.2
[2022-02-22] MEDS: Morphine 4 MG/ML Syringe IV ×2 (00:48→13:05)
[2022-02-22] MEDS: 0.9% Normal Saline 1,000 ML 125 ML IV ×3 (02:24→23:01)
[2022-02-22 06:13] LABS: Absolute Lymphocyte Count 2.11 X10^3/uL (0.83-4.51); Absolute Neutrophil Count 5.3 X10^3/uL (2.0-7.7); Basophil# 0.07 X10^3/uL; Basophil% 0.8 % (0-1); Eosinophils% 3.3 % (0-5); Hematocrit 40.4 % (37-47); Hemoglobin 13.3 g/dL (12.0-15.0); Lymphocyte # 2.11 X10^3/ul (0.83-4.51); Lymphocyte % 23.3 % (19-41); Mean Corp Hgb Conc 32.9 g/dL (32-36); Mean Corpuscular Hgb 31.8 pg (27.0-32.0); Mean Corpuscular Volume 96.7 fL (81-99); Mean Platelet Vol. 9.2 fl (6.2-12.0); Monocyte# 1.18 X10^3/uL; NRBC Flagged by Analyzer 0 % (0-5); Neutrophil # 5.32 X10^3/uL (2.7-7.7); Neutrophil % 58.7 % (47-70); Platelet Count 328 K/mm3 (150-450); RBC Distribution Width CV 13.8 % (11.6-14.6); RBC Distribution Width SD 48.8 fl (35.1-43.9); Red Blood Count 4.18 M/mm3 (4.2-5.4); White Blood Count 9.1 K/mm3 (4.4-11.0)
[2022-02-22 06:45] LABS: Anion Gap 7 (5-15); BUN 16 mg/dL (7-18); BUN/Creat Ratio 11.9 RATIO (10-20); Calcium,Total 8.5 mg/dL (8.5-10.1); Chloride 106 mmol/L (98-107); Creatinine, Serum 1.35 mg/dL (0.55-1.02); EST Glomerular Filtration Rate 42 mL/min (>60); Est Glom Filt Rate - Afr Amer 51 mL/min (>60); Estimated Creatinine Clearance 31.04 ml/min; Glucose 119 mg/dL (74-106); Magnesium 1.9 mg/dL (1.6-2.6); Phosphorus 4.8 mg/dL (2.5-4.9); Potassium 4.1 mmol/L (3.5-5.1); Sodium Level 141 mmol/L (136-145)
--- NOTE | 2022-02-22 08:25 | EKG12_ITS ---
Test Reason : PRE-OP Blood Pressure : / mmHG Vent. Rate : 095 BPM Atrial Rate : 095 BPM P-R Int : 124 ms QRS Dur : 084 ms QT Int : 344 ms P-R-T Axes : 019 -48 064 degrees QTc Int : 432 ms Normal sinus rhythm Left anterior fascicular block Abnormal ECG When compared with ECG of 20-NOV-2017 16:51, No significant change was found Confirmed by REBEL YOUNGBLOOD, BILL ([id number]), newspaper or periodical editor SAJAN MARTINEZ ([id number]) on 02/23/2022 2:24:48 PM Referred By: DAY Confirmed By:FRANCI LUQUE MD
[2022-02-22 09:00] LABS: Thyroid Stim Hormone (TSH) 2.38 uIU/mL (0.358-3.74)
[2022-02-22] MEDS: Lactated Ringers 1,000 ML 15 ML IV (09:12)
--- NOTE | 2022-02-22 11:50 | CASEMGMT ---
RN CM SCREEN PRINTING SUPERVISOR CM to room to meet with patient for initial transition planning/care coordination assessment. JESS CABRERA introduced self and role at [facility]. Pt voices understanding and consents to assessment at this time. Pt resting in bed in no distress at this time. Pt is A/O at this time and answers all questions appropriately. Care providers, pharmacy, and demographics verified/updated at this time. PCP: Dr Juany Jacob Specialists: none Preferred Pharmacy: [facility] Retail Insurance: [employer] Prescription Benefit: Yes Living Will/HPOA: Pt does not currently have LW/HCPOA and interested in talking w/SW to complete. Teresita, CORINNA, notified. LNOK: sonJay. Dtr, Juany Living Arrangements: Lives alone in 2-story home w/2 steps to enter. FFSU. Denies difficulty w/stairs. Independent w/ADL's and IADL's. Transportation: Pt states drives self and states no transportation concerns at this time. DME: Has a BIPAP, she got through [employer]. Denies having other DME and denies needs. HHC/SNF: No hx of either. Denies need for HHC and no needs identified. Pt wishes to return home and states has no concerns with going home at time of discharge. CM to follow for any further discharge planning/needs. Pt voices no further concerns/needs at this time. Advised pt to ask for CM if any further questions/concerns/needs arise. Voices understanding. PLAN: Home w/discharge plans in place. Abraham ELLINGTON RN, CM
--- NOTE | 2022-02-22 13:40 | PCM.PN.SRG ---
Subjective Subjective She was seen and examined during AM rounds. She reports feeling somewhat better. She denies an appetite. She does complains of thirst and headache. She confirms the record that she had several bowel movements of loose stools. Objective Data Objective Data Vital Signs: Vital Signs Temp Pulse Resp BP Pulse Ox O2 Del Method 97.8 F 101 H 20 H 141/80 H 96 Room Air 02/22/22 08:15 02/22/22 11:38 02/22/22 08:15 02/22/22 08:15 02/22/22 08:15 02/22/22 08:15 Oxygen Delivery Method Room Air Weight: 210 lb 15.718 oz Body Mass Index (BMI) 41.2 Intake & Output: Intake and Output for Last 24 Hours 02/20/22 02/21/22 02/22/22 23:59 23:59 23:59 Intake Total 1050 / 1050 1952.08 / 195.08 Output Total 525 / 525 Balance 1050 / 1050 1427.08 / 1427.08 Lab / Micro Data Result Diagrams: 02/22/22 05:55 02/22/22 05:55 Labs: Laboratory Results - last 24 hr 02/21/22 16:25: Lactic Acid 1.3 02/22/22 05:55: WBC 9.1, RBC 4.18 L, Hgb 13.3, Hct 40.4, MCV 96.7, MCH 31.8, MCHC 32.9, RDW Std Deviation 48.8 H, RDW Coeff of Angel 13.8, Plt Count 328, MPV 9.2, Immature Gran % (Auto) 0.900, Neut % (Auto) 58.7, Lymph % (Auto) 23.3, [place] % (Auto) 13.0 H, Eos % (Auto) 3.3, Baso % (Auto) 0.8, Absolute Neuts (auto) 5.3, Absolute Lymphs (auto) 2.11, Nucleated RBC % 0 02/22/22 05:55: Sodium 141, Potassium 4.1, Chloride 106, Carbon Dioxide 28.0, Anion Gap 7, BUN 16, Creatinine 1.35 H, Estim Creat Clear Calc 31.04, Est GFR (MDRD) Af Amer 51 L, Est GFR (MDRD) Non-Af 42 L, BUN/Creatinine Ratio 11.9, Glucose 119 H, Calcium 8.5, Phosphorus 4.8, Magnesium 1.9 02/22/22 05:55: TSH 2.38 Radiography Diagnostic Testing: Radiology Impression Abdomen/Pelvis CT 02/21/22 13:36 IMPRESSION: Findings suggestive of a partial to early complete small bowel obstruction in the mid jejunal level with a transition point. Increased markings and small amount of fluid in the root of the mesentery. Internal hernia should be ruled out. Mild edematous changes in the anterior lower and abdominal wall. Persistent anterior low abdominal pelvic hernia containing anterior aspect of the urinary bladder and nondilated fluid-filled small bowel. Electronically Signed: Minor Gonzalez MD at 15:30 EDT , KUB X-Ray 02/21/22 17:32 IMPRESSION: There is a feeding tube/ nasogastric tube noted. The tip is in the region of the stomach. Electronically Signed: Demar Faust MD at 17:46 EDT , Physical Exam Const oriented x3 Constitutional Narrative: Mild distress from his gastric tube and headache Resp normal respiratory effort GI GI Narrative: Slightly less distended, tender to palpation of the left upper quadrant with guarding Assessment & Plan Assessment/Plan (1) Partial small bowel obstruction: PLAN: Patient is hospital day 2 for partial small bowel obstruction. She has had ongoing bowel function overnight, however, there is been just marginal improvement in her exam. She seems more symptomatic out of proportion with her imaging. Given this discordance, I have recommended diagnostic laparoscopy. Patient is excepting of this recommendation. Plan to proceed to the OR later today for this procedure and all others as indicated. Neuro: As needed morphine, acetaminophen 500 mg x 1 and clamped NG for 2 hours thereafter for patient's headache, can consider addition of Chloraseptic for nasogastric tube irritation if arises Pulm/CV: As needed home albuterol ordered, patient asked to maintain head of bed at least 30 degrees elevated, as needed hydralazine given usual use of antihypertensives, telemetry given presenting tachycardia FEN/GI: Electrolyte monitoring with daily labs, patient demonstrates SJ per labs we will hold further NSAIDs, strict n.p.o., nasogastric tube to low intermittent wall suction : No acute issues Heme/ID: Daily labs?current labs suggest some dehydration.? No indication currently present for initiation of antibiotics, but will trend WBC (normal with today's labs) Endo: No acute issues Proph: SCDs, hold on chemoprophylaxis for the time being Dispo: Admit inpatient Charges/Coding Visit Charges Inpatient E&M: 69441 Subs Hosp L2
--- NOTE | 2022-02-22 15:50 | COL_PTH ---
PATIENT: KRANTHI PARKER LOC: [facility]3 U#:[id number] AGE/SX: 61/F ROOM: ME323 RE02/21/[address]: Dr. Víctor Valdivia MD : 1960 BED: 1 DIS: 03/01/2022 SPEC #: [id number] RECD: 02/23/22 12:22 STATUS: DINA RIDDLE #: [id number] YOBANY: 02/22/22 15:[address]: Víctor Valdivia DEPT: SURGICAL PATHOLOGY RECD BY: Simin Perera ENTERED: 02/23/22 12:47 SP TYPE: COLON OTHR DR: Dr. Juany Jacob, DO Tissues: Colon, NOS Procedures: Surgery Specimen Level V HEADER OPERATION: Diagnostic laparoscopy, lysis of adhesions, laparotomy PRE-OP DIAGNOSIS: Partial small bowel obstruction TISSUE SUBMITTED: Jejunum MICROSCOPIC DIAGNOSIS Jejunum, segmental resection: Serosa with fibrosis, fibrinoid material, vascular congestion and acute serositis consistent with adhesions. Mucosa with focal benign lymphoid hyperplasia. See comment. AM:malini 02/28/2022 COMMENT The pathologic changes are identified in all three segments of small bowel. Clinical correlation is suggested. MICROSCOPIC DESCRIPTION Slides are reviewed. GROSS DESCRIPTION Received in fixative is one container labeled with the patient's name and designated jejunum. The specimen consists of three segments of small bowel. Both resections margins are stapled. The largest segment measures 22 cm in length. No mucosal lesion is identified. Attached mesenteric tissue measures up to 2.5 cm in width. The second intermediate segment measures 10 cm in length. Both resection margins are stapled. The serosal surface is ragged. No mucosal lesion is identified. Attached mesenteric tissue measures up to 3 cm in width. The third piece of small bowel consists of [id number] anastomosis with stapled resection margin. Both anastomotic segments measure 6.5 and 5 cm in length. The lumen contains hemorrhagic material. Attached mesenteric tissue measures up to 3 cm in width. No mucosal lesion is identified. Anastomotic area appears intact. Sections will be submitted after fixation. / SJ:malini 02/23/2022 Sections of the mesenteric tissue do not reveal any obviously enlarged lymph nodes. Race Board Attendant sections are submitted in 12 cassettes as follows: 1-6 - largest segment (1 - resection margin, 2-4 - area of serosal ragged surface, 5 - other area, 6 - mesenteric tissue), 7-9 - intermediate sized segment (7??resection margin, 8 - area with ragged serosal surface, 9 - route sales representative section from the other area and mesenteric tissue), 10-12 - smallest segment (10 - resection margin, 11 - route sales representative section on either side of anastomosis, 12 - mesenteric tissue). / KE:malini 02/27/2022 TC:2 CPT: 47950
[2022-02-22] MEDS: Cefazolin 2 GM in 0.9% Normal Saline 100 ML IV (16:30)
[2022-02-22] MEDS: BUPIVACAINE LIPOSOME/PF 20 ML VIAL OPERA.SITE (18:00)
[2022-02-22] MEDS: Bupivacaine 0.25% 30 ML Vial (18:00)
--- NOTE | 2022-02-22 20:35 | NURSING ---
Pt remain off unit
--- NOTE | 2022-02-22 20:44 | PCM.OPRPT ---
Report of Operation Date of Procedure: 02/22/22 Pre-Operative Diagnosis: Partial small bowel obstruction with peritoneal signs Post-Operative Diagnosis: Small bowel obstruction secondary to dense adhesions of bowel to the abdominal wall in the left upper quadrant Surgery/Procedure Performed:: 1. Diagnostic laparoscopy 2. Lysis of adhesions (>120 minutes) 3. Exploratory laparotomy 4. Small bowel resection x3 with primary stapled [id number] functional end to end anastomoses 5. Transversus abdominis plane block Surgeon: Víctor Valdivia metal cnc operator: Bethanie Camilo Type of Anesthesia: General/Supplemental Anesthesiologist: Davis Koroma Special Medications: Liposomal bupivacaine Specimen's removed: Sections of jejunum totaling 57 cm in length Drains: 15 Swedish Wolf drain Estimated Blood Loss (mL): 150 Description of Procedure: After appropriate identification in the preoperative holding area patient was brought to the operating room where she was positioned supine the operating room table. There she was administered preoperative antibiotics and induced with general anesthetic. Abdomen was prepped and draped in usual sterile fashion. Formal timeout was conducted to confirm both patient and procedure. Procedure was begun with a Hutson cutdown in the midepigastrium along the midline. A finger sweep was made and confirmed peritoneal entry then a 12 mm balloon Hutson trocar was inserted. Pneumoperitoneum was established at 15 mmHg. Laparoscopic investigation revealed no inadvertent injury to the viscera below. We did, however, identify significant adhesions in the midline and left upper quadrant between the small bowel/omentum and the anterior abdominal wall. The right upper quadrant appeared to be relatively void of adhesions so I placed 2X 5 mm trocars handsbreadth apart and this area under laparoscopic visualization. A period of extensive adhesiolysis (greater than 120 minutes) ensued. A combination of sharp and blunt dissection was employed. Unfortunately despite trying to take portions of the peritoneum rather than the bowel serosa, during this process several unavoidable enterotomies were revealed. Therefore, once the anterior abdominal wall was free of adhesions, I proceeded with a limited laparotomy incision?incorporating our epigastric 12 mm balloon trocar port site into the incision length. Just prior to making this incision, I performed a transversus abdominis plane block using 34 mL of liposomal bupivacaine (Exparel). Following the laparotomy incision a medium sized wound protector was placed and the bowel was eviscerated. Our enterotomies were identified and temporarily closed with Velia clamps. Once we were clearly into decompressed bowel territory that was uninvolved by the intense adhesive process, we returned to the enterotomies and performed a small bowel resection of a length of the jejunum that measured 15 cm. A stapled, [id number] functional end-to-end anastomosis was created. The mesenteric defect was closed with a running 3-0 Vicryl and a 3-0 silk stitch was placed as a crotch stitch. Moving more proximally there appeared to be a defect of the bowel mesentery and then a larger enterotomy. Approximately 3 cm proximal to this there was a second partial thickness injury of the bowel. Therefore I elected to perform a second bowel resection of jejunum. When this bowel was passed off the field it was measured at 26 cm in length. Again, a stapled [id number], functional end-to-end anastomosis was created in standard fashion. Again, the mesenteric defect was closed with a running 3-0 Vicryl and a 3-0 silk stitch was used to reinforce the crotch of the staple line. The same silk stitch was also used to Lembert the staple line on the common channel. Unfortunately, as the second anastomosis was created, we observed some duskiness to the afferent limb of the initial anastomosis. It appeared malperfused secondary to some over cutting of the small bowel mesentery. With this observation, I elected to redo this anastomosis and resected it. When this was passed off the field it measured 16 cm in length. This anastomosis was then reformed with much better perfusion. The mesenteric defect was closed with running 3-0 Vicryl and again the crotch of the staple line was reinforced with a 3-0 silk. The bowel was run slightly more proximally and I identified a serosal tear. Here I performed interrupted Lembert sutures using two 3-0 silk sutures to dunk this serosal tear. The bowel was then returned to the peritoneum and run more proximally until I encountered the ligament of Treitz. There appeared to be no further issues and the entirety of the small bowel was returned to the peritoneum. I palpated for the nasogastric tube and requested some slight advancement of the tube under direct palpation from anesthesia. This was then secured in place at that location. Greater than 3 L of warmed sterile saline were used to irrigate the peritoneum and this was suctioned free. A 15 Swedish round Wolf drain was placed in the left abdomen after a stab incision was made in the left lower quadrant in the drain was secured at the abdominal wall using a 3-0 nylon suture. The abdominal fascia was closed using 2X #1 PDS in a bidirectional fashion and tying them in the middle. The subcutaneous layer was irrigated and hemostasis was obtained with electrocautery. The previously inserted and remaining 2X 5 mm trocars were withdrawn and these port sites were closed with skin stapler. The same technique was used for the limited laparotomy incision. A silver dressing was applied for the laparotomy incision. A Santos catheter was then placed with sterile technique given the duration of the procedure and the need for ongoing ins and outs monitoring. Patient was awakened from anesthesia and placed in a abdominal binder on transfer to her hospital bed. She was then transferred to PACU for ongoing recovery. Complications Inadvertent, unavoidable enterotomies requiring bowel resections Admit VTE Documentation VTE Present on Admission: Yes VTE Mechan Device Prophylaxis: SCD's
--- NOTE | 2022-02-22 21:36 | SUR.PHASEI ---
THIS NURSE ANUPAMA REDD PUT IN THE INITIAL POST OPERATIVE ASSESSMENT NOT ANA NICE. WHEN I LOGGED IN THE COMPUTER UNDER MY NAME SOME HOW IT DOCUMENTED UNDER ANA. ANA WAS NOT HERE AT THIS TIME.
[2022-02-22] MEDS: 0.9% Saline Lock 10 ML Syringe IV (22:51)
[2022-02-22] MEDS: Ondansetron 4 MG/2 ML Vial IV (22:51)
[2022-02-22] MEDS: HYDROmorphone 0.5 MG/0.5 ML SYRINGE IV (22:51)
[2022-02-23] VITALS (30 sets, daily range): BP systolic 111–140; BP diastolic 62–80; PULSE 71–104; RESP 16–18; TEMP 36.4–37; O2SAT 87–98
--- NOTE | 2022-02-23 02:39 | NURSING ---
O2 DECREASED TO 4L NC - WILL MONITOR
[2022-02-23] MEDS: 0.9% Saline Lock 10 ML Syringe IV (04:16)
[2022-02-23] MEDS: HYDROmorphone 0.5 MG/0.5 ML SYRINGE IV ×3 (04:17→12:40)
[2022-02-23 06:15] LABS: Absolute Lymphocyte Count 1.08 X10^3/uL (0.83-4.51); Absolute Neutrophil Count 12.8 X10^3/uL (2.0-7.7); Basophil# 0.03 X10^3/uL; Basophil% 0.2 % (0-1); Hematocrit 36.1 % (37-47); Hemoglobin 11.8 g/dL (12.0-15.0); Lymphocyte # 1.08 X10^3/ul (0.83-4.51); Mean Corp Hgb Conc 32.7 g/dL (32-36); Mean Corpuscular Hgb 31.9 pg (27.0-32.0); Mean Corpuscular Volume 97.6 fL (81-99); Mean Platelet Vol. 9.5 fl (6.2-12.0); Monocyte# 1.45 X10^3/uL; Monocyte% 9.4 % (0-10); NRBC Flagged by Analyzer 0 % (0-5); Neutrophil # 12.79 X10^3/uL (2.7-7.7); Neutrophil % 82.8 % (47-70); Platelet Count 297 K/mm3 (150-450); RBC Distribution Width CV 13.5 % (11.6-14.6); RBC Distribution Width SD 48.8 fl (35.1-43.9); White Blood Count 15.5 K/mm3 (4.4-11.0)
[2022-02-23] MEDS: 0.9% Normal Saline 1,000 ML 125 ML IV ×2 (06:37→14:47)
[2022-02-23 06:40] LABS: Anion Gap 4 (5-15); BUN 10 mg/dL (7-18); BUN/Creat Ratio 10.5 RATIO (10-20); Calcium,Total 7.6 mg/dL (8.5-10.1); Chloride 109 mmol/L (98-107); Creatinine, Serum 0.95 mg/dL (0.55-1.02); EST Glomerular Filtration Rate 63 mL/min (>60); Est Glom Filt Rate - Afr Amer 76 mL/min (>60); Glucose 152 mg/dL (74-106); Magnesium 1.7 mg/dL (1.6-2.6); Phosphorus 2.8 mg/dL (2.5-4.9); Potassium 4.2 mmol/L (3.5-5.1); Sodium Level 141 mmol/L (136-145)
--- NOTE | 2022-02-23 06:49 | NURSING ---
PT VERY PAINFUL THIS AM, TOO EARLY FOR NEXT DOSE OF PRN DILAUDID - DR BERNSTEIN NOTIFIED @ NEW ORDERS RECEIVED.
[2022-02-23] MEDS: Ketorolac 15 MG/ML Vial IV ×3 (07:40→17:57)
[2022-02-23] MEDS: Ondansetron 4 MG/2 ML Vial IV (08:39)
--- NOTE | 2022-02-23 11:50 | CASEMGMT ---
Social Work SW met w/pt, inquired if she felt up to completing LW/POA today. She is not. SW explained that SW can give her the blank forms, and she can come in after she is discharged from the hospital to meet with a SW to complete the forms. Pt prefers to do this. SW gave pt the blank forms w/the SW number. SW remains available should pt feel up to completing the forms while here, otherwise she has the number to make an appointment to complete the forms at a later date. KATHY Barrett
--- NOTE | 2022-02-23 12:55 | PN.SURG_ITS ---
Subjective Subjective Patient was seen and examined during AM rounds (and several times throughout the afternoon (she initially describes some uncontrolled postoperative pain, but this was improved with addition of her ASSISTANT EDUCATION DIRECTOR. She complains of thirst, but denies an appetite. She denies any bowel function since surgery. Objective Data Objective Data Vital Signs: Vital Signs Temp Pulse Resp BP Pulse Ox O2 Del Method O2 Flow Rate 98.6 F 86 18 119/63 96 Room Air 2 02/23/22 11:24 02/23/22 11:02/23/22 11:02/23/22 11:02/23/22 11:02/23/22 11:02/23/22 08:00 Oxygen Flow Rate (L/min) 2 Oxygen Delivery Method Room Air Weight: 210 lb 15.718 oz Body Mass Index (BMI) 41.2 Intake & Output: Intake and Output for Last 24 Hours 02/21/22 02/22/22 02/23/22 23:59 23:59 23:59 Intake Total 1050 / 1050 3077.58 / 3077.58 970 / 970 Output Total 1265 / 1275 473 / 473 Balance 1050 / 1050 1812.58 / 1802.58 497 / 497 Lab / Micro Data Result Diagrams: 02/23/22 05:50 02/23/22 05:50 Labs: Laboratory Results - last 24 hr 02/23/22 05:50: WBC 15.5 H, RBC 3.70 L, Hgb 11.8 L, Hct 36.1 L, MCV 97.6, MCH 31.9, MCHC 32.7, RDW Std Deviation 48.8 H, RDW Coeff of Angel 13.5, Plt Count 297, MPV 9.5, Immature Gran % (Auto) 0.600, Neut % (Auto) 82.8 H, Lymph % (Auto) 7.0 L, [place] % (Auto) 9.4, Eos % (Auto) 0.0, Baso % (Auto) 0.2, Absolute Neuts (auto) 12.8 H, Absolute Lymphs (auto) 1.08, Nucleated RBC % 0 02/23/22 05:50: Sodium 141, Potassium 4.2, Chloride 109 H, Carbon Dioxide 28.0, Anion Gap 4 L, BUN 10, Creatinine 0.95, Estim Creat Clear Calc 44.10, Est GFR (MDRD) Af Amer 76, Est GFR (MDRD) Non-Af 63, BUN/Creatinine Ratio 10.5, Glucose 152 H, Calcium 7.6 L, Phosphorus 2.8, Magnesium 1.7 Physical Exam Const oriented x3 Resp normal respiratory effort GI GI Narrative: Mild abdominal distention present, abdominal binder is in place. Beneath the binder patient's operative dressings are intact with minimal drainage. Patient's left lower quadrant abdominal PINEDA drain with serosanguineous drainage. Patient is appropriately tender to palpation about her incision. Bladder / Kidney Exam: catheter in place Assessment & Plan Assessment/Plan (1) Partial small bowel obstruction: PLAN: Patient is hospital day 3, postoperative day 1 for partial small bowel obstruction. Yesterday she underwent diagnostic laparoscopy converted to exploratory laparotomy with small bowel resection and reanastomosis. She states that her previous pain is gone and replaced with some incisional pain. She is getting up and out of bed in a chair, but has not yet made her way to walking. Neuro: Transition to Dilaudid ASSISTANT EDUCATION DIRECTOR, Toradol 15 mg every 6 hours scheduled, apply ice to wound Pulm/CV: Continuous pulse ox given use of ASSISTANT EDUCATION DIRECTOR, as needed home albuterol ordered, patient asked to maintain head of bed at least 30 degrees elevated, as needed hydralazine given usual use of antihypertensives, telemetry given presenting tachycardia FEN/GI: Electrolyte monitoring with daily labs, replating mag today, patient showed resolution of SJ with today's labs, strict n.p.o., nasogastric tube to low intermittent wall suction : Santos catheter in place, will plan to discontinue tomorrow Heme/ID: Daily labs.? No indication currently present for initiation of anti biotics, but will trend WBC (normal with today's labs) Endo: No acute issues Proph: SCDs, hold on chemoprophylaxis for the time being Dispo: Admit inpatient
[2022-02-23] MEDS: HYDROmorphone PCA 0.2 MG/ML 100 ML BAG 20 MG IV (14:29)
[2022-02-24] VITALS (27 sets, daily range): BP systolic 116–152; BP diastolic 65–87; PULSE 78–92; RESP 16–18; TEMP 36.2–37.5; O2SAT 92–97
[2022-02-24] MEDS: Ketorolac 15 MG/ML Vial IV ×4 (00:23→18:06)
[2022-02-24] MEDS: 0.9% Normal Saline 1,000 ML 125 ML IV (00:24)
[2022-02-24] MEDS: 0.9% Saline Lock 10 ML Syringe IV ×5 (00:31→18:07)
[2022-02-24 07:07] LABS: Absolute Lymphocyte Count 2.23 X10^3/uL (0.83-4.51); Absolute Neutrophil Count 8.9 X10^3/uL (2.0-7.7); Basophil# 0.06 X10^3/uL; Basophil% 0.5 % (0-1); Eosinophil# 0.19 X10^3/uL; Eosinophils% 1.5 % (0-5); Hematocrit 31.7 % (37-47); Hemoglobin 10.3 g/dL (12.0-15.0); Lymphocyte # 2.23 X10^3/ul (0.83-4.51); Lymphocyte % 17.6 % (19-41); Mean Corp Hgb Conc 32.5 g/dL (32-36); Mean Corpuscular Hgb 32.2 pg (27.0-32.0); Mean Corpuscular Volume 99.1 fL (81-99); Mean Platelet Vol. 9.4 fl (6.2-12.0); Monocyte# 1.24 X10^3/uL; Monocyte% 9.8 % (0-10); NRBC Flagged by Analyzer 0 % (0-5); Neutrophil # 8.87 X10^3/uL (2.7-7.7); Platelet Count 254 K/mm3 (150-450); RBC Distribution Width SD 51.2 fl (35.1-43.9); White Blood Count 12.7 K/mm3 (4.4-11.0)
[2022-02-24 07:24] LABS: Anion Gap 5 (5-15); BUN 9 mg/dL (7-18); Calcium,Total 7.6 mg/dL (8.5-10.1); Chloride 112 mmol/L (98-107); Creatinine, Serum 0.75 mg/dL (0.55-1.02); EST Glomerular Filtration Rate 83 mL/min (>60); Est Glom Filt Rate - Afr Amer 101 mL/min (>60); Estimated Creatinine Clearance 55.86 ml/min; Glucose 105 mg/dL (74-106); Magnesium 2.3 mg/dL (1.6-2.6); Phosphorus 2.1 mg/dL (2.5-4.9); Potassium 3.7 mmol/L (3.5-5.1); Sodium Level 143 mmol/L (136-145)
[2022-02-24] MEDS: 0.45% Normal Saline 1,000 ML 125 ML IV ×2 (08:54→17:08)
--- NOTE | 2022-02-24 10:01 | PCM.PN.SRG ---
Subjective Subjective Patient was seen and examined during AM rounds. She describes improved pain control. She continues to complain of some thirst, but denies any return of bowel function. She has not yet ambulated. Objective Data Objective Data Vital Signs: Vital Signs Temp Pulse Resp BP Pulse Ox O2 Del Method O2 Flow Rate 98.6 F 85 18 123/77 H 96 Nasal Cannula 2 02/24/22 09:45 02/24/22 09:45 02/24/22 09:47 02/24/22 09:45 02/24/22 09:47 02/24/22 09:47 02/24/22 09:47 Oxygen Flow Rate (L/min) 2 Oxygen Delivery Method Nasal Cannula Weight: 210 lb 15.718 oz Body Mass Index (BMI) 41.2 Intake & Output: Intake and Output for Last 24 Hours 02/22/22 02/23/22 02/24/22 23:59 23:59 23:59 Intake Total 3077.58 / 3077.58 4799 / 4839 1080 / 1080 Output Total 1265 / 1275 1408 / 1808 800 / 800 Balance 1812.58 / 1802.58 3391 / 3031 280 / 280 Lab / Micro Data Result Diagrams: 02/24/22 06:15 02/24/22 06:15 Labs: Laboratory Results - last 24 hr 02/24/22 06:15: WBC 12.7 H, RBC 3.20 L, Hgb 10.3 L, Hct 31.7 L, MCV 99.1 H, MCH 32.2 H, MCHC 32.5, RDW Std Deviation 51.2 H, RDW Coeff of Angel 14.0, Plt Count 254, MPV 9.4, Immature Gran % (Auto) 0.600, Neut % (Auto) 70.0, Lymph % (Auto) 17.6 L, [place] % (Auto) 9.8, Eos % (Auto) 1.5, Baso % (Auto) 0.5, Absolute Neuts (auto) 8.9 H, Absolute Lymphs (auto) 2.23, Nucleated RBC % 0 02/24/22 06:15: Sodium 143, Potassium 3.7, Chloride 112 H, Carbon Dioxide 26.0, Anion Gap 5, BUN 9, Creatinine 0.75, Estim Creat Clear Calc 55.86, Est GFR (MDRD) Af Amer 101, Est GFR (MDRD) Non-Af 83, BUN/Creatinine Ratio 12.0, Glucose 105, Calcium 7.6 L, Phosphorus 2.1 L, Magnesium 2.3 Physical Exam Const oriented x3 Resp normal respiratory effort Resp Narrative: Patient I-S performance of 1250 mL GI GI Narrative: Decreased abdominal distention present, abdominal binder is currently opened. Beneath the binder patient's operative dressings are intact with minimal drainage. Patient's left lower quadrant abdominal PINEDA drain with scant serous drainage. Patient is appropriately tender to palpation about her incision. Nasogastric tube in place but sump was clogged. Once this blockage was relieved there is drainage of bilious fluid Bladder / Kidney Exam: catheter in place Assessment & Plan Assessment/Plan (1) Partial small bowel obstruction: PLAN: Patient is hospital day 4, postoperative day 2 for partial small bowel obstruction. Patient with improved pain control and stable to improving labs. Still awaiting return of bowel function due to expected postoperative ileus. Patient has had substantial urine output overnight, will plan to discontinue catheter today. Also look to mobilize patient and have encouraged ambulation. Neuro: Continue Dilaudid STEEL FLOOR PAN PLACING SUPERVISOR, Toradol 15 mg every 6 hours scheduled, apply ice to wound Pulm/CV: Continuous pulse ox given use of STEEL FLOOR PAN PLACING SUPERVISOR, as needed home albuterol ordered, patient asked to maintain head of bed at least 30 degrees elevated, as needed hydralazine given usual use of antihypertensives, telemetry given presenting tachycardia FEN/GI: Electrolyte monitoring with daily labs, repleting potassium and phosphorus today, patient showed resolution of SJ with yesterday's labs, strict n.p.o., nasogastric tube to low intermittent wall suction : Discontinue Santos catheter and follow for spontaneous void Heme/ID: Daily labs.? No indication currently present for initiation of antibiotics, but will trend WBC (normal with today's labs) Endo: No acute issues Proph: SCDs, encourage ambulation in the hallway, hold on chemoprophylaxis for the time being Dispo: Admit inpatient Charges/Coding Visit Charges Inpatient E&M: 89909 Subs Hosp L2
[2022-02-24] MEDS: HYDROmorphone 0.5 MG/0.5 ML SYRINGE IV (14:08)
[2022-02-25] VITALS (21 sets, daily range): BP systolic 130–174; BP diastolic 72–83; PULSE 71–90; RESP 18; TEMP 36.4–37.1; O2SAT 92–98
[2022-02-25] MEDS: Ketorolac 15 MG/ML Vial IV ×4 (00:03→17:23)
[2022-02-25] MEDS: 0.9% Saline Lock 10 ML Syringe IV ×7 (00:04→22:42)
[2022-02-25] MEDS: 0.45% Normal Saline 1,000 ML 125 ML IV ×4 (00:07→23:39)
[2022-02-25 06:54] LABS: Absolute Lymphocyte Count 1.93 X10^3/uL (0.83-4.51); Absolute Neutrophil Count 7.3 X10^3/uL (2.0-7.7); Basophil# 0.04 X10^3/uL; Basophil% 0.4 % (0-1); Eosinophil# 0.28 X10^3/uL; Eosinophils% 2.6 % (0-5); Hemoglobin 11.6 g/dL (12.0-15.0); Lymphocyte # 1.93 X10^3/ul (0.83-4.51); Lymphocyte % 17.9 % (19-41); Mean Corp Hgb Conc 33.1 g/dL (32-36); Mean Corpuscular Hgb 32.2 pg (27.0-32.0); Mean Corpuscular Volume 97.2 fL (81-99); Mean Platelet Vol. 9.4 fl (6.2-12.0); Monocyte# 1.12 X10^3/uL; Monocyte% 10.4 % (0-10); NRBC Flagged by Analyzer 0 % (0-5); Neutrophil # 7.33 X10^3/uL (2.7-7.7); Neutrophil % 67.8 % (47-70); Platelet Count 262 K/mm3 (150-450); RBC Distribution Width CV 13.7 % (11.6-14.6); RBC Distribution Width SD 49.2 fl (35.1-43.9); White Blood Count 10.8 K/mm3 (4.4-11.0)
--- NOTE | 2022-02-25 07:24 | PN.SURG_ITS ---
Subjective Subjective No flatus as of yet. Still needing a INDUSTRIAL AUTOMATION ENGINEER for pain control Objective Data Objective Data Abdomen is soft dressings are dry. Vital Signs: Vital Signs Temp Pulse Resp BP Pulse Ox O2 Del Method O2 Flow Rate 97.7 F L 79 18 144/83 H 93 Nasal Cannula 2 02/25/22 06:01 02/25/22 06:01 02/25/22 06:01 02/25/22 06:01 02/25/22 07:20 02/25/22 07:20 02/25/22 07:20 Oxygen Flow Rate (L/min) 2 Oxygen Delivery Method Nasal Cannula Weight: 210 lb 15.718 oz Body Mass Index (BMI) 41.2 Intake & Output: Intake and Output for Last 24 Hours 02/23/22 02/24/22 02/25/22 23:59 23:59 23:59 Intake Total 4799 / 4839 2565 / 2565 932.92 / 932.92 Output Total 1408 / 1808 2210 / 2210 460 / 460 Balance 3391 / 3031 355 / 355 472.92 / 472.92 Lab / Micro Data Result Diagrams: 02/25/22 06:00 02/24/22 06:15 Labs: Laboratory Results - last 24 hr 02/24/22 06:15: Sodium 143, Potassium 3.7, Chloride 112 H, Carbon Dioxide 26.0, Anion Gap 5, BUN 9, Creatinine 0.75, Estim Creat Clear Calc 55.86, Est GFR (MDRD) Af Amer 101, Est GFR (MDRD) Non-Af 83, BUN/Creatinine Ratio 12.0, Glucose 105, Calcium 7.6 L, Phosphorus 2.1 L, Magnesium 2.3 02/25/22 06:00: WBC 10.8, RBC 3.60 L, Hgb 11.6 L, Hct 35.0 L, MCV 97.2, MCH 32.2 H, MCHC 33.1, RDW Std Deviation 49.2 H, RDW Coeff of Angel 13.7, Plt Count 262, MPV 9.4, Immature Gran % (Auto) 0.900, Neut % (Auto) 67.8, Lymph % (Auto) 17.9 L , [place] % (Auto) 10.4 H, Eos % (Auto) 2.6, Baso % (Auto) 0.4, Absolute Neuts (auto) 7.3, Absolute Lymphs (auto) 1.93, Nucleated RBC % 0 Assessment & Plan Assessment/Plan (1) Small bowel obstruction: PLAN: Await GI function. Encourage ambulation today. Encourage ice chips hard candy and gum.
[2022-02-25 07:26] LABS: Anion Gap 8 (5-15); BUN 6 mg/dL (7-18); Calcium,Total 7.9 mg/dL (8.5-10.1); Chloride 105 mmol/L (98-107); Creatinine, Serum 0.66 mg/dL (0.55-1.02); EST Glomerular Filtration Rate 95 mL/min (>60); Est Glom Filt Rate - Afr Amer 116 mL/min (>60); Estimated Creatinine Clearance 63.48 ml/min; Glucose 85 mg/dL (74-106); Magnesium 2.2 mg/dL (1.6-2.6); Phosphorus 2.5 mg/dL (2.5-4.9); Potassium 3.5 mmol/L (3.5-5.1); Sodium Level 139 mmol/L (136-145)
[2022-02-25] MEDS: HYDROmorphone 0.5 MG/0.5 ML SYRINGE IV ×2 (08:11→22:45)
[2022-02-25] MEDS: hydrALAZINE 20 MG/ML Vial 10 MG IV (22:42)
[2022-02-26] VITALS (15 sets, daily range): BP systolic 116–164; BP diastolic 63–92; PULSE 79–90; RESP 18; TEMP 36.8–37.2; O2SAT 92–98
[2022-02-26] MEDS: Ketorolac 15 MG/ML Vial IV (00:17)
[2022-02-26] MEDS: 0.45% Normal Saline 1,000 ML 125 ML IV ×3 (06:56→22:47)
[2022-02-26] MEDS: HYDROmorphone 0.5 MG/0.5 ML SYRINGE IV ×5 (07:46→20:07)
[2022-02-26] MEDS: 0.9% Saline Lock 10 ML Syringe IV ×5 (07:49→16:46)
--- NOTE | 2022-02-26 08:34 | PCM.PN.SRG ---
Subjective Subjective Patient states she is passing flatus. Still complaining of some significant abdominal pain. Objective Data Objective Data Dressing is dry and intact Abdomen is soft appropriately tender. Vital Signs: Vital Signs Temp Pulse Resp BP Pulse Ox O2 Del Method O2 Flow Rate 98.7 F 87 18 144/74 H 96 Nasal Cannula 2 02/26/22 06:13 02/26/22 06:13 02/26/22 06:14 02/26/22 06:13 02/26/22 06:14 02/26/22 06:14 02/26/22 06:14 Oxygen Flow Rate (L/min) 2 Oxygen Delivery Method Nasal Cannula Weight: 210 lb 15.718 oz Body Mass Index (BMI) 41.2 Intake & Output: Intake and Output for Last 24 Hours 02/24/22 02/25/22 02/26/22 23:59 23:59 23:59 Intake Total 2565 / 2565 4054.51 / 4054.51 930.42 / 930.42 Output Total 2210 / 2210 1742 / 1742 1830 / 1830 Balance 355 / 355 2312.51 / 2312.51 -899.58 / -899.58 Lab / Micro Data Result Diagrams: 02/25/22 06:00 02/25/22 06:00 Assessment & Plan Assessment/Plan (1) Small bowel obstruction: PLAN: We will remove NG tube at this point. Start clear liquids.
--- NOTE | 2022-02-26 10:45 | NURSING ---
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 32ml of Dilaudid was wasted by This RN and Adina MERCADO.
--- NOTE | 2022-02-26 12:13 | NURSING ---
Pt walked in the frey down to 301 and then back to her room and is sitting in her chair with visitor at bedside.
[2022-02-26] MEDS: oxyCODONE 5 MG Tablet 10 MG PO (22:46)
[2022-02-26] MEDS: DiphenhydrAMINE 25 MG Capsule PO (22:46)
[2022-02-27 01:09] VITALS: PULSE 73
[2022-02-27 02:20] VITALS: BP 155/85; PULSE 74; RESP 18; TEMP 36.6; O2SAT 95
[2022-02-27] MEDS: HYDROmorphone 0.5 MG/0.5 ML SYRINGE IV (02:23)
[2022-02-27] MEDS: DiphenhydrAMINE 25 MG Capsule PO ×4 (04:55→20:07)
[2022-02-27] MEDS: 0.45% Normal Saline 1,000 ML 125 ML IV (05:44)
[2022-02-27] MEDS: oxyCODONE 5 MG Tablet 10 MG PO ×4 (05:51→20:07)
[2022-02-27 06:05] LABS: Anion Gap 11 (5-15); BUN 4 mg/dL (7-18); BUN/Creat Ratio 5.4 RATIO (10-20); Calcium,Total 8.4 mg/dL (8.5-10.1); Chloride 103 mmol/L (98-107); Creatinine, Serum 0.74 mg/dL (0.55-1.02); EST Glomerular Filtration Rate 84 mL/min (>60); Est Glom Filt Rate - Afr Amer 102 mL/min (>60); Estimated Creatinine Clearance 56.62 ml/min; Glucose 107 mg/dL (74-106); Magnesium 1.9 mg/dL (1.6-2.6); Phosphorus 2.5 mg/dL (2.5-4.9); Potassium 3.1 mmol/L (3.5-5.1); Sodium Level 141 mmol/L (136-145)
--- NOTE | 2022-02-27 08:00 | PN.SURG_ITS ---
Subjective Subjective Patient seen and examined twice during AM rounds. She is sitting upright and out of bed in a chair. She reports that she is not feeling well?by this she explains that she is still hurting and a cough is making this worse. She denies any nausea. She states that she is burping frequently, but also passing gas fro m below. She expresses a slight appetite. Objective Data Objective Data Vital Signs: Vital Signs Temp Pulse Resp BP Pulse Ox O2 Del Method O2 Flow Rate 97.9 F 74 18 155/85 H 95 Room Air 2 02/27/22 02:20 02/27/22 02:20 02/27/22 02:20 02/27/22 02:20 02/27/22 02:20 02/27/22 02:20 02/26/22 10:20 Oxygen Flow Rate (L/min) 2 Oxygen Delivery Method Room Air Weight: 210 lb 15.718 oz Body Mass Index (BMI) 41.2 Intake & Output: Intake and Output for Last 24 Hours 02/25/22 02/26/22 02/27/22 23:59 23:59 23:59 Intake Total 4054.51 / 4054.51 4199.84 / 4199.84 868.75 / 868.75 Output Total 1742 / 1742 2625 / 2625 Balance 2312.51 / 2312.51 1574.84 / 1574.84 868.75 / 868.75 Lab / Micro Data Result Diagrams: 02/25/22 06:00 02/27/22 05:15 Labs: Laboratory Results - last 24 hr 02/27/22 05:15: Sodium 141, Potassium 3.1 L, Chloride 103, Carbon Dioxide 27.0, Anion Gap 11, BUN 4 L, Creatinine 0.74, Estim Creat Clear Calc 56.62, Est GFR (MDRD) Af Amer 102, Est GFR (MDRD) Non-Af 84, BUN/Creatinine Ratio 5.4 L, Glucose 107 H, Calcium 8.4 L, Phosphorus 2.5, Magnesium 1.9 Physical Exam Const oriented x3 Constitutional Narrative: Mild distress from abdominal discomfort Resp normal respiratory effort GI GI Narrative: Surgical dressings were intact without drainage. These were removed at bedside and beneath her wounds are well-healing without surrounding erythema or expressible drainage. Her abdomen remains appropriately tender to palpation. She has her left lower quadrant surgical drain site still intact draining largely pink serous fluid. Assessment & Plan Assessment/Plan (1) Partial small bowel obstruction: PLAN: Patient is hospital day 5 for exploratory laparotomy with small bowel resection and reanastomosis x2 due to partial small bowel obstruction. Patient with improved pain control and stable to improving labs. Patient experienced return of bowel function yesterday and is tolerating clears. She still has not had a bowel movement. Patient states that she ambulated once in the hallway yesterday, will look to encourage further mobilization today. Neuro: Continue Dilaudid as needed, oxycodone as needed, acetaminophen as needed, ibuprofen as needed Pulm/CV: As needed home albuterol ordered, patient asked to maintain head of bed at least 30 degrees elevated, as needed hydralazine given usual use of antihypertensives, please discontinue telemetry today FEN/GI: Electrolyte monitoring with daily labs, repleting potassium and magnesium today, continue clear liquid diet until patient has bowel movement, nasogastric tube discontinued 02/26/2022 : Voiding spontaneously following Santos catheter removal Heme/ID: Hemoglobin stabilized with past labs, monitoring clinically Endo: No acute issues Proph: SCDs, encourage ambulation in the hallway, hold on chemoprophylaxis for the time being Dispo: Continue inpatient care Charges/Coding Visit Charges Inpatient E&M: 64283 Subs Hosp L2
[2022-02-27] MEDS: Potassium Chloride 10mEq/100mL 10 MEQ/100 ML IV.SOLN. 80 MEQ IV BOLUS ×2 (09:34→11:44)
[2022-02-27] MEDS: 0.9% Saline Lock 10 ML Syringe IV (10:15)
[2022-02-27 10:16] VITALS: BP 161/79; PULSE 68; RESP 17; TEMP 36.8; O2SAT 97
[2022-02-27] MEDS: Potassium Chloride 10mEq/100mL 10 MEQ/100 ML IV.SOLN. 60 MEQ IV BOLUS ×2 (13:56→16:43)
[2022-02-27 17:00] VITALS: BP 158/83; PULSE 70; RESP 18; TEMP 37.2; O2SAT 98
[2022-02-27] MEDS: 0.45% Normal Saline 1,000 ML 50 ML IV (18:58)
[2022-02-27 20:10] VITALS: BP 148/76; PULSE 77; RESP 18; TEMP 36.9; O2SAT 96
[2022-02-28 00:17] VITALS: BP 126/69; PULSE 89; RESP 16; TEMP 36.8; O2SAT 93
[2022-02-28] MEDS: DiphenhydrAMINE 25 MG Capsule PO ×2 (00:20→21:24)
[2022-02-28] MEDS: Ibuprofen 400 MG Tablet PO ×2 (00:20→19:19)
[2022-02-28 05:49] VITALS: BP 120/77; PULSE 79; RESP 18; TEMP 36.5; O2SAT 96
[2022-02-28 07:01] LABS: Anion Gap 8 (5-15); BUN 4 mg/dL (7-18); BUN/Creat Ratio 4.7 RATIO (10-20); Calcium,Total 9.1 mg/dL (8.5-10.1); Chloride 104 mmol/L (98-107); Creatinine, Serum 0.85 mg/dL (0.55-1.02); EST Glomerular Filtration Rate 72 mL/min (>60); Est Glom Filt Rate - Afr Amer 87 mL/min (>60); Estimated Creatinine Clearance 49.29 ml/min; Glucose 107 mg/dL (74-106); Magnesium 2.2 mg/dL (1.6-2.6); Phosphorus 3.5 mg/dL (2.5-4.9); Potassium 3.2 mmol/L (3.5-5.1); Sodium Level 140 mmol/L (136-145)
[2022-02-28] MEDS: Potassium Chloride 10mEq/100mL 10 MEQ/100 ML IV.SOLN. 6 MEQ IV BOLUS ×4 (07:53→12:52)
--- NOTE | 2022-02-28 08:30 | PCM.PN.SRG ---
Subjective Subjective Patient seen and examined during AM rounds. She is found resting comfortably in chair on arrival and states that she feels drowsy. She states that her pain control is better. She confirms nursing record that she had several loose bowel movements yesterday. She expresses more of an appetite this morning. Objective Data Objective Data Vital Signs: Vital Signs Temp Pulse Resp BP Pulse Ox O2 Del Method O2 Flow Rate 97.7 F L 79 18 120/77 96 Room Air 2 02/28/22 05:49 02/28/22 05:49 02/28/22 05:49 02/28/22 05:49 02/28/22 05:49 02/28/22 05:49 02/26/22 10:20 Oxygen Flow Rate (L/min) 2 Oxygen Delivery Method Room Air Weight: 210 lb 15.718 oz Body Mass Index (BMI) 41.2 Intake & Output: Intake and Output for Last 24 Hours 02/26/22 02/27/22 02/28/22 23:59 23:59 23:59 Intake Total 4199.84 / 4199.84 4927.75 / 5527.75 780 / 780 Output Total 2625 / 2625 1125 / 2125 1908 / 1908 Balance 1574.84 / 1574.84 3802.75 / 3402.75 -1128 / -1128 Lab / Micro Data Result Diagrams: 02/25/22 06:00 02/28/22 05:45 Labs: Laboratory Results - last 24 hr 02/28/22 05:45: Sodium 140, Potassium 3.2 L, Chloride 104, Carbon Dioxide 28.0, Anion Gap 8, BUN 4 L, Creatinine 0.85, Estim Creat Clear Calc 49.29, Est GFR (MDRD) Af Amer 87, Est GFR (MDRD) Non-Af 72, BUN/Creatinine Ratio 4.7 L, Glucose 107 H, Calcium 9.1, Phosphorus 3.5, Magnesium 2.2 Physical Exam Const oriented x3 Constitutional Narrative: No distress Resp normal respiratory effort GI GI Narrative: Dressings changed yesterday are intact without drainage. Decreased abdominal distention. Her abdomen remains appropriately tender to palpation. Left lower quadrant surgical drain site still intact draining small amount of serous fluid. Assessment & Plan Assessment/Plan (1) Partial small bowel obstruction: PLAN: Patient is hospital day 6 for exploratory laparotomy with small bowel resection and reanastomosis x2 due to partial small bowel obstruction. Patient with further improved pain control. Patient with bowel movement yesterday. Not expressing more of an appetite. Now ambulating in hallways. Neuro: Continue Dilaudid as needed, oxycodone as needed, acetaminophen as needed, ibuprofen as needed Pulm/CV: As needed home albuterol ordered, patient asked to maintain head of bed at least 30 degrees elevated, resume home antihypertensives, telemetry discontinued on 12/11/2021 FEN/GI: Electrolyte monitoring with daily labs, repleting potassium today, advance to regular?soft diet along with Ensure supplements, nasogastric tube discontinued 02/26/2022 : Voiding spontaneously following Santos catheter removal Heme/ID: Hemoglobin stabilized with past labs, monitoring clinically Endo: No acute issues Proph: SCDs, encourage ambulation in the hallway, hold on chemoprophylaxis for the time being Dispo: Continue inpatient care Charges/Coding Visit Charges Inpatient E&M: 64769 Subs Hosp L2
[2022-02-28 09:00] VITALS: BP 134/74; PULSE 70; RESP 18; TEMP 36.9; O2SAT 98
[2022-02-28] MEDS: Potassium Chloride Oral Tablet 20 MEQ 40 MEQ PO (09:35)
[2022-02-28] MEDS: Cholecalciferol (VIT D3) 25 MCG TABLET (1,000 UNITS) PO (09:46)
[2022-02-28] MEDS: amLODIPine 5 MG Tablet PO (09:46)
[2022-02-28] MEDS: Levothyroxine 50 MCG Tablet PO (09:46)
[2022-02-28] MEDS: Losartan Potassium 100 MG Tablet PO (09:47)
[2022-02-28 15:30] VITALS: BP 106/67; PULSE 87; RESP 16; TEMP 36.7; O2SAT 96
[2022-02-28] MEDS: 0.9% Saline Lock 10 ML Syringe IV (16:56)
[2022-02-28] MEDS: 0.45% Normal Saline 1,000 ML 25 ML IV (19:19)
[2022-02-28 19:23] VITALS: BP 135/72; PULSE 81; RESP 22; TEMP 36.8; O2SAT 99
[2022-02-28] MEDS: oxyCODONE 5 MG Tablet 10 MG PO (21:23)
[2022-03-01 02:01] VITALS: BP 135/78; PULSE 77; RESP 18; TEMP 36.5; O2SAT 94
[2022-03-01] MEDS: Levothyroxine 50 MCG Tablet PO (06:04)
[2022-03-01] MEDS: DiphenhydrAMINE 25 MG Capsule PO (06:04)
[2022-03-01] MEDS: Ibuprofen 400 MG Tablet PO (06:04)
[2022-03-01 06:29] LABS: Anion Gap 9 (5-15); BUN 7 mg/dL (7-18); BUN/Creat Ratio 8.2 RATIO (10-20); Calcium,Total 9.2 mg/dL (8.5-10.1); Chloride 106 mmol/L (98-107); Creatinine, Serum 0.85 mg/dL (0.55-1.02); EST Glomerular Filtration Rate 72 mL/min (>60); Est Glom Filt Rate - Afr Amer 87 mL/min (>60); Estimated Creatinine Clearance 49.29 ml/min; Glucose 117 mg/dL (74-106); Magnesium 1.8 mg/dL (1.6-2.6); Phosphorus 4.1 mg/dL (2.5-4.9); Potassium 3.6 mmol/L (3.5-5.1); Sodium Level 141 mmol/L (136-145)
[2022-03-01] MEDS: Potassium Chloride Oral Tablet 20 MEQ 40 MEQ PO (07:23)
[2022-03-01 08:10] VITALS: BP 116/62; PULSE 70; RESP 16; TEMP 36.6; O2SAT 95
[2022-03-01] MEDS: Losartan Potassium 100 MG Tablet PO (08:20)
[2022-03-01] MEDS: Furosemide 20 MG/2 ML VIAL IV (08:20)
[2022-03-01] MEDS: Magnesium Chloride 64 MG Delay Rel.Tablet 128 MG PO (08:21)
[2022-03-01] MEDS: Cholecalciferol (VIT D3) 25 MCG TABLET (1,000 UNITS) PO (08:21)
[2022-03-01] MEDS: amLODIPine 5 MG Tablet PO (08:21)
--- NOTE | 2022-03-01 08:26 | DCINST_ITS ---
Discharge Instructions Diet Discharge Diet: Soft diet (low residue for 1 week. Avoid high fiber foods.) Activity Discharge Activity: May Not Drive (3 days) and May Shower May shower in (days): 0 Dressing / Incision Call your doctor if your incision/area has: Continuous Slow Oozing, Sudden Increased Bleeding, Increased Pain/ Swelling, Increased Redness, Foul Smelling Discharge and Swelling at the incision site Call your doctor if you observe: Fever of 101 or Higher Suture Line Care: Avoid Pulling/Pushing and Avoid Pinching/Bending Remove Dressing in: 2 days Cleanse incision/area with: Soap & Water Follow Up Care Please Follow Up With: Víctor Valdivia MD When: 1 week. Please call our office to schedule the follow-up at [phone] Test Results: Test results from this visit will be discussed in further detail at your follow- up appointment, if applicable. Discharge Plan Admission Admit Date/Time: 02/21/22 17:20 Primary Reason for Your Visit: Small bowel obstruction Attending Provider: Víctor Valdivia Primary Care Provider: Juany Jacob Instructions Additional Instructions / Restrictions: You may take Tylenol and alternate with ibuprofen as needed for pain/discomfort every 6 hours Discharge Orders/Prescriptions Prescriptions: New acetaminophen [Tylenol] 325 mg Tablet 650 mg PO Q6H PRN PRN (Reason: Pain Score 1-10) Qty: 0 0RF ibuprofen 400 mg Tablet 400 mg PO Q6H PRN PRN (Reason: Pain Score 1-5) Qty: 0 0RF oxycodone 5 mg Tablet 5 mg PO Q6H 2 Days Qty: 8 0RF Continued albuterol sulfate 90 mcg/actuation HFA aerosol inhaler 1 - 2 puff INHALATION PRN PRN (Reason: Allergies) Label Comments: INHALE 2 PUFFS TWICE A DAY NEEDED levothyroxine 50 MCG tablet 50 mcg PO DAILY Label Comments: THYROID MEDICATION bktnvqvnmfkk-Hh-mwbv-minerals 1 EACH tablet 1 ea PO DAILY Label Comments: SUPPLEMENT pilocarpine HCl 7.5 MG tablet 7.5 mg PO BID Label Comments: GLAUCOMA duloxetine 60 MG capsule 40 mg PO BID Label Comments: WITH BREAKFAST omeprazole 20 MG capsule 20 mg PO BID cholecalciferol (vitamin D3) 1,000 UNIT tablet 1,000 unit PO DAILY amlodipine 5 mg tablet 5 mg PO DAILY nortriptyline 10 mg capsule 10 mg PO QHS losartan 100 mg tablet 100 mg PO DAILY Referrals / Follow Up: Juany Jacob DO [Primary Care Provider] - Víctor Valdivia MD [Med Staff - Active Staff] - (Follow-up in 1 week from discharge. Please contact our office to schedule your appointment. ) Disposition Disposition (needs filled in before D/C Order can be placed): Home, Self Care
--- NOTE | 2022-03-01 08:33 | PCM.DC.SUM ---
Providers Date of Admission: 02/21/22 Date of Discharge: 03/01/22 Primary Care Physician: Dr. Juany Jacob DO Reason For Visit: PARTIAL SBO Diagnosis Discharge Diagnosis (1) Partial small bowel obstruction: Status: Acute Code(s): K56.600 - Partial intestinal obstruction, unspecified as to cause Medications at Discharge Home Medications levothyroxine 50 mcg tablet 50 mcg PO DAILY thyroid 12/07/13 jmafgivkqthl-Db-afio-minerals 1 ea PO DAILY supplement 12/07/13 pilocarpine HCl 7.5 mg tablet 7.5 mg PO BID dry mouth 12/07/13 duloxetine 60 mg capsule,delayed release 40 mg PO BID nerve pain 12/18/16 albuterol sulfate 90 mcg/actuation aerosol inhaler 1 - 2 puff inhalation PRN PRN Allergies 01/14/20 cholecalciferol (vitamin D3) 25 mcg (1,000 unit) tablet 1,000 unit PO DAILY supplement 01/21/20 omeprazole 20 mg capsule,delayed release 20 mg PO BID gerd 01/21/20 amlodipine 5 mg tablet 5 mg PO DAILY bp 02/21/22 losartan 100 mg tablet 100 mg PO DAILY bp 02/21/22 nortriptyline 10 mg capsule 10 mg PO QHS headaches 02/21/22 acetaminophen 325 mg tablet (Tylenol) 650 mg PO Q6H PRN PRN Pain Score 1-10 #0 tabs 03/01/22 ibuprofen 400 mg tablet 400 mg PO Q6H PRN PRN Pain Score 1-5 #0 tabs 03/01/22 oxycodone 5 mg tablet 5 mg PO Q6H 2 days #8 tabs 03/01/22 Hospital Course Operations - (1. Diagnostic laparoscopy 2. Lysis of adhesions (>120 minutes) 3. Exploratory laparotomy 4. Small bowel resection x3 with primary stapled [id number]-ht-[id number] functional end to end anastomoses 5. Transversus abdominis plane block) Procedures - (NG tube placed) Summary of Care Provided Minutes Spent on Discharge: 32 Hospital Course: Patient is a 61 y/o F who presented with a 1 day history of abdominal pain. CT scan of the abdomen/pelvis demonstrated concern for early complete bowel obstruction versus possible internal hernia. Patient had an NG tube placed in the ED and d/c'd on 02/27. Patient's abdominal symptoms did not improve. Dr. Valdivia scheduled patient for surgical intervention and performed a Diagnostic laparoscopy Lysis of adhesions (>120 minutes) Exploratory laparotomy, Small bowel resection x3 with primary stapled [id number]-gt-[id number] functional end to end anastomoses and Transversus abdominis plane block on 02/22/22. Patient tolerated the procedure well. Patient developed a post-operative ileus. On POD #5 patient passed flatus. Ng tube was removed. Patient was started on clear liquids and tolerated well. POD #6, patient had return of bowel function and had multiple bowel movements. PINEDA drain was removed. Patient was started on low residue/soft food diet and tolerated well. Upon discharge, patient tolerated her current diet. she denies nausea, vomiting, fever. She notes minimal amount of abdominal pain/discomfort. She is urinating well. Her pain is well controlled. She will continue a low residue/soft food diet for 1 week and follow-up with Dr. Valdivia in 1 week in the office. Patient voices readiness for discharge. Physical Exam Const General Appearance: cooperative, comfortable and well developed GI GI Narrative: Decreased abdominal distention. Dressings changed. Minimal tenderness to palpation. Small amount of serous fluid left lower quadrant. Weight / BMI Weight Weight: 210 lb 15.718 oz Body Mass Index (BMI) 41.2 ABG / Lab / Microbiology Data Result Diagrams: 02/25/22 06:00 03/01/22 05:00 Laboratory: Laboratory Results - last 24 hr 03/01/22 05:00: Sodium 141, Potassium 3.6, Chloride 106, Carbon Dioxide 26.0, Anion Gap 9, BUN 7, Creatinine 0.85, Estim Creat Clear Calc 49.29, Est GFR (MDRD) Af Amer 87, Est GFR (MDRD) Non-Af 72, BUN/Creatinine Ratio 8.2 L, Glucose 117 H, Calcium 9.2, Phosphorus 4.1, Magnesium 1.8 D/C Instructions Discharge Diet: Soft diet (low residue for 1 week. Avoid high fiber foods.) May shower in (days): 0 Call your doctor if your incision/area has: Continuous Slow Oozing, Sudden Increased Bleeding, Increased Pain/ Swelling, Increased Redness, Foul Smelling Discharge and Swelling at the incision site Call your doctor if you observe: Fever of 101 or Higher Suture Line Care: Avoid Pulling/Pushing and Avoid Pinching/Bending Cleanse incision/area with: Soap & Water Please Follow Up With: Víctor Valdivia MD When: 1 week. Please call our office to schedule the follow-up at [phone] Meaningful Use Info Meaningful Use Diagnoses (Choose all that apply): None applicable Discharge Plan Admission Admit Date/Time: 02/21/22 17:20 Primary Reason for Your Visit: Small bowel obstruction Attending Provider: Víctor Valdivia Primary Care Provider: Juany Jacob Instructions Additional Instructions / Restrictions: You may take Tylenol and alternate with ibuprofen as needed for pain/discomfort every 6 hours Discharge Orders/Prescriptions Prescriptions: New acetaminophen [Tylenol] 325 mg Tablet 650 mg PO Q6H PRN PRN (Reason: Pain Score 1-10) Qty: 0 0RF ibuprofen 400 mg Tablet 400 mg PO Q6H PRN PRN (Reason: Pain Score 1-5) Qty: 0 0RF oxycodone 5 mg Tablet 5 mg PO Q6H 2 Days Qty: 8 0RF Continued albuterol sulfate 90 mcg/actuation HFA aerosol inhaler 1 - 2 puff INHALATION PRN PRN (Reason: Allergies) Label Comments: INHALE 2 PUFFS TWICE A DAY NEEDED levothyroxine 50 MCG tablet 50 mcg PO DAILY Label Comments: THYROID MEDICATION vocihydavmcy-Om-kfln-minerals 1 EACH tablet 1 ea PO DAILY Label Comments: SUPPLEMENT pilocarpine HCl 7.5 MG tablet 7.5 mg PO BID Label Comments: GLAUCOMA duloxetine 60 MG capsule 40 mg PO BID Label Comments: WITH BREAKFAST omeprazole 20 MG capsule 20 mg PO BID cholecalciferol (vitamin D3) 1,000 UNIT tablet 1,000 unit PO DAILY amlodipine 5 mg tablet 5 mg PO DAILY nortriptyline 10 mg capsule 10 mg PO QHS losartan 100 mg tablet 100 mg PO DAILY Referrals / Follow Up: Juany Jacob DO [Primary Care Provider] - Víctor Valdivia MD [Med Staff - Active Staff] - (Follow-up in 1 week from discharge. Please contact our office to schedule your appointment. ) Disposition Disposition (needs filled in before D/C Order can be placed): Home, Self Care Charges/Coding Visit Charges Inpatient E&M: 91531 Disch Hosp (post-op)
--- NOTE | 2022-03-01 10:41 | CASEMGMT ---
RN CM in to pt room. Pt states she is ready for dc. She denies any homegoing needs.
== END 2022-03-01 13:33 | disposition home or self-care (01) | DRG 330 ==
LOC: ED 16:45 → MS3 17:46
PROVIDERS: Anesthesiology; Physician Assistant; Admitting Provider Surgery; Emergency Provider Emergency Medicine; PCP Family Medicine; Visit Provider Surgery
PROC: 0DBA0ZZ Excision of Jejunum, Open Approach (ICD-10-PCS; CPT 49320; principal; 2022-02-22 15:35)
DX: K56.600 Partial intestinal obstruction, unspecified as to cause (principal); N17.9 Acute kidney failure, unspecified; I73.9 Peripheral vascular disease, unspecified; K56.50 Intestinal adhesions [bands], unspecified as to partial versus complete obstruction; E86.0 Dehydration; K21.9 Gastro-esophageal reflux disease without esophagitis; M19.90 Unspecified osteoarthritis, unspecified site; E03.9 Hypothyroidism, unspecified; F17.210 Nicotine dependence, cigarettes, uncomplicated; G47.30 Sleep apnea, unspecified; Z79.899 Other long term (current) drug therapy; Z79.890 Hormone replacement therapy; Z79.82 Long term (current) use of aspirin
CPT/HCPCS: 36415; 74018; 74177; 80048; 80053; 81001; 83605; 83690; 83735; 84100; 84443; 85025; 88307; 93005; 94762; 97802; 97803; 99251; 99285; J7030; J7050; J7120; Q9967; A4216; G0463; J1170; J1940; J2405

== ENCOUNTER → 2022-03-13 | Outpatient (CLI) | payer OTHER, SELFPAY ==
--- NOTE | 2022-03-13 12:52 | BI_ITS ---
MAMMOGRAPHY - BILATERAL SCREENING 3-D TOMOSYNTHESIS REASON FOR EXAM: Female, 61 years old. SCREENING PERTINENT HISTORY: No significant family history. TECHNIQUE: 2-D mammograms and 3-D Tomosynthesis of the breast (s) were performed. CAD was performed. COMPARISON: 02/01/2021 FINDINGS: The breast composition is heterogeneously dense that can obscure small breast masses. Scattered benign calcifications are seen. No dense spiculated masses or suspicious microcalcifications are identified. No architectural distortion is identified. There is no skin thickening or retraction. There has been no significant change since the prior study. BI/SCRN MAMM (CAD)W/MOHAN BILAT IMPRESSION: No mammographic signs of malignancy. Routine yearly mammograms recommended. ASSESSMENT CATEGORY: BIRADS Category 1: Negative. A letter regarding these results will be sent to the patient by the facility within 30 days. FOLLOW UP RECOMMENDATION: Yearly follow up mammogram recommended. (A) Approximately 10% of breast cancers are not detected by mammography. A normal mammogram should not delay biopsy of a clinically suspicious abnormality. Electronically Signed: Jonah Sandoval MD at 14:10 EDT ,
== END | disposition home or self-care (01) ==
LOC: OPBI 12:50
PROVIDERS: PCP Family Medicine; Visit Provider Family Medicine
DX: Z12.31 Encounter for screening mammogram for malignant neoplasm of breast (principal)
CPT/HCPCS: 77063; 77067

== ENCOUNTER → 2022-04-02 | Outpatient (CLI) | payer OTHER, SELFPAY ==
[2022-04-02 15:42] LABS: Absolute Lymphocyte Count 2.61 X10^3/uL (0.83-4.51); Absolute Neutrophil Count 5.3 X10^3/uL (2.0-7.7); Basophil# 0.05 X10^3/uL; Basophil% 0.5 % (0-1); Eosinophil# 0.51 X10^3/uL; Eosinophils% 5.4 % (0-5); Hematocrit 40.9 % (37-47); Hemoglobin 13.2 g/dL (12.0-15.0); Lymphocyte # 2.61 X10^3/ul (0.83-4.51); Lymphocyte % 27.4 % (19-41); Mean Corp Hgb Conc 32.3 g/dL (32-36); Mean Corpuscular Hgb 31.3 pg (27.0-32.0); Mean Corpuscular Volume 96.9 fL (81-99); Mean Platelet Vol. 9.6 fl (6.2-12.0); Monocyte# 0.99 X10^3/uL; Monocyte% 10.4 % (0-10); NRBC Flagged by Analyzer 0 % (0-5); Neutrophil # 5.32 X10^3/uL (2.7-7.7); Neutrophil % 55.9 % (47-70); Platelet Count 423 K/mm3 (150-450); RBC Distribution Width CV 13.5 % (11.6-14.6); Red Blood Count 4.22 M/mm3 (4.2-5.4); White Blood Count 9.5 K/mm3 (4.4-11.0)
[2022-04-02 16:42] LABS: Vitamin B12 339 pg/mL (211-911); Vitamin D,25 Hydroxy 35.6 ng/mL
== END | disposition home or self-care (01) ==
LOC: BFHLAB 13:54
PROVIDERS: PCP Family Medicine; Visit Provider Family Medicine
DX: Z51.81 Encounter for therapeutic drug level monitoring (principal); E55.9 Vitamin D deficiency, unspecified; D64.9 Anemia, unspecified
CPT/HCPCS: 36415; 82306; 82607; 85025

== ENCOUNTER → 2022-04-04 | Outpatient (CLI) | payer OTHER, SELFPAY ==
[2022-04-04 10:03] LABS: ALB/GLOB Ratio 0.9 RATIO (0.9-2.4); AST(SGOT) 24 U/L (15-37); Alanine Aminotransfer ALT/SGPT 40 U/L (13-56); Albumin, Serum 3.6 g/dL (3.2-5.0); Alkaline Phosphatase 113 U/L (45-117); Anion Gap 6 (5-15); BUN 20 mg/dL (7-18); Calcium,Total 9.2 mg/dL (8.5-10.1); Chloride 107 mmol/L (98-107); Creatinine, Serum 1.05 mg/dL (0.55-1.02); EST Glomerular Filtration Rate 56 mL/min (>60); Est Glom Filt Rate - Afr Amer 68 mL/min (>60); Globulin 3.8 g/dL (2.2-4.2); Glucose 113 mg/dL (74-106); Lipase 137 U/L (73-393); Potassium 4.3 mmol/L (3.5-5.1); Protein, Total 7.4 g/dL (6.4-8.2); Sodium Level 139 mmol/L (136-145)
== END | disposition home or self-care (01) ==
LOC: LAB 09:15
PROVIDERS: PCP Family Medicine; Referring Provider Surgery; Visit Provider Surgery
DX: R19.7 Diarrhea, unspecified (principal)
CPT/HCPCS: 36415; 80053; 83690

== ENCOUNTER → 2022-04-05 | Outpatient (CLI) | payer OTHER, SELFPAY ==
[2022-04-10 16:12] LABS: Fats, Neutral Normal (.); Fats, Total Increased (.)
== END | disposition home or self-care (01) ==
LOC: LABSPEC 12:51
PROVIDERS: PCP Family Medicine; Visit Provider Surgery
DX: R10.13 Epigastric pain (principal); G89.18 Other acute postprocedural pain; R19.7 Diarrhea, unspecified
CPT/HCPCS: 82705

== ENCOUNTER → 2022-04-13 | Outpatient (CLI) | payer OTHER, SELFPAY ==
--- NOTE | 2022-04-13 12:54 | CT_ITS ---
STUDY: CT ABDOMEN AND PELVIS WITH CONTRAST REASON FOR EXAM: Female, 61 years old. Diffuse abdominal pain RADIATION DOSAGE (If Supplied By Facility): CTDIvol = ( 16.28 ) mGy, DLP = ( 1120.21 ) mGycm TECHNIQUE: Transaxial images were obtained from the dome of the diaphragm to the symphysis pubis with oral contrast. Oral and amp; IV Readi-CAT and amp; 100mL Isovue-300 was administered. Sagittal and coronal images were reconstructed. Individualized dose optimization techniques were used for this CT. COMPARISON: 02/21/2022 FINDINGS: The visualized lung bases are unremarkable. The visualized portions of the heart are within normal limits. There is decreased attenuation of the liver consistent with steatosis. There is non-visualization of the gallbladder, which may be secondary to either contraction or a prior cholecystectomy. Normal spleen. Normal pancreas. Normal bilateral adrenal glands. Normal right kidney. Normal left kidney. Normal visualized stomach. Normal small intestine. Normal colon. There is non-visualization of the appendix. Normal abdominal aorta. Normal inferior vena cava. Normal retroperitoneum. Normal urinary bladder. There is a stable low abdominal/pelvic hernia containing a small bowel loop without obstruction, or acute inflammation. Mild degenerative bony changes CT/Abdomen/Pelvis WITH Contrast IMPRESSION: Fatty liver, no discrete lesion Stable medial left pelvic hernia containing a small bowel loop without obstruction or inflammation No free intraperitoneal fluid, air, or suspicious adenopathy Electronically Signed: Tom Sanchez MD at 13:33 EDT ,
== END | disposition home or self-care (01) ==
LOC: CT 12:51
PROVIDERS: PCP Family Medicine; Referring Provider Surgery; Visit Provider Surgery
DX: R10.13 Epigastric pain (principal); R19.7 Diarrhea, unspecified; G89.18 Other acute postprocedural pain
CPT/HCPCS: 74177; Q9967

== ENCOUNTER → 2022-04-16 | Outpatient (CLI) | payer OTHER, SELFPAY ==
[2022-04-16 10:56] LABS: ALB/GLOB Ratio 1.2 RATIO (0.9-2.4); AST(SGOT) 20 U/L (15-37); Alanine Aminotransfer ALT/SGPT 33 U/L (13-56); Albumin, Serum 3.6 g/dL (3.2-5.0); Alkaline Phosphatase 102 U/L (45-117); Anion Gap 6 (5-15); BUN 17 mg/dL (7-18); Chloride 107 mmol/L (98-107); Creatinine, Serum 0.94 mg/dL (0.55-1.02); EST Glomerular Filtration Rate 64 mL/min (>60); Est Glom Filt Rate - Afr Amer 77 mL/min (>60); Globulin 3.1 g/dL (2.2-4.2); Glucose 110 mg/dL (74-106); Lipase 139 U/L (73-393); Potassium 4.1 mmol/L (3.5-5.1); Protein, Total 6.7 g/dL (6.4-8.2); Sodium Level 141 mmol/L (136-145)
== END | disposition home or self-care (01) ==
PROVIDERS: PCP Family Medicine; Visit Provider Physician Assistant
DX: R10.9 Unspecified abdominal pain (principal)
CPT/HCPCS: 36415; 80053; 83690

== ENCOUNTER → 2022-09-03 | Outpatient (CLI) | payer OTHER, SELFPAY ==
--- NOTE | 2022-09-03 14:02 | CT_ITS ---
EXAM: CT ABDOMEN AND PELVIS WITH INTRAVENOUS CONTRAST CLINICAL INDICATION: Abdominal pain, abdominal mass -- Oral and IV contrast TECHNIQUE: Helically acquired images were obtained of the abdomen and pelvis with intravenous contrast. This CT exam was performed using one or more of the following dose reduction techniques: automated exposure control, adjustment of the mA and/or kV according to patient size, and/or use of iterative reconstruction technique. This report was created using [employer] report generation technology. CONTRAST: Oral and amp;amp; IV Readi-CAT and amp;amp; 100mL Isovue-370 COMPARISON: 04/13/2022 FINDINGS: LOWER THORAX: Unremarkable. Lung bases are clear. No cardiomegaly. No significant pericardial effusion. ABDOMEN: LIVER: Liver is decreased in attenuation compatible with fatty infiltration. GALLBLADDER AND BILE DUCTS: The gallbladder is not well-visualized and may be surgically absent. No intra- or extrahepatic biliary ductal dilation. PANCREAS: Unremarkable. No focal cystic or solid mass. SPLEEN: Unremarkable. Normal size without focal cystic or solid mass. ADRENALS: Unremarkable. No nodules. KIDNEYS AND URETERS: Unremarkable. Normal renal size and position. No hydronephrosis. STOMACH AND BOWEL: There is an umbilical hernia which contains a portion of a small bowel loop in the hernia sac. There is no obstruction. No focal inflammatory change. PELVIS: APPENDIX: No evidence of acute appendicitis. BLADDER: Unremarkable. REPRODUCTIVE: Unremarkable as visualized. No mass. ABDOMEN and PELVIS: INTRAPERITONEAL SPACE: Unremarkable. No ascites or other fluid collection. No free air. BONES/JOINTS: Unremarkable. No suspicious lytic or blastic abnormality. SOFT TISSUES: There is a second ventral hernia over the anterior pelvis which is unchanged from the reference exam. VASCULATURE: Unremarkable. Abdominal aorta is non-dilated. LYMPH NODES: Unremarkable. No enlarged lymph nodes. CT/Abdomen/Pelvis WITH Contrast IMPRESSION: Stable pelvic ventral hernia contains loops of bowel. There is no obstruction. There is now an umbilical hernia which contains a loop of bowel in the hernia sac without obstruction. No other acute abnormalities are identified. Electronically Signed: Edwin Tijerina MD at 23:58 EDT ,
[2022-09-03 14:30] LABS: CREATININE FINGERSTICK 1.2 mg/dL (0.55-1.02)
== END | disposition home or self-care (01) ==
LOC: CT 14:02
PROVIDERS: PCP Family Medicine; Referring Provider Surgery; Visit Provider Surgery
DX: R10.9 Unspecified abdominal pain (principal); R19.00 Intra-abdominal and pelvic swelling, mass and lump, unspecified site
CPT/HCPCS: 74177; Q9967

== ENCOUNTER → 2022-09-10 | Outpatient (CLI) | payer OTHER, SELFPAY ==
[2022-09-10 12:04] LABS: Absolute Lymphocyte Count 1.83 X10^3/uL (0.83-4.51); Absolute Neutrophil Count 5.7 X10^3/uL (2.0-7.7); Basophil# 0.06 X10^3/uL; Basophil% 0.7 % (0-1); Eosinophils% 2.3 % (0-5); Hematocrit 42.7 % (37-47); Hemoglobin 13.9 g/dL (12.0-15.0); Lymphocyte # 1.83 X10^3/ul (0.83-4.51); Lymphocyte % 21.3 % (19-41); Mean Corp Hgb Conc 32.6 g/dL (32-36); Mean Corpuscular Hgb 30.8 pg (27.0-32.0); Mean Corpuscular Volume 94.7 fL (81-99); Mean Platelet Vol. 9.6 fl (6.2-12.0); Monocyte# 0.81 X10^3/uL; Monocyte% 9.4 % (0-10); NRBC Flagged by Analyzer 0 % (0-5); Neutrophil # 5.66 X10^3/uL (2.7-7.7); Neutrophil % 65.8 % (47-70); Platelet Count 372 K/mm3 (150-450); RBC Distribution Width CV 13.7 % (11.6-14.6); RBC Distribution Width SD 47.8 fl (35.1-43.9); Red Blood Count 4.51 M/mm3 (4.2-5.4); White Blood Count 8.6 K/mm3 (4.4-11.0)
[2022-09-10 13:08] LABS: AST(SGOT) 21 U/L (15-37); Alanine Aminotransfer ALT/SGPT 42 U/L (13-56); Albumin, Serum 3.6 g/dL (3.2-5.0); Alkaline Phosphatase 102 U/L (45-117); Anion Gap 8 (5-15); BUN 14 mg/dL (7-18); BUN/Creat Ratio 13.3 RATIO (10-20); Chloride 107 mmol/L (98-107); Cholesterol 228 mg/dL (200); Creatinine, Serum 1.05 mg/dL (0.55-1.02); EST Glomerular Filtration Rate 56 mL/min (>60); Est Glom Filt Rate - Afr Amer 68 mL/min (>60); Free T3 2.4 pg/mL (2.18-3.98); Globulin 3.5 g/dL (2.2-4.2); Glucose 111 mg/dL (74-106); High Density Lipoprotein 66 mg/dL; Protein, Total 7.1 g/dL (6.4-8.2); Sodium Level 141 mmol/L (136-145); T4 Free Direct 0.93 ng/dL (0.76-1.46); Triglycerides 236 mg/dL; Very Low Density Lipoprotein 47 mg/dL (5-40)
== END | disposition home or self-care (01) ==
LOC: BFHLAB 10:55
PROVIDERS: PCP Family Medicine; Referring Provider Family Medicine; Visit Provider Family Medicine
DX: E03.9 Hypothyroidism, unspecified (principal); E78.5 Hyperlipidemia, unspecified; Z51.81 Encounter for therapeutic drug level monitoring
CPT/HCPCS: 36415; 80053; 80061; 84439; 84443; 84481; 85025

== ENCOUNTER 2022-10-23 14:49 | Observation (INO) | payer OTHER, SELFPAY ==
[2022-10-23] VITALS (11 sets, daily range): BP systolic 117–149; BP diastolic 72–91; PULSE 68–105; RESP 15–18; TEMP 36.1–37.2; O2SAT 93–98; BMI 36.3
[2022-10-23] MEDS: Lactated Ringers 1,000 ML 15 ML IV ×2 (09:30→15:21)
[2022-10-23 10:20] LABS: Bedside Glucose 110 mg/dL (74-106)
--- NOTE | 2022-10-23 10:52 | PCM.HP.BLA ---
History and Physical Date of Admission: 10/23/22 Date of Service:? 09/12/22 MR#: [id number] Acct: [id number] Name:KRANTHI GUTIERRES Rep #: [id number] : 1960 ? ? Provider: Dr. Víctor Valdivia MD Age/Sex:? 62/F ? ? [place] [facility] [place] Status: Signed Intake Vital Signs ? 09/05/2309:36 09/12/2308:08 Height 5 ft 1 in ? BP ? 153/81 H Blood Pressure Location ? Rt brachial Position ? Sitting Respiration ? 17 Pulse ? 77 Pulse Source ? Monitor Temp ? 97.3 F L Temp Source ? Temporal Pulse Oximetry (%) ? 96 Oxygen Delivery Method ? room air Intake Visit Reasons:?discuss hernia surgery Chief Complaint: discuss hernia surgery Is patient in pain?: No Allergies erythromycin base [Erythromycin Base] Adverse Reaction (Verified 09/12/22 09:11) Nauseahydrocodone bitartrate [From Vicodin] Adverse Reaction (Verified 09/12/22 09:11) Itching Medications levothyroxine 50 mcg tablet 50 mcg PO DAILY thyroid 12/07/13 [History Confirmed 09/12/22] blyatgyhsbdz-Ks-vlfu-minerals 1 ea PO DAILY supplement 12/07/13 [History Confirmed 09/12/22] pilocarpine HCl 7.5 mg tablet 7.5 mg PO BID dry mouth 12/07/13 [History Confirmed 09/12/22] duloxetine 60 mg capsule,delayed release 40 mg PO BID nerve pain 12/18/16 [History Confirmed 09/12/22] albuterol sulfate 90 mcg/actuation aerosol inhaler 1 - 2 puff inhalation PRN PRN Allergies 01/14/20 [History Confirmed 09/12/22] cholecalciferol (vitamin D3) 25 mcg (1,000 unit) tablet 1,000 unit PO DAILY supplement 01/21/20 [History Confirmed 09/12/22] omeprazole 20 mg capsule,delayed release 20 mg PO BID gerd 01/21/20 [History Confirmed 09/12/22] amlodipine 5 mg tablet 5 mg PO DAILY bp 02/21/22 [History Confirmed 09/12/22] losartan 100 mg tablet 100 mg PO DAILY bp 02/21/22 [History Confirmed 09/12/22] nortriptyline 10 mg capsule 10 mg PO QHS headaches 02/21/22 [History Confirmed 09/12/22] acetaminophen 325 mg tablet (Tylenol) 650 mg PO Q6H PRN PRN Pain Score 1-10 #0 tabs 03/01/22 [Rx Confirmed 09/12/22] ibuprofen 400 mg tablet 400 mg PO Q6H PRN PRN Pain Score 1-5 #0 tabs 03/01/22 [Rx Confirmed 09/12/22] cyclobenzaprine 5 mg tablet 5 mg PO TID PRN muscle spasm #15 tabs 04/16/22 [Rx Confirmed 09/12/22] blood sugar diagnostic (Paymateuch Ultra Test strips) #100 ea 08/01/22 [Rx Confirmed 09/12/22] blood-glucose meter (Paymateuch Ultra2 Meter) #1 ea 08/01/22 [Rx Confirmed 09/12/22] metformin 500 mg tablet 500 mg PO BIDWMEAL #60 tabs 08/01/22 [Rx Confirmed 09/12/22] dapagliflozin 10 mg tablet (Farxiga) 10 mg PO DAILY #30 tabs 09/05/22 [Rx Confirmed 09/12/22] tirzepatide 2.5 mg/0.5 mL subcutaneous pen injector (Mounjaro) 2.5 mg (0.5 mL) subcut QWEEK 4 weeks #2 mL 09/12/22 [Rx Confirmed 09/12/22] PFSH Medical History? Chronic cholecystitis Depression Gastritis GERD (gastroesophageal reflux disease) Hypothyroid Osteoarthritis PAD (peripheral artery disease) Sleep apnea Surgical History? H/O colonoscopy H/O esophagogastroduodenoscopy H/O left knee surgery H/O: hysterectomy History of colonoscopy (~01/2020) History of esophagogastroduodenoscopy (EGD) (~01/2020) History of resection of small bowel (~02/2022) left shoulder surgery Parathyroid cyst right foot surgery S/P appendectomy S/P laparoscopic cholecystectomy (~01/13/18) Family History? Mother Breast cancer Hypertension Cancer ?? ? SKINFather Cancer HypertensionOther defect Osteoporosis Skin cancer Social History? Smoking Status:? Current every day smoker alcohol intake:? current alcohol intake frequency: holidays/special occasions only substance use type:? does not use frequency:? 3-4 times per week HPI HPI HPI: Patient presents today to discuss possible operative intervention for newly discovered incisional hernia.? Her last visit with me was 08/22/2022.? Reports several health updates including that she has remained free of cigarettes aside from 1 cigarette this past weekend when she was spending time with friends.? She also reports that she is planning to begin a GLP-1 agonist regimen to help with her blood sugars (her last A1c was reviewed and was 5.7 from 08/01/2022).? She states that she has received insurance approval but now is trying to arrange for the medication to her pharmacy.? Outside of these health updates, Ms. Padilla relates that she has been experiencing diarrhea, but did have some pain and constipation across her upper abdomen a couple of months ago.? She denies any unexplained nausea or vomiting. Below is recapitulated from patient's prior visitation for ease of review: HPI: Patient is a 62-year-old female who is known to me for history of small bowel obstruction requiring exploratory laparotomy and lysis of adhesions with bowel resection and reanastomosis on 02/22/2022.? Today she presents for complaints of a possible abdominal wall hernia.? She reports that approximately 3 weeks ago she was working out and both felt and heard a pop.? She initially thought this was her lower back, but shortly thereafter began noticing a bulge just above her bellybutton.? She reports that she has been working out doing treadmill exercises, arm curls, sit ups, and leg lifts as she tries to improve her general health.? She states that the area of concern gives her some minor discomfort when doing these exercises.? She also reports a development of quite a bit of diarrhea.? She notes that this showed straightened out following our surgery, but has now returned.? She quickly has that she is suspicious her initiation on metformin given her new prediabetes diagnosis may have something to do with this.? She reports that her weight has been up-and-down, but settles around 198 pounds.? When asked about her known lower hernia she reports that this only bothers her sometimes.? Lastly Ms. Padilla confesses that she is still smoking approximately 5 to 7 cigarettes/day. ROS General General: Yes weight change; No appetite, fatigue, colon cancer, breast cancer or weakness HEENT HEENT: No difficulty swallowing, eye injury, eye surgery, swollen glands or hoarseness Endo Endocrine: Yes thyroid disease and diabetes mellitus; No thyroid cancer, Hair loss, heat intolerance or cold intolerance Skin Skin: Yes rash; No changing moles Musc Musculoskeletal: No back problems, arthritis, rheumatoid arthritis, gout or joint pain Cardio Cardiovascular: Yes high blood pressure; No murmur, pacemaker, heart disease, atrial fibrillation, heart attack, heart stent, palpitations, shortness of breat with exertion or chest pain Psych Psychiatric: Yes depression; No anxiety or hearing voices Resp Respiratory: No shortness of breath, No sleep apnea, No cough, No COPD, Yes asthma, No emphysema and No wheezing Gastro Gastrointestinal: Yes abdominal pain, No nausea or vomiting, Yes diarrhea, No constipation, No blood in stool, No acid reflux, No hemorrhoids, No ulcers, No gallbladder problem and No black,tarry stools David Hematologic: No blood thinners, No blood disorders, No bleeding, No anemia and No blood clots Neuro Neurologic: No system reviewed and no additional complaints, except as documented, No as per HPI, No abnormal gait, No abnormal hearing, No abnormal movements, No abnormal speech, No behavioral changes, No burning sensations, No confusion, No convulsions, No disequilibrium, No dizziness, No localized weakness, No frequent falls, No headache(s), No lack of coordination, No loss of vision, No memory loss, No numbness, No other visual disturbances, No radicular pain, No restless legs, No sensory deficit, No syncope, No tingling, No tremor(s), No weakness and No other Exam Const General: cooperative, no acute distress and anxious Orientation: alert, awake and oriented x3 Resp Effort & Inspection: normal respiratory effort GI Other: Well-healed incisions, no visible bulging.? Soft and tender to palpation at the inferior aspect of patient's upper midline incision.? Patient immediately began stating urine to make me vomit when trying to palpate for a fascial defect which I believe I perceived before patient turns away Assessment and Plan Assessment and Plan (1) Incisional hernia of anterior abdominal wall without obstruction or gangrene: ?Status:?Acute ?Comment: This is a 62-year-old female that is known to me for a prior history of diagnostic laparoscopy converted to exploratory laparotomy with small bowel resection and reanastomoses in February 2022 who is now diagnosed with a incisional hernia at the inferior aspect of her previous laparotomy closure.? This hernia seems to stem from patient's recent increased, vigorous physical activity as she was trying to get healthy in the gym.? CT imaging of the abdomen and pelvis was performed on 09/03/2022 which demonstrates a new hernia at the level of the umbilicus.? This CT imaging is shared with Ms. Padilla and I show her that it contains a short loop of small bowel and measures 3.5 cm at the hernia neck.? This has the appearance of a Cottrell's type hernia and I have shared with Ms. Padilla that that is a concerning situation for possible future bowel obstruction versus bowel compromise and therefore I would recommend proceeding to the operating room for a incisional hernia repair with mesh.? I have also shared with her that given the density of the adhesions encountered at her last procedure, would look to reduce the bowel and place an intraperitoneal mesh, but may ultimately utilize a mesh that would provide less than 4 cm of overlap in favor of minimizing the risk to the remaining small bowel and avoid cross-contamination to her mesh.? Patient expresses understanding of this information and rationale and wishes to proceed as soon as possible.? However, she has some prearranged travel to [place] later next month and I have advised against operating within 14 days of air travel as well as any significant activity or lifting restrictions as I recommend that she would avoid any lifting greater than 10 pounds for 5 weeks postoperatively to allow for adequate healing. ?Plan: ? Open Incisional ventral hernia repair with mesh at first mutually agreeable date (currently looking like early October).? Patient advised that this will be planned for as an outpatient procedure and that lifting restrictions are expected as above I have examined the patient and the H&P has been reviewed. There are no clinical changes since date of exam. Patient denies any additional symptoms during her recent travels. She confirms that she completed the requested Hibiclens washes and mupirocin swabs. Plans for the operation were reviewed as well as post procedure expectations and activity restrictions. Patient confirms acceptance of all of this and denies any further questions. We will plan to proceed to the operating room for incisional hernia repair with mesh.
[2022-10-23] MEDS: Cefazolin 2 GM in 0.9% Normal Saline 100 ML IV (10:59)
[2022-10-23] MEDS: Bupivacaine Mpf 0.5% 30 ML VIAL (11:24)
[2022-10-23] MEDS: 0.9% Normal Saline (Pres. free 10 ML Vial (12:56)
[2022-10-23] MEDS: BUPIVACAINE LIPOSOME/PF 20 ML VIAL OPERA.SITE (12:57)
--- NOTE | 2022-10-23 14:09 | OP.PCM_ITS ---
Report of Operation Date of Procedure: 10/23/22 Pre-Operative Diagnosis: 1. Incisional (Cottrell's type) ventral hernia 2. Diabetes mellitus 3. Obesity Post-Operative Diagnosis: Same (but evidence of multiple ventral hernias with Chilean cheese defects) Surgery/Procedure Performed:: 1. Open ventral hernia repair with 11 x 14 mesh underlay 2. Adhesiolysis x 60 minutes 3. Transversus abdominis plane block Description of Surgical Findings:: ? 2.5 x 2.5 cm primary defect at the umbilicus with with 2 x 1.5 cm defects located cephalad to this defect at distances of 2 cm and 4.5 cm, respectively Surgeon: Víctor Valdivia auto design checker: Bethanie Camilo Type of Anesthesia: General/Supplemental Anesthesiologist: Davis Koroma Special Medications: Exparel with injectable saline and bupivacaine Specimen's removed: NA Drains: NA Estimated Blood Loss (mL): 50 Fluids Replaced: 1600mL Description of Procedure: After appropriate identification in the preoperative holding area patient was brought to the operating room where she was positioned supine on the operating room table. Preoperative antibiotics were being administered during this time. Patient was then induced with a general anesthetic and her abdomen was prepped and draped in the usual sterile fashion. A formal timeout was conducted to confirm both patient and the procedure amongst those present. Observing the patient's prior scars and location of her present hernia, I elected to use a lateral curvilinear incision and performed a local block along this tissue using half percent Marcaine. This incision was made sharply and deepened down through the dermis and subcu tissue with use of electrocautery. I took great care to bluntly dissect down to the level of the fascia and dissect out the hernia sac as patient's CT imaging, preoperatively, had shown the hernia containing bowel. I used a hemostat to bluntly dissect out and encircled the umbilical stalk and also took great care to avoid injury to the overlying skin. Gradually this was freed from the underlying scar and soft tissue attachments until we were able to visualize patient's fascial defect. No bowel was present in the defect, but t here was bowel immediately deep to this defect and the fascial opening measured 2.5 cm x 2.5 cm round. As the fascia was completely cleared of overlying attachments, I also took great care to free up the underside of the fascia where I found bowel rather densely adherent along the superior aspect of this defect. A combination of blunt and sharp dissection was required for this purpose, but I was able to maintain a safe distance from the bowel serosa as this step proceeded. At this point I requested a 8 cm Ventralex hernia patch and was confirming my underlay position when I palpated an additional hernia defect 2 cm cephalad to the index hernia defect measuring 1.5 cm in width. I elected to extend our skin incision 3 cm cephalad and incised the soft tissue down to our new fascial defect. Initially I decided to close this defect primarily as I then would count on our planned underlay to also cover the underside of this fascial closure. This primary closure was undertaken with interrupted 2-0 Ethibond suture and the defect was well approximated. Once again I attempted to ensure appropriate clearance of the fascia for our underlay mesh and, once again, I palpated a second hernia defect along the patient's prior incision line. This defect was located a distance of 4-1/2 cm superior to the index defect and, again, measured 1.5 cm in width. With this finding, I determined I would not have mesh underlay for this area and in the interest of providing the patient with the most robust repair, elected to extend my skin incision cephalad for a total longitudinal measurement of 10 cm and then used electrocautery to open the fascia the full extent from the patient's most recently identified defect through her index defect. I then spent additional time with adhesiolysis and freeing up the underside of the fascia from omental and small bowel adhesions using a combination of blunt and sharp dissection. Again, I was able to maintain a safe distance from the bowel and avoid injury. To help manage patient's postoperative discomfort I performed a transversus abdominis plane block under direct visualization by instilling 60 mL of a solution of Exparel, injectable saline, and bupivacaine (mixed 30 mL 0.5% bupivacaine, 20 mL injectable saline, and 20 mls liposomal bupivacaine) in even aliquots along patient's laparotomy. At this point I selected a new mesh?a 11 x [address] for repair of our defect. Fascial flaps were created by incising the soft tissue above the fascia but effort was made to preserve perforating vascular pedicles. The mesh was secured into an underlay position using transfascial interrupted #1 Prolene sutures and taking bites through the anterior pocket of our mesh. This procedure was carefully performed in a circumferential fashion to avoid inadvertent injury to the underlying viscera and achieve good mesh apposition to the anterior abdominal wall without wrinkling. Ultimately our sutures were tied in and the top side of the mesh was checked for any gaps. 2 gaps were identified in the superior aspect of the closure and these were addressed with additional #1 Prolene sutures. Then the fascial opening was closed in a bidirectional fashion using 2 times #1 Prolene sutures run towards each other and tied in the middle. A 2-0 Vicryl suture was used to close down the subcutaneous layer over this fascia after ensuring hemostasis and irrigating. The skin of the umbilical stalk was tacked down to the fascia with a interrupted 4-0 Monocryl as this space was closed. Lastly, a 4-0 Monocryl was used to close the skin in a running subcuticular technique. Steri's were applied and a Mepilex dressing was placed. For added security, patient was placed in a abdominal binder as she was awakened from general anesthetic and ta liliana to PACU for ongoing recovery. Grafts/Implants Used: 11 x [address] hernia patch reference [id number], lot [id number] Complications None Admit VTE Documentation VTE Mechan Device Prophylaxis: SCD's
[2022-10-23] MEDS: 0.9% Normal Saline 1,000 ML 75 ML IV (16:14)
[2022-10-23] MEDS: oxyCODONE 5 MG Tablet PO (16:58)
[2022-10-23] MEDS: Acetaminophen 500 MG Tablet PO (16:58)
[2022-10-23 17:20] LABS: Bedside Glucose 129 mg/dL (74-106)
[2022-10-23] MEDS: Ketorolac 15 MG/ML Vial IV (18:08)
[2022-10-23] MEDS: HYDROmorphone 0.5 MG/0.5 ML SYRINGE IV (20:37)
[2022-10-23] MEDS: Pantoprazole Sodium 20 MG Tablet PO (21:33)
[2022-10-23 21:55] LABS: Bedside Glucose 109 mg/dL (74-106)
[2022-10-24] MEDS: Acetaminophen 500 MG Tablet PO ×2 (00:02→06:06)
[2022-10-24] MEDS: oxyCODONE 5 MG Tablet 10 MG PO ×2 (00:03→06:06)
[2022-10-24 03:41] VITALS: BP 107/68; PULSE 94; RESP 16; TEMP 37.1; O2SAT 94
[2022-10-24] MEDS: 0.9% Normal Saline 1,000 ML 75 ML IV (04:59)
[2022-10-24] MEDS: Ketorolac 15 MG/ML Vial IV ×2 (05:00→12:16)
[2022-10-24 06:31] LABS: Bedside Glucose 107 mg/dL (74-106)
--- NOTE | 2022-10-24 08:45 | DCINST_ITS ---
Discharge Instructions Diet Discharge Diet: Light diet - advance as tolerated Activity Discharge Activity: May Not Drive (5 days or while taking narcotic pain medication) May shower in (days): 1 Ice area for (Minutes): 20 Lifting Restrictions: No lifting greater than 10 pounds Additional Activity Instructions:: Recommend ice for 24-36 hours and then switch to heat. You may also alternate ice and heat after 36 hours. Dressing / Incision Call your doctor if your incision/area has: Continuous Slow Oozing, Sudden Increased Bleeding, Increased Pain/ Swelling, Increased Redness, Foul Smelling Discharge and Swelling at the incision site Call your doctor if you observe: Fever of 101 or Higher Suture Line Care: Avoid Pulling/Pushing and Avoid Pinching/Bending Remove Dressing in: 5 days Cleanse incision/area with: Soap & Water (Once dressing is removed) Follow Up Care Please Follow Up With: Víctor Valdivia MD When: 1 week. Please contact our office to schedule an office appointment Test Results: Test results from this visit will be discussed in further detail at your follow- up appointment, if applicable. Discharge Plan Admission Admit Date/Time: 10/23/22 14:49 Primary Reason for Your Visit: Incisional ventral hernia Attending Provider: Víctor Valdivia Primary Care Provider: Juany Jacob Instructions Additional Instructions / Restrictions: Recommend daily Miralax for 14 days following discharge Recommend transitioning to Ibuprofen and/or Tylenol for pain/discomfort as needed Recommend Protein shakes three times per day or twice a day with protein included with at least 2 meals per day Avoid lifting greater than 10 pounds at this time Avoid pushing, pulling and squatting We encourage you to be walking around at home or sitting in the chair. You may have the binder open when sitting or laying down We recommend you have the binder closed when you are up and moving or changing positions Dr. Valdivia would like you to have a follow-up in 7 days in our office. Discharge Orders/Prescriptions Prescriptions: New oxycodone 5 mg Tablet 10 mg PO Q6H PRN PRN (Reason: Pain Score 6-10) 3 Days Qty: 18 0RF Continued albuterol sulfate 90 mcg/actuation HFA aerosol inhaler 1 - 2 puff INHALATION PRN PRN (Reason: Allergies) Label Comments: INHALE 2 PUFFS TWICE A DAY NEEDED metformin 500 mg tablet 500 mg PO BIDWMEAL Qty: 60 3RF levothyroxine 50 MCG tablet 50 mcg PO DAILY Label Comments: THYROID MEDICATION yljibwgvaqtp-Ri-lhgq-minerals 1 EACH tablet 1 ea PO DAILY Label Comments: SUPPLEMENT pilocarpine HCl 7.5 MG tablet 7.5 mg PO BID Label Comments: GLAUCOMA duloxetine 60 MG capsule 40 mg PO BID Label Comments: WITH BREAKFAST omeprazole 20 MG capsule 20 mg PO BID cholecalciferol (vitamin D3) 1,000 UNIT tablet 1,000 unit PO DAILY amlodipine 5 mg tablet 5 mg PO DAILY nortriptyline 10 mg capsule 10 mg PO PRN PRN (Reason: Sleep) losartan 100 mg tablet 100 mg PO DAILY acetaminophen [Tylenol] 325 mg Tablet 650 mg PO Q6H PRN PRN (Reason: Pain Score 1-10) Qty: 0 0RF ibuprofen 400 mg Tablet 400 mg PO Q6H PRN PRN (Reason: Pain Score 1-5) Qty: 0 0RF Mounjaro 2.5 mg/0.5 mL pen injector 2.5 mg subcut QWEEK 28 Days Qty: 2 1RF Discontinued mupirocin 2 % ointment 1 applic topical BID Qty: 22 0RF Rx Instructions: Apply to bilateral nares twice daily prior to surgery chlorhexidine gluconate [Hibiclens] 4 % liquid 1 applic topical ONCE Qty: 118 0RF Rx Instructions: as daily to wash truck arms and legs prior to surgery No Action (DME) blood-glucose meter [OneTouch Ultra2 Meter] Misc See Rx Instructions .Route Qty: 1 0RF Rx Instructions: As directed (DME) OneTouch Ultra Test Strip See Rx Instructions .Route Qty: 100 5RF Rx Instructions: daily Referrals / Follow Up: Juany Jacob DO [Primary Care Provider] - Víctor Valdivia MD [Med Staff - Active Staff] - 10/31/22 (Please call our office for an appointment for a 1 week follow-up) Disposition Disposition (needs filled in before D/C Order can be placed): Home, Self Care
--- NOTE | 2022-10-24 08:49 | PCM.DC.SUM ---
Providers Date of Admission: 10/23/22 Primary Care Physician: Dr. Juany Jacob DO Reason For Visit: open incisional hernia repair w mesh Medications at Discharge Home Medications levothyroxine 50 mcg tablet 50 mcg PO DAILY thyroid 12/07/13 ysjpvotnecie-Sg-wsuj-minerals 1 ea PO DAILY supplement 12/07/13 pilocarpine HCl 7.5 mg tablet 7.5 mg PO BID dry mouth 12/07/13 duloxetine 60 mg capsule,delayed release 40 mg PO BID nerve pain 12/18/16 albuterol sulfate 90 mcg/actuation aerosol inhaler 1 - 2 puff inhalation PRN PRN Allergies 01/14/20 cholecalciferol (vitamin D3) 25 mcg (1,000 unit) tablet 1,000 unit PO DAILY supplement 01/21/20 omeprazole 20 mg capsule,delayed release 20 mg PO BID gerd 01/21/20 amlodipine 5 mg tablet 5 mg PO DAILY bp 02/21/22 losartan 100 mg tablet 100 mg PO DAILY bp 02/21/22 nortriptyline 10 mg capsule 10 mg PO PRN PRN Sleep 02/21/22 acetaminophen 325 mg tablet (Tylenol) 650 mg PO Q6H PRN PRN Pain Score 1-10 #0 tabs 03/01/22 ibuprofen 400 mg tablet 400 mg PO Q6H PRN PRN Pain Score 1-5 #0 tabs 03/01/22 blood sugar diagnostic (OneTouch Ultra Test strips) #100 ea 08/01/22 blood-glucose meter (OneTouch Ultra2 Meter) #1 ea 08/01/22 metformin 500 mg tablet 500 mg PO BIDWMEAL #60 tabs 08/01/22 tirzepatide 2.5 mg/0.5 mL subcutaneous pen injector (Mounjaro) 2.5 mg (0.5 mL) subcut QWEEK 4 weeks #2 mL 09/12/22 oxycodone 5 mg tablet 10 mg PO Q6H PRN PRN Pain Score 6-10 3 days #18 tabs 10/24/22 Hospital Course Operations - (Open ventral hernia repair with 11 x 14 mesh underlay, Adhesiolysis x30 minutes, Transversus abdominis plane block) Summary of Care Provided Minutes Spent on Discharge: 30 Hospital Course: Patient is a 62 y/o F who presented for an elective ventral incisional hernia repair. Dr. Valdivia performed an Open ventral hernia repair with 11 x 14 mesh underlay, Adhesiolysis x30 minutes, and Transversus abdominis plane block on 10/23/22. Patient was found during surgery to have multiple small defects throughout the facial layer. A larger piece of mesh was used to allow for coverage of all of the defects. It was decided to admit the patient following the procedure for pain control and observation. Post-operatively, patient developed urinary retention. Patient was able to void after an hour of observation. Patient was also placed on oxygen while sleeping, as her oxygen level would drop. Upon discharge, patient notes pain is well controlled with the pain medication. Patient denies nausea, vomiting, fever. She has been urinating well. She has tolerated her regular diet. Patient had met discharge criteria. Patient is being discharged to home from the hospital. She was requiring oxygen 2 liters via nasal canula while sleeping due to her oxygen saturation desaturation at 88. Patient continued to require oxygen at rest. Home oxygen qualification was completed. This demonstrated patient was at 92% on room air at rest and 92% on 4 liters of oxygen with ambulation. Patient will need to be discharged to home with oxygen. She will require oxygen to be worn during exertion on 4 liters. Patient will not smoke with the oxygen in place and will continue with the incentive spirometer. Physical Exam GI soft to palpation GI Narrative: Abdominal binder intact. Incision c/d/i. Mepilex dressing intact. Auscultation: normoactive bowel sounds Palpation: soft and tender other (generalized) Weight / BMI Weight Weight: 192 lb 3.889 oz Body Mass Index (BMI) 36.3 ABG / Lab / Microbiology Data Laboratory: Laboratory Results - last 24 hr 10/23/22 09:51: POC Glucose 110 H 10/23/22 16:55: POC Glucose 129 H 10/23/22 21:32: POC Glucose 109 H 10/24/22 06:08: POC Glucose 107 H D/C Instructions Discharge Diet: Light diet - advance as tolerated May shower in (days): 1 Ice area for (Minutes): 20 Additional Activity Instructions: Recommend ice for 24-36 hours and then switch to heat. You may also alternate ice and heat after 36 hours. Call your doctor if your incision/area has: Continuous Slow Oozing, Sudden Increased Bleeding, Increased Pain/ Swelling, Increased Redness, Foul Smelling Discharge and Swelling at the incision site Call your doctor if you observe: Fever of 101 or Higher Suture Line Care: Avoid Pulling/Pushing and Avoid Pinching/Bending Cleanse incision/area with: Soap & Water (Once dressing is removed) Please Follow Up With: Víctor Valdivia MD When: 1 week. Please contact our office to schedule an office appointment Meaningful Use Info Meaningful Use Diagnoses (Choose all that apply): None applicable Discharge Plan Admission Admit Date/Time: 10/23/22 14:49 Primary Reason for Your Visit: Incisional ventral hernia Attending Provider: Víctor Valdivia Primary Care Provider: Juany Jacob Instructions Patient Instructions: Using Oxygen Safely, Using Oxygen at Home, Using an Oxygen Tank at Home Additional Instructions / Restrictions: Recommend daily Miralax for 14 days following discharge Recommend transitioning to Ibuprofen and/or Tylenol for pain/discomfort as needed Recommend Protein shakes three times per day or twice a day with protein included with at least 2 meals per day Avoid lifting greater than 10 pounds at this time Avoid pushing, pulling and squatting We encourage you to be walking around at home or sitting in the chair. You may have the binder open when sitting or laying down We recommend you have the binder closed when you are up and moving or changing positions Dr. Valdivia would like you to have a follow-up in 7 days in our office. Discharge Orders/Prescriptions Prescriptions: New oxycodone 5 mg Tablet 10 mg PO Q6H PRN PRN (Reason: Pain Score 6-10) 3 Days Qty: 18 0RF Continued albuterol sulfate 90 mcg/actuation HFA aerosol inhaler 1 - 2 puff INHALATION PRN PRN (Reason: Allergies) Label Comments: INHALE 2 PUFFS TWICE A DAY NEEDED metformin 500 mg tablet 500 mg PO BIDWMEAL Qty: 60 3RF levothyroxine 50 MCG tablet 50 mcg PO DAILY Label Comments: THYROID MEDICATION ntyzbsqogwdo-Ny-ymxd-minerals 1 EACH tablet 1 ea PO DAILY Label Comments: SUPPLEMENT pilocarpine HCl 7.5 MG tablet 7.5 mg PO BID Label Comments: GLAUCOMA duloxetine 60 MG capsule 40 mg PO BID Label Comments: WITH BREAKFAST omeprazole 20 MG capsule 20 mg PO BID cholecalciferol (vitamin D3) 1,000 UNIT tablet 1,000 unit PO DAILY amlodipine 5 mg tablet 5 mg PO DAILY nortriptyline 10 mg capsule 10 mg PO PRN PRN (Reason: Sleep) losartan 100 mg tablet 100 mg PO DAILY acetaminophen [Tylenol] 325 mg Tablet 650 mg PO Q6H PRN PRN (Reason: Pain Score 1-10) Qty: 0 0RF ibuprofen 400 mg Tablet 400 mg PO Q6H PRN PRN (Reason: Pain Score 1-5) Qty: 0 0RF Mounjaro 2.5 mg/0.5 mL pen injector 2.5 mg subcut QWEEK 28 Days Qty: 2 1RF Discontinued mupirocin 2 % ointment 1 applic topical BID Qty: 22 0RF Rx Instructions: Apply to bilateral nares twice daily prior to surgery chlorhexidine gluconate [Hibiclens] 4 % liquid 1 applic topical ONCE Qty: 118 0RF Rx Instructions: as daily to wash truck arms and legs prior to surgery No Action (DME) blood-glucose meter [OneTouch Ultra2 Meter] Misc See Rx Instructions .Route Qty: 1 0RF Rx Instructions: As directed (DME) OneTouch Ultra Test Strip See Rx Instructions .Route Qty: 100 5RF Rx Instructions: daily Referrals / Follow Up: Juany Jacbo DO [Primary Care Provider] - In 1 Week (please follow up with your PCP in one week to re-evaluate the need for home oxygen) Víctor Valdivia MD [Med Staff - Active Staff] - 10/31/22 (Please call our office for an appointment for a 1 week follow-up) Disposition Disposition (needs filled in before D/C Order can be placed): Home, Self Care Charges/Coding Visit Charges Inpatient E&M: 97940 Disch Hosp >30min (No charge; post-op)
[2022-10-24 09:14] VITALS: BP 107/66; PULSE 76; RESP 16; TEMP 36.8; O2SAT 92
[2022-10-24] MEDS: Pantoprazole Sodium 20 MG Tablet PO (09:35)
[2022-10-24] MEDS: Losartan Potassium 50 MG Tablet PO (09:35)
[2022-10-24] MEDS: Polyethylene Glycol 3350 17 GM PACKET PO (09:39)
[2022-10-24] MEDS: Furosemide 20 MG/2 ML VIAL IV (12:16)
[2022-10-24] MEDS: 0.9% Saline Lock 10 ML Syringe IV (12:16)
[2022-10-24 13:21] VITALS: O2SAT 85; O2SAT 88; O2SAT 92
--- NOTE | 2022-10-24 15:09 | PCM.PN.BLA ---
Progress Note Patient is being discharged to home from the hospital. She was requiring oxygen 2 liters via nasal canula while sleeping due to her oxygen saturation desaturation at 88. Patient continued to require oxygen at rest. Home oxygen qualification was completed. This demonstrated patient was at 92% on room air at rest and 92% on 4 liters of oxygen with ambulation. Patient will need to be discharged to home with oxygen. She will require oxygen to be worn during exertion on 4 liters. Patient will not smoke with the oxygen in place and will continue with the incentive spirometer.
[2022-10-24 15:21] LABS: Bedside Glucose 104 mg/dL (74-106)
--- NOTE | 2022-10-24 15:58 | CASEMGMT ---
RN CM into pt room, pt qualifies for home oxygen. Provided pt with a verbal local in network list of DME companies, pt chose [employer]. [place] [facility] [facility] [place] Homegoing oxygen instructions given, pt verbalizes understanding.
[2022-10-24 16:30] VITALS: BP 104/67; PULSE 73; RESP 16; TEMP 36.8; O2SAT 95
== END 2022-10-24 17:27 | disposition home or self-care (01) ==
LOC: SDC 15:17 → MS3 10-24 08:44
PROVIDERS: Admitting Provider Surgery; PCP Family Medicine; Referring Provider Surgery; Visit Provider Surgery
PROC: (CPT 49591; principal; 2022-10-23 10:45)
DX: K43.2 Incisional hernia without obstruction or gangrene (principal); E11.51 Type 2 diabetes mellitus with diabetic peripheral angiopathy without gangrene; K42.9 Umbilical hernia without obstruction or gangrene; F17.210 Nicotine dependence, cigarettes, uncomplicated; Z79.84 Long term (current) use of oral hypoglycemic drugs; E66.9 Obesity, unspecified; Z79.890 Hormone replacement therapy; Z79.899 Other long term (current) drug therapy; E03.9 Hypothyroidism, unspecified; G47.30 Sleep apnea, unspecified; Z68.36 Body mass index [BMI] 36.0-36.9, adult; K21.9 Gastro-esophageal reflux disease without esophagitis
CPT/HCPCS: 49591; 00750; 49999; 82962; 94668; 96361; 96374; 96375; 96376; 99221; 99252; J7030; J7120; A4216; C1781; G0378; G0463; J1940; J2405; J3490

== ENCOUNTER → 2023-03-25 | Outpatient (CLI) | payer OTHER, SELFPAY ==
--- NOTE | 2023-03-25 12:56 | BI_ITS ---
MAMMOGRAPHY - BILATERAL SCREENING REASON FOR EXAM: Female, 62 years old. Routine annual screening examination. PERTINENT HISTORY: Mother with breast cancer. Aunt with breast cancer. TECHNIQUE: Digital bilateral breast mohan (3D mammographic acquisition) in the CC and MLO projections. 2-D mediolateral oblique (MLO) and craniocaudad (CC) views of both breasts were obtained. CAD: Full Field Digital Mammography with Computer Added Detection was performed. COMPARISON: Comparison is made with prior study dated March 13, 2022 and February 01, 2021. FINDINGS: Breast Composition: The breasts are heterogeneously dense, which may obscure small masses. There are no dominant masses or suspicious calcifications. Stable benign-appearing bilateral axillary lymph nodes. No other significant abnormalities are identified. There has been no significant change since the prior study. BI/SCRN MAMM (CAD)W/MOHAN BILAT IMPRESSION: Stable bilateral screening mammogram. Yearly follow-up mammogram recommended. (A) ASSESSMENT CATEGORY: BIRADS Category 2: Benign. A letter regarding these results will be sent to the patient by the facility within 30 days. Approximately 10% of breast cancers are not detected by mammography. A normal mammogram should not delay biopsy of a clinically suspicious abnormality. [id number] Electronically Signed: Minor Gonzalez MD at 14:31 EDT ,
== END | disposition home or self-care (01) ==
LOC: OPBI 12:55
PROVIDERS: PCP Family Medicine; Referring Provider Family Medicine; Visit Provider Family Medicine
DX: Z12.31 Encounter for screening mammogram for malignant neoplasm of breast (principal)
CPT/HCPCS: 77063; 77067

== ENCOUNTER → 2023-04-08 | Outpatient (CLI) | payer OTHER, SELFPAY ==
[2023-04-08 18:03] LABS: ALB/GLOB Ratio 1.1 RATIO (0.9-2.4); AST(SGOT) 14 U/L (15-37); Alanine Aminotransfer ALT/SGPT 27 U/L (13-56); Albumin, Serum 3.6 g/dL (3.2-5.0); Alkaline Phosphatase 97 U/L (45-117); Anion Gap 9 (5-15); BUN 13 mg/dL (7-18); BUN/Creat Ratio 11.4 RATIO (10-20); Calcium,Total 9.4 mg/dL (8.5-10.1); Chloride 104 mmol/L (98-107); Creatinine, Serum 1.14 mg/dL (0.55-1.02); EST Glomerular Filtration Rate 51 mL/min (>60); Est Glom Filt Rate - Afr Amer 62 mL/min (>60); Free T3 2.1 pg/mL (2.18-3.98); Globulin 3.4 g/dL (2.2-4.2); Glucose 97 mg/dL (74-106); Potassium 3.5 mmol/L (3.5-5.1); Sodium Level 138 mmol/L (136-145); T4 Free Direct 0.95 ng/dL (0.76-1.46); Thyroid Stim Hormone (TSH) 1.31 uIU/mL (0.358-3.74)
== END | disposition home or self-care (01) ==
LOC: BFHLAB 16:22
PROVIDERS: PCP Family Medicine; Referring Provider Family Medicine; Visit Provider Family Medicine
DX: E03.9 Hypothyroidism, unspecified (principal); Z51.81 Encounter for therapeutic drug level monitoring
CPT/HCPCS: 36415; 80053; 84439; 84443; 84481

== ENCOUNTER 2023-10-28 21:29 | Emergency (ER) | payer OTHER, SELFPAY ==
[2023-10-28 21:30] VITALS: BP 156/92; PULSE 100; RESP 18; TEMP 36.6; O2SAT 100
[2023-10-28 21:32] VITALS: BMI 31.6
--- NOTE | 2023-10-28 22:21 | EDS_ITS ---
HPI HPI - Fall History of Present Illness Chief Complaint: Fall Informant: patient and spouse/S.O. Narrative Narrative: Patient tripped/stumbled on the way down her porch steps at her house, falling down the last step injuring her right lower leg and scraping her left knee. Her left leg does not bother her. It is mainly her right ankle. No prodromal symptoms. PFSH PFSH Medical History Alcohol use BiPAP (biphasic positive airway pressure) dependence Chronic cholecystitis COPD (chronic obstructive pulmonary disease) Depression Diabetes Gastric reflux Gastritis GERD (gastroesophageal reflux disease) High cholesterol History of small bowel obstruction Hypertension Hypothyroid Incisional hernia of anterior abdominal wall without obstruction or gangrene Osteoarthritis PAD (peripheral artery disease) Post-menopausal Pre-op testing Restless legs Sleep apnea Sleep apnea Smoker Thyroid disease Wears dentures Wears glasses Home Medications levothyroxine 50 mcg tablet 50 mcg PO DAILY thyroid 12/07/13 [History Last Taken 10/23/22] gbpipvdthxge-Un-rjmn-minerals 1 ea PO DAILY supplement 12/07/13 [History Last Taken 02/20/22] pilocarpine HCl 7.5 mg tablet 7.5 mg PO BID dry mouth 12/07/13 [History Last Taken 02/21/22] duloxetine 60 mg capsule,delayed release 40 mg PO BID nerve pain 12/18/16 [History Last Taken 02/21/22] albuterol sulfate 90 mcg/actuation aerosol inhaler 1 - 2 puff inhalation PRN PRN Allergies 01/14/20 [History Last Taken 3 Weeks Ago ~01/31/22] cholecalciferol (vitamin D3) 25 mcg (1,000 unit) tablet 1,000 unit PO DAILY supplement 01/21/20 [History Last Taken 02/20/22] omeprazole 20 mg capsule,delayed release 20 mg PO BID gerd 01/21/20 [History Last Taken 02/21/22] losartan 100 mg tablet 100 mg PO DAILY bp 02/21/22 [History Last Taken 02/21/22] acetaminophen 325 mg tablet (Tylenol) 650 mg (2 x 325 mg) PO Q6H PRN PRN Pain Score 1-10 #0 tabs 03/01/22 [Rx Last Taken Unknown] ibuprofen 400 mg tablet 400 mg PO Q6H PRN PRN Pain Score 1-5 #0 tabs 03/01/22 [Rx Last Taken Unknown] blood sugar diagnostic (OneTouch Ultra Test strips) #100 ea 08/01/22 [Rx Last Taken Unknown] blood-glucose meter (OneTouch Ultra2 Meter) #1 ea 08/01/22 [Rx Last Taken Unknown] tirzepatide 5 mg/0.5 mL subcutaneous pen injector (Mounjaro) 5 mg (0.5 mL) subcut QWEEK #2 mL 08/29/23 [Rx Last Taken Unknown] tirzepatide 10 mg/0.5 mL subcutaneous pen injector (Mounjaro) 10 mg (0.5 mL) subcut QWEEK #2 mL 10/22/23 [Rx Last Taken Unknown] duloxetine 40 mg capsule,delayed release 40 mg PO BID 10/28/23 [History Last Taken Unknown] oxycodone-acetaminophen 5 mg-325 mg tablet (Percocet) 1 tab PO Q6H PRN pain 3 days #10 tabs 10/29/23 [Rx Last Taken Unknown] Allergy/AdvReac Type Severity Reaction Status Date / Time erythromycin base AdvReac Nausea Verified 10/28/23 21:32 [Erythromycin Base] hydrocodone bitartrate AdvReac Itching Verified 10/28/23 21:32 [From Vicodin] Family History Mother Breast cancer Hypertension Cancer SKIN Father Cancer Hypertension Other defect Osteoporosis Skin cancer Surgical History H/O colonoscopy H/O esophagogastroduodenoscopy H/O left knee surgery H/O: hysterectomy History of colonoscopy (~01/2020) History of esophagogastroduodenoscopy (EGD) (~01/2020) History of resection of small bowel (~02/2022) left shoulder surgery Parathyroid cyst right foot surgery S/P appendectomy S/P laparoscopic cholecystectomy (~01/13/18) S/P small bowel resection Social History Smoking Status: Current every day smoker tobacco type: cigarettes alcohol intake: current alcohol intake frequency: holidays/special occasions only substance use type: does not use frequency: 3-4 times per week ROS ROS ED Constitutional Constitutional ED: Denies chills or fever(s) Musculoskeletal Musculoskeletal: Reports extremity pain; Denies neck pain Integumentary Reports Abrasions; Denies rash or wounds Neurologic Neurologic: Denies paresthesias or weakness EXAM Physical Exam Const Vital Signs: 10/28/23 21:30 10/28/23 21:56 Temperature 97.8 F Temperature Source Temporal Pulse Rate 100 Respiratory Rate 18 Respiratory Effort Normal Non-Labored Respiratory Depth Normal Respiratory Pattern Normal Blood Pressure 156/92 H Blood Pressure Mean 113 Pulse Ox 100 Oxygen Delivery Method Room Air Room Air Positive well nourished and well developed General Appearance ED: well developed and NAD Neck full ROM and supple Back/Spine normal ROM and normal to inspection Extremity Extremity Narrative: Swelling and tenderness right lateral malleolus, nontender at the medial malleolus. She is mildly tender at the base of the fifth metatarsal and more tender in the dorsal right midfoot. There are no deformities here, but she does have forced inversion of the ankle and she is not able to voluntarily correct it. She has a bounding 2+/4 dorsalis pedis pulse. She has no tenderness at the proximal fibula/knee. She can range the knee and hip without any pain or difficulty and the other 3 extremities move without any pain or difficulty including the left knee where there is an abrasion anteriorly. Neuro oriented x3, no focal motor deficits and no sensory deficits noted Sensorium / Orientation: alert Psych mental status grossly normal and thought process normal Skin no wounds Skin Narrative: Abrasion anterior left knee otherwise benign. Rashes: no rashes MDM MDM Radiography Diagnostic Testing: Clinical Impression(s) from Imaging Studies Ankle X-Ray 10/28/23 22:25 IMPRESSION: Apparent avulsion fracture off the inferior aspect of the fibula. There is overlying soft tissue swelling. Electronically Signed: Edwin Tijerina MD at 23:24 EDT , Foot X-Ray 10/28/23 22:25 IMPRESSION: Negative right foot x-rays. Electronically Signed: Edwin Tijerina MD at 23:23 EDT , Management Discussion w/another healthcare provider: Emergency Veterinary Assistant (podiatrarmida sy) Discharge Plan Triage Chief Complaint: Fall ED Provider: Gold Blankenship Dx/Rx/DC Orders Clinical Impression: Closed fracture of distal end of right fibula, Fall (on) (from) other stairs and steps, initial encounter Instructions: ED Ankle Fracture, Distal Fibula Prescriptions: New oxycodone-acetaminophen [Percocet] 5-325 mg tablet 1 tab PO Q6H PRN (Reason: pain) 3 Days Qty: 10 0RF No Action albuterol sulfate 90 mcg/actuation HFA aerosol inhaler 1 - 2 puff INHALATION PRN PRN (Reason: Allergies) Patient Comments: INHALE 2 PUFFS TWICE A DAY NEEDED (DME) blood-glucose meter [OneTouch Ultra2 Meter] Misc See Rx Instructions .Route Qty: 1 0RF Rx Instructions: As directed (DME) OneTouch Ultra Test Strip See Rx Instructions .Route Qty: 100 5RF Rx Instructions: daily levothyroxine 50 MCG tablet 50 mcg PO DAILY Patient Comments: THYROID MEDICATION olmkhbbhxlrn-Qr-swhl-minerals 1 EACH tablet 1 ea PO DAILY Patient Comments: SUPPLEMENT pilocarpine HCl 7.5 MG tablet 7.5 mg PO BID Patient Comments: GLAUCOMA duloxetine 60 MG capsule 40 mg PO BID Patient Comments: WITH BREAKFAST omeprazole 20 MG capsule 20 mg PO BID cholecalciferol (vitamin D3) 1,000 UNIT tablet 1,000 unit PO DAILY losartan 100 mg tablet 100 mg PO DAILY acetaminophen [Tylenol] 325 mg Tablet 650 mg PO Q6H PRN PRN (Reason: Pain Score 1-10) Qty: 0 0RF ibuprofen 400 mg Tablet 400 mg PO Q6H PRN PRN (Reason: Pain Score 1-5) Qty: 0 0RF duloxetine 40 mg capsule,delayed release(DR/EC) 40 mg PO BID Mounjaro 5 mg/0.5 mL pen injector 5 mg subcut QWEEK Qty: 2 3RF Mounjaro 10 mg/0.5 mL pen injector 10 mg subcut QWEEK Qty: 2 5RF Primary Care Provider: Juany Jacob Referrals: Juany Jacob, [Primary Care Provider] - Víctor Sy DPM [Med Staff - Active Staff] - As soon as possible (call for follow up appt) Disposition Disposition: Home, Self Care
--- NOTE | 2023-10-28 22:25 | RAD_ITS ---
EXAM: XR RIGHT FOOT COMPLETE, 3 OR MORE VIEWS CLINICAL INDICATION: injury TECHNIQUE: Frontal, lateral and oblique views of the right foot. COMPARISON: No relevant prior studies available. FINDINGS: BONES/JOINTS: Unremarkable. No acute fracture. No subluxation. Normal alignment. Preservation of the joint space. No sclerotic or destructive changes observed. SOFT TISSUES: Unremarkable. No soft tissue swelling or gas. No radiopaque foreign body. RAD/Foot min 3 Views IMPRESSION: Negative right foot x-rays. Electronically Signed: Edwin Tijerina MD at 23:23 EDT ,
--- NOTE | 2023-10-28 22:25 | RAD_ITS ---
EXAM: XR RIGHT ANKLE COMPLETE, 3 OR MORE VIEWS CLINICAL INDICATION: injury TECHNIQUE: Frontal, lateral and oblique views of the right ankle. COMPARISON: No relevant prior studies available. FINDINGS: BONES/JOINTS: There is a small bony fragment off the inferior aspect of the fibula which may represent a tiny avulsion fracture. There is mild soft tissue swelling present. Preservation of the joint space. No sclerotic or destructive changes observed. SOFT TISSUES: See above. RAD/Ankle min 3 Views IMPRESSION: Apparent avulsion fracture off the inferior aspect of the fibula. There is overlying soft tissue swelling. Electronically Signed: Edwin Tijerina MD at 23:24 EDT ,
[2023-10-28] MEDS: oxyCODONE 5 MG Tablet PO (22:32)
[2023-10-29] MEDS: oxyCODONE 5 MG Tablet PO (00:21)
[2023-10-29 00:57] VITALS: BP 140/79; PULSE 82; RESP 16; TEMP 36.6; O2SAT 96
== END 2023-10-29 00:58 | disposition home or self-care (01) ==
PROVIDERS: Emergency Provider Emergency Medicine; PCP Family Medicine; Visit Provider Emergency Medicine
DX: S82.401A Unspecified fracture of shaft of right fibula, initial encounter for closed fracture (principal); J44.9 Chronic obstructive pulmonary disease, unspecified; E11.9 Type 2 diabetes mellitus without complications; W10.8XXA Fall (on) (from) other stairs and steps, initial encounter; Y92.89 Other specified places as the place of occurrence of the external cause; E78.00 Pure hypercholesterolemia, unspecified; I10 Essential (primary) hypertension; E03.9 Hypothyroidism, unspecified; Z79.899 Other long term (current) drug therapy; F32.A Depression, unspecified; K21.9 Gastro-esophageal reflux disease without esophagitis; Z90.710 Acquired absence of both cervix and uterus; Z90.49 Acquired absence of other specified parts of digestive tract; F17.210 Nicotine dependence, cigarettes, uncomplicated
CPT/HCPCS: 73610; 73630; 99285

== ENCOUNTER → 2024-03-02 | Outpatient (CLI) | payer OTHER, SELFPAY ==
[2024-03-02 12:15] LABS: Vitamin D,25 Hydroxy 76.9 ng/mL
[2024-03-02 12:30] LABS: AST(SGOT) 18 U/L (15-37); Alanine Aminotransfer ALT/SGPT 25 U/L (13-56); Albumin, Serum 3.3 g/dL (3.2-5.0); Alkaline Phosphatase 90 U/L (45-117); Anion Gap 8 (5-15); BUN 10 mg/dL (7-18); BUN/Creat Ratio 10.8 RATIO (10-20); Calcium,Total 9.1 mg/dL (8.5-10.1); Chloride 104 mmol/L (98-107); Cholesterol 208 mg/dL (200); Creatinine, Serum 0.92 mg/dL (0.55-1.02); EST Glomerular Filtration Rate 65 mL/min (>60); Est Glom Filt Rate - Afr Amer 79 mL/min (>60); Globulin 3.2 g/dL (2.2-4.2); Glucose 93 mg/dL (74-106); High Density Lipoprotein 66 mg/dL; Potassium 3.8 mmol/L (3.5-5.1); Protein, Total 6.5 g/dL (6.4-8.2); Sodium Level 140 mmol/L (136-145); T4 Free Direct 0.94 ng/dL (0.76-1.46); Triglycerides 170 mg/dL; Very Low Density Lipoprotein 34 mg/dL (5-40)
== END | disposition home or self-care (01) ==
LOC: MTLAB 09:54
PROVIDERS: PCP Family Medicine; Referring Provider Nurse Practitioner Family; Visit Provider Nurse Practitioner Family
DX: E11.65 Type 2 diabetes mellitus with hyperglycemia (principal); E03.9 Hypothyroidism, unspecified
CPT/HCPCS: 36415; 80053; 80061; 82306; 84439; 84443

== ENCOUNTER → 2024-03-13 | Outpatient (CLI) | payer OTHER, SELFPAY ==
--- NOTE | 2024-03-13 13:57 | BD_ITS ---
STUDY: DUAL ENERGY X-RAY ABSORPTIOMETRY / DXA REASON FOR EXAM: Female, 63 years old. Post menopause TECHNIQUE: Bone Mineral Density (BMD) measurements of lumbar spine and bilateral hips were obtained. COMPARISON: None. FINDINGS: Lumbar Spine (L1-L4): g/cm2 (0.932) / T-score (-1.0) / Z-score (0.7) Findings are suggestive of normal bone density with a low fracture risk. Left Femur Total: g/cm2 (0.880) / T-score (-0.5) / Z-score (0.7) Left Femoral Neck: g/cm2 (0.762) / T-score (-0.8) / Z-score (0.7) Right Femur Total: g/cm2 (0.884) / T-score (-0.5) / Z-score (0.7) Right Femoral Neck: g/cm2 (0.700) / T-score (-1.3) / Z-score (0.1) BD/Dexa Bone Density Study IMPRESSION: The patient is considered osteopenic as outlined below according to World [employer] Organization (WHO) criteria with a low fracture risk. Reference Information: The T-score is the number of standard deviations above or below the standard which is normal for young adults at their peak bone mineral density. The World Health Organization (WHO) interprets the T-scores as follows: Above -1 Normal bone density Between -1 and -2.5 Osteopenia Equal to / or below -2.5 Osteoporosis As a practical clinical guideline, osteopenia may be graded as follows: Mild -1 through -1.5 Moderate -1.6 through -2.0 Severe -2.1 through -2.4 The Z-score is the number of standard deviations above or below age-matched controls. A Z-score of less than -1.5 would be considered abnormal. References: 1. NIH Osteoporosis and Related Bone Diseases www osteo.org 2. International Society for Clinical Densitometry www iscd.org 3. National Osteoporosis Foundation www nof.org Electronically Signed: Minor Gonzalez MD at 9:38 EDT ,
== END | disposition home or self-care (01) ==
LOC: OPBD 13:56
PROVIDERS: PCP Family Medicine; Referring Provider Nurse Practitioner Family; Visit Provider Nurse Practitioner Family
DX: Z13.820 Encounter for screening for osteoporosis (principal); Z78.0 Asymptomatic menopausal state
CPT/HCPCS: 77080

== ENCOUNTER → 2024-03-27 | Outpatient (CLI) | payer OTHER, SELFPAY ==
--- NOTE | 2024-03-27 10:42 | BI_ITS ---
MAMMOGRAPHY - BILATERAL SCREENING REASON FOR EXAM: Female, 63 years old. Routine annual screening examination. PERTINENT HISTORY: Mother with breast cancer. Aunt with breast cancer. TECHNIQUE: Digital bilateral breast mohan (3D mammographic acquisition) in the CC and MLO projections. 2-D mediolateral oblique (MLO) and craniocaudad (CC) views of both breasts were obtained. CAD: Full Field Digital Mammography with Computer Added Detection was performed. COMPARISON: Comparison is made with prior study March 25, 2023 and March 13, 2022. FINDINGS: Breast Composition: The breasts are heterogeneously dense, which may obscure small masses. There are no dominant masses or suspicious calcifications. Stable bilateral fat-containing axillary lymph nodes. No other significant abnormalities are identified. There has been no significant change since the prior study. BI/SCRN MAMM (CAD)W/MOHAN BILAT IMPRESSION: Stable bilateral screening mammogram. Yearly follow-up mammogram recommended. (A) ASSESSMENT CATEGORY: BIRADS Category 2: Benign. A letter regarding these results will be sent to the patient by the facility within 30 days. Approximately 10% of breast cancers are not detected by mammography. A normal mammogram should not delay biopsy of a clinically suspicious abnormality. [id number] Electronically Signed: Minor Gonzalez MD at 11:36 EDT ,
== END | disposition home or self-care (01) ==
PROVIDERS: PCP Family Medicine; Referring Provider Family Medicine; Visit Provider Family Medicine
DX: Z12.31 Encounter for screening mammogram for malignant neoplasm of breast (principal)
CPT/HCPCS: 77063; 77067

== ENCOUNTER → 2024-05-04 | Outpatient (CLI) | payer OTHER, SELFPAY | END | disposition home or self-care (01) | LOC: BFHLAB 14:57 | PROVIDERS: PCP Family Medicine; Referring Provider Family Medicine; Visit Provider Family Medicine | DX: R30.0 Dysuria (principal) | CPT/HCPCS: 87077; 87086; 87088; 87186 ==

== ENCOUNTER 2024-11-18 10:16 | Day surgery (SDC) | payer MEDICARE, SELFPAY ==
[2024-11-18] VITALS (7 sets, daily range): BP systolic 100–143; BP diastolic 67–89; PULSE 65–90; RESP 16–20; TEMP 36.2–37; O2SAT 93–100; BMI 29.7
[2024-11-18] MEDS: Lactated Ringers 1,000 ML 15 ML IV (11:19)
[2024-11-18 11:34] LABS: Bedside Glucose 101 mg/dL (74-106)
--- NOTE | 2024-11-18 11:57 | PCM.PRE.AN2 ---
ASA Classification* ASA Classification ASA Classification: 3 Assessment & Plan Anesthesia* Anesthesia Assessment Anesthesia Assessment: Discussed sedation and/or anesthesia options, risks, benefits, and alternatives with patient/parents/legal guardian/POA. Questions invited. The patient/parents/legal guardian/POA seems to understand and agrees to proceed with anesthesia plan. Reviewed the physical assessment, medical history, allergy history and patient home medications list prior to surgery/procedure/anesthetic and documented any changes. Performed airway and anesthesia risk assessments. Anesthesia Type Anesthesia Type: MAC History Source History Obtained from:: Patient and Chart Anesthesia Focused Assessment* Temperature: 98.6 F Pulse Rate: 65 Blood Pressure: 143/77 Respiratory Rate: 18 Pulse Ox: 100 Oxygen Delivery Method: Room Air Airway Assessment Mouth opens: >3 cm Mallampati Score: I Teeth Condition: Dentures (Patient has full top and bottom dentures.) Neck Range of motion (ROM): Full ROM Focused Labs Anesthesia Preop lab: CBC WBC 8.6 K/mm3 (4.4-11.0) 09/10/22 10:57 09/10/22 RBC 4.51 M/mm3 (4.2-5.4) 09/10/22 10:57 09/10/22 Hgb 13.9 g/dL (12.0-15.0) 09/10/22 10:57 09/10/22 Hct 42.7 % (37-47) 09/10/22 10:57 09/10/22 Plt Count 372 K/mm3 (150-450) 09/10/22 10:57 09/10/22 CHEMISTRY Potassium 3.8 mmol/L (3.5-5.1) 03/02/24 10:03 03/02/24 Sodium 140 mmol/L (136-145) 03/02/24 10:03 03/02/24 Magnesium 1.8 mg/dL (1.6-2.6) 03/01/22 05:00 03/01/22 Phosphorus 4.1 mg/dL (2.5-4.9) 03/01/22 05:00 03/01/22 BUN 10 mg/dL (7-18) 03/02/24 10:03 03/02/24 Creatinine 0.92 mg/dL (0.55-1.02) 03/02/24 10:03 03/02/24 Glucose 93 mg/dL (74-106) 03/02/24 10:03 03/02/24 POC Glucose 101 mg/dL (74-106) 11/18/24 11:09 11/18/24 TSH 1.790 uIU/mL (0.358-3.740) 03/02/24 10:03 03/02/24 COAG PT 13.1 SECONDS (11.9-14.4) 12/08/13 14:10 12/08/13 Pre-Assessment Diagnosis/Proposed Procedure Planned Operative Procedure(s): COLONOSCOPY Anesthesia History Anesthesia History - development assistant: Anesthesia History - development assistant Hx Hospitalization No 11/18/24 10:46 Any Problems With Anesthesia No 11/18/24 10:46 Cholinesterase deficiency No 11/18/24 10:46 You/Your Family Experience No 11/18/24 10:46 fever (hyperthermia) with Relationship Recent Exposure to Contagious No 11/18/24 11:03 Disease Does patient have nerve No 11/18/24 10:46 stimulator Patient instructed to have device shut off --Does patient have Pacemaker No 11/18/24 11:04 or ICD? When Was Last Pacemaker Check QUESTION #4 FULL TEXT: You/Your Family Experience fever (hyperthermia) with Anesthesia Last Oral Intake Last Oral intake: Last Oral Intake NPO since 07:45 11/18/24 11:04 Meds taken in AM with sips of No 11/18/24 11:04 water? Meds patient instructed to take am of surgery Any additional information?: Yes NPO since: 07:45 (Patient finished prep at 7:45 AM.) PONV PONV - development assistant: PONV - development assistant Female Yes 11/18/24 10:46 HX of Motion Sickness No 11/18/24 10:46 HX of N/V After Surgery No 11/18/24 10:46 Non-Smoker No 11/18/24 10:46 Duration of Surgery greater No 11/18/24 10:46 than 60 minutes Number of Risk Factors 1 11/18/24 10:46 PONV Score Low Risk 11/18/24 10:46 Height & Weight Height & Weight: Anesthesia: Height & Weight Height 4 ft 11.75 in 11/18/24 11:04 Weight: 68.492 kg 11/18/24 11:04 Body Mass Index (BMI) 29.7 11/18/24 11:04 Respiratory Assessment Respiratory Assessment - development assistant: Respiratory Tract Infection Hx - development assistant Hx Respiratory Tract Infection No 11/18/24 10:46 STOP Sleep Apnea STOP Sleep Apnea - development assistant: STOP Sleep Apnea - development assistant Hx Hypertension Yes: PER PT, CONTROLLED ON 11/18/24 10:46 MED Hx Sleep Apnea Yes 11/18/24 10:46 CPAP No 11/18/24 10:46 BIPAP Yes 11/18/24 10:46 Do you snore loudly (louder than talking or can be heard Do you often feel tired/ fatigued/ sleepy during daytime? Has anyone observed you stop breathing during sleep? STOP Results Positive 11/18/24 10:46 QUESTION #5 FULL TEXT : Do you snore loudly (louder than talking or can be heard through closed doors)? Tobacco Use History Tobacco Use History - development assistant: Tobacco Use History - development assistant Tobacco Use Smoking Status Current every day smoker 11/18/24 10:46 Hx Tobacco Use Yes 11/18/24 10:46 Years Smoking Packs Smoked per Day Smoking Cessation Date was within the last 15 years Hx Smoking Cessation Date Hx Smoking Cessation No 11/18/24 10:46 Counseling Any additional information?: Yes Smoking Status: Current every day smoker (Patient smoked today.) Hematologic Medial History Hematologic Hx - development assistant: Hematologic Medical Hx - rn documentation Hx of Blood Transfusion No 11/18/24 10:46 Hx of Transfusion in last 3 No 11/18/24 10:46 Months Date of Last Transfusion (if within last 3 months) Ever experience any problems No 11/18/24 10:46 with transfusion(s)? Specify any problems Hx of Preganancy in last 3 No 11/18/24 10:46 Months Nurse Filling Out Transfusion MGRIFFITH 11/18/24 10:46 & Questions: Date: 11/18/24 11/18/24 10:46 Time: 10:49 11/18/24 10:46 Patient unable to answer at this time (ie. confused, unrespo /Reproduction History /Reproductive History - development assistant: /Reproductive Hx- development assistant Hx Now No 11/18/24 10:46 Gestational Age (in weeks): EDC: Hx Hx Para Hx Section SAB No 11/18/24 10:46 Active Medications Active Medications: Current Medications Generic Name Dose Route Start Last Admin Trade Name Freq PRN Reason Stop Dose Admin Lactated Ringer's 1,000 mls @ 15 mls/hr 11/18/24 10:30 11/18/24 11:19 IV 15 mls/hr .Q48H CAITLIN Administration PFSH Medical History Abrasion History of steroid therapy Arthritis Easy bruising History of hiatal hernia Asthma Leg cramps Wears dentures Wears glasses Post-menopausal Alcohol use Thyroid disease Diabetes High cholesterol Restless legs Gastric reflux Smoker BiPAP (biphasic positive airway pressure) dependence Sleep apnea COPD (chronic obstructive pulmonary disease) Hypertension Pre-op testing Incisional hernia of anterior abdominal wall without obstruction or gangrene History of small bowel obstruction Osteoarthritis GERD (gastroesophageal reflux disease) PAD (peripheral artery disease) Chronic cholecystitis Depression Gastritis Hypothyroid Home Medications ?Medication ?Instructions ?Recorded ?Last Taken ?Type levothyroxine 50 mcg tablet 50 mcg PO DAILY thyroid 12/07/13 11/17/24 History hlguxrselwdo-Uh-oyho-minerals 1 ea PO DAILY supplement 12/07/13 11/17/24 History albuterol sulfate 90 mcg/actuation 1 - 2 puff inhalation BID PRN PRN 01/14/20 3 Weeks Ago History aerosol inhaler Allergies ~01/31/22 cholecalciferol (vitamin D3) 25 1,000 unit PO DAILY supplement 01/21/20 11/17/24 History mcg (1,000 unit) tablet losartan 100 mg tablet 100 mg PO DAILY bp 02/21/22 11/17/24 History acetaminophen 325 mg tablet 650 mg (2 x 325 mg) PO Q6H PRN PRN 03/01/22 Unknown Rx (Tylenol) Pain Score 1-10 #0 tabs ibuprofen 400 mg tablet 400 mg PO Q6H PRN PRN Pain Score 03/01/22 Unknown Rx 1-5 #0 tabs blood sugar diagnostic (OneTouch #100 ea 08/01/22 Unknown Rx Ultra Test strips) blood-glucose meter (OneTouch #1 ea 08/01/22 Unknown Rx Ultra2 Meter) pilocarpine HCl 7.5 mg tablet 7.5 mg PO DAILY dry mouth 02/19/24 11/17/24 History duloxetine 20 mg capsule,delayed 20 mg PO DAILY 08/19/24 11/17/24 History release omeprazole 20 mg capsule,delayed 20 mg PO DAILY PRN gerd 08/19/24 11/17/24 History release tirzepatide 10 mg/0.5 mL 10 mg (0.5 mL) subcut QWEEK #2 mL 08/19/24 11/12/24 Rx subcutaneous pen injector (Mounjaro) tralokinumab-ldrm 300 mg/2 mL 300 mg subcut Q14D 11/18/24 11/17/24 History subcutaneous auto-injector (Adbry) Allergy/AdvReac Type Severity Reaction Status Date / Time erythromycin base AdvReac Nausea Verified 11/18/24 10:41 (Erythromycin Base) hydrocodone bitartrate (From AdvReac Itching Verified 11/18/24 10:41 Vicodin) Family History Mother Breast cancer Hypertension Cancer SKIN Father Cancer Hypertension Other defect Osteoporosis Skin cancer Surgical History S/P small bowel resection History of resection of small bowel (~02/2022) History of colonoscopy (~01/2020) History of esophagogastroduodenoscopy (EGD) (~01/2020) S/P laparoscopic cholecystectomy (~01/13/18) H/O esophagogastroduodenoscopy H/O colonoscopy Parathyroid cyst S/P appendectomy left shoulder surgery right foot surgery H/O left knee surgery H/O: hysterectomy Social History Smoking Status: Current every day smoker (Patient smoked today.) tobacco type: cigarettes alcohol intake: current alcohol intake frequency: holidays/special occasions only substance use type: does not use frequency: 3-4 times per week Review of Systems (Anesthesia) ROS Narrative System reviewed and no additional complaints, except as documented.
--- NOTE | 2024-11-18 12:30 | COLBX_PTH ---
PATIENT: KRANTHI PARKER LOC: EN U#:[id number] AGE/SX: 64/F ROOM: RE11/18/[address]: Dr. Víctor Valdivia MD : 1960 BED: DIS: 11/18/2024 SPEC #: [id number] RECD: 11/18/24 14:30 STATUS: DINA JANESSA #: [id number] YOBANY: 11/18/24 12:[address]: Víctor Valdivia DEPT: SURGICAL PATHOLOGY RECD BY: Dereje Newsome ENTERED: 11/18/24 15:08 SP TYPE: COLON BX OTHR DR: Dr. Juany Jacob DO Tissues: A - Rectum, NOS B - Rectum, NOS Procedures: Surgery Specimen Level IV HEADER OPERATION: Colonoscopy, polyp biopsies PRE-OP DIAGNOSIS: History of colon polyps TISSUE SUBMITTED: A- Rectal polyp biopsy, B- Rectal polyps biopsy MICROSCOPIC DIAGNOSIS A. Rectum, polyp, biopsy: Hyperplastic polyp. B. Rectum, polyp, biopsy: Hyperplastic polyp. MICROSCOPIC DESCRIPTION Slides are reviewed. GROSS DESCRIPTION A. Received in formalin in a container labeled with the patient's name, date of , and 1) rectal polyp biopsy are 2 machado-pink fragments of mucosal tissue measuring 0.4 x 0.3 x 0.2 cm and 0.5 x 0.2 x 0.2 cm. Submitted in toto in A1. B. Received in formalin in a container labeled with the patient's name, date of , and 2) rectal polyps biopsy is a 0.5 x 0.3 x 0.2 cm strip of machado-pink mucosal tissue. Submitted in toto in B1. [facility] 11/18/2024 CPT:30287d5
--- NOTE | 2024-11-18 12:37 | H&P.OPEN ---
[facility] - General General Date of Service: 11/18/24 Chief Complaint: Need for repeat surveillance colonoscopy HPI Narrative KRANTHI PARKER, is a 64 F who presents for repeat surveillance colonoscopy due to a history of colonic polyps. Last colonoscopy completed 2019. She confirms her preappointment questionnaire that she has not experienced any change in her bowel habits-and particularly denies any notice of blood. She also shares a family history to include diverticulitis of her mother. Lastly she confirms that her prep was completed successfully and that her output is now clear. [facility] Medical History Abrasion History of steroid therapy Arthritis Easy bruising History of hiatal hernia Asthma Leg cramps Wears dentures Wears glasses Post-menopausal Alcohol use Thyroid disease Diabetes High cholesterol Restless legs Gastric reflux Smoker BiPAP (biphasic positive airway pressure) dependence Sleep apnea COPD (chronic obstructive pulmonary disease) Hypertension Pre-op testing Incisional hernia of anterior abdominal wall without obstruction or gangrene History of small bowel obstruction Osteoarthritis GERD (gastroesophageal reflux disease) PAD (peripheral artery disease) Chronic cholecystitis Depression Gastritis Hypothyroid Home Medications ?Medication ?Instructions ?Recorded ?Last Taken ?Type levothyroxine 50 mcg tablet 50 mcg PO DAILY thyroid 12/07/13 11/17/24 History xycudyepripn-Yp-vrkp-minerals 1 ea PO DAILY supplement 12/07/13 11/17/24 History albuterol sulfate 90 mcg/actuation 1 - 2 puff inhalation BID PRN PRN 01/14/20 3 Weeks Ago History aerosol inhaler Allergies ~01/31/22 cholecalciferol (vitamin D3) 25 1,000 unit PO DAILY supplement 01/21/20 11/17/24 History mcg (1,000 unit) tablet losartan 100 mg tablet 100 mg PO DAILY bp 02/21/22 11/17/24 History acetaminophen 325 mg tablet 650 mg (2 x 325 mg) PO Q6H PRN PRN 03/01/22 Unknown Rx (Tylenol) Pain Score 1-10 #0 tabs ibuprofen 400 mg tablet 400 mg PO Q6H PRN PRN Pain Score 03/01/22 Unknown Rx 1-5 #0 tabs blood sugar diagnostic (OneTouch #100 ea 08/01/22 Unknown Rx Ultra Test strips) blood-glucose meter (OneTouch #1 ea 08/01/22 Unknown Rx Ultra2 Meter) pilocarpine HCl 7.5 mg tablet 7.5 mg PO DAILY dry mouth 02/19/24 11/17/24 History duloxetine 20 mg capsule,delayed 20 mg PO DAILY 08/19/24 11/17/24 History release omeprazole 20 mg capsule,delayed 20 mg PO DAILY PRN gerd 08/19/24 11/17/24 History release tirzepatide 10 mg/0.5 mL 10 mg (0.5 mL) subcut QWEEK #2 mL 08/19/24 11/12/24 Rx subcutaneous pen injector (Mounjaro) tralokinumab-ldrm 300 mg/2 mL 300 mg subcut Q14D 11/18/24 11/17/24 History subcutaneous auto-injector (Adbry) Allergy/AdvReac Type Severity Reaction Status Date / Time erythromycin base AdvReac Nausea Verified 11/18/24 10:41 (Erythromycin Base) hydrocodone bitartrate (From AdvReac Itching Verified 11/18/24 10:41 Vicodin) Family History Mother Breast cancer Hypertension Cancer SKIN Father Cancer Hypertension Other defect Osteoporosis Skin cancer Surgical History S/P small bowel resection History of resection of small bowel (~02/2022) History of colonoscopy (~01/2020) History of esophagogastroduodenoscopy (EGD) (~01/2020) S/P laparoscopic cholecystectomy (~01/13/18) H/O esophagogastroduodenoscopy H/O colonoscopy Parathyroid cyst S/P appendectomy left shoulder surgery right foot surgery H/O left knee surgery H/O: hysterectomy Social History Smoking Status: Current every day smoker (Patient smoked today.) tobacco type: cigarettes alcohol intake: current alcohol intake frequency: holidays/special occasions only substance use type: does not use frequency: 3-4 times per week Past Medical/Surgical History Planned Operation Planned Operative Procedure(s): COLONOSCOPY S.O.S: No Previous Hospitalizations/Surgeries HX Hospitalizations: No HX of Surgeries: rt foot- bone heel spur/ tendons cut lt knee- arthroscopic lt shoulder SURGERY HYSTERECTOMY 2005 EXPLORATORY LAPAROSCOPIC APPENDECTOMY 2014 TUBAL LIGATION 2003 EGD/COLONOSCOPY EGD 01/02/2018 [facility] CYST REMOVED PARATHYROID 10/2017 [facility] DIOINCIO 2018 Any Problems With Anesthesia: No You/Your Family Experience Fever (Hyperthermia) With Anes: No Cholinesterase deficiency: No Cardiovascular Hx Chest Pain within Last 2 months: No Hx of Irregular Heartbeat and/or Afib: No (.) Hx Heart Attack: No Hx Congestive Heart Failure: No Hx Rheumatic Fever: No Hx Hypertension: Yes (PER PT, CONTROLLED ON MED) Hx Internal Defibrillator: No Hx Pacemaker: No Hx Cardiac Catheterization: No Hx Cardiac Surgery/Stents/Etc.: No Hx Stress Test: No Hx Pain in Legs when Walking/Leg Cramps: No Respiratory Chronic Cough: No HX of Shortness of Breath: No Hoarseness: No Hx Chronic Obstructive Pulmonary Disease (COPD): No Hx Asthma: No (ALLERGIES) Hx Emphysema: No Hx Sleep Apnea: Yes CPAP: No BIPAP: Yes Hx Respiratory Tract Infection/Cold (presently): No Result (for STOP score): Positive Hx Smoking: Yes (5-7 CIGARETTES FOR 35+ YRS, TRYING TO QUIT) Smoking Status: Current every day smoker (Patient smoked today.) Gastrointestinal Controlled With Meds: Yes (OMEPRAZOLE) Hx Gastrointestinal Disorders: Yes (INFLAMATION STOMACH) Hx Gastrointestinal Bleed: No Hx Ulcer: No Hx Hiatal Hernia: Yes Difficulty Chewing/Swallowing: Yes (OCC TROUBLES WITH SWALLOWING) Special diet followed at home: No Hx Unplanned Weight Loss of 20#: No HX Unplanned Weight Gain of 20#: No Neurological Hx Seizures: No HX Syncope/Blackout Spells/Unconsciousness: No Hx Transient Ischemic Attacks (TIA): No Hx Multiple Sclerosis: No Hx Parkinson's Disease: No Hx Head/Neck Injury: No Hx Headaches: Yes (MIGRAINES/BOTOX INJECTIONS Q12 WEEKS) Hx Back Injury/Pain: Yes (BACK PAIN AT TIMES, FIBROMYALGIA) Recent Onset of Speech Difficulty: No Restless Legs: Yes Does patient have nerve stimulator: No Blood Disorder Hx Leukemia: No Bleeding Tendencies: Yes (BRUISES EASILY) Hx Deep Vein Thrombosis: No Hx High Cholesterol: Yes (PER HX) Blood Transmitted Disease: No Hx Hepatitis: No Hx Cirrhosis: No Hx Anemia: No Hx Blood Disorders: No Reproduction : No Is Patient Lactating: No Hx Hysterectomy: Yes Hx Tubal Ligation: Yes Are You Post Menopause: Yes Genitourinary Hx Renal Disease: No Hx Dialysis: No Musculoskeletal Hx Arthritis: No Hx Rheumatoid Arthritis: Yes (fibromyalgia/lupus?) Hx Gout: No Recent Onset of an Orthopedic Problem: No Endocrine Hx Diabetes: No Insulin: No Thyroid Disease: Yes (ON MED) Hx Steroid Therapy: No Psycho/Social Hx Substance Use: No Hx Alcohol Use: Yes (1 DRINK/MONTH) Hx Anxiety: Yes Hx Depression: Yes (ON MED) Mental Illness: No Hx Dementia: No Miscellaneous Hx Cancer: No Recent Exposure to Contagious Disease: No Hx of C-Diff: No Any Loose Teeth: No (FULL SET OF DENTURES) Allergies erythromycin base (Erythromycin Base) Adverse Reaction (Verified 11/18/24 10:41) Nausea hydrocodone bitartrate (From Vicodin) Adverse Reaction (Verified 11/18/24 10:41) Itching Discharge Is Pt Admitted From a Correction, or a Longterm: No Who Could Help: BOYFRIEND After D/C, Where Do you Plan to Go: Return Home From the [facility] History Number of Risk Factors: 4 Vital Signs Vital Signs Vital Signs: 11/18/24 11:03 11/18/24 11:04 11/18/24 12:03 Temperature 98.6 F 98.6 F Temperature Source Temporal Pulse Rate 65 65 Respiratory Rate 18 18 Respiratory Pattern Normal Blood Pressure 143/77 H 143/77 H Blood Pressure Mean 99 Blood Pressure Source Monitor Blood Pressure Position Semi-Fowlers Blood Pressure Location Right Arm Pulse Ox 100 100 Oxygen Delivery Method Room Air Room Air Weight Weight: 151 lb Body Mass Index (BMI) 29.7 Physical Exam Const alert, oriented x3 and no apparent distress Chest Chest Narrative: Slight splotchy rash to anterior chest wall Resp normal respiratory effort GI GI Narrative: Well-healed midline incision without palpable evidence of hernia. Nondistended, soft, nontender to palpation x 4 quadrants Assessment & Plan Assessment/Plan (1) History of colon polyps: PLAN: Patient is 64-year-old female known to me for history of jejunal resection followed by incisional hernia repair who presents today for surveillance colonoscopy given a history of colonic polyps. Last colonoscopy completed 2019. Patient denies any concerning GI habits at present. She confirms she has held her Mounjaro medication in anticipation of today's procedure as well as completed prep. She confirms that her output is now clear. Will proceed to endoscopy suite for planned colonoscopy with sedation provided by anesthesia. Surgery Risks - Colonoscopy Risks Include but are not Limited To: Risks include but are not limited to: Bleeding, perforation requiring further surgery, inability to complete colonoscopy requiring barium enema.
--- NOTE | 2024-11-18 13:34 | PCM.POST.ANE ---
Anesthesia: Postop Eval I Current Vital Signs Temperature: 97.1 F Pulse Rate: 90 Blood Pressure: 100/72 Respiratory Rate: 20 Pulse Ox: 100 Oxygen Delivery Method: Room Air Assessment Airway patent: Yes Spontaneous unlabored respirations: Yes Mental status: Awake and Calm nausea: No Vomiting: No Anesthesia Complication: No Fluid Hydration Crystalloid volume administer (ml): 700 Total IV fluid infused: 700 Progress Note Anesthesia document: Postop Eval 1 completed: Yes
--- NOTE | 2024-11-18 13:44 | OP.COLON_ITS ---
Patient Name: Latonya Padilla Procedure Date: 11/18/2024 12:30 PM Date of : 1960 Age: 64 Procedure: Colonoscopy Indications: High risk colon cancer surveillance: Personal history of colonic polyps Providers: Víctor Valdivia MD Medicines: See the Anesthesia note for documentation of the administered medications Patient Profile: Last Colonoscopy: 5 years ago. Complications: No immediate complications. Estimated blood loss: Minimal. Procedure: Pre-Anesthesia Assessment: - The heart rate, respiratory rate, oxygen saturations, blood pressure, adequacy of pulmonary ventilation, and response to care were monitored throughout the procedure. After I obtained informed consent, the scope was passed under direct vision. Throughout the procedure, the patient's blood pressure, pulse, and oxygen saturations were monitored continuously. The pediatric colonoscope was introduced through the anus and advanced to the cecum, identified by palpation. The colonoscopy was somewhat difficult due to significant looping and a tortuous colon. Successful completion of the procedure was aided by withdrawing and reinserting the scope, straightening and shortening the scope to obtain bowel loop reduction, using scope torsion and applying abdominal pressure. The patient tolerated the procedure fairly well. The quality of the bowel preparation was adequate to identify polyps greater than 5 mm in size. Scope In: 12:49:21 PM Scope Withdrawal Time 0 hours 14 minutes 1 second Scope Out: 1:24:38 PM Total Procedure Duration Time 0 hours 35 minutes 17 seconds Findings: The perianal exam findings include skin tags and decreased rectal tone. The sigmoid colon, transverse colon and ascending colon were moderately tortuous. No biopsies or other specimens were collected for this exam. Two semi-sessile, non-bleeding polyps were found in the rectum. The polyps were 5 mm in size. Biopsies were taken with a cold forceps for histology. Estimated blood loss was minimal. Anal papilla(e) were hypertrophied. No biopsies or other specimens were collected for this exam. The exam was otherwise without abnormality. Impression: - Perianal skin tags found on perianal exam. - Tortuous colon. No specimens collected. - Two 5 mm, non-bleeding polyps in the rectum. Biopsied. - Anal papilla(e) were hypertrophied. No specimens collected. - The examination was otherwise normal. Recommendation: - Discharge patient to home (via wheelchair). - Resume previous diet today. - No aspirin, ibuprofen, naproxen, or other non-steroidal anti-inflammatory drugs for 2 days after biopsy. - Await pathology results. - Repeat colonoscopy date to be determined after pending pathology results are reviewed for surveillance based on pathology results. - Telephone my office for pathology results in 1 week. Procedure Code(s): --- Professional --- 03397, Colonoscopy, flexible; with biopsy, single or multiple Diagnosis Code(s): --- Professional --- Z86.010, Personal history of colonic polyps D12.8, Benign neoplasm of rectum K62.89, Other specified diseases of anus and rectum K64.4, Residual hemorrhoidal skin tags Q43.8, Other specified congenital malformations of intestine CPT copyright 2021 [employer]. All rights reserved. The codes documented in this report are preliminary and upon manager beauty review may be revised to meet current compliance requirements. Víctor Valdivia MD 11/18/2024 1:43:28 PM This report has been signed electronically. Number of Addenda: 0 Note Initiated On: 11/18/2024 12:30 PM
--- NOTE | 2024-11-18 13:44 | OP.CCLET_ITS ---
11/18/2024 Juany Jacob [address] [facility] [place] [address] Re : Colonoscopy procedure for Latonya Padilla Dear Dr. Jacob This procedure was performed on Monday, November 18, 2024. My impressions and recommendations are as follows: Impressions : - Perianal skin tags found on perianal exam. - Tortuous colon. No specimens collected. - Two 5 mm, non-bleeding polyps in the rectum. Biopsied. - Anal papilla(e) were hypertrophied. No specimens collected. - The examination was otherwise normal. Recommendations : - Discharge patient to home (via wheelchair). - Resume previous diet today. - No aspirin, ibuprofen, naproxen, or other non-steroidal anti-inflammatory drugs for 2 days after biopsy. - Await pathology results. - Repeat colonoscopy date to be determined after pending pathology results are reviewed for surveillance based on pathology results. - Telephone my office for pathology results in 1 week. My findings are described in the full procedure note, which is enclosed. If I can be of further assistance, please feel free to contact me at Doctor phone number(s): , Work: . Sincerely, Víctor Valdivia MD 11/18/2024 1:43:28 PM This report has been signed electronically.
--- NOTE | 2024-11-18 15:09 | POSTOPAN2_ITS ---
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 Spontaneous unlabored Yes 11/18/24 13:35 [email or web address] [email or web address] respirations Mental status Awake,Calm 11/18/24 13:35 [email or web address] nausea No 11/18/24 13:35 [email or web address] Vomiting No 11/18/24 13:35 [email or web address] Anesthesia Postop Eval I: Fluid Summary Crystalloid volume administer 700 11/18/24 13:35 [email or web address] (ml) Colloids volume administered ( ml) Blood Product volume administered (ml) Total IV fluid infused 700 11/18/24 13:35 [email or web address] Anesthesia Postop Eval I: Summary Notes Anesthesia Complication No 11/18/24 13:35 [email or web address] Anesthesia Complication Comment: Post-operative progress note Anesthesia: Postop Eval II Evaluation Mental status: Awake Pain Level: 0 nausea: No Vomiting: No
--- NOTE | 2024-11-18 15:09 | PCM.POSTANE2 ---
Anesthesia Postop Eval I Sum Postop Eval Completion status Anesthesia document: Postop Eval 1 completed: Yes Anesthesia Postop Eval I Summary Anesthesia Postop Eval I Summary: Anesthesia Postop Eval I: Assessment Summary Airway patent Yes 11/18/24 13:35 [email or web address] Spontaneous unlabored Yes 11/18/24 13:35 [employer] [email or web address] respirations Mental status Awake,Calm 11/18/24 13:35 [employer] [email or web address] nausea No 11/18/24 13:35 [employer] [email or web address] Vomiting No 11/18/24 13:35 [email or web address] Anesthesia Postop Eval I: Fluid Summary Crystalloid volume administer 700 11/18/24 13:35 [employer] [email or web address] (ml) Colloids volume administered ( ml) Blood Product volume administered (ml) Total IV fluid infused 700 11/18/24 13:35 [employer] [email or web address] Anesthesia Postop Eval I: Summary Notes Anesthesia Complication No 11/18/24 13:35 [email or web address] Anesthesia Complication Comment: Post-operative progress note Anesthesia: Postop Eval II Evaluation Mental status: Awake Pain Level: 0 nausea: No Vomiting: No
== END 2024-11-18 14:23 | disposition home or self-care (01) ==
LOC: EN 10:17 → AC 10:18
PROVIDERS: PCP Family Medicine; Referring Provider Family Medicine; Visit Provider Surgery
PROC: 0DJD8ZZ Inspection of Lower Intestinal Tract, Via Natural or Artificial Opening Endoscopic (ICD-10-PCS; CPT 45378; principal; 2024-11-18 12:25)
DX: Z12.11 Encounter for screening for malignant neoplasm of colon (principal); J44.9 Chronic obstructive pulmonary disease, unspecified; E11.9 Type 2 diabetes mellitus without complications; D12.8 Benign neoplasm of rectum; K64.4 Residual hemorrhoidal skin tags; K62.89 Other specified diseases of anus and rectum; Q43.8 Other specified congenital malformations of intestine; K21.9 Gastro-esophageal reflux disease without esophagitis; I10 Essential (primary) hypertension; F17.210 Nicotine dependence, cigarettes, uncomplicated; Z90.49 Acquired absence of other specified parts of digestive tract; Z79.85 Long-term (current) use of injectable non-insulin antidiabetic drugs; Z79.899 Other long term (current) drug therapy; Z86.0100 Personal history of colon polyps, unspecified
CPT/HCPCS: 45380; 82962; 88305

== ENCOUNTER → 2025-02-19 | Outpatient (CLI) | payer MEDICARE, SELFPAY ==
[2025-02-19 11:10] LABS: Creatinine, Urine (random) 139.00 mg/dL (28.00-217.00); Microalbumin,Random Urine < 12.0 mg/L (<20 mg/L)
[2025-02-19 14:16] LABS: AST(SGOT) 19 U/L (<=31); Alanine Aminotransfer ALT/SGPT 19 U/L (<=34); Albumin, Serum 4.1 g/dL (3.4-4.8); Alkaline Phosphatase 72 U/L (35-104); Anion Gap 14 (5-15); BUN 15 mg/dL (4-19); BUN/Creat Ratio 15.8 RATIO (10-20); Calcium,Total 9.6 mg/dL (7.6-11.0); Carbon Dioxide 23.4 mmol/L (21.0-32.0); Chloride 101 mmol/L (98-108); Cholesterol 206 mg/dL (<=200); Globulin 2.4 g/dL (2.2-4.2); Glucose 88 mg/dL (70-99); Low Density Lipoprotein Calc. 85 mg/dL; Potassium 3.7 mmol/L (3.3-5.1); Triglycerides 114 mg/dL; Very Low Density Lipoprotein 23 mg/dL (5-40); cholesterol:hdl ratio screen 2.11
[2025-02-19 14:45] LABS: Vitamin D,25 Hydroxy 60.6 ng/mL (30-100)
== END | disposition home or self-care (01) ==
LOC: MTLAB 09:09
PROVIDERS: PCP Family Medicine; Referring Provider Nurse Practitioner Family; Visit Provider Nurse Practitioner Family
DX: E11.65 Type 2 diabetes mellitus with hyperglycemia (principal); E55.9 Vitamin D deficiency, unspecified
CPT/HCPCS: 36415; 80053; 80061; 82043; 82306; 82570; 84439; 84443

== ENCOUNTER → 2025-04-27 | Outpatient (CLI) | payer MEDICARE, SELFPAY ==
--- NOTE | 2025-04-27 08:12 | BI_ITS ---
EXAM: BI/SCRN MAMM (CAD)W/MOHAN BILAT
== END | disposition home or self-care (01) ==
LOC: OPBI 08:11
PROVIDERS: PCP Family Medicine; Referring Provider Family Medicine; Visit Provider Family Medicine
DX: Z12.31 Encounter for screening mammogram for malignant neoplasm of breast (principal)
CPT/HCPCS: 77063; 77067

== ENCOUNTER → 2025-05-06 | Outpatient (CLI) | payer MEDICARE, SELFPAY | END | disposition home or self-care (01) | LOC: LABSPEC 12:58 | PROVIDERS: PCP Family Medicine; Referring Provider Family Medicine; Visit Provider Family Medicine | DX: R30.0 Dysuria (principal) | CPT/HCPCS: 87086 ==